=== PATIENT | female | born 1935 | race Caucasian/White ===

== ENCOUNTER → 2018-03-04 13:57 | Outpatient (BNVA) | payer MEDICARE, MEDICAID, SELFPAY | PROVIDERS: PCP Family Medicine; Visit Provider Orthopaedic Surgery | DX: M17.11 Unilateral primary osteoarthritis, right knee (principal) | CPT/HCPCS: 20610; 99213; J7325 ==

== ENCOUNTER → 2018-04-15 10:11 | Outpatient (BNVA) | payer MEDICARE, MEDICAID, SELFPAY | PROVIDERS: PCP Family Medicine; Referring Provider Family Medicine; Visit Provider Orthopaedic Surgery | DX: M17.11 Unilateral primary osteoarthritis, right knee (principal); M25.561 Pain in right knee; E11.9 Type 2 diabetes mellitus without complications; I10 Essential (primary) hypertension | CPT/HCPCS: 20610; 99211; 99213; J1040 ==

== ENCOUNTER 2018-05-10 12:15 | Outpatient (REF) | payer MEDICARE, MEDICAID, SELFPAY ==
[2018-05-10 22:17] LABS: ALT 21 U/L (12-78); AST 17 U/L (15-37); Albumin 3.9 g/dL (3.4-5.0); Alkaline Phosphatase 88 U/L (46-116); Anion Gap 9.9 mmol/L (3-11); BUN 15 mg/dL (7-18); Bilirubin, Total 0.5 mg/dL (0.2-1.0); CO2 29.1 mmol/L (21.0-32.0); CREATININE 1.05 mg/dL (0.55-1.02); Calcium 9.4 mg/dL (8.5-10.1); Chloride 103 mmol/L (98-107); Glucose 130 mg/dL (70-100); Potassium 3.9 mmol/L (3.5-5.1); Sodium 142 mmol/L (136-145); TSH (W/Ref FT4) 0.62 uIU/mL (0.358-3.74); Total Protein 7.1 g/dL (6.4-8.2)
[2018-05-10 22:54] LABS: Hemoglobin A1C 6.4 % (4.5-6.2)
== END 2018-05-10 12:35 ==
LOC: NCHCN 12:15
PROVIDERS: PCP Family Medicine; Visit Provider Family Medicine
DX: E11.9 Type 2 diabetes mellitus without complications (principal); I10 Essential (primary) hypertension; E03.9 Hypothyroidism, unspecified
CPT/HCPCS: 80053; 83036; 84443

== ENCOUNTER 2018-07-07 13:03 | Outpatient (REF) | payer MEDICARE, MEDICAID, SELFPAY ==
[2018-07-07 22:23] LABS: Bilirubin Negative (Negative); Blood Negative (Negative); Clarity Clear; Glucose Negative (Negative); Ketones Negative (Negative); Leukocyte Esterase Negative (Negative); Nitrite Negative (Negative); Urobilinogen 0.2 EU/dL (Up TO 0.2)
== END 2018-07-07 13:23 ==
LOC: NCHCN 13:03
PROVIDERS: PCP Family Medicine; Visit Provider Family Medicine
DX: N39.46 Mixed incontinence (principal)
CPT/HCPCS: 81003

== ENCOUNTER → 2018-08-12 13:54 | Outpatient (BNVA) | payer MEDICARE, MEDICAID, SELFPAY | PROVIDERS: PCP Family Medicine; Referring Provider Family Medicine; Visit Provider Orthopaedic Surgery | DX: M17.11 Unilateral primary osteoarthritis, right knee (principal); E11.40 Type 2 diabetes mellitus with diabetic neuropathy, unspecified; I10 Essential (primary) hypertension | CPT/HCPCS: 20610; 99211; 99213; J7325 ==

== ENCOUNTER 2019-02-15 15:46 | Outpatient (REF) | payer MEDICARE, MEDICAID, SELFPAY ==
[2019-02-15 17:00] LABS: Bilirubin Negative (Negative); Blood Negative (Negative); Clarity Cloudy (Clear); Glucose 100 mg/dL (Negative); Ketones Negative (Negative); Leukocyte Esterase Trace (Negative); Nitrite Negative (Negative); Specific Gravity 1.015 (1.005-1.025); Urobilinogen 0.2 EU/dL (Up TO 0.2); pH 8.5 (5-8)
[2019-02-15 17:19] LABS: Bacteria Packed HPF (Negative); Epithelial Cells Rare HPF (Negative)
[2019-02-15 17:20] LABS: C & S Indicated? Yes; Crystals Moderate Amorphous HPF (Negative)
== END 2019-02-15 16:06 ==
LOC: LBN 15:46
PROVIDERS: PCP Family Medicine; Visit Provider Family Medicine
DX: N39.0 Urinary tract infection, site not specified (principal)
CPT/HCPCS: 87077; 81003; 81015; 87086; 87186

== ENCOUNTER → 2019-02-17 12:57 | Outpatient (BNVA) | payer MEDICARE, MEDICAID, SELFPAY | PROVIDERS: PCP Family Medicine; Referring Provider Family Medicine; Visit Provider Orthopaedic Surgery | DX: M17.11 Unilateral primary osteoarthritis, right knee (principal); E11.9 Type 2 diabetes mellitus without complications; I10 Essential (primary) hypertension | CPT/HCPCS: 20610; 99211; 99213; J7318 ==

== ENCOUNTER 2019-05-26 15:20 | Outpatient (REF) | payer MEDICARE, MEDICAID, SELFPAY ==
[2019-05-26 19:23] LABS: Anion Gap 10.6 mmol/L (3-11); BUN 10 mg/dL (7-18); CO2 29.4 mmol/L (21.0-32.0); CREATININE 1.24 mg/dL (0.55-1.02); Chloride 103 mmol/L (98-107); Estimated GFR 41.41 (mL/min/1.73m2); Glucose 107 mg/dL (74-106); Potassium 4.5 mmol/L (3.5-5.1); Sodium 143 mmol/L (136-145); TSH (W/Ref FT4) 0.86 uIU/mL (0.36-3.74)
[2019-05-26 19:32] LABS: COMMENT (LAB VIEW ONLY) 35.41 mg/dL; Microalb ug/mg Crea 23.2 ug/mg Cr
== END 2019-05-26 15:40 ==
LOC: NCHCN 15:20
PROVIDERS: PCP Family Medicine; Visit Provider Nurse Practitioner Family
DX: E03.9 Hypothyroidism, unspecified (principal); I10 Essential (primary) hypertension; E11.9 Type 2 diabetes mellitus without complications
CPT/HCPCS: 80048; 82043; 82570; 84443

== ENCOUNTER 2019-07-25 18:46 | Outpatient (REF) | payer MEDICARE, SELFPAY ==
[2019-07-25 18:15] LABS: Abs Immature Grans 0.01 k/cumm (0.0-0.09); Absolute Basophil Count 0.02 k/cumm (0.0-0.2); Absolute Eosinophil Count 0.25 k/cumm (0.0-0.7); Absolute Lymphocyte Count 2.17 k/cumm (1.2-3.4); Absolute Monocyte Count 0.61 k/cumm (0.11-0.7); Absolute Neutrophil Count 3.23 k/cumm (1.2-6.7); Basophils % 0.3; HCT 38.3 % (36.0-46.0); HGB 12.3 g/dL (12.0-15.5); Immature Grans % 0.2 %; Lymphocytes % 34.5; Mean Corp. HGB Concentration 32.1 g/dL (32.0-36.0); Mean Corpuscular Hemoglobin 28.9 pg (27.0-33.0); Mean Corpuscular Volume 89.9 fL (80-95); Mean Platelet Volume 10.1 fL (8.0-11.0); Monocytes % 9.7; Neutrophils % 51.3; Platelet Count 326 x1000/uL (130-400); RBC 4.26 m/cumm (4.00-5.20); RBC Distribution Width 14.6 % (11.7-14.6); White Blood Cell Count 6.29 k/cumm (4.4-10.8)
[2019-07-25 18:33] LABS: ALT 17 U/L (14-59); AST 22 U/L (15-37); Albumin 3.7 g/dL (3.4-5.0); Alkaline Phosphatase 76 U/L (46-116); Bilirubin, Direct 0.09 mg/dL (0.00-0.20); Bilirubin, Total 0.3 mg/dL (0.2-1.0); Total Protein 6.7 g/dL (6.4-8.2)
[2019-07-25 19:32] LABS: Folate 8.9 ng/mL (8.6-20.0); Vitamin B12 286 pg/mL (193-986)
[2019-07-25 19:59] LABS: ESR 29 mm/hr (0-30)
== END 2019-07-25 19:06 ==
LOC: NCHCN 18:46
PROVIDERS: PCP Family Medicine; Visit Provider Nurse Practitioner Psychiatric/Mental Health
DX: F03.90 Unspecified dementia, unspecified severity, without behavioral disturbance, psychotic disturbance, mood disturbance, and anxiety (principal); F22 Delusional disorders; M85.88 Other specified disorders of bone density and structure, other site
CPT/HCPCS: 80076; 82306; 85652; 82607; 82746; 85025

== ENCOUNTER 2019-07-27 08:17 | Outpatient (REF) | payer MEDICARE, MEDICAID, SELFPAY | END 2019-07-27 08:37 | LOC: LBN 08:17 | PROVIDERS: PCP Family Medicine; Visit Provider Nurse Practitioner Psychiatric/Mental Health | DX: R41.0 Disorientation, unspecified (principal); F22 Delusional disorders | CPT/HCPCS: 87077; 87086; 87186 ==

== ENCOUNTER 2020-01-18 12:53 | Outpatient (REF) | payer MEDICARE, MEDICAID, SELFPAY | END 2020-01-18 13:13 | LOC: NCHCN 12:53 | PROVIDERS: PCP Family Medicine; Visit Provider Nurse Practitioner Psychiatric/Mental Health | DX: F22 Delusional disorders (principal) | CPT/HCPCS: 87086; 87186 ==

== ENCOUNTER 2020-01-19 11:22 | Outpatient (REF) | payer MEDICARE, MEDICAID, SELFPAY ==
[2020-01-19 12:17] LABS: Abs Immature Grans 0.01 10^3/uL (0.0-0.06); Absolute Basophil Count 0.03 10^3/uL (0.0-0.2); Absolute Eosinophil Count 0.13 10^3/uL (0.0-0.7); Absolute Lymphocyte Count 2.09 10^3/uL (1.2-3.4); Absolute Monocyte Count 0.59 10^3/uL (0.1-0.8); Absolute Neutrophil Count 3.24 10^3/uL (1.2-6.7); Basophils % 0.5; Eosinophils % 2.1; HCT 38.7 % (36.0-46.0); HGB 12.4 g/dL (11.2-15.7); Immature Grans % 0.2; Lymphocytes % 34.3; MCH 29.2 pg (27.0-33.0); MCV 91.3 fL (80-95); MPV 9.9 fL (8.0-11.0); Monocytes % 9.7; Neutrophils % 53.2; Platelet Count 317 10^3/uL (130-400); RBC 4.24 10^6/uL (3.93-5.22); RDW 12.9 % (11.7-14.6); RDW-SD 43.5 fL; WBC 6.09 10^3/uL (4.4-10.8)
[2020-01-19 12:38] LABS: ALT 19 U/L (14-59); AST 19 U/L (15-37); Albumin 3.8 g/dL (3.4-5.0); Alkaline Phosphatase 78 U/L (46-116); Anion Gap 10.1 mmol/L (3-11); BUN 14 mg/dL (7-18); Bilirubin, Direct 0.16 mg/dL (0.00-0.20); Bilirubin, Total 0.5 mg/dL (0.2-1.0); CO2 28.9 mmol/L (21.0-32.0); CREATININE 1.11 mg/dL (0.55-1.02); Calcium 9.2 mg/dL (8.5-10.1); Chloride 103 mmol/L (98-107); Estimated GFR 47.06 (mL/min/1.73m2); Glucose 119 mg/dL (74-106); Potassium 4.1 mmol/L (3.5-5.1); Sodium 142 mmol/L (136-145); TSH (W/Ref FT4) 0.67 uIU/mL (0.36-3.74); Total Protein 6.9 g/dL (6.4-8.2)
[2020-01-19 12:44] LABS: Hemoglobin A1C 6.4 % (3.8-5.6)
== END 2020-01-19 11:42 ==
LOC: NCHCN 11:22
PROVIDERS: PCP Family Medicine; Visit Provider Nurse Practitioner Psychiatric/Mental Health
DX: F03.90 Unspecified dementia, unspecified severity, without behavioral disturbance, psychotic disturbance, mood disturbance, and anxiety (principal); F22 Delusional disorders; E11.9 Type 2 diabetes mellitus without complications
CPT/HCPCS: 80048; 80076; 83036; 84443; 85025

== ENCOUNTER 2020-02-15 10:30 | Outpatient (REF) | payer MEDICARE, MEDICAID, SELFPAY ==
[2020-02-16 17:00] LABS: COVID-19 RT-PCR Result Not Detected ((See Note))
== END 2020-02-15 10:50 ==
LOC: NCHCN 10:30
PROVIDERS: PCP Family Medicine; Visit Provider Nurse Practitioner Family
DX: Z11.59 Encounter for screening for other viral diseases (principal)
CPT/HCPCS: U0003

== ENCOUNTER 2020-05-11 12:09 | Inpatient (IN) | payer MEDICARE, MEDICAID, SELFPAY ==
[2020-05-11] VITALS (7 sets, daily range): BP systolic 92–111; BP diastolic 47–91; PULSE 76–96; RESP 16–19; TEMP 35.7–37.7; O2SAT 95–99
--- NOTE | 2020-05-11 12:07 | W.ED.GENAD ---
Discharge Plan Disposition Patient Disposition: [facility] INPATIENT Condition: Stable Discharge Details Chief Complaint: Orthopedic Clinical Impression: Closed fracture of right hip, Acute UTI Primary Care Provider: Tino Gaines ED Provider: Phillip Casanova Home Meds and New Rx's Prescriptions: No Action loperamide [Imodium A-D] 2 MG tablet 4 mg PO PRN PRNRF: 0 citalopram 20 MG tablet 20 mg PO DAILY RF: 0 diltiazem HCl 120 MG tablet 120 mg PO BID RF: 0 levothyroxine 125 MCG tablet 75 mcg PO DAILY RF: 0 simvastatin 20 MG tablet 40 mg PO DAILY RF: 0 Pradaxa 150 MG capsule 150 mg PO BID RF: 0 cetirizine 10 MG tablet,chewable 10 mg PO DAILY RF: 0 metoprolol succinate 50 MG tablet extended release 24 hr 25 mg PO DAILY RF: 0 furosemide 20 MG tablet 20 mg PO BID RF: 0 ibuprofen 200 MG capsule 400 mg PO Q4H PRN PRNRF: 0 acetaminophen [Acetaminophen Extra Strength] 500 MG tablet 1,000 mg PO Q4H PRN PRNRF: 0 guaifenesin 100 MG/5 ML liquid 200 mg PO Q4H PRN PRNRF: 0 calcium carbonate 600 MG tablet 600 mg PO DAILY RF: 0 potassium chloride [Klor-Con M20] 20 MEQ tablet,ER particles/crystals 20 meq PO DAILY RF: 0 lorazepam 0.5 MG tablet 0.5 mg PO BID PRNRF: 0 pantoprazole 40 MG tablet,delayed release (DR/EC) 40 mg PO DAILY RF: 0 mirtazapine 15 MG tablet 15 mg PO HS RF: 0 cholecalciferol (vitamin D3) [Vitamin D3] 1,000 UNIT capsule 1,000 unit PO DAILY RF: 0 Myrbetriq 50 MG tablet extended release 24 hr 50 mg PO DAILY RF: 0 cholestyramine (bulk) 5 GM powder 4 gm PO BID PRN (Reason: if needed) RF: 0 calcium carbonate 500 MG tablet,chewable 500 mg PO TID RF: 0 donepezil 10 MG tablet,disintegrating 10 mg PO DAILY RF: 0 docusate sodium [Colace] 100 MG capsule 200 mg PO DAILY PRNRF: 0 glycerin (adult) [Fleet Glycerin (Adult)] 1 EACH suppository 1 ea RC DAILY PRN (Reason: Constipation) RF: 0 quetiapine 25 mg tablet 37.5 mg PO BID RF: 0 memantine 5 mg tablet 5 mg PO DAILY RF: 0 Medical Decision Making 85-year-old female with history of A. fib, anticoagulated, diabetes, hypertension, dementia, presents to the ER via EMS after having a mechanical slip and fall injuring her right hip. There is not appear to be any distracting injuries. Patient does have a history of dementia, per staff, she is at baseline mental status. Given her evaluation of a shortened externally rotated hip, will obtain IV access, give IV fluid, obtain laboratory values, urinalysis, x-ray of right hip, pelvis, femur, head CT. We will also obtain EKG, chest x-ray, Covid swab, MRSA swab as well. CT imaging of brain read by radiology as negative. X-ray of right hip and pelvis reveals an impacted right femoral neck fracture. Question of a nondisplaced fracture component into the greater trochanter. Right femur x-ray per radiology, please refer to the x-ray of the right hip for complete details. X-ray of the chest is negative. Repeat blood pressure is trending upward 108/91. I did reach out to her son, Anderson Pierce, at [phone]. He did not answer but I did leave a message for him to call our facility. Laboratory values do not reveal any obvious emergent process. She does have 20-50 white cells in her urine with leuk esterase and nitrate positive. I did discuss the case with our orthopedic surgical team, Dr. Blankenship. She reports that surgery will have to be at least 48 hours in the future given she is on Pradaxa. He recommends a medical admission. I was able to speak with our hospitalist team, Dr. Hoover. She would like to initiate IV Rocephin therapy for her UTI and she is happy to admit the patient. She will write orders. I will initiate Rocephin here in the ER. I received a call from Marielos, the patient's daughter who lives in [place]. I was able to answer her questions and get her up to speed. She then was forwarded to a portable phone so she could personally speak with her mother. Medical Records Medical records reviewed: Yes I reviewed the patient's medical records. Lab Data Lab results reviewed: Yes I reviewed the patient's lab results. Lab results narrative: 05/11/20 13:20 Urine - Reflex from Ua Urine Culture - Pending 05/11/20 13:12 Nose MRSA Screen - Pending Laboratory Tests Range/Units 05/11/20 05/11/20 05/11/20 13:10 13:10 13:10 WBC Cancelled RBC Cancelled Hgb Cancelled Hct Cancelled MCV Cancelled MCH Cancelled MCHC Cancelled RDW Cancelled Plt Count Cancelled MPV Cancelled Immature Gran % Cancelled Neutrophils % Cancelled Band Neutrophils % Cancelled Lymphocytes % Cancelled Atypical Lymphs % Cancelled Monocytes % Cancelled Eosinophils % Cancelled Basophils % Cancelled Metamyelocytes % Cancelled Myelocytes % Cancelled Promyelocytes % Cancelled Other Cells % Cancelled Nucleated RBC % Cancelled Absolute Neutrophils Cancelled Absolute Lymphocytes Cancelled Absolute Monocytes Cancelled Absolute Eosinophils Cancelled Absolute Basophils Cancelled RBC Morphology Cancelled Polychromasia Cancelled Hypochromasia Cancelled Poikilocytosis Cancelled Basophilic Stippling Cancelled Anisocytosis Cancelled Microcytosis Cancelled Macrocytosis Cancelled Spherocytes Cancelled Tear Drop Cells Cancelled Ovalocytes Cancelled Stomatocytes Cancelled [place] Bodies Cancelled Francesca Cells/Echinocytes Cancelled Acanthocytes (Spur) Cancelled Schistocytes Cancelled PT Cancelled INR Cancelled APTT Cancelled Sodium Cancelled Potassium Cancelled Chloride Cancelled Carbon Dioxide Cancelled Anion Gap Cancelled BUN Cancelled Creatinine Cancelled Estimated GFR/1.73 m2 Cancelled Glucose Cancelled Calcium Cancelled Total Bilirubin Cancelled AST Cancelled ALT Cancelled Alkaline Phosphatase Cancelled Total Protein Cancelled Albumin Cancelled TSH Cancelled Urine Color (Yellow) Urine Clarity (Clear) Urine pH (5-8) Ur Specific [place] (1.005-1.025) Urine Protein (Negative) mg/dL Urine Ketones (Negative) mg/dL Urine Blood (Negative) Urine Nitrite (Negative) Urine Bilirubin (Negative) Urine Urobilinogen (Up TO 0.2) EU/dL Ur Leukocyte Esterase (Negative) Urine RBC Urine WBC (0-5) HPF Ur Epithelial Cells Urine Crystals Urine Bacteria (Negative) HPF Urine Mucus Ur Culture Indicated? Urine Glucose (Negative) mg/dL Range/Units 05/11/20 05/11/20 05/11/20 13:20 13:45 13:45 WBC 9.34 RBC 4.68 Hgb 13.1 Hct 41.4 MCV 88.5 MCH 28.0 MCHC 31.6 L RDW 14.9 H Plt Count 303 MPV 9.9 Immature Gran % 0.4 Neutrophils % 78.9 Band Neutrophils % Lymphocytes % 13.8 Atypical Lymphs % Monocytes % 5.8 Eosinophils % 0.9 Basophils % 0.2 Metamyelocytes % Myelocytes % Promyelocytes % Other Cells % Nucleated RBC % 0 Absolute Neutrophils 7.37 H Absolute Lymphocytes 1.29 Absolute Monocytes 0.54 Absolute Eosinophils 0.08 Absolute Basophils 0.02 RBC Morphology Polychromasia Hypochromasia Poikilocytosis Basophilic Stippling Anisocytosis Microcytosis Macrocytosis Spherocytes Tear Drop Cells Ovalocytes Stomatocytes [place] Bodies [place] Cells/Echinocytes Acanthocytes (Spur) Schistocytes PT 14.2 H INR 1.4 H APTT 33.4 H Sodium Potassium Chloride Carbon Dioxide Anion Gap BUN Creatinine Estimated GFR/1.73 m2 Glucose Calcium Total Bilirubin AST ALT Alkaline Phosphatase Total Protein Albumin TSH Urine Color (Yellow) Yellow Urine Clarity (Clear) Sl cloudy Urine pH (5-8) 5.5 Ur Specific [place] (1.005-1.025) 1.020 Urine Protein (Negative) mg/dL Negative Urine Ketones (Negative) mg/dL Negative Urine Blood (Negative) Trace-lysed H Urine Nitrite (Negative) Positive H Urine Bilirubin (Negative) Negative Urine Urobilinogen (Up TO 0.2) EU/dL 0.2 Ur Leukocyte Esterase (Negative) Trace H Urine RBC Not Applicable Urine WBC (0-5) HPF 20-50 H Ur Epithelial Cells Not Applicable Urine Crystals Not Applicable Urine Bacteria (Negative) HPF Packed Urine Mucus Not Applicable Ur Culture Indicated? Yes Urine Glucose (Negative) mg/dL Negative Range/Units 05/11/20 13:45 WBC RBC Hgb Hct MCV MCH MCHC RDW Plt Count MPV Immature Gran % Neutrophils % Band Neutrophils % Lymphocytes % Atypical Lymphs % Monocytes % Eosinophils % Basophils % Metamyelocytes % Myelocytes % Promyelocytes % Other Cells % Nucleated RBC % Absolute Neutrophils Absolute Lymphocytes Absolute Monocytes Absolute Eosinophils Absolute Basophils RBC Morphology Polychromasia Hypochromasia Poikilocytosis Basophilic Stippling Anisocytosis Microcytosis Macrocytosis Spherocytes Tear Drop Cells Ovalocytes Stomatocytes [place] Bodies Francesca Cells/Echinocytes Acanthocytes (Spur) Schistocytes PT INR APTT Sodium 143 Potassium 4.2 Chloride 104 Carbon Dioxide 28.9 Anion Gap 10.1 BUN 17 Creatinine 0.94 Estimated GFR/1.73 m2 56.87 Glucose 176 H Calcium 9.1 Total Bilirubin 0.4 AST 20 ALT 13 L Alkaline Phosphatase 99 Total Protein 7.2 Albumin 3.6 TSH 1.59 Urine Color (Yellow) Urine Clarity (Clear) Urine pH (5-8) Ur Specific [place] (1.005-1.025) Urine Protein (Negative) mg/dL Urine Ketones (Negative) mg/dL Urine Blood (Negative) Urine Nitrite (Negative) Urine Bilirubin (Negative) Urine Urobilinogen (Up TO 0.2) EU/dL Ur Leukocyte Esterase (Negative) Urine RBC Urine WBC (0-5) HPF Ur Epithelial Cells Urine Crystals Urine Bacteria (Negative) HPF Urine Mucus Ur Culture Indicated? Urine Glucose (Negative) mg/dL ECG Data Attestation: I personally reviewed and interpreted this ECG (s) as follows: Interpretation: Please see official report by Dr. Monson. Atrial fibrillation, rate of 91. Nonspecific T wave abnormalities. HPI General Mode of arrival: EMS. Date/Time Provider Initiated Documentation: 05/11/20 12:20. Limitations to Documentation: altered mental status (at baseline per staff). Information obtained by: patient and EMS. HPI Narrative: This is a 85-year-old female presenting via EMS from the [facility]. She has a past medical history that includes dementia, at baseline mental status per staff, atrial fibrillation, on Pradaxa, diabetes, hypertension, GERD, presenting for evaluation of a mechanical fall. Apparently this was a witnessed fall, patient tripped, falling forward injuring her right hip. She was initially given 75 of fentanyl by EMS and additional 25 upon arrival here in the ER. Denies any other injury, striking her head, headache, neck pain, chest pain, shortness of breath no abdominal pain, nausea, vomiting, incontinence. Per report from the [facility], no other injury witnessed, only concern is that of right hip pain. Pain is severe, unable to bear weight Related Data Home Medications Medication Instructions Recorded Confirmed citalopram 20 mg PO DAILY tab-cap 11/02/12 05/11/20 diltiazem HCl 120 mg PO BID tab-cap 11/02/12 05/11/20 levothyroxine 75 mcg PO DAILY 11/02/12 05/11/20 loperamide [Imodium A-D] 4 mg PO PRN PRN 11/02/12 05/11/20 simvastatin 40 mg PO DAILY tab-cap 05/18/13 05/11/20 furosemide 20 mg PO BID 07/06/14 05/11/20 metoprolol succinate 25 mg PO DAILY 07/06/14 05/11/20 Pradaxa 150 mg PO BID tab-cap 03/13/15 05/11/20 cetirizine 10 mg PO DAILY tab-cap 03/20/15 05/11/20 acetaminophen [Acetaminophen Extra 1,000 mg PO Q4H PRN PRN 12/26/16 05/11/20 Strength] calcium carbonate 600 mg PO DAILY 12/26/16 02/17/19 cholecalciferol (vitamin D3) 1,000 unit PO DAILY 12/26/16 05/11/20 [Vitamin D3] guaifenesin 200 mg PO Q4H PRN PRN 12/26/16 05/11/20 ibuprofen 400 mg PO Q4H PRN PRN 12/26/16 05/11/20 lorazepam 0.5 mg PO BID PRN 12/26/16 05/11/20 mirtazapine 15 mg PO HS 12/26/16 05/11/20 pantoprazole 40 mg PO DAILY 12/26/16 02/17/19 potassium chloride [Klor-Con M20] 20 meq PO DAILY 12/26/16 05/11/20 Myrbetriq 50 mg PO DAILY 09/19/17 05/11/20 calcium carbonate 500 mg PO TID 09/19/17 02/17/19 cholestyramine (bulk) 4 gm PO BID PRN 09/19/17 02/17/19 docusate sodium [Colace] 200 mg PO DAILY PRN 09/19/17 05/11/20 donepezil 10 mg PO DAILY 09/19/17 02/17/19 glycerin (adult) [Fleet Glycerin 1 ea RC DAILY PRN 09/19/17 02/17/19 (Adult)] memantine 5 mg PO DAILY 05/11/20 05/11/20 quetiapine 37.5 mg PO BID 05/11/20 05/11/20 Allergies Allergy/AdvReac Type Severity Reaction Status Date / Time No Known Allergies Allergy Unverified 05/11/20 12:16 Review of Systems Constitutional Constitutional: Denies fatigue, Denies fever(s) and Denies headache(s) Eyes Eyes: Denies change in vision ENT Ears, Nose, Mouth, and Throat: Denies headache(s) and Denies neck pain Cardiovascular Cardiovascular: Denies chest pain and Denies dyspnea Respiratory Respiratory: Denies cough and Denies dyspnea Gastrointestinal Gastrointestinal: Denies abdominal pain, Denies nausea and Denies vomiting Genitourinary Genitourinary: Denies dysuria Musculoskeletal Musculoskeletal: Denies back pain, Denies neck pain, Denies numbness and Denies tingling Integumentary/Breasts Skin/Breast: Denies rash Neurologic Neurologic: Denies headache(s), Denies numbness and Denies tingling Endocrine Endocrine: Denies fatigue Hematologic/Lymphatic Hematologic/Lymphatic: Reports easy bleeding and Reports easy bruising [facility] Medical History papillara virus Atrial fibrillation Hayward's esophagus Carpal tunnel syndrome cervical cancer in situ 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 Father , Pulm. Emb. at age 51. Personal history of malignant neoplasm colon Sister , muscle degeneration No problems noted. Brother , pneumonia at age 57. Personal history of malignant neoplasm colon Social History Smoking/Tobacco Use Status: Former Tobacco Use Smoking risk assessment performed?: Yes Drug use: Never Do you feel safe in your relationship?: Yes Exam Const General: cooperative, healthy appearing, no acute distress and in distress Orientation: alert, awake, oriented to person, oriented to place and confused (The exact date) [facility] Head: normal to inspection, normocephalic and atraumatic General nose exam: external nose normal Face and sinus: normal facial exam Mouth: moist mucous membranes Throat: posterior oropharynx normal Eyes General: appearance normal, both eyes and all related structures Alignment and Position: alignment normal Periorbital: periorbital findings normal Eyelids: eyelids normal Conjunctivae: conjunctivae normal Sclera: sclerae normal Cornea: corneas normal Pupils: PERRL EOM: EOM intact bilaterally Direct ophthalmoscopy: normal light reflex Neck Neck: normal visual inspection, full ROM, no meningeal signs, trachea midline, supple and nontender Resp Effort & Inspection: normal respiratory effort and able to speak in complete sentences Auscultation: clear to auscultation bilaterally Cardio Rate: regular rate Rhythm: abnormal rhythm irregularly irregular GI Inspection: normal to inspection Palpation: soft and nontender Back/Spine/Pelvis Back: No back tenderness Skin General skin exam: no rashes or lesions noted Neuro General: patient alert, patient awake, moves all extremities and no focal motor deficits Cranial Nerves: CN's II-XI intact bilaterally Motor: muscle tone normal throughout Sensory Exam: no sensory deficits noted Extrem Right upper extremity: normal to inspection, full ROM and normal capillary refill Left upper extremity: normal to inspection, full ROM and normal capillary refill Right lower extremity: normal capillary refill, hip/thigh (Diffuse lateral hip discomfort. Shortened, externally rotated), knee (Unremarkable), lower leg (Unremarkable) and ankle (Unremarkable) Left lower extremity: normal to inspection, full ROM and normal capillary refill Psych Appearance: grossly normal Mental Status: mental status grossly normal
--- NOTE | 2020-05-11 12:15 | DI.CT_ITS ---
EXAM: CT HEAD WO CLINICAL HISTORY: fall, unknown injury, ams at baseline. TECHNIQUE: Imaging Protocol: Axial computed tomography images with coronal and sagittal reformatted images were created and reviewed COMPARISON: No exams were available for comparison FINDINGS: Ventricles and Extra axial spaces: Normal in size and morphology for the patient's age. Hemorrhage: None. Cerebral parenchyma: There are areas of decreased attenuation in the white matter consistent with sma ll vessel ischemic disease. No acute territorial infarct is seen. Midline shift: None. Brainstem/Cerebellum: Normal. Calvarium: Normal. Visualized Paranasal sinuses/Mastoids: Clear. Soft Tissues: Unremarkable. IMPRESSION: No acute intracranial process. Findings were discussed with the emergency department on the date of the examination. RADIATION DOSE DELIVERED: 704.72mGy.cm Total DLP DATA REPOSITORY: All CT scans at this facility are submitted to the National Radiology Data Registry (NRDR) Dose Index Registry (DIR) with the [employer] (A[employer]). RADIATION OPTIMIZATION: All CT scans at this facility use at least one of these dose optimization te chniques: automated exposure control; mA and/or kV adjustment per patient size (includes targeted exa ms where dose is matched to clinical indication); or iterative reconstruction.
--- NOTE | 2020-05-11 12:15 | DI.RAD_ITS ---
EXAM: XR HIP RT COMPLETE AP PELVIS CLINICAL HISTORY: fall/pain. TECHNIQUE: 2D digital imaging was performed. COMPARISON: No exams were available for comparison FINDINGS: BONES: There is an acute fracture through the base of the neck of the right femur. There is impactio n of the fracture noted. There does appear to be a cortical break in the lateral aspect of the great er trochanter suspicious for nondisplaced fracture. No bony destructive lesion is seen. JOINTS: No dislocation present. SOFT TISSUE: Atherosclerosis. IMPRESSION: Impacted right femoral neck fracture. Question of a nondisplaced fracture component into the greater trochanter. A CT scan may be considered for further evaluation. DATA REPOSITORY: RADIATION DOSE DELIVERED:
--- NOTE | 2020-05-11 12:30 | DI.RAD_ITS ---
EXAM: XR FEMUR RT CLINICAL HISTORY: hip fx. TECHNIQUE: 2D digital imaging was performed. COMPARISON: No exams were available for comparison FINDINGS: BONES: The proximal femoral fracture is incompletely imaged on this examination. Please refer to the x-ray of the right hip for complete details of the proximal femoral fracture. No fracture is seen i n the mid and distal right femur. No bony destructive lesion is seen. Moderately severe degenerative changes are seen in the right knee. SOFT TISSUE: Atherosclerosis. IMPRESSION: Proximal right femoral fracture incompletely imaged on this examination. Please refer to the x-ray o f the right hip for complete details. DATA REPOSITORY: RADIATION DOSE DELIVERED:
--- NOTE | 2020-05-11 12:44 | DI.RAD_ITS ---
EXAM: XR CHEST 1V IN DI DEPT CLINICAL HISTORY: pre op TECHNIQUE: 2D digital imaging was performed. COMPARISON: CR CHEST 2 VIEWS PA,LAT from 09/19/2017 FINDINGS: MEDIASTINUM: Normal. HEART: Normal. PULMONARY VASCULATURE: Normal. LUNGS: Clear. PLEURAL SPACE: No pleural effusion or pneumothorax. BONE:Within normal limits for the patient's age. OTHER FINDINGS:Normal. IMPRESSION: No acute pulmonary findings. DATA REPOSITORY: RADIATION DOSE DELIVERED:
--- NOTE | 2020-05-11 13:00 | RT.EKG_ITS ---
APPROVED REPORT Exam: Resting ECG Patient Location: E HR:91 bpm ECG Measurements Heart Rate 91 AXIS OK [id number] P [id number] QRSd 118 QRS -61 QT 397 T 87 QTc 489 Conclusion Atrial fibrillation. Left anterior fascicular block. Probable left ventricular hypertrophy. Nonspecific T abnormalities, lateral leads.
[2020-05-11 13:31] LABS: Bilirubin Negative (Negative); Blood Trace-lysed (Negative); Clarity Sl Cloudy (Clear); Glucose Negative (Negative); Ketones Negative (Negative); Leukocyte Esterase Trace (Negative); Nitrite Positive (Negative); Urobilinogen 0.2 EU/dL (Up TO 0.2); pH 5.5 (5-8)
[2020-05-11 13:47] LABS: Bacteria Packed HPF (Negative); C & S Indicated? Yes; WBC 20-50 HPF (0-5)
[2020-05-11 13:50] LABS: Abs Immature Grans 0.04 10^3/uL (0.0-0.06); Absolute Basophil Count 0.02 10^3/uL (0.0-0.2); Absolute Eosinophil Count 0.08 10^3/uL (0.0-0.7); Absolute Lymphocyte Count 1.29 10^3/uL (1.2-3.4); Absolute Monocyte Count 0.54 10^3/uL (0.1-0.8); Absolute Neutrophil Count 7.37 10^3/uL (1.2-6.7); Basophils % 0.2; Eosinophils % 0.9; HCT 41.4 % (36.0-46.0); HGB 13.1 g/dL (11.2-15.7); Immature Grans % 0.4; Lymphocytes % 13.8; MCHC 31.6 % (32.0-36.0); MCV 88.5 fL (80-95); MPV 9.9 fL (8.0-11.0); Monocytes % 5.8; Neutrophils % 78.9; Nucleated RBC 0 %; Platelet Count 303 10^3/uL (130-400); RBC 4.68 10^6/uL (3.93-5.22); RDW 14.9 % (11.7-14.6); RDW-SD 48.7 fL; WBC 9.34 10^3/uL (4.4-10.8)
[2020-05-11 14:12] LABS: ALT 13 U/L (14-59); AST 20 U/L (15-37); Albumin 3.6 g/dL (3.4-5.0); Alkaline Phosphatase 99 U/L (46-116); Anion Gap 10.1 mmol/L (3-11); BUN 17 mg/dL (7-18); Bilirubin, Total 0.4 mg/dL (0.2-1.0); CO2 28.9 mmol/L (21.0-32.0); CREATININE 0.94 mg/dL (0.55-1.02); Calcium 9.1 mg/dL (8.5-10.1); Chloride 104 mmol/L (98-107); Estimated GFR 56.87 (mL/min/1.73m2); Glucose 176 mg/dL (74-106); Potassium 4.2 mmol/L (3.5-5.1); Sodium 143 mmol/L (136-145); TSH (W/Ref FT4) 1.59 uIU/mL (0.36-3.74); Total Protein 7.2 g/dL (6.4-8.2)
[2020-05-11 14:17] LABS: INR 1.4 (0.9-1.1); PTT Activated 33.4 sec (21.0-27.5); Prothrombin Time 14.2 sec (9.3-11.0)
[2020-05-11] MEDS: Normal Saline 1,000 ML 150 ML IV (14:25)
--- NOTE | 2020-05-11 15:09 | HPE_ITS ---
Date of service: 05/11/20 Time of Service: 15:09 Assessment and Plan Assessment and plan (1) Closed fracture of right hip: Start date: 05/11/20 Start time: 15:59 Status: Acute Assessment and plan: From mechanical fall witnessed, tripped over her own feet. Found to have femoral fracture of right hip. Ortho consulted. Pradaxa must be held 48 hours prior to surgery. On hold now Pt is a moderate risk for surgery, however benefits outweigh risks. SCDs, Teds, IVF pain management, Bowel regimen PT/OT following surgery Ramirez insertion Qualifiers: Encounter type: initial encounter Qualified Code(s): S72.001A - Fracture of unspecified part of neck of right femur, initial encounter for close d fracture (2) Acute UTI: Start date: 05/11/20 Start time: 16:02 Status: Acute Assessment and plan: Found on admission with nitrates, WBC and leuk est. Started on ceftriaxone 1 gm daily while awaiting sensitivities. (3) Diabetes mellitus type 2: Start date: 05/11/20 Start time: 16:03 Status: Chronic Assessment and plan: Does not appear to be on any medication at this time for diabetes BID fingersticks with am bgl level and add as needed. (4) Benign hypertension: Start date: 05/11/20 Start time: 16:07 Status: Chronic Assessment and plan: Control with home medications soft at this time. Will monitor (5) Gastroesophageal reflux disease: Start date: 05/11/20 Start time: 16:08 Status: Chronic Assessment and plan: Continue protonix (6) Atrial fibrillation: Start date: 05/11/20 Start time: 16:08 Status: Chronic Assessment and plan: EKG in the ED with Afib rate controlled in the 90's. On pradaxa. Hold pradaxa until hip repair. (7) Hypothyroidism: Start date: 05/11/20 Start time: 16:10 Status: Chronic Assessment and plan: continue levothyroxine, TSH within range. continue current dosing Qualifiers: Hypothyroidism type: unspecified Qualified Code(s): E03.9 - Hypothyroidism, unspecified (8) DVT prophylaxis: Start date: 05/11/20 Start time: 16:10 Status: Acute Assessment and plan: Holding at this time due to surgery. Teds and scds ordered. above case discussed with Dr. Hoover who is in agreement. History of Present Illness History of Present Illness Chief Complaint: Femoral fracture Narrative: 85 yo. female resident from [facility] with PMH of dementia, HTN, Afib on pradaxa ( on hold x 48 hours for Surgery). Diabetes, presents to [facility] ED after sustaining a fall and injurying her right hip. Imaging in the ED revealing impacted right femoral fracture. Ortho was consulted by ED, however due to pr adaxa she is unable to go to OR at this time. She will need to be off pradaxa for 48 hours prior to surgery. It is on hold now. In the ED UA with nitrates, blood and trace leuk est. Found [employer], will treat with ceftriaxone IV while awaiting cultures. Labs unremarkable. Head CT normal. She is being admitted for further management. Will admit with IV hydration and ortho was consulted in the ED. Will consult palliative care for goals of care. 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 Diabetes mellitus Discharge planning issues DJD (degenerative joint disease) Essential hypertension Gastroesophageal reflux disease h/o cervical cancer in situ History of tobacco use HPV test positive Hypercholesterolemia Hyperlipidemia left ankle fracture Lesion of ulnar nerve NEUROPATHY Osteoarthritis of left knee (07/12/14) Primary osteoarthritis of right knee Right knee pain Sensorineural hearing loss, bilateral (10/31/14) Urge incontinence Urgency incontinence (04/06/15) Surgical History (Updated 05/11/20 @ 15:58 by Inés Montague NP) Appendectomy (~1951) Artificial knee joint present (07/12/14) Cholecystectomy (~2005) Colonoscopy - MAC (~2009) EGD - MAC (~2009) H/O surgical procedure a. several EGDs and colonoscopies with colon adenomas removed b. left femoral rodding for fx c. appendectomy d. cholecystectomy e. hysterectomy sparing her ovaries f. bilateral carpal tunnel release g. t & a h. 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 Father , Pulm. Emb. at age 51. Personal history of malignant neoplasm colon Sister , muscle degeneration No problems noted. Brother , pneumonia at age 57. Personal history of malignant neoplasm colon Social History Smoking/Tobacco Use Status: Former Tobacco Use Smoking risk assessment performed?: Yes Drug use: Never Do you feel safe in your relationship?: Yes Meds Home Medications and Allergies Home Medications Medication Instructions Recorded Confirmed Type citalopram 20 mg PO DAILY tab-cap 11/02/12 05/11/20 History diltiazem HCl 120 mg PO BID tab-cap 11/02/12 05/11/20 History levothyroxine 75 mcg PO DAILY 11/02/12 05/11/20 History loperamide [Imodium A-D] 4 mg PO PRN PRN 11/02/12 05/11/20 History simvastatin 40 mg PO DAILY tab-cap 05/18/13 05/11/20 History furosemide 20 mg PO BID 07/06/14 05/11/20 History metoprolol succinate 25 mg PO DAILY 07/06/14 05/11/20 History Pradaxa 150 mg PO BID tab-cap 03/13/15 05/11/20 History cetirizine 10 mg PO DAILY tab-cap 03/20/15 05/11/20 History acetaminophen [Acetaminophen Extra 1,000 mg PO Q4H PRN PRN 12/26/16 05/11/20 History Strength] calcium carbonate 600 mg PO DAILY 12/26/16 02/17/19 History cholecalciferol (vitamin D3) 1,000 unit PO DAILY 12/26/16 05/11/20 History [Vitamin D3] guaifenesin 200 mg PO Q4H PRN PRN 12/26/16 05/11/20 History ibuprofen 400 mg PO Q4H PRN PRN 12/26/16 05/11/20 History lorazepam 0.5 mg PO BID PRN 12/26/16 05/11/20 History mirtazapine 15 mg PO HS 12/26/16 05/11/20 History pantoprazole 40 mg PO DAILY 12/26/16 02/17/19 History potassium chloride [Klor-Con M20] 20 meq PO DAILY 12/26/16 05/11/20 History Myrbetriq 50 mg PO DAILY 09/19/17 05/11/20 History calcium carbonate 500 mg PO TID 09/19/17 02/17/19 History cholestyramine (bulk) 4 gm PO BID PRN 09/19/17 02/17/19 History docusate sodium [Colace] 200 mg PO DAILY PRN 09/19/17 05/11/20 History donepezil 10 mg PO DAILY 09/19/17 02/17/19 History glycerin (adult) [Fleet Glycerin 1 ea RC DAILY PRN 09/19/17 02/17/19 History (Adult)] memantine 5 mg PO DAILY 05/11/20 05/11/20 History quetiapine 37.5 mg PO BID 05/11/20 05/11/20 History Allergies Allergy/AdvReac Type Severity Reaction Status Date / Time No Known Allergies Allergy Unverified 05/11/20 12:16 Exam Narrative Exam Narrative: Const: Elderly obese female, cooperative, AAOx2 pleasant. HENMT: no lymphedema, atraumatic EYES: PERRLA, EOMI Chest: symmetrical, no scarring Resp: LSC in all jhaveri no wheezing, rhonchi or rale. Cardio: Irregularlly irregular, GI: Abd soft nontender, bs x4 Skin: intact, no rashes Extrem: RLE shortened and externally rotated. PPPx2, cmst Results Labs Result diagrams: 05/11/20 13:45 05/11/20 13:45 Labs: Laboratory Results - last 24 hr 05/11/20 05/11/20 05/11/20 13:10 13:10 13:10 WBC Cancelled RBC Cancelled Hgb Cancelled Hct Cancelled MCV Cancelled MCH Cancelled MCHC Cancelled RDW Cancelled Plt Count Cancelled MPV Cancelled Immature Gran % Cancelled Neutrophils % Cancelled Band Neutrophils % Cancelled Lymphocytes % Cancelled Atypical Lymphs % Cancelled Monocytes % Cancelled Eosinophils % Cancelled Basophils % Cancelled Metamyelocytes % Cancelled Myelocytes % Cancelled Promyelocytes % Cancelled Other Cells % Cancelled Nucleated RBC % Cancelled Absolute Neutrophils Cancelled Absolute Lymphocytes Cancelled Absolute Monocytes Cancelled Absolute Eosinophils Cancelled Absolute Basophils Cancelled RBC Morphology Cancelled Polychromasia Cancelled Hypochromasia Cancelled Poikilocytosis Cancelled Basophilic Stippling Cancelled Anisocytosis Cancelled Microcytosis Cancelled Macrocytosis Cancelled Spherocytes Cancelled Tear Drop Cells Cancelled Ovalocytes Cancelled Stomatocytes Cancelled [place] Bodies Cancelled [place] Cells/Echinocytes Cancelled Acanthocytes (Spur) Cancelled Schistocytes Cancelled PT Cancelled INR Cancelled APTT Cancelled Sodium Cancelled Potassium Cancelled Chloride Cancelled Carbon Dioxide Cancelled Anion Gap Cancelled BUN Cancelled Creatinine Cancelled Estimated GFR/1.73 m2 Cancelled Glucose Cancelled Calcium Cancelled Total Bilirubin Cancelled AST Cancelled ALT Cancelled Alkaline Phosphatase Cancelled Total Protein Cancelled Albumin Cancelled TSH Cancelled Urine Color Urine Clarity Urine pH Ur Specific [place] Urine Protein Urine Ketones Urine Blood Urine Nitrite Urine Bilirubin Urine Urobilinogen Ur Leukocyte Esterase Urine RBC Urine WBC Ur Epithelial Cells Urine Crystals Urine Bacteria Urine Mucus Ur Culture Indicated? Urine Glucose 05/11/20 05/11/20 05/11/20 13:20 13:45 13:45 WBC 9.34 RBC 4.68 Hgb 13.1 Hct 41.4 MCV 88.5 MCH 28.0 MCHC 31.6 L RDW 14.9 H Plt Count 303 MPV 9.9 Immature Gran % 0.4 Neutrophils % 78.9 Band Neutrophils % Lymphocytes % 13.8 Atypical Lymphs % Monocytes % 5.8 Eosinophils % 0.9 Basophils % 0.2 Metamyelocytes % Myelocytes % Promyelocytes % Other Cells % Nucleated RBC % 0 Absolute Neutrophils 7.37 H Absolute Lymphocytes 1.29 Absolute Monocytes 0.54 Absolute Eosinophils 0.08 Absolute Basophils 0.02 RBC Morphology Polychromasia Hypochromasia Poikilocytosis Basophilic Stippling Anisocytosis Microcytosis Macrocytosis Spherocytes Tear Drop Cells Ovalocytes Stomatocytes [place] Bodies [place] Cells/Echinocytes Acanthocytes (Spur) Schistocytes PT 14.2 H INR 1.4 H APTT 33.4 H Sodium Potassium Chloride Carbon Dioxide Anion Gap BUN Creatinine Estimated GFR/1.73 m2 Glucose Calcium Total Bilirubin AST ALT Alkaline Phosphatase Total Protein Albumin TSH Urine Color Yellow Urine Clarity Sl cloudy Urine pH 5.5 Ur Specific [place] 1.020 Urine Protein Negative Urine Ketones Negative Urine Blood Trace-lysed H Urine Nitrite Positive H Urine Bilirubin Negative Urine Urobilinogen 0.2 Ur Leukocyte Esterase Trace H Urine RBC Not Applicable Urine WBC 20-50 H Ur Epithelial Cells Not Applicable Urine Crystals Not Applicable Urine Bacteria Packed Urine Mucus Not Applicable Ur Culture Indicated? Yes Urine Glucose Negative 05/11/20 13:45 WBC RBC Hgb Hct MCV MCH MCHC RDW Plt Count MPV Immature Gran % Neutrophils % Band Neutrophils % Lymphocytes % Atypical Lymphs % Monocytes % Eosinophils % Basophils % Metamyelocytes % Myelocytes % Promyelocytes % Other Cells % Nucleated RBC % Absolute Neutrophils Absolute Lymphocytes Absolute Monocytes Absolute Eosinophils Absolute Basophils RBC Morphology Polychromasia Hypochromasia Poikilocytosis Basophilic Stippling Anisocytosis Microcytosis Macrocytosis Spherocytes Tear Drop Cells Ovalocytes Stomatocytes [place] Bodies [place] Cells/Echinocytes Acanthocytes (Spur) Schistocytes PT INR APTT Sodium 143 Potassium 4.2 Chloride 104 Carbon Dioxide 28.9 Anion Gap 10.1 BUN 17 Creatinine 0.94 Estimated GFR/1.73 m2 56.87 Glucose 176 H Calcium 9.1 Total Bilirubin 0.4 AST 20 ALT 13 L Alkaline Phosphatase 99 Total Protein 7.2 Albumin 3.6 TSH 1.59 Urine Color Urine Clarity Urine pH Ur Specific [place] Urine Protein Urine Ketones Urine Blood Urine Nitrite Urine Bilirubin Urine Urobilinogen Ur Leukocyte Esterase Urine RBC Urine WBC Ur Epithelial Cells Urine Crystals Urine Bacteria Urine Mucus Ur Culture Indicated? Urine Glucose Last Vital Signs Temp 36.6 C 05/11/20 12:12 Pulse 94 H 05/11/20 14:31 Resp 16 05/11/20 12:12 BP 108/91 H 05/11/20 14:31 Pulse Ox 99 05/11/20 14:31 COVID-19 Screening Have you, or household traveled for leisure in last 14 days?: No Had IN PERSON contact w/suspected or confirmed C-19 person: No
[2020-05-11] MEDS: cefTRIAXone 1 GM/50 ML BAG IVPB (15:18)
[2020-05-11] MEDS: Acetaminophen 325 MG TAB 650 MG PO (17:33)
[2020-05-11] MEDS: Normal Saline Flush 10 ML SYR IVP ×2 (19:34→21:48)
[2020-05-11] MEDS: QUEtiapine 25 MG TAB 37.5 MG PO (19:46)
[2020-05-11] MEDS: dilTIAZem 60 MG TAB 120 MG PO (19:46)
[2020-05-11] MEDS: Simvastatin 40 MG TAB PO (19:48)
[2020-05-11] MEDS: Mirtazapine 15 MG TAB PO (21:22)
[2020-05-11] MEDS: LORazepam 0.5 MG TAB PO (21:22)
[2020-05-12] MEDS: Normal Saline 1,000 ML 75 ML IV (00:59)
[2020-05-12] MEDS: Levothyroxine 75 MCG TAB PO (05:56)
[2020-05-12] MEDS: Acetaminophen 325 MG TAB 650 MG PO ×3 (05:58→21:32)
[2020-05-12 07:29] LABS: Abs Immature Grans 0.03 10^3/uL (0.0-0.06); Absolute Basophil Count 0.01 10^3/uL (0.0-0.2); Absolute Eosinophil Count 0.02 10^3/uL (0.0-0.7); Absolute Lymphocyte Count 2.44 10^3/uL (1.2-3.4); Absolute Monocyte Count 1.12 10^3/uL (0.1-0.8); Absolute Neutrophil Count 6.19 10^3/uL (1.2-6.7); Basophils % 0.1; Eosinophils % 0.2; HCT 30.1 % (36.0-46.0); HGB 9.5 g/dL (11.2-15.7); Immature Grans % 0.3; Lymphocytes % 24.9; MCH 27.8 pg (27.0-33.0); MCHC 31.6 % (32.0-36.0); MPV 10.3 fL (8.0-11.0); Monocytes % 11.4; Neutrophils % 63.1; Nucleated RBC 0 %; Platelet Count 281 10^3/uL (130-400); RBC 3.42 10^6/uL (3.93-5.22); RDW 15.5 % (11.7-14.6); RDW-SD 49.8 fL; WBC 9.81 10^3/uL (4.4-10.8)
--- NOTE | 2020-05-12 07:43 | W.ORTHOCONSU ---
Date of service: 05/12/20 Time of Service: 07:09 History of Present Illness History of Present Illness Chief Complaint: Right hip pain Narrative: Homa is an 85-year-old who suffered a mechanical fall. She tripped yesterday which was observed. She lay on her right side. She was unable to bear weight had notable deformity of the right leg. She was brought to the emergency department and diagnosed with a basicervical fracture of the right hip. She does have dementia which is at her baseline per aids which are present. She also has known atrial fibrillation for which she takes Pradaxa and other rate controlling agents. She denies any significant premorbid right hip pain. She did have a left hip fracture which she is unclear of the details. This seemed to happen between 2008 2012 based on the radiographic history. Nevertheless, she complains of no issues with the left side which was fixed with intramedullary fixation. She denies any lightheadedness or dizziness loss of consciousness with the fall or surrounding it. Consults Consult date: 05/11/20 Requesting physician: Phillip Casanova Consult Reason Right hip fracture Assessment and Plan Assessment and plan (1) Closed fracture of right hip: Status: Acute Assessment and plan: Homa is an 85-year-old who had a mechanical fall onto the right hip and suffered a basicervical type fracture of the right hip. This seems to have some intertrochanteric involvement and therefore should be treated mostly like an intertrochanteric fracture. There is a risk of avascular necrosis but I do believe that this is a correct treatment stabilization rather than a calcar replacing hemiarthroplasty or hip replacement. I discussed this briefly with Homa. She does have some dementia but seems to follow the discussion adequately. She expresses wanting this fixed so that she may walk again. I briefly reviewed the risk of the procedure to include bleeding, infection, pain, stiffness, damage to nerves and vessels, damage to muscles and tendons, blood clot, cardiopulmonary demise. I advised that it would be similar to what she had done on the left side. Given her pradaxa use, we will perform surgery tomorrow which should give 4 half-lifes off of the Pradaxa and reduce the bleeding risk. 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 Diabetes mellitus Discharge planning issues DJD (degenerative joint disease) Essential hypertension Gastroesophageal reflux disease h/o cervical cancer in situ History of tobacco use 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 several EGDs and colonoscopies with colon adenomas removed b. left femoral rodding for fx c. appendectomy d. cholecystectomy e. hysterectomy sparing her ovaries f. bilateral carpal tunnel release g. t & a h. 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 Father , Pulm. Emb. at age 51. Personal history of malignant neoplasm colon Sister , muscle degeneration No problems noted. Brother , pneumonia at age 57. Personal history of malignant neoplasm colon Social History Smoking/Tobacco Use Status: Former Tobacco Use Smoking risk assessment performed?: Yes Drug use: Never Do you feel safe in your relationship?: Yes Exam Narrative Exam Narrative: Sitting up in the hospital bed. Her right leg is notably shortened and externally rotated. There are no skin changes to the right hip itself. No signs of defect in the skin, infection, or ecchymosis. Thigh soft and compressible. She is able demonstrate active dorsiflexion, plantarflexion, EHL, and FHL function of the right foot. She endorses full sensation to the superficial and deep peroneal nerve and tibial nerve as well as the femoral nerve distribution. Palpable DP and PT pulse. No pain with palpation of the foot, leg, or knee. Results Last Vital Signs Temp 35.7 C L 05/11/20 23:38 Pulse 88 05/11/20 23:38 Resp 19 05/11/20 23:38 BP 98/65 L 05/11/20 23:38 Pulse Ox 95 05/11/20 23:38 Labs Result diagrams: 05/12/20 06:48 05/11/20 13:45 Labs: Laboratory Results - last 24 hr 05/11/20 05/11/20 05/11/20 13:10 13:10 13:10 WBC Cancelled RBC Cancelled Hgb Cancelled Hct Cancelled MCV Cancelled MCH Cancelled MCHC Cancelled RDW Cancelled Plt Count Cancelled MPV Cancelled Immature Gran % Cancelled Neutrophils % Cancelled Band Neutrophils % Cancelled Lymphocytes % Cancelled Atypical Lymphs % Cancelled Monocytes % Cancelled Eosinophils % Cancelled Basophils % Cancelled Metamyelocytes % Cancelled Myelocytes % Cancelled Promyelocytes % Cancelled Other Cells % Cancelled Nucleated RBC % Cancelled Absolute Neutrophils Cancelled Absolute Lymphocytes Cancelled Absolute Monocytes Cancelled Absolute Eosinophils Cancelled Absolute Basophils Cancelled RBC Morphology Cancelled Polychromasia Cancelled Hypochromasia Cancelled Poikilocytosis Cancelled Basophilic Stippling Cancelled Anisocytosis Cancelled Microcytosis Cancelled Macrocytosis Cancelled Spherocytes Cancelled Tear Drop Cells Cancelled Ovalocytes Cancelled Stomatocytes Cancelled [place] Bodies Cancelled [place] Cells/Echinocytes Cancelled Acanthocytes (Spur) Cancelled Schistocytes Cancelled PT Cancelled INR Cancelled APTT Cancelled Sodium Cancelled Potassium Cancelled Chloride Cancelled Carbon Dioxide Cancelled Anion Gap Cancelled BUN Cancelled Creatinine Cancelled Estimated GFR/1.73 m2 Cancelled Glucose Cancelled Calcium Cancelled Total Bilirubin Cancelled AST Cancelled ALT Cancelled Alkaline Phosphatase Cancelled Total Protein Cancelled Albumin Cancelled TSH Cancelled Urine Color Urine Clarity Urine pH Ur Specific [place] Urine Protein Urine Ketones Urine Blood Urine Nitrite Urine Bilirubin Urine Urobilinogen Ur Leukocyte Esterase Urine RBC Urine WBC Ur Epithelial Cells Urine Crystals Urine Bacteria Urine Mucus Ur Culture Indicated? Urine Glucose 05/11/20 05/11/20 05/11/20 13:20 13:45 13:45 WBC 9.34 RBC 4.68 Hgb 13.1 Hct 41.4 MCV 88.5 MCH 28.0 MCHC 31.6 L RDW 14.9 H Plt Count 303 MPV 9.9 Immature Gran % 0.4 Neutrophils % 78.9 Band Neutrophils % Lymphocytes % 13.8 Atypical Lymphs % Monocytes % 5.8 Eosinophils % 0.9 Basophils % 0.2 Metamyelocytes % Myelocytes % Promyelocytes % Other Cells % Nucleated RBC % 0 Absolute Neutrophils 7.37 H Absolute Lymphocytes 1.29 Absolute Monocytes 0.54 Absolute Eosinophils 0.08 Absolute Basophils 0.02 RBC Morphology Polychromasia Hypochromasia Poikilocytosis Basophilic Stippling Anisocytosis Microcytosis Macrocytosis Spherocytes Tear Drop Cells Ovalocytes Stomatocytes [place] Bodies [place] Cells/Echinocytes Acanthocytes (Spur) Schistocytes PT 14.2 H INR 1.4 H APTT 33.4 H Sodium Potassium Chloride Carbon Dioxide Anion Gap BUN Creatinine Estimated GFR/1.73 m2 Glucose Calcium Total Bilirubin AST ALT Alkaline Phosphatase Total Protein Albumin TSH Urine Color Yellow Urine Clarity Sl cloudy Urine pH 5.5 Ur Specific [place] 1.020 Urine Protein Negative Urine Ketones Negative Urine Blood Trace-lysed H Urine Nitrite Positive H Urine Bilirubin Negative Urine Urobilinogen 0.2 Ur Leukocyte Esterase Trace H Urine RBC Not Applicable Urine WBC 20-50 H Ur Epithelial Cells Not Applicable Urine Crystals Not Applicable Urine Bacteria Packed Urine Mucus Not Applicable Ur Culture Indicated? Yes Urine Glucose Negative 05/11/20 05/12/20 13:45 06:48 WBC 9.81 RBC 3.42 L Hgb 9.5 L D Hct 30.1 L D MCV 88.0 MCH 27.8 MCHC 31.6 L RDW 15.5 H Plt Count 281 MPV 10.3 Immature Gran % 0.3 Neutrophils % 63.1 Band Neutrophils % Lymphocytes % 24.9 Atypical Lymphs % Monocytes % 11.4 Eosinophils % 0.2 Basophils % 0.1 Metamyelocytes % Myelocytes % Promyelocytes % Other Cells % Nucleated RBC % 0 Absolute Neutrophils 6.19 Absolute Lymphocytes 2.44 Absolute Monocytes 1.12 H Absolute Eosinophils 0.02 Absolute Basophils 0.01 RBC Morphology Polychromasia Hypochromasia Poikilocytosis Basophilic Stippling Anisocytosis Microcytosis Macrocytosis Spherocytes Tear Drop Cells Ovalocytes Stomatocytes [place] Bodies [place] Cells/Echinocytes Acanthocytes (Spur) Schistocytes PT INR APTT Sodium 143 Potassium 4.2 Chloride 104 Carbon Dioxide 28.9 Anion Gap 10.1 BUN 17 Creatinine 0.94 Estimated GFR/1.73 m2 56.87 Glucose 176 H Calcium 9.1 Total Bilirubin 0.4 AST 20 ALT 13 L Alkaline Phosphatase 99 Total Protein 7.2 Albumin 3.6 TSH 1.59 Urine Color Urine Clarity Urine pH Ur Specific [place] Urine Protein Urine Ketones Urine Blood Urine Nitrite Urine Bilirubin Urine Urobilinogen Ur Leukocyte Esterase Urine RBC Urine WBC Ur Epithelial Cells Urine Crystals Urine Bacteria Urine Mucus Ur Culture Indicated? Urine Glucose Imaging Imaging Studies: X-ray of the right hip and femur was reviewed. This demonstrates a basicervical fracture of the right femoral neck. In close evaluation of the x-ray there does appear to be a fracture line propagating into the greater trochanter and into the lesser trochanter. This is also seen on the lateral view with a mostly transverse oriented fracture at the intertrochanteric ridge. Therefore, this is likely behaving mostly like an intratroches fracture rather than a true femoral neck fracture.
[2020-05-12 07:50] VITALS: BP 100/66; PULSE 88; RESP 20; TEMP 37.1; O2SAT 95
[2020-05-12] MEDS: Citalopram 20 MG TAB PO (07:50)
[2020-05-12] MEDS: Mirabegron 50 MG TABCR PO (07:50)
[2020-05-12 07:51] LABS: Anion Gap 4.4 mmol/L (3-11); BUN 20 mg/dL (7-18); CO2 28.6 mmol/L (21.0-32.0); CREATININE 1.02 mg/dL (0.55-1.02); Calcium 8.3 mg/dL (8.5-10.1); Chloride 107 mmol/L (98-107); Estimated GFR 51.75 (mL/min/1.73m2); Glucose 156 mg/dL (74-106); NT-proBNP 571 pg/mL (<300); Potassium 3.9 mmol/L (3.5-5.1); Sodium 140 mmol/L (136-145)
[2020-05-12] MEDS: dilTIAZem 60 MG TAB 120 MG PO ×2 (07:51→21:10)
[2020-05-12] MEDS: Pantoprazole 40 MG TABCR PO (07:51)
[2020-05-12] MEDS: QUEtiapine 25 MG TAB 37.5 MG PO ×2 (07:51→21:13)
[2020-05-12] MEDS: Metoprolol CR 25 MG TABCR PO (07:52)
[2020-05-12] MEDS: Memantine 5 MG TAB PO (07:52)
[2020-05-12] MEDS: Cholecalciferol (Vitamin D3) 1,000 UNIT TAB 1000 UNITS PO (07:52)
[2020-05-12 07:57] LABS: Hemoglobin A1C 6.4 % (<5.7)
--- NOTE | 2020-05-12 10:12 | PGE_ITS ---
Date of Service Date of service: 05/12/20 Time of Service: 10:14 Assessment and Plan Assessment and plan (1) Closed fracture of right hip: Start date: 05/12/20 Start time: 10: Status: Acute Assessment and plan: OR tomorrow NPO after MN Catheter in place. Pain management Bowel regimen Qualifiers: Encounter type: initial encounter Qualified Code(s): S72.001A - Fra cture of unspecified part of neck of right femur, initial encounter for closed fracture (2) Acute UTI: Start date: 05/12/20 Start time: 10: Status: Acute Assessment and plan: Found on admission with nitrates, WBC and leuk est. Started on ceftriaxone 1 gm daily while awaiting sensitivities. Urine cx with e.coli greater than 100,000 asymptomatic, awaiting sensitivities. (3) Diabetes mellitus type 2: Start date: 05/12/20 Start time: : Status: Chronic Assessment and plan: Does not appear to be on any medication at this time for diabetes BID fingersticks revealing elevated glucose in evening will add SSI sensitive A1c 6.4 (4) Benign hypertension: Start date: 05/12/20 Start time: 10:23 Status: Chronic Assessment and plan: Control with home medications soft at this time. Will monitor hold bp medication (5) Gastroesophageal reflux disease: Start date: 05/12/20 Start time: :23 Status: Chronic Assessment and plan: Continue protonix (6) Atrial fibrillation: Start date: 05/12/20 Start time: 10:24 Status: Chronic Assessment and plan: EKG in the ED with Afib rate controlled in the 90's. On pradaxa. Hold pradaxa until hip repair. Continue BB and CCB (7) Hypothyroidism: Start date: 05/12/20 Start time: 10:24 Status: Chronic Assessment and plan: continue levothyroxine, TSH within range. continue current dosing Qualifiers: Hypothyroidism type: unspecified Qualified Code(s): E03.9 - Hypothyroidism, unspecified (8) DVT prophylaxis: Start date: 05/12/20 Start time: 10:24 Status: Acute Assessment and plan: Holding at this time due to surgery. Teds and scds ordered. above case discussed with Dr. Abbee who is in agreement. Subjective Subjective Patient reports: no new complaints Interval history since last seen: Appears to be in good spirits. No pain. Catheter draining dark yellow urine. Tolerating liquids and food. Surgery for hip repair possibly tomorrow. NPO after MN Exam Narrative Exam Narrative: Const: Elderly obese female, cooperative, AAOx2 pleasant. HENMT: no lymphedema, atraumatic EYES: PERRLA, EOMI Chest: symmetrical, no scarring Resp: LSC in all jhaveri no wheezing, rhonchi or rale. Cardio: Irregularlly irregular, controlled rate GI: Abd soft nontender, bs x4 Skin: intact, no rashes Extrem: RLE shortened and externally rotated. PPPx2, cmst + Objective Last Vital Signs Temp 37.1 C 05/12/20 07:50 Pulse 88 05/12/20 07:50 Resp 20 05/12/20 07:50 BP 100/66 05/12/20 07:50 Pulse Ox 95 05/12/20 07:50 Laboratory Results - last 24 hr 05/11/20 05/11/20 05/11/20 13:10 13:10 13:10 WBC Cancelled RBC Cancelled Hgb Cancelled Hct Cancelled MCV Cancelled MCH Cancelled MCHC Cancelled RDW Cancelled Plt Count Cancelled MPV Cancelled Immature Gran % Cancelled Neutrophils % Cancelled Band Neutrophils % Cancelled Lymphocytes % Cancelled Atypical Lymphs % Cancelled Monocytes % Cancelled Eosinophils % Cancelled Basophils % Cancelled Metamyelocytes % Cancelled Myelocytes % Cancelled Promyelocytes % Cancelled Other Cells % Cancelled Nucleated RBC % Cancelled Absolute Neutrophils Cancelled Absolute Lymphocytes Cancelled Absolute Monocytes Cancelled Absolute Eosinophils Cancelled Absolute Basophils Cancelled RBC Morphology Cancelled Polychromasia Cancelled Hypochromasia Cancelled Poikilocytosis Cancelled Basophilic Stippling Cancelled Anisocytosis Cancelled Microcytosis Cancelled Macrocytosis Cancelled Spherocytes Cancelled Tear Drop Cells Cancelled Ovalocytes Cancelled Stomatocytes Cancelled Boles-[place] Bodies Cancelled Francesca Cells/Echinocytes Cancelled Acanthocytes (Spur) Cancelled Schistocytes Cancelled PT Cancelled INR Cancelled APTT Cancelled Sodium Cancelled Potassium Cancelled Chloride Cancelled Carbon Dioxide Cancelled Anion Gap Cancelled BUN Cancelled Creatinine Cancelled Estimated GFR/1.73 m2 Cancelled Glucose Cancelled Hemoglobin A1c Calcium Cancelled Total Bilirubin Cancelled AST Cancelled ALT Cancelled Alkaline Phosphatase Cancelled NT-Pro-B Natriuret Pep Total Protein Cancelled Albumin Cancelled TSH Cancelled Urine Color Urine Clarity Urine pH Ur Specific [place] Urine Protein Urine Ketones Urine Blood Urine Nitrite Urine Bilirubin Urine Urobilinogen Ur Leukocyte Esterase Urine RBC Urine WBC Ur Epithelial Cells Urine Crystals Urine Bacteria Urine Mucus Ur Culture Indicated? Urine Glucose 05/11/20 05/11/20 05/11/20 13:20 13:45 13:45 WBC 9.34 RBC 4.68 Hgb 13.1 Hct 41.4 MCV 88.5 MCH 28.0 MCHC 31.6 L RDW 14.9 H Plt Count 303 MPV 9.9 Immature Gran % 0.4 Neutrophils % 78.9 Band Neutrophils % Lymphocytes % 13.8 Atypical Lymphs % Monocytes % 5.8 Eosinophils % 0.9 Basophils % 0.2 Metamyelocytes % Myelocytes % Promyelocytes % Other Cells % Nucleated RBC % 0 Absolute Neutrophils 7.37 H Absolute Lymphocytes 1.29 Absolute Monocytes 0.54 Absolute Eosinophils 0.08 Absolute Basophils 0.02 RBC Morphology Polychromasia Hypochromasia Poikilocytosis Basophilic Stippling Anisocytosis Microcytosis Macrocytosis Spherocytes Tear Drop Cells Ovalocytes Stomatocytes [place] Bodies Francesca Cells/Echinocytes Acanthocytes (Spur) Schistocytes PT 14.2 H INR 1.4 H APTT 33.4 H Sodium Potassium Chloride Carbon Dioxide Anion Gap BUN Creatinine Estimated GFR/1.73 m2 Glucose Hemoglobin A1c Calcium Total Bilirubin AST ALT Alkaline Phosphatase NT-Pro-B Natriuret Pep Total Protein Albumin TSH Urine Color Yellow Urine Clarity Sl cloudy Urine pH 5.5 Ur Specific [place] 1.020 Urine Protein Negative Urine Ketones Negative Urine Blood Trace-lysed H Urine Nitrite Positive H Urine Bilirubin Negative Urine Urobilinogen 0.2 Ur Leukocyte Esterase Trace H Urine RBC Not Applicable Urine WBC 20-50 H Ur Epithelial Cells Not Applicable Urine Crystals Not Applicable Urine Bacteria Packed Urine Mucus Not Applicable Ur Culture Indicated? Yes Urine Glucose Negative 05/11/20 05/12/20 05/12/20 13:45 06:48 06:48 WBC RBC Hgb Hct MCV MCH MCHC RDW Plt Count MPV Immature Gran % Neutrophils % Band Neutrophils % Lymphocytes % Atypical Lymphs % Monocytes % Eosinophils % Basophils % Metamyelocytes % Myelocytes % Promyelocytes % Other Cells % Nucleated RBC % Absolute Neutrophils Absolute Lymphocytes Absolute Monocytes Absolute Eosinophils Absolute Basophils RBC Morphology Polychromasia Hypochromasia Poikilocytosis Basophilic Stippling Anisocytosis Microcytosis Macrocytosis Spherocytes Tear Drop Cells Ovalocytes Stomatocytes [place] Bodies Francesca Cells/Echinocytes Acanthocytes (Spur) Schistocytes PT INR APTT Sodium 143 140 Potassium 4.2 3.9 Chloride 104 107 Carbon Dioxide 28.9 28.6 Anion Gap 10.1 4.4 BUN 17 20 H Creatinine 0.94 1.02 Estimated GFR/1.73 m2 56.87 51.75 Glucose 176 H 156 H Hemoglobin A1c 6.4 H Calcium 9.1 8.3 L Total Bilirubin 0.4 AST 20 ALT 13 L Alkaline Phosphatase 99 NT-Pro-B Natriuret Pep 571 H Total Protein 7.2 Albumin 3.6 TSH 1.59 Urine Color Urine Clarity Urine pH Ur Specific [place] Urine Protein Urine Ketones Urine Blood Urine Nitrite Urine Bilirubin Urine Urobilinogen Ur Leukocyte Esterase Urine RBC Urine WBC Ur Epithelial Cells Urine Crystals Urine Bacteria Urine Mucus Ur Culture Indicated? Urine Glucose 05/12/20 06:48 WBC 9.81 RBC 3.42 L Hgb 9.5 L D Hct 30.1 L D MCV 88.0 MCH 27.8 MCHC 31.6 L RDW 15.5 H Plt Count 281 MPV 10.3 Immature Gran % 0.3 Neutrophils % 63.1 Band Neutrophils % Lymphocytes % 24.9 Atypical Lymphs % Monocytes % 11.4 Eosinophils % 0.2 Basophils % 0.1 Metamyelocytes % Myelocytes % Promyelocytes % Other Cells % Nucleated RBC % 0 Absolute Neutrophils 6.19 Absolute Lymphocytes 2.44 Absolute Monocytes 1.12 H Absolute Eosinophils 0.02 Absolute Basophils 0.01 RBC Morphology Polychromasia Hypochromasia Poikilocytosis Basophilic Stippling Anisocytosis Microcytosis Macrocytosis Spherocytes Tear Drop Cells Ovalocytes Stomatocytes [place] Bodies Francesca Cells/Echinocytes Acanthocytes (Spur) Schistocytes PT INR APTT Sodium Potassium Chloride Carbon Dioxide Anion Gap BUN Creatinine Estimated GFR/1.73 m2 Glucose Hemoglobin A1c Calcium Total Bilirubin AST ALT Alkaline Phosphatase NT-Pro-B Natriuret Pep Total Protein Albumin TSH Urine Color Urine Clarity Urine pH Ur Specific [place] Urine Protein Urine Ketones Urine Blood Urine Nitrite Urine Bilirubin Urine Urobilinogen Ur Leukocyte Esterase Urine RBC Urine WBC Ur Epithelial Cells Urine Crystals Urine Bacteria Urine Mucus Ur Culture Indicated? Urine Glucose
[2020-05-12 11:36] LABS: COVID-19 RT-PCR UVMMC Result Negative (Negative)
[2020-05-12] MEDS: Insulin Aspart 300 UNITS/3 ML PEN SC ×2 (12:25→16:55)
--- NOTE | 2020-05-12 12:34 | PDOC.CMIN ---
- If Service Date Differs Date of service: 05/12/20 Time of Service: 12:34 Care Management Initial Assess REASON FOR HOSPITALIZATION:: closed fracture right hip PAST MEDICAL HISTORY/PAST SURGICAL HISTORY:: Medical History (Updated 05/11/20 @ 16:10 by Inés Montague NP). papillara virus. Abnormal auditory perception. Alcoholism in remission. Atrial fibrillation. Hayward esophagus. Hayward's esophagus. Carpal tunnel syndrome. cervical cancer in situ. 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 Diabetes mellitus. Discharge planning issues. DJD (degenerative joint disease). Essential hypertension. Gastroesophageal reflux disease. h/o cervical cancer in situ. History of tobacco use. HPV test positive. Hypercholesterolemia. Hyperlipidemia. left ankle fracture. Lesion of ulnar nerve. NEUROPATHY. Osteoarthritis of left knee (07/12/14). Primary osteoarthritis of right knee. Right knee pain. Sensorineural hearing loss, bilateral (10/31/14). Urge incontinence. Urgency incontinence (04/06/15). Surgical History (Updated 05/11/20 @ 15:58 by Inés Montague NP). Appendectomy (~1951). Artificial knee joint present (07/12/14). Cholecystectomy (~2005). Colonoscopy - MAC (~2009). EGD - MAC (~2009). H/O surgical procedure. a. several EGDs and colonoscopies with colon adenomas removed. b. left femoral rodding for fx. c. appendectomy. d. cholecystectomy. e. hysterectomy sparing her ovaries. f. bilateral carpal tunnel release. g. t & a. h. excision of a benign thyroid tumor. HYSTERECTOMY (06/21/73). LEFT CARPAL TUNNEL (10/20/06). Replacement of total knee joint (07/12/14). LEFT TOTAL KNEE REPLACEMENT/DREISBACH. Thyroid. Tonsillectomy and adenoidectomy. Total replacement of hip (~2011). left PREVIOUS FUNCTIONAL STATUS/SOCIAL/FAMILY SUPPORTS:: Homa lives at the [facility]. She has at least 3 children - 2 sons and a daughter. Her son Aman is a physician but does not have close contact with Homa. Her son Francisco is the one who seems to be the most involved and there is a daughter in [place] named Myles. Neva and Aman are listed on temporary guardianship paperwork files at [facility]. CURRENT FUNCTIONAL STATUS:: Homa was sitting up in bed when CM met with her. She was smiling and engaged readily with CM. Coco is pleasantly confused. She thought she recognized CM and expressed appreciation for the visit stating I hope you come back tomorrow. It is likely that she will go to surgery to repair her fractured hip on Thursday. ADVANCE DIRECTIVES:: None on file but son and daughter have emergence guardianship. Homa is too confused to complete. Has patient been provided with info about the portal/API?: No Did the patient sign up for the portal?: No CODE STATUS:: Full Code INSURANCE COVERAGE / FINANCIAL ISSUES:: Medicare. Medicaid CURRENT HOME/COMMUNITY SERVICES/EQUIPMENT:: lives at the [facility] PRIMARY CARE PHYSICIAN:: Tino Gaines POTENTIAL DISCHARGE NEEDS:: Follow up with PCP and plan of care. will likely need rehab or PT at discharge PATIENT/FAMILY EDUCATION NEEDS:: Discharge and follow up plans, limitations, Ask Me Three TRANSPORTATION:: to be determined by final disposition PLAN:: Homa may require a short stay in a SNF for rehab prior to returning to the [facility]. She will follow theplan of care established at that facility. CM will continue to support patient, family and discharge plans.
[2020-05-12] MEDS: cefTRIAXone 1 GM/50 ML BAG IVPB (14:45)
[2020-05-12 15:05] VITALS: BP 96/57; PULSE 73; RESP 19; TEMP 37.9; O2SAT 98
[2020-05-12] MEDS: Mirtazapine 15 MG TAB PO (21:13)
[2020-05-12] MEDS: Simvastatin 40 MG TAB PO (21:13)
[2020-05-12 21:20] VITALS: BP 106/67; PULSE 88; RESP 18; TEMP 37.8; O2SAT 98
[2020-05-12 22:35] VITALS: TEMP 37.5
[2020-05-13] VITALS (18 sets, daily range): BP systolic 92–119; BP diastolic 55–66; PULSE 83–96; RESP 16–26; TEMP 36–37.3; O2SAT 95–969
[2020-05-13] MEDS: Lactated Ringers 1,000 ML 75 ML IV ×2 (01:10→14:20)
[2020-05-13] MEDS: Levothyroxine 75 MCG TAB PO (06:48)
--- NOTE | 2020-05-13 07:00 | DI.RAD_ITS ---
EXAM: XR HIP RT IN OR CLINICAL HISTORY: RIGHT HIP FRACTURE. TECHNIQUE: 2D and realtime digital imaging was performed. COMPARISON: CR XR FEMUR RT from 05/11/2020 FINDINGS: Fluoroscopy was provided in the OR for Dr. Blankenship. Hard copy images show placement of a gamma nail in the proximal right femur for fracture fixation. The alignment appears anatomic. Please see procedure note for details. FLUORO TIME: 113 seconds RADIATION DOSE DELIVERED:
--- NOTE | 2020-05-13 07:21 | W.PM.PROGNOT ---
Date of Service Date of service: 05/13/20 Time of Service: 06:45 Assessment and Plan Assessment and plan (1) Closed fracture of right hip: Status: Acute Assessment and plan: Homa is an 85-year-old who suffered a right basicervical fracture of the proximal femur. This also seems to have some extension into the lesser and greater trochanter making this behave much more like a intertrochanteric fracture rather than a femoral neck fracture. Given the displacement I would recommend fixation. She had a very similar fracture on the left side which was fixed with a similar technique of an intramedullary nail. I reviewed this technique with the patient and all 3 of her children. I also reviewed the risk of the procedure to include bleeding, infection, pain, stiffness, malunion, nonunion, hardware prominence, hardware failure, need for repeat procedures, blood clot. Despite these risk, all parties agreed to proceed. We will move forward with surgery this morning. Her COVID-19 test is negative however we will have to proceed with a general anesthesia given the risk for bleeding with neuraxial anesthesia. However, she has had 4 half-life's of removal of apixaban which will be sufficient for bleeding risk with the surgery. Continue with n.p.o. diet. Administer tranexamic acid in the OR. Qualifiers: Encounter type: initial encounter Qualified Code(s): S72.001A - Fracture of unspecified part of neck of right femur, initial encounter for closed fracture Subjective Subjective Interval history since last seen: Homa reports no new complaints today. She is relatively comfortable as long she is not moving or being moved. She has no issues with chest pain or shortness of breath. She denies fevers or chills. She denies numbness or tingling. I had a long discussion with her as well as both of her sons and her daughter. I reviewed the current fracture as well as the recommended treatment with all parties. There is some slight confusion on her guardianship but it sounds like her son Rudolph and daughter Neva are the 2 primary contacts who have been established temporary guardianship to be finalized in court tomorrow. Exam Narrative Exam Narrative: Resting in the bed. Alert and oriented to person and place. No acute distress. Right lower extremity is shortened and externally rotated. No changes to the skin. Thigh is compressible. Objective Last Vital Signs Temp 37.3 C 05/13/20 06:34 Pulse 90 05/13/20 06:34 Resp 16 05/13/20 06:34 BP 101/64 05/13/20 06:34 Pulse Ox 97 05/13/20 06:34 Laboratory Results - last 24 hr 05/11/20 05/12/20 05/12/20 13:12 06:48 06:48 WBC RBC Hgb Hct MCV MCH MCHC RDW Plt Count MPV Immature Gran % Neutrophils % Lymphocytes % Monocytes % Eosinophils % Basophils % Nucleated RBC % Absolute Neutrophils Absolute Lymphocytes Absolute Monocytes Absolute Eosinophils Absolute Basophils Sodium 140 Potassium 3.9 Chloride 107 Carbon Dioxide 28.6 Anion Gap 4.4 BUN 20 H Creatinine 1.02 Estimated GFR/1.73 m2 51.75 Glucose 156 H Hemoglobin A1c 6.4 H Calcium 8.3 L NT-Pro-B Natriuret Pep 571 H COVID-19 PCR Negative Nasopharyn COVID-19 PCR Not Applicable Ref Test Perform Site [facility] 05/12/20 06:48 WBC 9.81 RBC 3.42 L Hgb 9.5 L D Hct 30.1 L D MCV 88.0 MCH 27.8 MCHC 31.6 L RDW 15.5 H Plt Count 281 MPV 10.3 Immature Gran % 0.3 Neutrophils % 63.1 Lymphocytes % 24.9 Monocytes % 11.4 Eosinophils % 0.2 Basophils % 0.1 Nucleated RBC % 0 Absolute Neutrophils 6.19 Absolute Lymphocytes 2.44 Absolute Monocytes 1.12 H Absolute Eosinophils 0.02 Absolute Basophils 0.01 Sodium Potassium Chloride Carbon Dioxide Anion Gap BUN Creatinine Estimated GFR/1.73 m2 Glucose Hemoglobin A1c Calcium NT-Pro-B Natriuret Pep COVID-19 PCR Nasopharyn COVID-19 PCR Ref Test Perform Site
[2020-05-13 07:25] LABS: Abs Immature Grans 0.05 10^3/uL (0.0-0.06); Absolute Basophil Count 0.04 10^3/uL (0.0-0.2); Absolute Eosinophil Count 0.16 10^3/uL (0.0-0.7); Absolute Lymphocyte Count 1.69 10^3/uL (1.2-3.4); Absolute Monocyte Count 1.31 10^3/uL (0.1-0.8); Absolute Neutrophil Count 7.22 10^3/uL (1.2-6.7); Basophils % 0.4; Eosinophils % 1.5; HCT 26.8 % (36.0-46.0); HGB 8.7 g/dL (11.2-15.7); Immature Grans % 0.5; Lymphocytes % 16.1; MCH 28.1 pg (27.0-33.0); MCHC 32.5 % (32.0-36.0); MCV 86.5 fL (80-95); MPV 10.3 fL (8.0-11.0); Monocytes % 12.5; Nucleated RBC 0 %; Platelet Count 238 10^3/uL (130-400); RDW 15.6 % (11.7-14.6); RDW-SD 49.1 fL; WBC 10.47 10^3/uL (4.4-10.8)
[2020-05-13] MEDS: ceFAZolin 2 GM/50 ML BAG IVPB (07:25)
[2020-05-13 07:33] LABS: Anion Gap 8.2 mmol/L (3-11); BUN 13 mg/dL (7-18); CO2 25.8 mmol/L (21.0-32.0); CREATININE 0.87 mg/dL (0.55-1.02); Calcium 8.2 mg/dL (8.5-10.1); Chloride 104 mmol/L (98-107); Glucose 177 mg/dL (74-106); Sodium 138 mmol/L (136-145)
[2020-05-13] MEDS: Bupivacaine 0.25% Pres-Free 30 ML VIAL (08:22)
[2020-05-13] MEDS: Ketorolac 30 MG/ML VIAL (08:22)
--- NOTE | 2020-05-13 09:14 | ROE_ITS ---
Date of service: 05/13/20 Time of Service: 09:14 Operative Note Operative Note DATE OF PROCEDURE: 05/13/20 PRE-OP DIAGNOSIS: Right Basicervical/Intertrochanteric Femur Fracture POST-OP DIAGNOSIS: same PROCEDURE: Right Intramedullary Fixation of Proximal Femur Fracture SURGEON: Francisco Blankenship TRIM MACHINE ADJUSTER: Sahara Ogden ANESTHESIA: GETA ESTIMATED BLOOD LOSS: 200 PATHOLOGY: none sent COMPLICATIONS: None Patient was transported to: PACU Patient's condition: stable Implants: Depuy-Synthes TFNA 11mm x 170mm Indications: Homa is a 85yo female who presented to the Emergency Department after a fall. X-rays confirmed the diagnosis of a basicervical type fracture of the proximal femur with extension into the trochanters, therefore behaving ore like an intertrochanteric fracture. I reviewed the possible treatment options and given the fracture of the femur, I recommended operative fixation. I discussed the technical details of the surgery. I reviewed the risks such as bleeding, infection, pain, stiffness, malunion, nonunion, hardware prominence, hardware faiilure, malrotation, avascular necrosis, blood clot. Despite these risks, Homa agreed to proceed. Findings: There was a fracture of the proximal femur which was able to be redu alejandra with traction and internal rotation and external manipulation. There some mild residual hinging of the superior fracture which gapped the inferior aspect but I did not disimpact this for risk of blood supply of the femoral head. Procedure Description: Homa was greeted in the preoperative area. Consent was previously reviewed and signed. Once in the operating room, anesthesia was administered. [facility] in the supine position after placing her feet into well padded boots. She was positioned onto the perineal post. All bony prominences were well padded. The arms were secured on arm rests. The nonoperative limb was extended and adducted for access with fluoroscopy. A gentle reduction was then performed with traction and internal rotation and gentle external manipulation. A single dose of TXA, 1 gram, was then administered IV. Prophylactic antibiotics, Cefazolin 2 grams, was given for prophylactic antibiotics. A timeout was performed for safe surgery. The side leg was prepped with Chloraprep. A shower curtain drape was placed. Using fluoroscopy, the starting point was marked over the lateral hip, proximal to the tip of the greater trochanter. A 3cm incision was made through skin and the fascia of the gluteus musculature until the tip of the trochanter was palpable. The starting wire was placed onto the tip, just slightly on the media aspect, and centered in the AP plane. Using a keyur, the starting guide wire was buried into the bone. A lateral x-ray confirmed appropriate position and the guidewire was advanced to the level of the lesser trochanter. With a tissue protector, the proximal femur was opened with the opening reamer. The short TFNA was chosen for this case and a Synthes TFNA [id number] nail was selected and opened on the back table. The nail was assembled to the aiming arm on the back table and confirmed to be aligned with the triple sleeve for blade insertion. Using manual force the nail was advanced into the femur. A few light mallet blows advanced the nail to its appropriate position. The triple sleeve was inserted through the targeting arm and the skin, soft tissue, and IT band was then incised. Before inserting the triple sleeve, I inserted a Drummond elevator over the anterior femur, onto the base of the femoral neck. This fracture was minimal displaced by palpation with dilan Drummond but I was unable to reduce this portion of the fracture with the Drummond. I did not want to pry and disimpact the fracture to try to gain this perfect re duction for risk of the blood supply. Additionally, her adiposity made access very difficult. Therefore after gentle manipulation of the base of the neck with the Drummond elevator, the triple sleeve was advanced down to the lateral femur. A guidewire was advanced into the femoral head where it was noted to be centered. A lateral x-ray was used to confirm centered positioning on the lateral. Happy with the length of the guidewire, this was measured. A 100mm helical blade was opened. The lateral cortex was opened and the path of the blade was reamed with a tapered reamer to appropriate depth. The helical blade was malletted into position and confirmed to be appropriately located on fluoroscopy. The set screw was advanced to a half turn shy of fully tightened, allowing for the helical blade to slide. The fracture was compressed before removing the targeting device. The targeting device was removed. AP and lateral x-rays of the hip confirmed appropriate positioning within the femur and with good alignment of the fracture. Using the targeting arm, the skin was incised for placement of the distal locking screw. The trochar was inserted through the skin and IT band down onto the lateral cortex of the femur. The 4.2mm drill was advanced across the femur and through the nail. This was measured and an appropriately sized 5.0mm screw was placed. The targeting arm was removed. Final x-rays were obtained. The wounds were thoroughly irrigated. A cocktail consisting of 50cc of 0.5% bupivacaine, 30mg Ketorolac, and 10cc of Exparel was injected throughout the wounds both deep and superficially. The deep fascia of the proximal two wounds was reapproximated with a 0 Vicryl. The deep tisses were closed with a 2-0 Vicryl and the skin was closed with a running subcuticular Monocryl. The wounds were dressed with a Mepilex silver dressing. At the end of the case, all counts were correct. Homa tolerated the procedure well without known complication and was taken to the PACU for recovery. Physical therapy will start post-operatively, weigh-bearing as tolerated with assistive devices. Anticoagulation will start within 12-24 hours, Pradaxa 150mg BID. 24 hours of post-operative antibitiocis for prophylaxis will be administered.
[2020-05-13] MEDS: Metoprolol CR 25 MG TABCR PO (10:10)
[2020-05-13] MEDS: dilTIAZem 60 MG TAB 120 MG PO ×2 (10:14→21:12)
[2020-05-13] MEDS: Ketorolac 15 MG/ML VIAL IV ×2 (10:17→17:40)
--- NOTE | 2020-05-13 10:18 | CMPROGNOTE_ITS ---
- If Service Date Differs Date of service: 05/13/20 Time of Service: 10:18 Care Management Progress Note S/O:Homa went to the OR today to repair her fractured. She was awake when CM met with her post-op however she was still a bit sleepy. Homa stated that she felt better after surgery and was not having pain at that moment. CM broached the subject of rehab for a brief time following hospitalization, but Homa was not enthusiastic about that option. CM will contact family tomorrow to discuss. A: Homa is an 85 year old woman admitted on 05/11/20 with a fractured hip P:Homa may require a short stay in a SNF for rehab prior to returning to the [facility]. She will follow the plan of care established at that facility. CM will continue to support patient, family and discharge plans.
--- NOTE | 2020-05-13 10:27 | PT.INNT ---
Date of service: 05/13/20 Time of Service: 10:27 PT Notes Visit Reasons: FEMORAL FRACTURE, MECHANICAL FALL Patient attempted to be seen for IE s/p IMN right hip however nursing recommended to hold till AM tomorrow due to heavy sedation.
--- NOTE | 2020-05-13 12:03 | W.PM.PROGNOT ---
Date of Service Date of service: 05/13/20 Time of Service: 12:04 Assessment and Plan Assessment and plan (1) Closed fracture of right hip: Start date: 05/13/20 Start time: 12:06 Status: Acute Assessment and plan: Surgery day returned from OR sleepy but arousable. Denies Pain at this time start diet as tolerated Catheter in place. Pain management Bowel regimen Follow ortho recommendations Qualifiers: Encounter type: initial encounter Qualified Code(s): S72.001A - Fracture of unspecified part of neck of right femur, initial encounter for closed fracture (2) Acute UTI: Start date: 05/13/20 Start time: 12:08 Status: Acute Assessment and plan: Found on admission with nitrates, WBC and leuk est. Urine cx with e.coli greater than 100,000 asymptomatic, pansensitive Ceftriaxone day 3. (3) Diabetes mellitus type 2: Start date: 05/13/20 Start time: 12:09 Status: Chronic Assessment and plan: Glucose 222 at lunch BID fingersticks revealing elevated glucose in evening will add SSI sensitive A1c 6.4 (4) Benign hypertension: Start date: 05/13/20 Start time: 12:09 Status: Chronic Assessment and plan: Control with home medications continues to be soft Will monitor hold bp medication (5) Gastroesophageal reflux disease: Start date: 05/13/20 Start time: 12:11 Status: Chronic Assessment and plan: Continue protonix (6) Atrial fibrillation: Start date: 05/13/20 Start time: 12:11 Status: Chronic Assessment and plan: EKG in the ED with Afib rate controlled in the 90's. On pradaxa. Hold pradaxa until hip repair. Continue BB and CCB with parameters due to soft bp (7) Hypothyroidism: Start date: 05/13/20 Start time: 12:12 Status: Chronic Assessment and plan: continue levothyroxine, TSH within range. continue current dosing Qualifiers: Hypothyroidism type: unspecified Qualified Code(s): E03.9 - Hypothyroidism, unspecified (8) DVT prophylaxis: Start date: 05/13/20 Start time: 12:12 Status: Acute Assessment and plan: Holding at this time due to surgery. Teds and scds ordered. above case discussed with Dr. Abebe who is in agreement. (9) Discharge planning issues: Start date: 05/13/20 Start time: 12:12 Status: Acute Assessment and plan: Patient very clearly states she wants to go back to [facility] her home. At this time she is a full code. She does have dementia, emergency guardianship is taking place, will have palliative evaluate patient, patient does want to be DNR/DNI however family wants her to be a full code. Subjective Subjective Patient reports: other Interval history since last seen: Patient returned from surgery, sleepy but arousable. Incision c/d/i. Keishas CP, SOB, N/V/D Exam Narrative Exam Narrative: Const: Elderly obese female, groggy from surgery. Easily arouses HENMT: no lymphedema, atraumatic EYES: PERRLA, EOMI Chest: symmetrical, no scarring Resp: LSC in all jhaveri no wheezing, rhonchi or rale. Cardio: Irregularlly irregular, controlled rate GI: Abd soft nontender, bs x4 Skin: intact, no rashes Extrem: RLE with bandage, c/d/i. PPPx2, cmst + Objective Last Vital Signs Temp 36.6 C 05/13/20 11:20 Pulse 89 05/13/20 11:20 Resp 18 05/13/20 11:20 BP 102/63 05/13/20 11:20 Pulse Ox 97 05/13/20 11:20 Laboratory Results - last 24 hr 05/13/20 05/13/20 06:50 06:50 WBC 10.47 RBC 3.10 L Hgb 8.7 L Hct 26.8 L MCV 86.5 MCH 28.1 MCHC 32.5 RDW 15.6 H Plt Count 238 MPV 10.3 Immature Gran % 0.5 Neutrophils % 69.0 Lymphocytes % 16.1 Monocytes % 12.5 Eosinophils % 1.5 Basophils % 0.4 Nucleated RBC % 0 Absolute Neutrophils 7.22 H Absolute Lymphocytes 1.69 Absolute Monocytes 1.31 H Absolute Eosinophils 0.16 Absolute Basophils 0.04 Sodium 138 Potassium 4.0 Chloride 104 Carbon Dioxide 25.8 Anion Gap 8.2 BUN 13 D Creatinine 0.87 Estimated GFR/1.73 m2 >= 60.00 Glucose 177 H Calcium 8.2 L
[2020-05-13] MEDS: cefTRIAXone 1 GM/50 ML BAG IVPB (14:20)
[2020-05-13] MEDS: Insulin Aspart 300 UNITS/3 ML PEN SC (17:07)
[2020-05-13] MEDS: MORPHine 2 MG/ML SYR IVP (17:09)
[2020-05-13] MEDS: Acetaminophen 325 MG TAB 650 MG PO (17:39)
[2020-05-13] MEDS: Simvastatin 40 MG TAB PO (21:13)
[2020-05-13] MEDS: Mirtazapine 15 MG TAB PO (21:13)
[2020-05-13] MEDS: QUEtiapine 25 MG TAB 37.5 MG PO (21:13)
[2020-05-14] VITALS (13 sets, daily range): BP systolic 83–113; BP diastolic 55–72; PULSE 70–99; RESP 17–20; TEMP 36.2–39.3; O2SAT 92–95
[2020-05-14] MEDS: Ketorolac 15 MG/ML VIAL IV (02:06)
[2020-05-14] MEDS: Normal Saline Flush 10 ML SYR IVP ×2 (02:07→06:12)
[2020-05-14] MEDS: Lactated Ringers 1,000 ML 75 ML IV ×2 (02:08→18:56)
[2020-05-14] MEDS: Levothyroxine 75 MCG TAB PO (05:15)
[2020-05-14] MEDS: MORPHine 2 MG/ML SYR IVP ×2 (06:11→12:20)
[2020-05-14 07:11] LABS: Abs Immature Grans 0.05 10^3/uL (0.0-0.06); Absolute Basophil Count 0.04 10^3/uL (0.0-0.2); Absolute Eosinophil Count 0.14 10^3/uL (0.0-0.7); Absolute Lymphocyte Count 1.59 10^3/uL (1.2-3.4); Absolute Monocyte Count 1.13 10^3/uL (0.1-0.8); Absolute Neutrophil Count 7.58 10^3/uL (1.2-6.7); Basophils % 0.4; Eosinophils % 1.3; HCT 22.2 % (36.0-46.0); HGB 7.1 g/dL (11.2-15.7); Immature Grans % 0.5; Lymphocytes % 15.1; MCH 27.7 pg (27.0-33.0); MCV 86.7 fL (80-95); Monocytes % 10.7; Nucleated RBC 0 %; Platelet Count 214 10^3/uL (130-400); RBC 2.56 10^6/uL (3.93-5.22); RDW 15.8 % (11.7-14.6); RDW-SD 50.1 fL; WBC 10.53 10^3/uL (4.4-10.8)
[2020-05-14 07:21] LABS: Anion Gap 6.8 mmol/L (3-11); BUN 15 mg/dL (7-18); CO2 27.2 mmol/L (21.0-32.0); CREATININE 1.05 mg/dL (0.55-1.02); Chloride 101 mmol/L (98-107); Estimated GFR 50.05 (mL/min/1.73m2); Glucose 160 mg/dL (74-106); Potassium 4.5 mmol/L (3.5-5.1); Sodium 135 mmol/L (136-145)
[2020-05-14] MEDS: Acetaminophen 325 MG TAB 650 MG PO ×2 (07:34→20:36)
[2020-05-14] MEDS: Pantoprazole 40 MG TABCR PO (07:35)
[2020-05-14] MEDS: QUEtiapine 25 MG TAB 37.5 MG PO ×2 (08:12→20:35)
[2020-05-14] MEDS: Cholecalciferol (Vitamin D3) 1,000 UNIT TAB 1000 UNITS PO (08:12)
[2020-05-14] MEDS: Mirabegron 50 MG TABCR PO (08:12)
[2020-05-14] MEDS: dilTIAZem 60 MG TAB 120 MG PO ×2 (08:13→20:35)
[2020-05-14] MEDS: Memantine 5 MG TAB PO (08:13)
[2020-05-14] MEDS: Citalopram 20 MG TAB PO (08:13)
[2020-05-14] MEDS: Metoprolol CR 25 MG TABCR PO (08:13)
[2020-05-14] MEDS: Insulin Aspart 300 UNITS/3 ML PEN SC ×3 (08:21→17:19)
--- NOTE | 2020-05-14 09:54 | CMPROGNOTE_ITS ---
Care Management Progress Note S/O: Homa will be evaluated by PT today, Palliative consult ordered as well as Workflow Developer. CM spoke with son, Rudolph who reported he and his sister Neva, would like their mother to have SNF rehab post surgically. Anticipate Palliative Consult with Dr. Steward after 1700 this evening; CM notified Rudolph who provided phone contact numbers for himself: [phone] and his sister Neva: [phone]. CM provided information to Dr. Steward who will connect with Homa and her family after office hours this evening. CM continues to follow. A: Homa is an 85 year old woman admitted on 05/11/20 with a fractured hip P: Homa continues to work with PT and is being monitored closely post surgically. Anticipate she will require a short SNF stay prior to returning to the [facility], CM provided referral to [facility] for review. Palliative consult coordinated for this evening: Family and MD aware. CM will continue to support patient, family and discharge plans.
--- NOTE | 2020-05-14 10:14 | IN_ITS ---
Date of service: 05/14/20 Time of Service: 08:59 PT Notes Visit Reasons: FEMORAL FRACTURE, MECHANICAL FALL Physical Therapy Inpatient Initial Evaluation Date: 05/14/2020 Referring Doctor: Francisco Blankenship MD PT Orders: PT CONSULT: Status post Ortho surgery. Status post IM and fixation of right hip fracture Precautions: Fall. Standard. WBAT on right LE. Patient Profile/Admitting Diagnosis: Homa is an 85-year-old female with diabetes mellitus, dementia, GERD, hypertension, atrial fibrillation who presented to the ED on 05/11/2020 via EMS due to a mechanical slip and fall with a right hip injury at the [facility] where she resides. She is diagnosed with a right basicervical intertrochanteric femoral fracture and is status post ORIF using intramedullary nailing on postoperative day 1. 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 Diabetes mellitus Discharge planning issues DJD (degenerative joint disease) Essential hypertension Gastroesophageal reflux disease h/o cervical cancer in situ History of tobacco use HPV test positive Hypercholesterolemia Hyperlipidemia left ankle fracture Lesion of ulnar nerve NEUROPATHY Osteoarthritis of left knee (07/12/14) Primary osteoarthritis of right knee Right knee pain Sensorineural hearing loss, bilateral (10/31/14) Urge incontinence Urgency incontinence (04/06/15) Surgical History (Updated 05/11/20 @ 15:58 by Inés Montague NP) Appendectomy (~1951) Artificial knee joint present (07/12/14) Cholecystectomy (~2005) Colonoscopy - MAC (~2009) EGD - MAC (~2009) H/O surgical procedure a. several EGDs and colonoscopies with colon adenomas removed b. left femoral rodding for fx c. appendectomy d. cholecystectomy e. hysterectomy sparing her ovaries f. bilateral carpal tunnel release g. t & a h. excision of a benign thyroid tumor HYSTERECTOMY (06/21/73) LEFT CARPAL TUNNEL (10/20/06) Replacement of total knee joint (07/12/14) LEFT TOTAL KNEE REPLACEMENT/DREISBACH Thyroid Tonsillectomy and adenoidectomy Total replacement of hip (~2011) left Social History/Home Situation: Long-time resident of the [facility]. Unable to extract information from patient at tis time. Equipment Owned/DME: Unable to extract information from patient at this time Subjective: Homa is pleasantly confused when at rest but moans when her leg is moved. Did not look like she wanted to be assisted out of bed as she appeared to be in pain with any kind of movement Objective: General Observation: IV in R UE. Mepilex Ag over surgical incision. Mental Status: Alert but is disoriented as to person, place, and time. Simple commands need to be repeated. Significantly apprehensive when B legs are moved. Pain: Unquantified pain, moans in pain when either leg is moved ROM: Right Upper Extremity: Grossly WFL Left Upper Extremity: Grossly WFL Right Lower Extremity: NT formally. Moaned in pain with assistance for supine to sit. Left Lower Extremity: NT formally. Moaned in pain with assistance for supine to sit. Strength: Right Upper Extremity: Grossly 3+/5 Left Upper Extremity: Grossly 3+/5 Right Lower Extremity: NT formally. Grossly 3-/5 Grossly 3-/5 as patient was able to assume supine to sit with assistance from this PT. Left Lower Extremity: NT formally. Grossly 3-/5 as patient was able to assume supine to sit with assistance from this PT. Sensation: Intact as to pain on bilateral lower extremities. Bed Mobility/Transfers: Rolling moderate assist of 2 Supine to sit moderate assistance Sit to supine moderate assistance Sit to stand unable due to pain level and patient apprehension Stand to sit unable due to pain level and patient apprehension Bed to chair unable due to pain level and patient apprehension Chair to bed unable due to pain level and patient apprehension Gait: unable due to pain level and patient apprehension Balance: Static Sitting: Fair Dynamic Sitting: Poor Static Standing: Unable Dynamic Standing: Unable Special Tests: Mobility Limitations Standardized Measure [facility] AM-PAC 6 clicks Basic Mobility Inpatient Short Form: Raw Score: 8 CMS Score: 87% deficit Informed Consent/Education: Patient instructed in purpose of PT consult and plan of care. Assessment: Homa demonstrates significant functional mobility decline with extreme apprehension over moving B LE for bed mobility and transfer assessment, increased fall risk, impaired safety awareness, impaired strength, and inability to walk due to operative status. Will assess for mobility level in the next treatment session. Homa is an 85-year-old female with diabetes mellitus, dementia, GERD, hypertension, atrial fibrillation who presented to the ED on 05/11/2020 via EMS due to a mechanical slip and fall with a right hip injury at the [facility] where she resides. She is diagnosed with a right basicervical intertrochanteric femoral fracture and is status post ORIF using intramedullary nailing on postoperative day 1. Patient presents with clinical signs and symptoms consistent with current/admitting diagnoses that have resulted to mobility limitations, gait instability, generalized weakness, and impairment of motor control as demonstrated by the following impairment level findings: 1. Decreased strength to B LE major muscle groups 2. Impaired sitting/standing balance 3. Impaired activity tolerance 4. Limitation of joint range of motion in B LE Impairments are contributing to the following functional limitations: 1. Dependent bed mobility skills 2. Increased dependence with transfers 3. Inability to safely ambulate 4. Increase completion time for mobility ADL performance 5. Increased fall risk 6. Inability to negotiate steps alone safely Patient is assessed as a [id number] high complexity based on the following: History: 85 [id number] with impairment level findings, functional limitations, and past medical history as indicated above Examination: Demonstrable impairment in strength, balance, and mobility level with underlying impairments and functional limitations as documented above Presentation:Evolving Decision Makin high complexity Goals: Goals X1 week 1. Supine-Sit minimal assist 2. Sit-Supine minimal assist 3. Sit-Stand minimal assist 4. Stand-Sit minimal assist 5. Bed-Chair minimal assist 6. Chair-Bed minimal assist 7. Minimal assist gait on level surface with use of least restrictive device for at least 300 feet without report of pain nor dyspnea 8. Minimal assist stair negotiation while holding onto bilateral rails for at least 10 steps without report of pain nor dyspnea 9. Independent with home exercise program 10. Fair static and dynamic standing balance/tolerance Plan of Care/Treatment Plan: 1-2x/day, 7 days/week x 1 week. Plan of care has been reviewed with the DEGREASING WHEEL OPERATOR providing the service under Physical Therapy direction. Initiate Physical Therapy intervention for strengthening, bed mobility, transfers, gait, stairs, balance training, use of assistive device. DISCHARGE RECOMMENDATIONS: Return to [facility] whenever medically cleared and safe to do so. TREATMENT CODE/TIME: 33622 x 30 minutes, 96117 x 8 minutes beginning at 8:59 AM. Thank you for the opportunity to participate in the care of this patient. Karina Mcknight PT, DPT, CLT [facility] [place], [place]
--- NOTE | 2020-05-14 12:03 | W.PM.PROGNOT ---
Date of Service Date of service: 05/14/20 Time of Service: 11:00 Assessment and Plan Assessment and plan (1) Closed fracture of right hip: Start date: 05/14/20 Start time: 13:44 Status: Acute Assessment and plan: Post op day 1. Doing well, confused baseline She did have a Hemoglobin 7.1 with pradaxa on board will infuse 1 unit. PT/OT Continue pain management, oral Bowel regimen Qualifiers: Encounter type: initial encounter Qualified Code(s): S72.001A - Fracture of unspecified part of neck of right femur, initial encounter for closed fracture (2) Hypothyroidism: Start date: 05/14/20 Start time: 13:50 Status: Chronic Assessment and plan: continue levothyroxine, TSH within range. continue current dosing Qualifiers: Hypothyroidism type: unspecified Qualified Code(s): E03.9 - Hypothyroidism, unspecified (3) Gastroesophageal reflux disease: Start date: 05/14/20 Start time: 13:50 Status: Chronic Assessment and plan: Continue protonix (4) Atrial fibrillation: Start date: 05/14/20 Start time: 13:50 Status: Chronic Assessment and plan: EKG in the ED with Afib rate controlled in the 90's. On pradaxa. restarted last night Continue BB and CCB with parameters due to soft bp (5) Diabetes mellitus type 2: Start date: 05/14/20 Start time: 13:51 Status: Chronic Assessment and plan: Glucose 191 at lunch BID fingersticks revealing elevated glucose in evening will add SSI sensitive A1c 6.4 (6) Benign hypertension: Start date: 05/14/20 Start time: 13:51 Status: Chronic Assessment and plan: Control with home medications continues to be soft Will monitor hold bp medication (7) Acute UTI: Start date: 05/14/20 Start time: 13:51 Status: Resolved Assessment and plan: Treated with 3 days ceftriaxone, asymptomatic (8) Discharge planning issues: Start date: 05/14/20 Start time: 13:56 Status: Acute Assessment and plan: Patient very clearly states she wants to go back to [facility] her home. At this time she is a full code. She does have dementia, emergency guardianship is taking place, will have palliative evaluate patient, patient does want to be DNR/DNI however family wants her to be a full code. (9) DVT prophylaxis: Start date: 05/14/20 Start time: 13:56 Status: Acute Assessment and plan: Restarted on pradaxa above case discussed with Dr. Abebe who is in agreement. Subjective Subjective Interval history since last seen: Patient is day 1 post-op for a right hip fracture. She is friendly and cooperative, though some responses are inappropriate. She exhibits signs of Wernicke's Aphasia. Pain appears well-controlled. Exam Narrative Exam Narrative: Patient is alert and oriented. She is able to follow commands. She responded to questions with word salad occasionally, though at other times was able to respond appropriately. Surgical wound is not erythematous or edematous. HENMT Head: normal to inspection Eyes General: appearance normal, both eyes and all related structures Neck Neck: normal visual inspection Chest Chest: normal inspection of the chest Resp Effort & Inspection: normal respiratory effort Cardio Rate: regular rate Rhythm: regular rhythm Heart Sounds: S1 normal and S2 normal GI Inspection: normal to inspection Palpation: soft Skin General skin exam: no rashes or lesions noted Neuro Cognition: abnormal cognition Speech: expressive aphasia Objective Last Vital Signs Temp 36.6 C 05/14/20 11:15 Pulse 79 05/14/20 11:15 Resp 18 05/14/20 11:15 BP 113/65 05/14/20 11:15 Pulse Ox 94 05/14/20 11:15 Laboratory Results - last 24 hr 05/14/20 05/14/20 05/14/20 06:55 06:55 06:55 WBC 10.53 RBC 2.56 L Hgb 7.1 L Hct 22.2 L MCV 86.7 MCH 27.7 MCHC 32.0 RDW 15.8 H Plt Count 214 MPV 10.0 Immature Gran % 0.5 Neutrophils % 72.0 Lymphocytes % 15.1 Monocytes % 10.7 Eosinophils % 1.3 Basophils % 0.4 Nucleated RBC % 0 Absolute Neutrophils 7.58 H Absolute Lymphocytes 1.59 Absolute Monocytes 1.13 H Absolute Eosinophils 0.14 Absolute Basophils 0.04 Sodium 135 L Potassium 4.5 Chloride 101 Carbon Dioxide 27.2 Anion Gap 6.8 BUN 15 Creatinine 1.05 H Estimated GFR/1.73 m2 50.05 Glucose 160 H Calcium 8.0 L Patient ABO/Rh A Positive Antibody Screen Negative Crossmatch See Detail
--- NOTE | 2020-05-14 12:05 | PTTR_ITS ---
Date of service: 05/14/20 Time of Service: 12:05 PT Notes Visit Reasons: FEMORAL FRACTURE, MECHANICAL FALL Attempted a transfer and mobility assessment for this second morning visit with Nurse Mcfarland assisting. She required moderate assist of 2 to sit up from supine. Patient continued to be very apprehensive about putting weight on R LE and was groaning in pain when she was assisted to stand up. She complained of significant pain in the R thigh and demanded to lie back down in bed. Nurse Mcfarland will administer Morphine with a scheduled PT session between 1:15- 1:30 PM today with NADINE Shoemaker. TREATMENT CODE/TIME: 75231 x 10 minutes beginning at 12:05 PM.
[2020-05-14] MEDS: traMADol 50 MG TAB PO ×2 (12:19→18:56)
[2020-05-14] MEDS: cefTRIAXone 1 GM/50 ML BAG IVPB (13:47)
--- NOTE | 2020-05-14 15:34 | PT.INTREAT ---
Date of service: 05/14/20 Time of Service: 13:15 PT Notes Visit Reasons: FEMORAL FRACTURE, MECHANICAL FALL Inpatient Physical Therapy Treatment Note [facility] Date: 05/14/2020 PRECAUTIONS: Fall, WBAT R SUBJECTIVE: Homa is confused, but agreeable to participating in PT. During session she states I can't when referring to standing. OBJECTIVE: PAIN: Patient complained of significant R hip pain with bed mobility and attempts to stand BED MOBILITY/TRANSFERS Rolling L/R: Mod A x2 Supine-sit: Mod A x2 Sit-supine: Max A x2 Sit-stand: Unable Stand-sit: Unable GAIT: Unable THEREX: Patient was instructed in a lower extremity strengthening and stabilization program, although requires significant assist for exercise completion due to significant R hip pain as well as confusion. Please see flow sheet for exercise specifics. ASSESSMENT: Patient continues to be limited by R hip pain with bed mobility and transfers. She was unable to perform sit?to?stand transfer due to pain. She would benefit from continued bed mobility and transfer training as well as global strengthening for improved mobility. PLAN: Continue with global strengthening as well as bed mobility and transfer training for improved mobility TREATMENT CODE/TIME: 25 minutes; 32029, 25604
--- NOTE | 2020-05-14 18:18 | PCNE_ITS ---
Date of service: 05/14/20 Time of Service: 18:18 History of Present Illness Narrative: I was asked by Inés Moore NP to see Mrs. Bey. Mrs. Bey is an 85-year-old woman who was admitted due to fracture of the right hip. She also had a UTI, diabetes, atrial fibrillation, reflux, hypothyroidism, and advanced dementia. Homa's son Rudolph at [phone] and daughter Neva [phone] are her legal guardians. I visited with the patient for a few minutes before calling her children to be on speaker phone. During this time she spoke gibberish and did not have coherent statements. She was also delightful and that she was smiling laughing and holding my hand. I called her children. Rudolph unfortunately did not answer. Neva did and she was on speaker phone with us. Neva agrees that her mom was not making much sense. We talked with patient and daughter about next steps. Patient would like to return to [place] in but is unable to secondary to her recent hip fracture but even more importantly due to her advancing dementia. The plan is for her to go to a half-way and after rehab transition to long-term. We also addressed CODE STATUS. She was presently a full code. Staff had told me that she repeatedly said that she did not want to those things done to her. I addressed this with her daughter Neva and she agreed that her mom would not want CPR. She agreed that I could execute a COLST form and choose DNR/DNI. She said that was in keeping with her mother's wishes when she was more coherent. Consults Consult date: 05/14/20 Requesting physician: Inés Montague Assessment and Plan Assessment and plan (1) Diabetes mellitus type 2: Status: Chronic Assessment and plan: Her A1c this admission was 6.4. No change in her medications (2) Benign hypertension: Status: Chronic (3) Atrial fibrillation: Status: Chronic Assessment and plan: She is started back on Pradaxa for stroke prevention (4) Hypothyroidism: Status: Chronic Assessment and plan: Her TSH was in the normal range this admission. No change in her medication Qualifiers: Hypothyroidism type: unspecified Qualified Code(s): E03.9 - Hypothyroidism, unspecified (5) Dementia: Status: Chronic (6) Palliative care patient: Status: Acute Assessment and plan: 85-year-old woman with advanced dementia and guardians in place. The plan is for her to transition to rehab and then hopefully feel comfortable and stay there long-term. Her daughter Neva she is unable to return to [place] due to her dementia Regarding her CO LST form she is a DO NOT RESUSCITATE DO NOT INTUBATE. Her daughter still feels that she would want to be transferred to the hospital if she got sick, use antibiotics, and IV fluids. Her daughter did not feel that she would want a feeding tube. I did complete the COLST form and put on it that this was done by phone at 613 on 05/14/2020 Thank you very much for this consult. 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 Diabetes mellitus Discharge planning issues DJD (degenerative joint disease) Essential hypertension Gastroesophageal reflux disease h/o cervical cancer in situ History of tobacco use HPV test positive Hypercholesterolemia Hyperlipidemia left ankle fracture Lesion of ulnar nerve NEUROPATHY Osteoarthritis of left knee (07/12/14) Primary osteoarthritis of right knee Right knee pain Sensorineural hearing loss, bilateral (10/31/14) Urge incontinence Urgency incontinence (04/06/15) Surgical History Appendectomy (~195) Artificial knee joint present (07/12/14) Cholecystectomy (~2005) Colonoscopy - MAC (~2009) EGD - MAC (~2009) H/O surgical procedure a. several EGDs and colonoscopies with colon adenomas removed b. left femoral rodding for fx c. appendectomy d. cholecystectomy e. hysterectomy sparing her ovaries f. bilateral carpal tunnel release g. t & a h. 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 Father , Pulm. Emb. at age 51. Personal history of malignant neoplasm colon Sister , muscle degeneration No problems noted. Brother , pneumonia at age 57. Personal history of malignant neoplasm colon Social History Smoking/Tobacco Use Status: Former Tobacco Use Smoking risk assessment performed?: Yes Drug use: Never Do you feel safe in your relationship?: Yes Exam Narrative Exam Narrative: Patient is lying in bed. Her heart was tachycardic. There was a murmur. Her lungs decreased breath sounds. Her abdomen was nontender. Her hip had a bandage on it. She had 1+ edema but it was bilaterally equal. Mentally patient got agitated as we talked about some of these choices on the COLST form. She did not understand what we were doing and became more anxious. We then change the subject to a more benign conversation such as tell me about your 3 children. She was unable to answer these questions Laboratory Tests 05/11/20 05/12/20 05/14/20 13:45 06:48 06:55 Hct 22.2 L Hemoglobin A1c 6.4 H Calcium TSH 1.59 05/15/20 05/15/20 06:15 06:15 Hct 27.0 L D Hemoglobin A1c Calcium 7.9 L TSH Functional Assessment Scale (FAST) 1 No difficulty either subjectively or objectively 2 Complains of forgetting location of objects. Subjective work difficulties 3 Decreased job functioning evident to co-workers. Difficulty in traveling to new locations. Decreased organizational capacity* 4 Decreased ability to perform complex task, (e.g., planning dinner for guests, handling personal finances, such as forgetting to pay bills, etc) 5 Requires assistance in choosing proper clothing to wear for the day, season, or occasion, (e.g., pt may wear the same clothing repeatedly unless supervised*) 6 Occasionally or more frequently over the past weeks for the following*: A) Improperly putting on clothes without assistance or cueing B) Unable to bathe properly (not able to choose proper water temp) C) Inability to handle mechanics of toileting (e.g., forget to flush the toilet, does not wipe properly or properly dispose of toilet tissue) D) Urinary Incontinence E) Fecal Incontinence 7 A) Ability to speak limited to approximately < 6 intelligible different words in the course of an average day or in the course of an intensive interview. B) Speech ability is limited to the use of a single intelligible word in an average day or in the course of an intensive interview C) Ambulatory ability is lost (cannot walk without personal assistance) D) Cannot sit up without assistance (e.g., the individual will fall over if there are not lateral rests [arms] on the chair) E) Loss of ability to smile. F) Loss of ability to hold up head independently *Scored primarily on information obtained from a knowledgeable informant. Patient Score: 7A Palliative Performance Scale % Ambulation Activity and Evidence of Disease Self Care Intake Level of Consciousness 100 Full Normal activity, no evidence of disease Full Normal Full 90 Full Normal activity, some evidence of disease Full Normal Full 80 Full Normal activity with effort, some evidence of disease Full Normal or reduced Full 70 Reduced Unable to do normal work, some evidence of disease Full Normal or reduced Full 60 Reduced Unable to do hobby or some housework, significant disease Occasional assist necessary Normal or reduced Full or confusion 50 Mainly sit/lie Unable to do any work, extensive disease Considerable as sistance required Normal or reduced Full or confusion 40 Mainly in bed Unable to do any work, extensive disease Mainly assistance Normal or reduced Full, drowsy, or confusion 30 Totally bed bound Unable to do any work, extensive disease Total care Reduced Full, drowsy, or confusion 20 Totally bed bound Unable to do any work, extensive disease Total care Minimal sips Full, drowsy, or confusion 10 Totally bed bound Unable to do any work, extensive disease Total care Mouth care only Drowsy or coma 0 - - - - Patient Score: 50% Results Last Vital Signs Temp 98.8 F 05/14/20 16:00 Pulse 95 H 05/14/20 16:00 Resp 17 05/14/20 16:00 BP 90/56 L 05/14/20 16:00 Pulse Ox 93 05/14/20 16:00 Labs Result diagrams: 05/15/20 06:15 05/15/20 06:15 Labs: Laboratory Results - last 24 hr 05/14/20 05/14/20 05/14/20 06:55 06:55 06:55 WBC 10.53 RBC 2.56 L Hgb 7.1 L Hct 22.2 L MCV 86.7 MCH 27.7 MCHC 32.0 RDW 15.8 H Plt Count 214 MPV 10.0 Immature Gran % 0.5 Neutrophils % 72.0 Lymphocytes % 15.1 Monocytes % 10.7 Eosinophils % 1.3 Basophils % 0.4 Nucleated RBC % 0 Absolute Neutrophils 7.58 H Absolute Lymphocytes 1.59 Absolute Monocytes 1.13 H Absolute Eosinophils 0.14 Absolute Basophils 0.04 Sodium 135 L Potassium 4.5 Chloride 101 Carbon Dioxide 27.2 Anion Gap 6.8 BUN 15 Creatinine 1.05 H Estimated GFR/1.73 m2 50.05 Glucose 160 H Calcium 8.0 L SARS-CoV-2 Source SARS-CoV-2 (PCR) Patient ABO/Rh A Positive Antibody Screen Negative Crossmatch See Detail 05/14/20 17:25 WBC RBC Hgb Hct MCV MCH MCHC RDW Plt Count MPV Immature Gran % Neutrophils % Lymphocytes % Monocytes % Eosinophils % Basophils % Nucleated RBC % Absolute Neutrophils Absolute Lymphocytes Absolute Monocytes Absolute Eosinophils Absolute Basophils Sodium Potassium Chloride Carbon Dioxide Anion Gap BUN Creatinine Estimated GFR/1.73 m2 Glucose Calcium SARS-CoV-2 Source Cancelled SARS-CoV-2 (PCR) Cancelled Patient ABO/Rh Antibody Screen Crossmatch
--- NOTE | 2020-05-14 20:03 | W.PM.PROGNOT ---
Date of Service Date of service: 05/14/20 Time of Service: 12:21 Assessment and Plan Assessment and plan (1) Closed fracture of right hip: Status: Acute Assessment and plan: Solomon is an 85-year-old who is status post intramedullary nail fixation of a right basicervical intertrochanteric type hip fracture. Her first recovery day was limited by pain and postoperative blood loss anemia. The drop in hemoglobin is likely cumulative from the time of fracture through surgery with her blood thinner on board and the significant displacement of the fracture. I expect that it will recover without significant persistence. We will continue with physical therapy mobilization. She is weightbearing as tolerated although will take some time for her to start putting weight on it. Our goal will be to get her to a chair as a first step and then start taking a few steps away from that. She will need rehab placement for recovery. Resume anticoagulation from a surgical perspective. Qualifiers: Encounter type: initial encounter Qualified Code(s): S72.001A - Fracture of unspecified part of neck of right femur, initial encounter for closed fracture Subjective Subjective Interval history since last seen: Solomon has no acute complaints today. She does have her baseline dementia with some delusional undertones which per nursing is about baseline. She was not able to get up with physical therapy this morning. Her hemoglobin this morning was 7.2 and therefore she is receiving 1 unit of packed red blood cells. She denies any significant pain except when she tried to mobilize this morning. At rest she has none. No issues with the wounds. She denies any fevers or chills, chest pain or shortness of breath. Exam Narrative Exam Narrative: Laying in the bed. Right lower extremity now looks appropriate to the left side. No significant shortening or significant external rotation. The right thigh is swollen but no notable ecchymosis. Dressings are clean dry and intact. She tolerates some gentle internal and external rotation of the right leg. She has intact ankle dorsiflexion, plantarflexion, EHL, FHL. Objective Last Vital Signs Temp 37.7 C H 05/15/20 05:31 Pulse 82 05/15/20 05:31 Resp 18 05/15/20 05:31 BP 115/68 05/15/20 05:31 Pulse Ox 92 05/15/20 05:31 Laboratory Results - last 24 hr 05/14/20 05/14/2005/14/20 06:55 06:55 06:55 WBC 10.53 RBC 2.56 L Hgb 7.1 L Hct 22.2 L MCV 86.7 MCH 27.7 MCHC 32.0 RDW 15.8 H Plt Count 214 MPV 10.0 Immature Gran % 0.5 Neutrophils % 72.0 Lymphocytes % 15.1 Monocytes % 10.7 Eosinophils % 1.3 Basophils % 0.4 Nucleated RBC % 0 Absolute Neutrophils 7.58 H Absolute Lymphocytes 1.59 Absolute Monocytes 1.13 H Absolute Eosinophils 0.14 Absolute Basophils 0.04 Sodium 135 L Potassium 4.5 Chloride 101 Carbon Dioxide 27.2 Anion Gap 6.8 BUN 15 Creatinine 1.05 H Estimated GFR/1.73 m2 50.05 Glucose 160 H Calcium 8.0 L Urine Color Urine Clarity Urine pH Ur Specific [place] Urine Protein Urine Ketones Urine Blood Urine Nitrite Urine Bilirubin Urine Urobilinogen Ur Leukocyte Esterase Urine RBC Urine WBC Ur Epithelial Cells Urine Crystals Urine Bacteria Urine Casts Urine Mucus Ur Culture Indicated? Urine Glucose SARS-CoV-2 Source SARS-CoV-2 (PCR) Patient ABO/Rh A Positive Antibody Screen Negative Crossmatch See Detail 05/14/20 05/14/20 05/15/20 17:25 21:50 05:35 WBC RBC Hgb Hct MCV MCH MCHC RDW Plt Count MPV Immature Gran % Neutrophils % Lymphocytes % Monocytes % Eosinophils % Basophils % Nucleated RBC % Absolute Neutrophils Absolute Lymphocytes Absolute Monocytes Absolute Eosinophils Absolute Basophils Sodium Potassium Chloride Carbon Dioxide Anion Gap BUN Creatinine Cancelled Estimated GFR/1.73 m2 Cancelled Glucose Calcium Urine Color Yellow Urine Clarity Clear Urine pH 6.0 Ur Specific [place] 1.015 Urine Protein Negative Urine Ketones Negative Urine Blood Moderate H Urine Nitrite Negative Urine Bilirubin Negative Urine Urobilinogen 0.2 Ur Leukocyte Esterase Negative Urine RBC 5-10 H Urine WBC Negative Ur Epithelial Cells Rare Urine Crystals Negative Urine Bacteria Rare Urine Casts Negative Urine Mucus Negative Ur Culture Indicated? No Urine Glucose Negative SARS-CoV-2 Source Cancelled SARS-CoV-2 (PCR) Cancelled Patient ABO/Rh Antibody Screen Crossmatch
[2020-05-14] MEDS: Simvastatin 40 MG TAB PO (20:35)
--- NOTE | 2020-05-14 21:00 | DI.RAD_ITS ---
EXAM: XR PORTABLE CHEST AP CLINICAL HISTORY: temp of 39.3 TECHNIQUE: 2D digital imaging was performed. COMPARISON: CR XR CHEST 1V IN DI DEPT from 05/11/2020 FINDINGS: Exam is somewhat limited by patient positioning. LUNGS: Minimal blunting at the costophrenic angles left greater than right.. No infiltrate or pulmon rula edema. HEART: Normal. MEDIASTINUM: Normal. OTHER FINDINGS: Degenerative changes in the spine and shoulders. IMPRESSION: Tiny bilateral pleural effusions. DATA REPOSITORY: RADIATION DOSE DELIVERED:
[2020-05-14] MEDS: Mirtazapine 15 MG TAB PO (21:11)
--- NOTE | 2020-05-14 21:29 | DI.VRAD_ITS ---
PROCEDURE INFORMATION: Exam: XR Chest, 1 View Exam date and time: 05/14/2020 9:05 PM Age: 85 years old Clinical indication: Fever TECHNIQUE: Imaging protocol: XR of the chest Views: 1 view. COMPARISON: CR XR CHEST 1V IN DI DEPT 05/11/2020 12:56 PM FINDINGS: Lungs: No focal consolidation. Pleural space: Blunting in the left costophrenic angle may represent small left pleural effusion or pleural reaction. Heart/Mediastinum: Unremarkable. No cardiomegaly. Bones/joints: Degenerative changes in the glenohumeral joints IMPRESSION: 1. No focal consolidation. 2. Blunting in the left costophrenic angle may represent small left pleural effusion or pleural reaction. Dictated and Authenticated by: Stacie Teresa MD. Ordering:SILVA Mason MD
--- NOTE | 2020-05-14 21:35 | W.PM.PROGNOT ---
Date of Service Date of service: 05/14/20 Time of Service: 21:35 Subjective Subjective Interval history since last seen: Called fever to 39.3. POD-2 for hip repair, and on day 3 Rocephin for UTI, E coli victoria-sensitive. Patient w/ complaints. Staff noted sats to 88%, now 92% on 2L. Patient appears entirely comfortable. Lungs diminished, patient uncooperative with exam. Heart RRR. Abdomen soft and NT right hip wound C&D. No skin rashes noted. Repeat U/A pending but urine in bag clear; cxr shows possible infiltrate RML to my read. A/P: Breakthrough fever while on appropriate abx for UTI. Concern for pneumonia, but also need to cover for operative site. Doubt drug fever. Will add Vanco and change Rocephin over to Unasyn. Objective Last Vital Signs Temp 39.3 C H 05/14/20 20:36 Pulse 99 H 05/14/20 20:21 Resp 20 05/14/20 20:21 BP 104/66 05/14/20 20:21 Pulse Ox 92 05/14/20 20:21 Laboratory Results - last 24 hr 05/14/20 05/14/20 05/14/20 06:55 06:55 06:55 WBC 10.53 RBC 2.56 L Hgb 7.1 L Hct 22.2 L MCV 86.7 MCH 27.7 MCHC 32.0 RDW 15.8 H Plt Count 214 MPV 10.0 Immature Gran % 0.5 Neutrophils % 72.0 Lymphocytes % 15.1 Monocytes % 10.7 Eosinophils % 1.3 Basophils % 0.4 Nucleated RBC % 0 Absolute Neutrophils 7.58 H Absolute Lymphocytes 1.59 Absolute Monocytes 1.13 H Absolute Eosinophils 0.14 Absolute Basophils 0.04 Sodium 135 L Potassium 4.5 Chloride 101 Carbon Dioxide 27.2 Anion Gap 6.8 BUN 15 Creatinine 1.05 H Estimated GFR/1.73 m2 50.05 Glucose 160 H Calcium 8.0 L SARS-CoV-2 Source SARS-CoV-2 (PCR) Patient ABO/Rh A Positive Antibody Screen Negative Crossmatch See Detail 05/14/20 17:25 WBC RBC Hgb Hct MCV MCH MCHC RDW Plt Count MPV Immature Gran % Neutrophils % Lymphocytes % Monocytes % Eosinophils % Basophils % Nucleated RBC % Absolute Neutrophils Absolute Lymphocytes Absolute Monocytes Absolute Eosinophils Absolute Basophils Sodium Potassium Chloride Carbon Dioxide Anion Gap BUN Creatinine Estimated GFR/1.73 m2 Glucose Calcium SARS-CoV-2 Source Cancelled SARS-CoV-2 (PCR) Cancelled Patient ABO/Rh Antibody Screen Crossmatch
[2020-05-14 22:21] LABS: Bilirubin Negative (Negative); Blood Moderate (Negative); Clarity Clear (Clear); Glucose Negative (Negative); Ketones Negative (Negative); Leukocyte Esterase Negative (Negative); Nitrite Negative (Negative); Specific Gravity 1.015 (1.005-1.025); Urobilinogen 0.2 EU/dL (Up TO 0.2)
[2020-05-14 22:31] LABS: Bacteria Rare HPF (Negative); C & S Indicated? No; Casts Negative LPF (Negative); Crystals Negative HPF (Negative); Epithelial Cells Rare HPF (Negative); Mucus Negative (Negative); WBC Negative HPF (0-5)
[2020-05-14] MEDS: AMPICILLIN/SULBACTAM 3 GM in Normal Saline 100 ML IVPB (22:37)
[2020-05-14] MEDS: VANCOMYCIN 2,000 MG in Normal Saline 500 ML 250 MG IVPB (23:38)
[2020-05-15] MEDS: AMPICILLIN/SULBACTAM 3 GM in Normal Saline 100 ML IVPB ×4 (03:57→21:38)
[2020-05-15 04:02] VITALS: BP 98/63; PULSE 83; RESP 18; TEMP 37.7; O2SAT 91
[2020-05-15] MEDS: Levothyroxine 75 MCG TAB PO (05:29)
[2020-05-15 05:31] VITALS: BP 115/68; PULSE 82; RESP 18; TEMP 37.7; O2SAT 92
[2020-05-15 06:37] LABS: HGB 8.7 g/dL (11.2-15.7)
[2020-05-15 06:49] LABS: Anion Gap 6.1 mmol/L (3-11); BUN 13 mg/dL (7-18); CO2 29.9 mmol/L (21.0-32.0); CREATININE 1.01 mg/dL (0.55-1.02); Calcium 7.9 mg/dL (8.5-10.1); Chloride 105 mmol/L (98-107); Estimated GFR 52.35 (mL/min/1.73m2); Glucose 176 mg/dL (74-106); Potassium 4.1 mmol/L (3.5-5.1); Sodium 141 mmol/L (136-145)
[2020-05-15 07:13] VITALS: BP 101/68; PULSE 93; RESP 18; TEMP 36.8; O2SAT 95
[2020-05-15] MEDS: Acetaminophen 325 MG TAB 650 MG PO (07:27)
[2020-05-15] MEDS: Pantoprazole 40 MG TABCR PO (07:27)
[2020-05-15] MEDS: Insulin Aspart 300 UNITS/3 ML PEN SC ×3 (08:12→16:56)
[2020-05-15] MEDS: QUEtiapine 25 MG TAB 37.5 MG PO ×2 (08:12→19:50)
[2020-05-15] MEDS: Metoprolol CR 25 MG TABCR PO (08:13)
[2020-05-15] MEDS: Citalopram 20 MG TAB PO (08:13)
[2020-05-15] MEDS: Cholecalciferol (Vitamin D3) 1,000 UNIT TAB 1000 UNITS PO (08:13)
[2020-05-15] MEDS: Memantine 5 MG TAB PO ×2 (08:13→16:23)
[2020-05-15] MEDS: dilTIAZem 60 MG TAB 120 MG PO (08:13)
[2020-05-15] MEDS: Mirabegron 50 MG TABCR PO (08:13)
[2020-05-15] MEDS: Polyethylene Glycol 3350 17 GM PACKET PO (08:20)
[2020-05-15] MEDS: Docusate Sodium 100 MG CAP PO (08:20)
--- NOTE | 2020-05-15 08:55 | OTIE_ITS ---
Occupational Therapy Notes Inpatient Occupational Therapy Evaluation Date: 05/15/20 Referring Doctor: Inés Montague NP OT Orders: Non-Urgent Precautions: Fall, DNR/DNI PATIENT PROFILE/ADMITTING DIAGNOSIS: Pt is an 85 year old female who was admitted for s/p a (R) basicervical intertrochanteric femoral fracture and is status post ORIF using intramedullary nailing. Pt presented to the ED on 05/11 for Closed fracture of right hip, Acute UTI. 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 Diabetes mellitus Discharge planning issues DJD (degenerative joint disease) Essential hypertension Gastroesophageal reflux disease h/o cervical cancer in situ History of tobacco use HPV test positive Hypercholesterolemia Hyperlipidemia left ankle fracture Lesion of ulnar nerve NEUROPATHY Osteoarthritis of left knee (07/12/14) Primary osteoarthritis of right knee Right knee pain Sensorineural hearing loss, bilateral (10/31/14) Urge incontinence Urgency incontinence (04/06/15) Surgical History (Updated 05/11/20 @ 15:58 by Inés Montague NP) Appendectomy (~1951) Artificial knee joint present (07/12/14) Cholecystectomy (~2005) Colonoscopy - MAC (~2009) EGD - MAC (~2009) H/O surgical procedure a. several EGDs and colonoscopies with colon adenomas removed b. left femoral rodding for fx c. appendectomy d. cholecystectomy e. hysterectomy sparing her ovaries f. bilateral carpal tunnel release g. t & a h. 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 Equipment owned/DME: Lives at [facility] at baseline- DME needs met here SUBJECTIVE: Pt was sitting in bed when OT arrived, she was agreeable to OT session. OBJECTIVE: General Observation: IV (R) UE, pleasant but confused Mental Status: Alert to name Pain: c/o pain in (R) leg ROM: RUE Shoulder flexion is limited, AROM of wrist, elbow and digits WNL L UE AROM WNL STRENGTH: RUE 4-/5 throughout globally LUE 3+/5 throughout globally FUNCTIONAL MOBILITY/ADLS: BATHING sitting in bed with max (A) Set up/clean up Bathing UE Mod (A) with face, (B) UE and abdomen with mod vc throughout Bathing LE Min (A) (B) LE DRESSING sitting in bed Dressing UE Mod (A) don and doffing hospital gown Dressing LE Max (A) don and doffing (B) socks GROOMING Sitting in bed, mod (A) With washing hair, (I) with brushing hair TOILETING NT EATING Pt was finishing breakfast when OT arrived, she was (I) with hand to mouth BALANCE: Static sitting Good with leaning to (L) side without support Dynamic Sitting Good SPECIAL TESTS: Daily Activity Limitations Standardized Measure [facility] AM -PAC ?6 clicks? Daily Activity Inpatient Short Form: Raw score: 12 Standardized score: 30.60 CMS score: 66.57% INFORMED CONSENT/EDUCATION: Pt instructed in purpose of OT Consult and plan of care. ASSESSMENT: Patient is a 85-year-old female referred to occupational therapy services with diagnosis of s/p a (R) basicervical intertrochanteric femoral fracture and is status post ORIF using intramedullary nailing. Patient presents with clinical signs and symptoms consistent with dx, as demonstrated by the following impairment level findings/functional limitations: Impairments in ADL/IADL And leisure activities, decreased (B) UE strength, decreased functional mobility required for ADLs, pt is confused, inability to speak in full sentences with difficulty finding words, pain in (R) LE, decreased LE bathing at todays session per assessment, decreased functional activity tolerance. AMPAC score 12, CMS 66.57% Patient is assessed as a Moderate 73352 complexity based on the following: History: see above Examination: see functional limitations as noted above Presentation: evolving Decision Making: AMPAC score 12, CMS score 66.57% GOALS Goals x1 week 1. Grooming- sitting in chair with max (A) Set up/clean up pt will be (I) with hair and oral hygiene with min vc throughout 2. Dressing- sitting in chair pt will be able to (I) and doff UE 3. Bathing- sitting in chair with max (A) set up/clean up pt will be (I) UE and mod (A) LE 4. Toileting- on commode (I) 5. Eating- (I) PLAN OF CARE/TREATMENT PLAN: 1x/day, 5 days/ week x 1week Initiate Occupational Therapy Services for bathing, dressing, grooming, toileting, eating, transfer training. DISCHARGE RECOMMENDATIONS Based on pts current level of function, cognitive decline and inability to perform her ADL/IADLs without (A) at this time and decreased functional mobility, OT does feel that pt would benefit from SNF at this time. Based on her cognitive level, OT is unable to obtain a baseline level of function for pt per pt report and is unsure as to what she was able to perform (I) at the [facility] prior to admission. OT will discuss this with care management to get a better understanding of pts baseline level of function. TREATMENT TIME/MINUTES/CODES [id number], [id number], 30 minutes (08:25) [facility]
[2020-05-15 11:07] LABS: Procalcitonin 0.1 ng/mL
--- NOTE | 2020-05-15 12:13 | PGE_ITS ---
Date of Service Date of service: 05/15/20 Time of Service: 12:13 Assessment and Plan Assessment and plan (1) Fever: Status: Acute Assessment and plan: max temp overnight 39.3, afebrile now. antibiotics had been broadened to unasyn and vanco last night. she was on ceftriaxone for a pansensitive ecoli UTI CXR unremarkable repeat urine pending blood cultures pending. will stop vanco for now procalcitonin 0.1 (2) Acute UTI: Status: Resolved Assessment and plan: pansensitive ecoli, repeat culture pending. day 5 of abx. (3) Closed fracture of right hip: Status: Acute Assessment and plan: post op day continue routine post operative care received 1 unit of PRBC, pain managed bowel management pulmonary toilet encourage. Qualifiers: Encounter type: initial encounter Qualified Code(s): S72.001A - Fracture of unspecified part of neck of right femur, initial encounter for closed fracture (4) Diabetes mellitus type 2: Status: Chronic Assessment and plan: Her A1c this admission was 6.4. No change in her medications (5) Benign hypertension: Status: Chronic Assessment and plan: Control with home medications continues to be soft Will monitor hold bp medication (6) Atrial fibrillation: Status: Chronic Assessment and plan: She is started back on Pradaxa for stroke prevention (7) Hypothyroidism: Status: Chronic Assessment and plan: Her TSH was in the normal range this admission. No change in her medication Qualifiers: Hypothyroidism type: unspecified Qualified Code(s): E03.9 - Hypothyroidism, unspecified (8) Dementia: Status: Chronic Assessment and plan: stable, continue safety precautions (9) DVT prophylaxis: Status: Acute Assessment and plan: on pradaxa (10) Discharge planning issues: Status: Acute Assessment and plan: case management following for discharge planning discussed with Dr Abebe Subjective Subjective Interval history since last seen: max temp overnight 39.3, afebrile today. no c/o but unable to provide review of systems d/t dementia. she appears in no distress. respirations even and unlabored. sitting up in chair, interactive and animated. Exam HENMT Head: normal to inspection Eyes General: appearance normal, both eyes and all related structures Neck Neck: normal visual inspection Chest Chest: normal inspection of the chest Resp Effort & Inspection: normal respiratory effort Cardio Rate: regular rate Rhythm: regular rhythm Heart Sounds: S1 normal and S2 normal GI Inspection: normal to inspection Palpation: soft Skin General skin exam: no rashes or lesions noted Neuro Cognition: abnormal cognition Speech: expressive aphasia Objective Last Vital Signs Temp 36.8 C 05/15/20 07:13 Pulse 93 H 05/15/20 07:13 Resp 18 05/15/20 07:13 BP 101/68 05/15/20 07:13 Pulse Ox 95 05/15/20 07:13 Laboratory Results - last 24 hr 05/14/20 05/14/20 05/14/20 06:55 17:25 21:50 Hgb Hct Sodium Potassium Chloride Carbon Dioxide Anion Gap BUN Creatinine Estimated GFR/1.73 m2 Glucose Calcium Procalcitonin Urine Color Yellow Urine Clarity Clear Urine pH 6.0 Ur Specific [place] 1.015 Urine Protein Negative Urine Ketones Negative Urine Blood Moderate H Urine Nitrite Negative Urine Bilirubin Negative Urine Urobilinogen 0.2 Ur Leukocyte Esterase Negative Urine RBC 5-10 H Urine WBC Negative Ur Epithelial Cells Rare Urine Crystals Negative Urine Bacteria Rare Urine Casts Negative Urine Mucus Negative Ur Culture Indicated? No Urine Glucose Negative SARS-CoV-2 Source Cancelled SARS-CoV-2 (PCR) Cancelled Crossmatch See Detail 05/15/20 05/15/20 05/15/20 05:35 06:15 06:15 Hgb 8.7 L Hct 27.0 L D Sodium 141 Potassium 4.1 Chloride 105 Carbon Dioxide 29.9 Anion Gap 6.1 BUN 13 Creatinine Cancelled 1.01 Estimated GFR/1.73 m2 Cancelled 52.35 Glucose 176 H Calcium 7.9 L Procalcitonin Urine Color Urine Clarity Urine pH Ur Specific [place] Urine Protein Urine Ketones Urine Blood Urine Nitrite Urine Bilirubin Urine Urobilinogen Ur Leukocyte Esterase Urine RBC Urine WBC Ur Epithelial Cells Urine Crystals Urine Bacteria Urine Casts Urine Mucus Ur Culture Indicated? Urine Glucose SARS-CoV-2 Source SARS-CoV-2 (PCR) Crossmatch 05/15/20 06:15 Hgb Hct Sodium Potassium Chloride Carbon Dioxide Anion Gap BUN Creatinine Estimated GFR/1.73 m2 Glucose Calcium Procalcitonin 0.1 Urine Color Urine Clarity Urine pH Ur Specific [place] Urine Protein Urine Ketones Urine Blood Urine Nitrite Urine Bilirubin Urine Urobilinogen Ur Leukocyte Esterase Urine RBC Urine WBC Ur Epithelial Cells Urine Crystals Urine Bacteria Urine Casts Urine Mucus Ur Culture Indicated? Urine Glucose SARS-CoV-2 Source SARS-CoV-2 (PCR) Crossmatch
--- NOTE | 2020-05-15 14:29 | PHACLINREV_ITS ---
Pharmacy Admission Review - Admission Clinical Review (Last Updated 05/13/20 @ 12:12 by Inés Montague NP) Fever (Acute) Physician orders for life-sustaining treatment (POLST) form indicates patient wish for [id number] status (Acute) Palliative care patient (Acute) Discharge planning issues (Acute) DVT prophylaxis (Acute) Closed fracture of right hip (Acute) No Known Allergies Allergy (Unverified 05/11/20 12:16) Height 5 ft 4.96 in Weight 90.4 kg - Renal Dosing Renal Dosing: BUN 13 mg/dL (7-18) 05/15/20 06:15 Creatinine 1.01 mg/dL (0.55-1.02) 05/15/20 06:15 Medications needing adjustments: Reviewed (CRCL ~36ML/MIN MEDS OK) - Anticoagulation Anticoagulation: Hgb 8.7 g/dL (11.2-15.7) L 05/15/20 06:15 Hct 27.0 % (36.0-46.0) L D 05/15/20 06:15 Plt Count 214 10^3/uL (130-400) 05/14/20 06:55 INR 1.4 (0.9-1.1) H 05/11/20 13:45 Creatinine 1.01 mg/dL (0.55-1.02) 05/15/20 06:15 DVT Prohphylaxis: Reviewed Medications: Dabigatran Therapeutic Anticoagulation: Reviewed Medications: Dabigatran - Opiate Usage Scheduled Bowel Reg ordered if on Opiates?: No (PRN) - Relevant Labs Sodium 141 mmol/L (136-145) 05/15/20 06:15 Potassium 4.1 mmol/L (3.5-5.1) 05/15/20 06:15 Chloride 105 mmol/L (98-107) 05/15/20 06:15 Electrolytes, C-Reactive P, ESR: Reviewed - DM Control DM Control: Glucose 176 mg/dL (74-106) H 05/15/20 06:15 Hemoglobin A1c 6.4 % (<5.7) H 05/12/20 06:48 Finger Stick Blood Glucose 210 Finger Stick Blood Glucose 210 Finger Stick Blood Glucose 174 Finger Stick Blood Glucose 174 Insulin Dosing: Reviewed (INSULIN ASPART SS) - Heart Failure/ID Heart Failure/ID: NT-Pro-B Natriuret Pep 571 pg/mL (<300) H 05/12/20 06:48 - BP Control BP Control: Blood Pressure 101/68 Blood Pressure 115/68 Blood Pressure 98/63 - Qtc Review If Elevated: Intervened (489. MDA memantine, mirabegron, pantoprazole, quetiapine, citalopram (all home meds)) - Home Meds Home Med List reviewed: Intervened (reviewed list from [facility] serg Catherine . change diltiazem and memantine orders to match)
--- NOTE | 2020-05-15 14:47 | CMPROGNOTE_ITS ---
Care Management Progress Note S/O: Homa remains acute at this time, Covid was re-swabbed yesterday to provide to SNF for admission. [facility] continues to review, CM awaiting bed offer at this time. Guardians, Rudolph (son): [phone] and his sister Neva: [phone] Steward last evening and decided upon change in code status. CM continues to follow. A: Homa is an 85 year old woman admitted on 05/11/20 with a fractured hip P: Homa continues to be monitored closely post surgically. Anticipate she will transition for short SNF stay prior to returning to the [facility], CM provided referral to [facility] for review. CM will continue to support patient, family and discharge plans.
--- NOTE | 2020-05-15 14:47 | PDOC.CMPRO ---
Care Management Progress Note S/O: Homa remains acute at this time, Covid was re-swabbed yesterday to provide to SNF for admission. [facility] continues to review, CM awaiting bed offer at this time. Guardians, Rudolph (son): [phone] and his sister Neva: [phone] Steward last evening and decided upon change in code status. CM continues to follow. A: Homa is an 85 year old woman admitted on 05/11/20 with a fractured hip P: Homa continues to be monitored closely post surgically. Anticipate she will transition for short SNF stay prior to returning to the [facility], CM provided referral to [facility] for review. CM will continue to support patient, family and discharge plans.
[2020-05-15 15:23] VITALS: BP 105/65; PULSE 76; RESP 19; TEMP 36.7; O2SAT 95
[2020-05-15 17:43] LABS: COVID-19 RT-PCR UVMMC Result Negative (Negative)
--- NOTE | 2020-05-15 18:18 | PGE_ITS ---
Date of Service Date of service: 05/15/20 Time of Service: 09:18 Assessment and Plan Assessment and plan (1) Closed fracture of right hip: Status: Acute Assessment and plan: Homa is postop day #2 status post intramedullary nail fixation of a right proximal femur fracture. She is doing better today. She is pleasantly confused but was able to get up with nursing and PT to a chair. She does report pain when trying to mobilize but was able to do so today unlike yesterday. Her hemoglobin has been stable this morning. Her vitals are stable. She has had no further fevers. She denies chills. She has no cough. My suspicion is the fever is coming from some atelectasis. She has had her UTI treated which also would cover some respiratory microbes. Procalcitonin is ne gative therefore making an acute pneumonia very unlikely. It is also way too soon to establish any infection in the wound and there is no signs of concern about this. I would agree with following and trending temperatures and treating only persistent febrile trends. Continue to mobilize physical therapy, weightbearing as tolerated. Discharge planning for prison placement. Resume apixaban. Qualifiers: Encounter type: initial encounter Qualified Code(s): S72.001A - Fracture of unspecified part of neck of right femur, initial encounter for closed fracture Subjective Subjective Interval history since last seen: Homa reports to be doing well. She is up to the chair. She has no acute complaints. Nursing without issue. Febrile x 1 last night, CXR negative. Procalcitonin negative. No SOB, dyspnea, cough. Afebrile since. Exam Narrative Exam Narrative: Sitting up in the chair, smiling. Not oriented. Pleasant. Evaluation of the right thigh shows some mild swelling. No ecchymosis. Dressings are clean dry and intact. Leg is normally positioned. Gentle internal and external rotation causes only very mild discomfort about the thigh. She is able to actively dorsiflex and plantarflex the ankle as well as extend and flex the great toe. Objective Last Vital Signs Temp 36.7 C 05/15/20 15:23 Pulse 76 05/15/20 15:23 Resp 19 05/15/20 15:23 BP 105/65 05/15/20 15:23 Pulse Ox 95 05/15/20 15:23 Laboratory Results - last 24 hr 05/14/20 05/14/20 05/15/20 17:25 21:50 05:35 Hgb Hct Sodium Potassium Chloride Carbon Dioxide Anion Gap BUN Creatinine Cancelled Estimated GFR/1.73 m2 Cancelled Glucose Calcium Procalcitonin Urine Color Yellow Urine Clarity Clear Urine pH 6.0 Ur Specific [place] 1.015 Urine Protein Negative Urine Ketones Negative Urine Blood Moderate H Urine Nitrite Negative Urine Bilirubin Negative Urine Urobilinogen 0.2 Ur Leukocyte Esterase Negative Urine RBC 5-10 H Urine WBC Negative Ur Epithelial Cells Rare Urine Crystals Negative Urine Bacteria Rare Urine Casts Negative Urine Mucus Negative Ur Culture Indicated? No Urine Glucose Negative COVID-19 PCR Negative Nasopharyn COVID-19 PCR Not Applicable Ref Test Perform Site [facility] 05/15/20 05/15/20 05/15/20 06:15 06:15 06:15 Hgb 8.7 L Hct 27.0 L D Sodium 141 Potassium 4.1 Chloride 105 Carbon Dioxide 29.9 Anion Gap 6.1 BUN 13 Creatinine 1.01 Estimated GFR/1.73 m2 52.35 Glucose 176 H Calcium 7.9 L Procalcitonin 0.1 Urine Color Urine Clarity Urine pH Ur Specific [place] Urine Protein Urine Ketones Urine Blood Urine Nitrite Urine Bilirubin Urine Urobilinogen Ur Leukocyte Esterase Urine RBC Urine WBC Ur Epithelial Cells Urine Crystals Urine Bacteria Urine Casts Urine Mucus Ur Culture Indicated? Urine Glucose COVID-19 PCR Nasopharyn COVID-19 PCR Ref Test Perform Site
[2020-05-15 19:44] VITALS: BP 103/61; PULSE 89; RESP 18; TEMP 37.5; O2SAT 97
[2020-05-15] MEDS: Simvastatin 40 MG TAB PO (19:50)
[2020-05-15] MEDS: Mirtazapine 15 MG TAB PO (21:37)
[2020-05-15] MEDS: Normal Saline Flush 10 ML SYR IVP (21:40)
[2020-05-15] MEDS: LORazepam 0.5 MG TAB PO (22:18)
[2020-05-16 03:06] VITALS: BP 92/58; PULSE 99; RESP 17; TEMP 37.2; O2SAT 92
[2020-05-16] MEDS: AMPICILLIN/SULBACTAM 3 GM in Normal Saline 100 ML IVPB (03:44)
[2020-05-16] MEDS: Normal Saline Flush 10 ML SYR IVP ×4 (04:48→21:31)
[2020-05-16] MEDS: Levothyroxine 75 MCG TAB PO (05:57)
[2020-05-16 06:05] VITALS: BP 99/61; PULSE 93; RESP 18; TEMP 37.4; O2SAT 94
[2020-05-16 07:51] VITALS: BP 102/67; PULSE 100; RESP 19; TEMP 37.6; O2SAT 93
[2020-05-16] MEDS: Citalopram 20 MG TAB PO (08:03)
[2020-05-16] MEDS: Pantoprazole 40 MG TABCR PO (08:03)
[2020-05-16] MEDS: Memantine 5 MG TAB 10 MG PO (08:03)
[2020-05-16] MEDS: Cholecalciferol (Vitamin D3) 1,000 UNIT TAB 1000 UNITS PO (08:03)
[2020-05-16] MEDS: dilTIAZem 60 MG TAB 120 MG PO (08:03)
[2020-05-16] MEDS: Mirabegron 50 MG TABCR PO (08:03)
[2020-05-16] MEDS: Insulin Aspart 300 UNITS/3 ML PEN SC ×3 (08:04→16:54)
[2020-05-16] MEDS: QUEtiapine 25 MG TAB 37.5 MG PO ×2 (08:06→19:13)
--- NOTE | 2020-05-16 08:37 | OT.INTREAT ---
Date of service: 05/16/20 Time of Service: 08:20 Occupational Therapy Notes Occupational Therapy Inpatient Treatment Note Date: 05/16/20 PRECAUTIONS: Fall, Standard, DNR/DNI SUBJECTIVE: Pt was moving to the chair with [facility] (A) when OT arrived. She is agreeable to OT session and notes that she would like to perform her ADLs prior to eating her breakfast. OBJECTIVE: PAIN:c/o pain in (R) hip and LE FUNCTIONAL MOBILITY Sit-stand: Max (A) x2, Mod vc throughout Stand-sit: Max (A) x2 Bed-Chair: Eden lift BATHING: sitting in chair with max (A) Set up/clean up Upper Body: (I) face, (B) UE, abdomen and javon area Lower Body: Max (A) (B) LE DRESSING: sitting in chair Upper Extremity: Mod (A) don and doffing hospital gown Lower Extremity: Max (A) don and doffing (B) socks ASSESSMENT/PLAN: Pt was able to speak clearer today and noted that she slept well. She was an active participate in todays session. TREATMENT CODES/TIME: 90583, 20 minutes (08:20) Bria Zayas, OTR/L [facility]
--- NOTE | 2020-05-16 10:19 | W.PM.DS.N ---
Date of service: 05/16/20 Time of Service: 10:19 DS: Diagnosis Discharge Diagnosis (1) Fever: Status: Acute (2) Acute UTI: Status: Resolved (3) Closed fracture of right hip: Status: Acute (4) Diabetes mellitus type 2: Status: Chronic (5) Benign hypertension: Status: Chronic (6) Atrial fibrillation: Status: Chronic (7) Hypothyroidism: Status: Chronic (8) Dementia: Status: Chronic Discharge Plan Disposition Patient Disposition: SNF (LEVEL 1) [facility] Condition: Stable Discharge Details Reason For Visit: FEMORAL FRACTURE, MECHANICAL FALL Admit Date/Time: 05/11/20 14:58 Admit Provider: Kylee Hoover Attending Provider: Kylee Hoover Primary Care Provider: Tino Gaines [place] Meds and New Rx's Prescriptions: New docusate sodium [Colace] 100 mg Capsule 100 mg PO TID PRN PRNQty: 0 RF: 0 polyethylene glycol 3350 17 gram Powder In Packet 17 g PO DAILY PRN PRN (Reason: Constipation) Qty: 30 RF: 0 memantine [Namenda] 5 mg Tablet 5 mg PO DAILY@1500 Qty: 0 RF: 0 memantine [Namenda] 5 mg Tablet 10 mg PO DAILY Qty: 0 RF: 0 Continued citalopram 20 MG tablet 20 mg PO DAILY RF: 0 levothyroxine 125 MCG tablet 75 mcg PO DAILY RF: 0 simvastatin 20 MG tablet 40 mg PO DAILY RF: 0 Pradaxa 150 MG capsule 150 mg PO BID RF: 0 cetirizine 10 MG tablet,chewable 10 mg PO DAILY RF: 0 metoprolol succinate 50 MG tablet extended release 24 hr 25 mg PO DAILY RF: 0 furosemide 20 MG tablet 20 mg PO BID RF: 0 ibuprofen 200 MG capsule 400 mg PO Q4H PRN PRNRF: 0 acetaminophen [Acetaminophen Extra Strength] 500 MG tablet 1,000 mg PO Q4H PRN PRNRF: 0 guaifenesin 100 MG/5 ML liquid 200 mg PO Q4H PRN PRNRF: 0 calcium carbonate 600 MG tablet 600 mg PO DAILY RF: 0 potassium chloride [Klor-Con M20] 20 MEQ tablet,ER particles/crystals 20 meq PO DAILY RF: 0 lorazepam 0.5 MG tablet 0.5 mg PO BID PRNRF: 0 pantoprazole 40 MG tablet,delayed release (DR/EC) 40 mg PO DAILY RF: 0 mirtazapine 15 MG tablet 15 mg PO HS RF: 0 cholecalciferol (vitamin D3) [Vitamin D3] 1,000 UNIT capsule 1,000 unit PO DAILY RF: 0 Myrbetriq 50 MG tablet extended release 24 hr 50 mg PO DAILY RF: 0 cholestyramine (bulk) 5 GM powder 4 gm PO BID PRN (Reason: if needed) RF: 0 calcium carbonate 500 MG tablet,chewable 500 mg PO TID RF: 0 donepezil 10 MG tablet,disintegrating 10 mg PO DAILY RF: 0 docusate sodium [Colace] 100 MG capsule 200 mg PO DAILY PRNRF: 0 glycerin (adult) [Fleet Glycerin (Adult)] 1 EACH suppository 1 ea RC DAILY PRN (Reason: Constipation) RF: 0 quetiapine 25 mg tablet 37.5 mg PO BID RF: 0 Changed diltiazem HCl 120 MG tablet 120 mg PO DAILY Qty: 0 RF: 0 Discontinued loperamide [Imodium A-D] 2 MG tablet 4 mg PO PRN PRNRF: 0 memantine 5 mg tablet 5 mg PO DAILY RF: 0 Discharge Instructions Instructions: Hip Fracture (ED) DS: Data Vitals/I&O Vitals and I&O: Vital Signs Temperature 37.6 C H 05/16/20 07:51 Temperature Source Tympanic 05/16/20 07:51 Pulse 100 H 05/16/20 07:51 Pulse Rhythm Regular 05/16/20 08:00 Respiratory Rate 19 05/16/20 07:51 Respiratory Effort Non-Labored 05/16/20 08:00 Respiratory Depth Normal 05/16/20 08:00 Respiratory Pattern Normal 05/16/20 08:00 Blood Pressure 102/67 05/16/20 07:51 Blood Pressure Mean 55 05/11/20 15:01 Blood Pressure Position Supine 05/11/20 12:12 Pulse Oximetry 93 05/16/20 07:51 Respiratory End-tidal CO2 27 05/13/20 09:40 Oxygen Delivery Method Room Air 05/16/20 07:51 Oxygen Flow Rate 0 05/16/20 07:51 Pain Level 0 05/16/20 06:05 Comment 05/16/20 03:06 Intake & Output 05/15/20 05/15/20 05/16/20 11:59 23:59 11:59 Intake Total 1280 / 2900 1620 / 2900 110 / 110 Output Total 2400 / 2700 300 / 2700 2150 / 2150 Balance -1120 / 200 1320 / 200 -2040 / -2040 Intake: IV 600 / 1910 1310 / 1910 110 / 110 Oral 680 / 990 310 / 990 Output: Urine 2400 / 2700 300 / 2700 2150 / 2150 Other: Urine Color Yellow Yellow Yellow Urine Appearance Clear Clear Clear Data Completed and Pending Labs on day of discharge: Labs from last 24 hours 05/16/20 05/15/20 05/14/20 20:00 06:15 17:25 Procalcitonin 0.1 Vancomycin Trough Cancelled COVID-19 PCR Negative Nasopharyn COVID-19 PCR Not Applicable Ref Test Perform Site [facility] Preliminary micro results at discharge 05/14/20 21:35 Blood Culture - Preliminary Blood NO GROWTH 24 HOURS 05/14/20 21:20 Blood Culture - Preliminary Blood NO GROWTH 24 HOURS [facility] Medical History (Updated 05/15/20 @ 12:17 by Dorene Medina NP) papillara virus Abnormal auditory perception Alcoholism in remission Atrial fibrillation Hayward esophagus Hayward's esophagus Carpal tunnel syndrome cervical cancer in situ 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 Diabetes mellitus Discharge planning issues DJD (degenerative joint disease) Essential hypertension Gastroesophageal reflux disease h/o cervical cancer in situ History of tobacco use 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 several EGDs and colonoscopies with colon adenomas removed b. left femoral rodding for fx c. appendectomy d. cholecystectomy e. hysterectomy sparing her ovaries f. bilateral carpal tunnel release g. t & a h. 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 Father , Pulm. Emb. at age 51. Personal history of malignant neoplasm colon Sister , muscle degeneration No problems noted. Brother , pneumonia at age 57. Personal history of malignant neoplasm colon Social History Smoking/Tobacco Use Status: Former Tobacco Use Smoking risk assessment performed?: Yes Drug use: Never Do you feel safe in your relationship?: Yes
--- NOTE | 2020-05-16 13:26 | CHAPLAIN ---
I visited with Homa yesterday. She has been sleeping when I stopped in a couple of times today. Homa and I know each other from the community,but I don't believe that she recognized me. She was pleasantly confused. She began sentences and then seemed to get lost in what she was going to say, and started just taking words that didn't make sense. She did tell me that her daughter, Neva, is in [place], and her son in [place], and that is accurate. I mentioned Rev. Karina David' name, and Homa seemed to recognize the name and the reference to the [facility]. She gave me permission to let Karina know that Homa is here and what the plan of care is for her. Dr. Steward visited with Homa for a palliative care consult and during discussion with Homa and Neva, Homa's code status was changed. Neva and her brother have become Homa's guardians. I will continue to visit.
--- NOTE | 2020-05-16 14:01 | W.PM.PROGNOT ---
Date of Service Date of service: 05/16/20 Time of Service: 14:01 Assessment and Plan Assessment and plan (1) Fever: Status: Acute Assessment and plan: no further fevers, no new source identified, will stop antibiotics pansensitive ecoli UTI treated with repeat negative urine CXR unremarkable repeat urine pending blood cultures pending. procalcitonin 0.1 (2) Acute UTI: Status: Resolved Assessment and plan: pansensitive ecoli, repeat culture negative, completed day 5 of abx. (3) Closed fracture of right hip: Status: Acute Assessment and plan: post op day 3 continue routine post operative care received 1 unit of PRBC, H&H stable pain managed bowel management pulmonary toilet encourage. Qualifiers: Encounter type: initial encounter Qualified Code(s): S72.001A - Fracture of unspecified part of neck of right femur, initial encounter for closed fracture (4) Diabetes mellitus type 2: Status: Chronic Assessment and plan: Her A1c this admission was 6.4. No change in her medications (5) Benign hypertension: Status: Chronic Assessment and plan: Control with home medications continues to be soft Will monitor hold bp medication (6) Atrial fibrillation: Status: Chronic Assessment and plan: She is started back on Pradaxa for stroke prevention (7) Hypothyroidism: Status: Chronic Assessment and plan: Her TSH was in the normal range this admission. No change in her medication Qualifiers: Hypothyroidism type: unspecified Qualified Code(s): E03.9 - Hypothyroidism, unspecified (8) Dementia: Status: Chronic Assessment and plan: stable, continue safety precautions (9) Discharge planning issues: Status: Acute Assessment and plan: case management following declined by [facility] and rehab referral placed at the [place] discussed with Dr Abebe Subjective Subjective Patient reports: no new complaints, tolerating liquids well and tolerating a regular diet Interval history since last seen: will discontinue wan catheter pain well managed no behavioral issues Exam HENMT Head: normal to inspection Eyes General: appearance normal, both eyes and all related structures Neck Neck: normal visual inspection Chest Chest: normal inspection of the chest Resp Effort & Inspection: normal respiratory effort Cardio Rate: regular rate Rhythm: regular rhythm Heart Sounds: S1 normal and S2 normal GI Inspection: normal to inspection Palpation: soft Skin General skin exam: no rashes or lesions noted Lesions: other (surgical dressing intact, no drainage) Neuro Cognition: abnormal cognition Speech: expressive aphasia Objective Last Vital Signs Temp 37.6 C H 05/16/20 07:51 Pulse 100 H 05/16/20 07:51 Resp 19 05/16/20 07:51 BP 102/67 05/16/20 07:51 Pulse Ox 93 05/16/20 07:51 Laboratory Results - last 24 hr 05/14/20 05/16/20 17:25 20:00 Vancomycin Trough Cancelled COVID-19 PCR Negative Nasopharyn COVID-19 PCR Not Applicable Ref Test Perform Site [facility]
[2020-05-16 15:26] VITALS: BP 107/62; PULSE 95; RESP 24; TEMP 38.4; O2SAT 96
[2020-05-16] MEDS: Memantine 5 MG TAB PO (15:26)
[2020-05-16] MEDS: Acetaminophen 325 MG TAB 650 MG PO (16:04)
--- NOTE | 2020-05-16 16:22 | PT.INTREAT ---
Date of service: 05/16/20 Time of Service: 10:01 PT Notes Visit Reasons: FEMORAL FRACTURE, MECHANICAL FALL Inpatient Physical Therapy Treatment Note [facility] Date: 05/16/2020 PRECAUTIONS: Fall, WBAT R. Impaired safety awareness. SUBJECTIVE: Requested to transfer from chair back to bed. Agreeable to doing B LE exercises while waiting for her bed to get done. OBJECTIVE: PAIN: Continues to be very anxious about moving R LE. Highly anticipates pain. BED MOBILITY/TRANSFERS Rolling L/R: Mod A x2. Requires maximal cueing to minimize anxiety, for technique, and safety. Supine-sit: Mod A x 2. Requires maximal cueing to minimize anxiety, for technique, and safety. Sit-supine: Mod A x2. Requires maximal cueing to minimize anxiety, for technique, and safety. Sit-stand: Mod A of 2 using STEDY lift. Requires maximal cueing to minimize anxiety, for technique, and safety. Stand-sit: Mod A of 2 using STEDY lift. Requires maximal cueing to minimize anxiety, for technique, and safety. GAIT: Unable at this time due to severe anxiety over causing pain with movement. Anticipates has heightenede pain reaction. THEREX: Homa required maximal verbal cueing for execution of exercises written in flowsheet both in the morning and afternoon sessions. AAROM provided on the R side due to anxiety over initiating movement in R LE. ASSESSMENT: Patient's dementia has resulted to anticipation of pain, heightened reaction to pain, and anxiety over weight-bearing and movement which all limit prognosis for achieving goals at this time. Improvement may take time and patient will need SNF placement because of this. Will continue to skill as appropriate in order to develop consistent activity level that may help with developing a routine of improved mobility level. PLAN: Continue with global strengthening as well as bed mobility and transfer training for improved mobility TREATMENT CODE/TIME: Session 1??75995 x 30 minutes, 04642 x 10 minutes beginning at 10:01 AM. Session 2??72088 x 10 minutes beginning at 16:22 PM.
--- NOTE | 2020-05-16 17:02 | CMPROGNOTE_ITS ---
- If Service Date Differs Date of service: 05/16/20 Time of Service: 17:02 Care Management Progress Note S/O: Homa was sitting up in bed when CM met with her. She was smiling and cheerful and appeared pleased to see CM. Homa is pleasantly confused and unable to carry a thought through to completion of a sentence. A referral had been sent to [facility] but they informed CM they were unable to offer a bed. They stated that they felt that her medications , delusions and possible behaviors might be an issue. Since coming to [facility], Homa has been pleasant and cooperative but her ability to follow instructions is limited by her dementia. CM sent a referral to [facility] today and is awaiting a determination. CM contacted both of her guardians, Rudolph and Neva, 2 of her 3 children. They both supported pursuing admission to the [facility] and any additional facilities with bed availability. CM will communicate with Neva regarding progress with referrals. Guardians, Rudolph (son): [phone] and his sister Neva: [phone]. A: Homa is an 85 year old woman admitted on 05/11/20 with a fractured hip P: Homa will likely be transferred to a SNF for rehab and possibly longwall foreman care. She was declined at [facility] and a referral has been sent to the [facility]. ORAL spoke with both of her guardians who are aware that if she seeks assisted care, a assisted Medicaid application will need to be completed. They may receive assistance with this from the facility social professionals. Transportation will be d etermined by final disposition. CM will continue to support patient, family and discharge planning considerations.
[2020-05-16 17:30] VITALS: TEMP 37.6
[2020-05-16] MEDS: MORPHine 2 MG/ML SYR IVP (19:12)
[2020-05-16] MEDS: Simvastatin 40 MG TAB PO (19:13)
[2020-05-16 20:29] VITALS: BP 97/58; PULSE 93; RESP 17; TEMP 36.8; O2SAT 96
--- NOTE | 2020-05-16 21:01 | W.PM.PROGNOT ---
Date of Service Date of service: 05/16/20 Time of Service: 09:02 Assessment and Plan Assessment and plan (1) Closed fracture of right hip: Status: Acute Assessment and plan: Homa is an 85yo female s/p IMN fixation of the right hip fracture. She is doing well. She has made good progress. She will need senior living placement for rehabilitation especially given her dementia. She is WBAT with assistive devices. Continue Pradaxa. Keep Mepilex i place for 1 week then change for additinal 1 week. F/U in 4 weeks. Qualifiers: Encounter type: initial encounter Qualified Code(s): S72.001A - Fracture of unspecified part of neck of right femur, initial encounter for closed fracture Subjective Subjective Patient reports: no new complaints Interval history since last seen: VItals stable. Able to get up to a chair with some complaints of pain of the right hip. No fevers or chills. No SOB or chest pain. Exam Narrative Exam Narrative: Sitting up in the bed. NAD. Alert and awake, but not oriented to place or time. Evaluation of the right thigh shows some mild swelling. No ecchymosis. Dressings are clean dry and intact. Leg is normally positioned. Gentle internal and external rotation causes only very mild discomfort about the thigh. She is able to actively dorsiflex and plantarflex the ankle as well as extend and flex the great toe. Objective Last Vital Signs Temp 36.8 C 05/16/20 20:29 Pulse 93 H 05/16/20 20:29 Resp 17 05/16/20 20:29 BP 97/58 L 05/16/20 20:29 Pulse Ox 96 05/16/20 20:29 Laboratory Results - last 24 hr 05/16/20 20:00 Vancomycin Trough Cancelled
[2020-05-16] MEDS: Mirtazapine 15 MG TAB PO (21:31)
[2020-05-16] MEDS: LORazepam 0.5 MG TAB PO (23:35)
[2020-05-16] MEDS: Docusate Sodium 100 MG CAP PO (23:37)
[2020-05-17] MEDS: Levothyroxine 75 MCG TAB PO (05:51)
[2020-05-17 06:30] VITALS: BP 94/57; PULSE 104; RESP 18; TEMP 37.1; O2SAT 90
[2020-05-17 07:50] VITALS: BP 105/67; PULSE 108; RESP 21; TEMP 37.6; O2SAT 93
[2020-05-17] MEDS: Acetaminophen 325 MG TAB 650 MG PO ×3 (08:30→21:44)
[2020-05-17] MEDS: Polyethylene Glycol 3350 17 GM PACKET PO (08:30)
[2020-05-17] MEDS: Docusate Sodium 100 MG CAP PO ×3 (08:31→19:56)
[2020-05-17] MEDS: Cholecalciferol (Vitamin D3) 1,000 UNIT TAB 1000 UNITS PO (08:31)
[2020-05-17] MEDS: Memantine 5 MG TAB 10 MG PO (08:31)
[2020-05-17] MEDS: Mirabegron 50 MG TABCR PO (08:31)
[2020-05-17] MEDS: Citalopram 20 MG TAB PO (08:31)
[2020-05-17] MEDS: Pantoprazole 40 MG TABCR PO (08:31)
[2020-05-17] MEDS: QUEtiapine 25 MG TAB 37.5 MG PO ×2 (08:31→19:55)
[2020-05-17] MEDS: Insulin Aspart 300 UNITS/3 ML PEN SC ×3 (08:41→17:21)
[2020-05-17] MEDS: Milk of Magnesia 30 ML CUP PO (08:47)
[2020-05-17] MEDS: dilTIAZem 60 MG TAB 120 MG PO (10:26)
[2020-05-17] MEDS: Bisacodyl 10 MG SUPP PR (10:34)
--- NOTE | 2020-05-17 12:17 | W.PM.PROGNOT ---
Date of Service Date of service: 05/17/20 Time of Service: 12:18 Assessment and Plan Assessment and plan (1) Fever: Status: Resolved Assessment and plan: no further fevers, no new source identified, will stop antibiotics pansensitive ecoli UTI treated with repeat negative urine CXR unremarkable repeat urine pending blood cultures pending. procalcitonin 0.1 (2) Acute UTI: Status: Resolved Assessment and plan: pansensitive ecoli, repeat culture negative, completed day 5 of abx. (3) Closed fracture of right hip: Status: Acute Assessment and plan: post op day 4 continue routine post operative care received 1 unit of PRBC, H&H stable, will repeat her CBC in the morning pain managed bowel management pulmonary toilet encourage. Qualifiers: Encounter type: initial encounter Qualified Code(s): S72.001A - Fracture of unspecified part of neck of right femur, initial encounter for closed fracture (4) Diabetes mellitus type 2: Status: Chronic Assessment and plan: I have added low-dose Lantus 10 units nightly along with carbohydrate coverage and increase her insulin sensitive sliding scale to moderate scale due to persistent hyperglycemia postoperatively. (5) Benign hypertension: Status: Chronic Assessment and plan: Control with home medications continues to be soft Will monitor hold bp medication (6) Atrial fibrillation: Status: Chronic Assessment and plan: She is started back on Pradaxa for stroke prevention (7) Hypothyroidism: Status: Chronic Assessment and plan: Her TSH was in the normal range this admission. No change in her medication Qualifiers: Hypothyroidism type: unspecified Qualified Code(s): E03.9 - Hypothyroidism, unspecified (8) Dementia: Status: Chronic Assessment and plan: stable, continue safety precautions (9) Discharge planning issues: Status: Acute Assessment and plan: case management following declined by [facility] and rehab referral placed at the [place] discussed with Dr Abebe Subjective Subjective Interval history since last seen: Maida appears to be in no discomfort. She is pleasant although mildly confused. She is postop day #4 right IM fixation of a right basicervical/IT femur fracture. She has chronic atrial fibrillation controlled with diltiazem and Toprol and she is now back on her Pradaxa postoperatively. Patient's diabetes appears to be poorly controlled blood glucose readings are in the 180s to low 200s. She is currently on just on NovoLog insulin sensitive scale. I will put her on NovoLog for carbohydrate coverage at a 1 unit to 15 g ratio. I will also add 10 units of Lantus at night. biofuels production manager is working with her children who are her legal guardians regarding completion of long-term Medicaid application. biofuels production manager is also put out referrals to the [facility] for post hospital rehabilitation stay. Yesterday's physical therapy note indicated the patient had limited participation in physical therapy due to her dementia and increased anxiety over anticipated pain with movement. She required a steady left with maximal assistance of 2 to get her out of bed. She did not participate in gait exercises. Patient is Obviously going to need long-term SNF placement. Exam Narrative Exam Narrative: Pleasant elderly female who is cooperative but obviously demented unable to correctly state place time or circumstance as to why she is in the hospital. Lungs are clear to auscultation Heart is irregularly irregular Abdomen soft nontender nondistended Right hip has a dressing over the surgical wound. There are some mild induration around the area but no erythema or increased warmth and no abnormal ecchymosis lower extremities without cyanosis or edema. She has venous varicosities in her legs. Pedal pulses are present Objective Last Vital Signs Temp 37.6 C H 05/17/20 07:50 Pulse 108 H 05/17/20 07:50 Resp 21 05/17/20 07:50 BP 105/67 05/17/20 07:50 Pulse Ox 93 05/17/20 07:50
[2020-05-17 13:44] VITALS: O2SAT 88
--- NOTE | 2020-05-17 14:13 | CMPROGNOTE_ITS ---
Care Management Progress Note S/O: Additional referrals will be faxed when admission offices open tomorrow. LTM application will be emailed to Rudolph or Neva for completion as soon as possible. CM will communicate with Neva regarding progress with referrals. Guardians, Rudolph (son): [phone] and his sister Neva: [phone]. A: Homa is an 85 year old woman admitted on 05/11/20 with a fractured hip P: Homa will likely be transferred to a SNF for rehab and possibly fdc care. She was declined at [facility] and a referral has been sent to the [facility]. CM spoke with both of her guardians who are aware that if she seeks oil heaterman care, a fdc Medicaid application will need to be completed; CM to provide application tomorrow. Transportation will be determined by final disposition. CM will continue to support patient, family and discharge planning considerations.
--- NOTE | 2020-05-17 14:13 | PDOC.CMPRO ---
Care Management Progress Note S/O: Additional referrals will be faxed when admission offices open tomorrow. LTM application will be emailed to Rudolph or Neva for completion as soon as possible. CM will communicate with Neva regarding progress with referrals. Guardians, Rudolph (son): [phone] and his sister Neva: [phone]. A: Homa is an 85 year old woman admitted on 05/11/20 with a fractured hip P: Homa will likely be transferred to a SNF for rehab and possibly senior care care. She was declined at [facility] and a referral has been sent to the [facility]. CM spoke with both of her guardians who are aware that if she seeks director nurses' registry care, a senior care Medicaid application will need to be completed; CM to provide application tomorrow. Transportation will be determined by final disposition. CM will continue to support patient, family and discharge planning considerations.
[2020-05-17] MEDS: Memantine 5 MG TAB PO (14:50)
[2020-05-17 16:27] VITALS: BP 110/63; PULSE 85; RESP 18; TEMP 36.9; O2SAT 96
[2020-05-17] MEDS: Metoprolol CR 25 MG TABCR PO (19:57)
[2020-05-17] MEDS: Simvastatin 40 MG TAB PO (20:00)
[2020-05-17] MEDS: Mirtazapine 15 MG TAB PO (21:25)
[2020-05-17] MEDS: Senna TAB 1 TAB PO (21:25)
[2020-05-17] MEDS: Insulin Glargine 300 UNITS/3 ML PEN 10 UNITS SC (21:29)
[2020-05-17 23:10] VITALS: BP 123/72; PULSE 99; RESP 18; TEMP 37.3; O2SAT 95
[2020-05-18] MEDS: Levothyroxine 75 MCG TAB PO (05:10)
[2020-05-18 07:17] LABS: Abs Immature Grans 0.08 10^3/uL (0.0-0.06); Absolute Basophil Count 0.03 10^3/uL (0.0-0.2); Absolute Eosinophil Count 0.41 10^3/uL (0.0-0.7); Absolute Lymphocyte Count 1.27 10^3/uL (1.2-3.4); Absolute Monocyte Count 1.11 10^3/uL (0.1-0.8); Absolute Neutrophil Count 5.34 10^3/uL (1.2-6.7); Basophils % 0.4; HCT 27.3 % (36.0-46.0); HGB 8.6 g/dL (11.2-15.7); Lymphocytes % 15.4; MCHC 31.5 % (32.0-36.0); MCV 88.9 fL (80-95); MPV 9.7 fL (8.0-11.0); Monocytes % 13.5; Neutrophils % 64.7; Nucleated RBC 0 %; Platelet Count 343 10^3/uL (130-400); RBC 3.07 10^6/uL (3.93-5.22); RDW 15.4 % (11.7-14.6); WBC 8.24 10^3/uL (4.4-10.8)
[2020-05-18 07:30] VITALS: BP 123/67; PULSE 101; RESP 18; TEMP 37.2; O2SAT 94
[2020-05-18 07:31] LABS: BUN 12 mg/dL (7-18); CREATININE 0.84 mg/dL (0.55-1.02); Calcium 8.1 mg/dL (8.5-10.1); Chloride 108 mmol/L (98-107); Glucose 130 mg/dL (74-106); Potassium 3.9 mmol/L (3.5-5.1); Sodium 140 mmol/L (136-145)
[2020-05-18] MEDS: Polyethylene Glycol 3350 17 GM PACKET PO (08:00)
[2020-05-18] MEDS: Docusate Sodium 100 MG CAP PO ×3 (08:00→19:59)
[2020-05-18] MEDS: Cholecalciferol (Vitamin D3) 1,000 UNIT TAB 1000 UNITS PO (08:01)
[2020-05-18] MEDS: Mirabegron 50 MG TABCR PO (08:01)
[2020-05-18] MEDS: Citalopram 20 MG TAB PO (08:01)
[2020-05-18] MEDS: Memantine 5 MG TAB 10 MG PO (08:01)
[2020-05-18] MEDS: QUEtiapine 25 MG TAB 37.5 MG PO ×2 (08:01→20:00)
[2020-05-18] MEDS: dilTIAZem 60 MG TAB 120 MG PO (08:01)
[2020-05-18] MEDS: Insulin Aspart 300 UNITS/3 ML PEN SC ×6 (08:02→17:05)
[2020-05-18] MEDS: Ferrous Gluconate 324 MG TAB PO ×2 (08:02→20:02)
[2020-05-18] MEDS: Pantoprazole 40 MG TABCR PO (08:02)
--- NOTE | 2020-05-18 09:02 | PT.INTREAT ---
Date of service: 05/15/20 Time of Service: 08:00 PT Notes Visit Reasons: FEMORAL FRACTURE, MECHANICAL FALL Inpatient Physical Therapy Treatment Note [facility] Date: 05/15/2020 PRECAUTIONS: Fall SUBJECTIVE: Homa is pleasant and agreeable to participating in PT. She is pleasantly confused today. OBJECTIVE: PAIN: No c/o pain BED MOBILITY/TRANSFERS Supine-sit: Mod A x2 with HOB at 40 degrees Sit-supine: Max A x3 with HOB flat Sit-stand: Mod A x2 Stand-sit: Min A x2 Bed-chair: STEDY Chair-bed: STEDY GAIT: STEDY lift from bed<>chair THEREX: Patient was instructed in a LE strengthening and stabilization program, in a supine position, as per flow sheet. She requires significant assist with all exercises due to weakness and confusion. Patient was instructed in weight shifts and mini knee bends while standing in STEDY. ASSESSMENT: Patient tolerated session with minimal complaint of R hip pain with transfers, standing, and ther ex completion. She was able to tolerate standing in STEDY and bed<>chair transfers today. PLAN: Continue progressing weight bearing tolerance through sit<>stand transfers and use of STEDY, progressing toward use of FWW. TREATMENT CODE/TIME: Session 1: 30 minutes; [id number], [id number] Session 2: 20 minutes; [id number]
--- NOTE | 2020-05-18 09:25 | OT.INNT ---
Date of service: 05/18/20 Time of Service: 09:15 Occupational Therapy Notes 05/18/20 OT attempted to see pt who reports that she performed her ADLs with nursing staff including bathing and oral hygiene. Bria Zayas OTR/[facility]
--- NOTE | 2020-05-18 09:47 | PGE_ITS ---
Date of Service Date of service: 05/18/20 Time of Service: 09:47 Assessment and Plan Assessment and plan (1) Fever: Status: Resolved Assessment and plan: no further fevers, no new source identified, stable off antibiotics pansensitive ecoli UTI treated with repeat negative urine CXR unremarkable repeat urine pending blood cultures pending. procalcitonin 0.1 (2) Acute UTI: Status: Resolved Assessment and plan: pansensitive ecoli, repeat culture negative, completed day 5 of abx. (3) Closed fracture of right hip: Status: Acute Assessment and plan: post op day 5 continue routine post operative care received 1 unit of PRBC, H&H stable pain management bowel management pulmonary toilet encourage. Qualifiers: Encounter type: initial encounter Qualified Code(s): S72.001A - Fracture of unspecified part of neck of right femur, initial encounter for closed fracture (4) Diabetes mellitus type 2: Status: Chronic Assessment and plan: Her A1c this admission was 6.4. No change in her medications (5) Benign hypertension: Status: Chronic Assessment and plan: Control with home medications continues to be soft Will monitor hold bp medication (6) Atrial fibrillation: Status: Chronic Assessment and plan: She is started back on Pradaxa for stroke prevention (7) Hypothyroidism: Status: Chronic Assessment and plan: Her TSH was in the normal range this admission. No change in her medication Qualifiers: Hypothyroidism type: unspecified Qualified Code(s): E03.9 - Hypothyroidism, unspecified (8) Dementia: Status: Chronic Assessment and plan: stable, continue safety precautions (9) Discharge planning issues: Status: Acute Assessment and plan: case management following declined by [facility] and rehab referral placed at the [place] discussed with Dr Abebe Subjective Subjective Patient reports: no new complaints, tolerating liquids well, tolerating a regular diet and afebrile Interval history since last seen: remains pleasantly confused, no active medical issues Exam HENIA Head: normal to inspection Eyes General: appearance normal, both eyes and all related structures Neck Neck: normal visual inspection Chest Chest: normal inspection of the chest Resp Effort & Inspection: normal respiratory effort Cardio Rate: regular rate Rhythm: regular rhythm Heart Sounds: S1 normal and S2 normal GI Inspection: normal to inspection Palpation: soft Skin General skin exam: no rashes or lesions noted Lesions: other (surgical dressing intact, no drainage) Neuro Cognition: abnormal cognition Speech: expressive aphasia Objective Last Vital Signs Temp 37.2 C 05/18/20 07:30 Pulse 101 H 05/18/20 07:30 Resp 18 05/18/20 07:30 BP 123/67 05/18/20 07:30 Pulse Ox 94 05/18/20 07:30 Laboratory Results - last 24 hr 05/18/20 05/18/20 06:58 06:58 WBC 8.24 RBC 3.07 L Hgb 8.6 L Hct 27.3 L MCV 88.9 MCH 28.0 MCHC 31.5 L RDW 15.4 H Plt Count 343 D MPV 9.7 Immature Gran % 1.0 Neutrophils % 64.7 Lymphocytes % 15.4 Monocytes % 13.5 Eosinophils % 5.0 Basophils % 0.4 Nucleated RBC % 0 Absolute Neutrophils 5.34 Absolute Lymphocytes 1.27 Absolute Monocytes 1.11 H Absolute Eosinophils 0.41 Absolute Basophils 0.03 Sodium 140 Potassium 3.9 Chloride 108 H Carbon Dioxide 27.0 Anion Gap 5.0 BUN 12 Creatinine 0.84 Estimated GFR/1.73 m2 >= 60.00 Glucose 130 H Calcium 8.1 L
[2020-05-18 11:42] VITALS: TEMP 38.3
[2020-05-18] MEDS: Celecoxib 200 MG CAP PO (11:57)
--- NOTE | 2020-05-18 12:13 | NUR.NOTE ---
Patient was given pain medication and was told so that she would be able to get out of bed this afternoon. Answer that patient gave made no sense to the point of the conversation. I will attempt to get her oob later. Nursing Note:
--- NOTE | 2020-05-18 14:00 | PDOC.CMPRO ---
- If Service Date Differs Date of service: 05/18/20 Time of Service: 14:00 Care Management Progress Note S/O: Homa was sitting up in bed when CM met with her. She was pleasant as usual, but seemed distraught about something she seemed to think she lost in her bed. After a careful search, CM was only able to find her watch and an empty denture cup. One of the LNAs came to assist and found a few scraps of paper Homa had written on and that seemed to be what she was looking for. CM contacted the [facility] this morning but they were unable to review her packet yet and asserted they will do so first thing Thursday. Additional referrals will be sent. ORAL contacted Homa's daughter Neva by phone to obtain her email/fax information so she could be sent the list of SNFs in [place] as well as the LTM application forms. Neva did not answer but a message was left. Guardians, Rudolph (son): [phone] and his sister Neva: [phone]. A: Homa is an 85 year old woman admitted on 05/11/20 with a fractured hip P: Homa will likely be transferred to a SNF for rehab and possibly skilled nursing care. She was declined at [facility] and a referral has been sent to the [facility]. OARL spoke with both of her guardians who are aware that if she seeks skilled nursing care, a laminated plastics assembler and gluer Medicaid application will need to be completed; CM to provide application when email/fax information can be obtained. Transportation will be determined by final disposition. CM will continue to support patient, family and discharge planning considerations.
--- NOTE | 2020-05-18 14:42 | PT.INTREAT ---
Date of service: 05/18/20 Time of Service: 10:30 PT Notes Visit Reasons: FEMORAL FRACTURE, MECHANICAL FALL Inpatient Physical Therapy Treatment Note [facility] Date: 05/18/2020 PRECAUTIONS: Fall, WBAT R SUBJECTIVE: Homa is pleasantly confused today. She refuses getting out of bed this morning, although cannot reasonably indicate why. OBJECTIVE: PAIN: Minimal complaints of R hip pain with transfers and ther ex BED MOBILITY/TRANSFERS Supine-sit: Mod a x2 Sit-stand: Min a x2 with STEDY Stand-sit: CGA x2 with STEDY Bed-chair: SBA x2 with STEDY GAIT: Unable at this time. Utilize STEDY for bed?chair transfer. THEREX: Patient was instructed in lower extremity strengthening and stabilization program, in both long sitting and seated positions. She also performs weight shifting, mini knee bends, and functional sit to stand exercises while standing and STEDY. ASSESSMENT: Patient tolerated session with minimal complaints of increased R hip pain with transfers and ther ex. She demonstrates decreased need for assist with sit<>stand transfers. She would benefit from continued transfers and ther ex, as well as continued performance of weight bearing activities. PLAN: Continue with transfers and lower extremity strengthening for improved mobility TREATMENT CODE/TIME: Session 1: 15 minutes; [id number] Session 2: 20 minutes; [id number]
[2020-05-18] MEDS: Memantine 5 MG TAB PO (15:49)
[2020-05-18] MEDS: Simvastatin 40 MG TAB PO (20:01)
[2020-05-18] MEDS: Normal Saline Flush 10 ML SYR IVP (20:02)
[2020-05-18] MEDS: Metoprolol CR 25 MG TABCR PO (20:02)
[2020-05-18] MEDS: Insulin Glargine 300 UNITS/3 ML PEN 10 UNITS SC (21:30)
[2020-05-18] MEDS: Senna TAB 1 TAB PO (21:31)
[2020-05-18] MEDS: Mirtazapine 15 MG TAB PO (21:31)
[2020-05-18] MEDS: LORazepam 0.5 MG TAB PO (23:29)
[2020-05-19 00:13] VITALS: BP 120/86; PULSE 96; RESP 18; TEMP 36.9; O2SAT 96
[2020-05-19] MEDS: Insulin Aspart 300 UNITS/3 ML PEN SC ×5 (06:36→16:59)
[2020-05-19] MEDS: Levothyroxine 75 MCG TAB PO (06:38)
[2020-05-19] MEDS: Pantoprazole 40 MG TABCR PO (06:38)
[2020-05-19 07:58] VITALS: BP 143/84; PULSE 120; RESP 18; TEMP 37; O2SAT 97
[2020-05-19] MEDS: Polyethylene Glycol 3350 17 GM PACKET PO (08:37)
[2020-05-19] MEDS: Acetaminophen 325 MG TAB 650 MG PO ×2 (08:37→15:21)
[2020-05-19] MEDS: Mirabegron 50 MG TABCR PO (08:39)
[2020-05-19] MEDS: Celecoxib 200 MG CAP PO (08:39)
[2020-05-19] MEDS: Docusate Sodium 100 MG CAP PO ×2 (08:39→19:45)
[2020-05-19] MEDS: Memantine 5 MG TAB 10 MG PO (08:39)
[2020-05-19] MEDS: Citalopram 20 MG TAB PO (08:39)
[2020-05-19] MEDS: Ferrous Gluconate 324 MG TAB PO ×2 (08:39→19:45)
[2020-05-19] MEDS: QUEtiapine 25 MG TAB 37.5 MG PO ×2 (08:39→19:46)
[2020-05-19] MEDS: Cholecalciferol (Vitamin D3) 1,000 UNIT TAB 1000 UNITS PO (08:39)
[2020-05-19] MEDS: dilTIAZem CD 120 MG CAPCR PO (08:39)
--- NOTE | 2020-05-19 11:36 | PT.INTREAT ---
PT Notes Visit Reasons: FEMORAL FRACTURE, MECHANICAL FALL Inpatient Physical Therapy Treatment Note [facility] Date: 05/19/20 PRECAUTIONS:Standard OBJECTIVE: Sit-stand: CGA Stand-sit: CGA GAIT Assistive Device: Steady Weight bearing: WBAT Assist: CGAx2 Distance: Attempted st shifts. Pt completed sit to stands x3 with standing as long as she could tolerate. THEREX: Pt completed UE and LE strengthening ther ex as per flow sheet. ASSESSMENT: Pt was very confused during her session and required mod vc's and repeating of commands. PLAN: Cont as per PT POC. TREATMENT CODE/TIME: 9:30-9:55 (25) BEATA TP
--- NOTE | 2020-05-19 13:25 | PGE_ITS ---
Date of Service Date of service: 05/19/20 Time of Service: 13:25 Assessment and Plan Assessment and plan (1) Closed fracture of right hip: Start date: 05/19/20 Start time: 13:28 Status: Acute Assessment and plan: post op day 6 continue routine post operative care received 1 unit of PRBC, H&H stable pain management bowel management pulmonary toilet encourage. Qualifiers: Encounter type: initial encounter Qualified Code(s): S72.001A - Fracture of unspecified part of neck of right femur, initial encounter for closed fracture (2) Fever: Start date: 05/19/20 Start time: 13:31 Status: Resolved Assessment and plan: no further fevers, no new source identified, stable off antibiotics pansensitive ecoli UTI treated with repeat negative urine CXR unremarkable repeat urine pending blood cultures pending. procalcitonin 0.1 Qualifiers: Fever type: unspecified Qualified Code(s): R50.9 - Fever, unspecified (3) Dementia: Start date: 05/19/20 Start time: 13:31 Status: Chronic Assessment and plan: stable, continue safety precautions Qualifiers: Dementia type: unspecified type Dementia behavioral disturbance: with behavioral disturbance Qualified Code(s): F03.91 - Unspecified dementia with behavioral disturbance (4) Hypothyroidism: Start date: 05/19/20 Start time: 13:30 Status: Chronic Assessment and plan: Her TSH was in the normal range this admission. No change in her medication Qualifiers: Hypothyroidism type: unspecified Qualified Code(s): E03.9 - Hypothyroidism, unspecified (5) Gastroesophageal reflux disease: Start date: 05/19/20 Start time: 13:31 Status: Chronic Assessment and plan: Continue protonix (6) Atrial fibrillation: Start date: 05/19/20 Start time: 13:31 Status: Chronic Assessment and plan: She is started back on Pradaxa for stroke prevention (7) Diabetes mellitus type 2: Start date: 05/19/20 Start time: 13:31 Status: Chronic Assessment and plan: Her A1c this admission was 6.4. No change in her medications (8) Benign hypertension: Start date: 05/19/20 Start time: 13:31 Status: Chronic Assessment and plan: Control with home medications continues to be soft Will monitor hold bp medication (9) Acute UTI: Start date: 05/19/20 Start time: 13:31 Status: Resolved Assessment and plan: pansensitive ecoli, repeat culture negative, completed day 5 of abx. (10) DVT prophylaxis: Start date: 05/19/20 Start time: 13:32 Status: Acute Assessment and plan: Restarted on pradaxa (11) Discharge planning issues: Start date: 05/19/20 Start time: 13:31 Status: Acute Assessment and plan: case management following declined by [facility] and rehab referral placed at the [place] discussed with Dr Ordonez Subjective Subjective Patient reports: no new complaints Interval history since last seen: Waiting placement, no medical needs at this time. Pleasantly confused. Exam Narrative Exam Narrative: Pleasant elderly female who is cooperative but obviously demented unable to correctly state place time or circumstance as to why she is in the hospital. Lungs are clear to auscultation Heart is irregularly irregular Abdomen soft nontender nondistended Right hip has a dressing over the surgical wound. There are some mild induration around the area but no erythema or increased warmth and no abnormal ecchymosis lower extremities without cyanosis or edema. She has venous varicosities in her legs. Pedal pulses are present Objective Last Vital Signs Temp 37.0 C 05/19/20 07:58 Pulse 120 H 05/19/20 07:58 Resp 18 05/19/20 07:58 BP 143/84 H 05/19/20 07:58 Pulse Ox 97 05/19/20 07:58
[2020-05-19] MEDS: Memantine 5 MG TAB PO (15:21)
[2020-05-19 15:33] VITALS: BP 99/63; PULSE 101; RESP 19; TEMP 36.8; O2SAT 98
[2020-05-19] MEDS: Metoprolol CR 25 MG TABCR PO (19:46)
[2020-05-19] MEDS: Simvastatin 40 MG TAB PO (19:46)
--- NOTE | 2020-05-19 19:55 | CMPROGNOTE_ITS ---
- If Service Date Differs Date of service: 05/19/20 Time of Service: 19:55 Care Management Progress Note S/O: Per report, Homa continues to be monitored while awaiting SNF placement. Her referral will be reviewed by the [facility] on Thursday. Additional referrals may be sent, but as there is no longer a medical need for Homa to remain at [facility], her family will need to make a decision in order to avoid out of pocket expenses related to her care. CM will continue to follow and support discharge planning considerations. Guardians, Rudolph (son): [phone] and his sister Neva: [phone]. A: Homa is an 85 year old woman admitted on 05/11/20 with a fractured hip P: Homa will likely be transferred to a SNF for rehab and possibly local intermodal truck driver care. She was declined at [facility] and a referral has been sent to the [facility]. CM spoke with both of her guardians who are aware that if she seeks custodial care, a local intermodal truck driver Medicaid application will need to be completed; CM to provide application when email/fax information can be obtained. Transportation will be determined by final disposition. CM will continue to support patient, family and discharge planning considerations.
[2020-05-19] MEDS: Mirtazapine 15 MG TAB PO (22:02)
[2020-05-19] MEDS: Senna TAB 1 TAB PO (22:02)
[2020-05-19] MEDS: Insulin Glargine 300 UNITS/3 ML PEN 10 UNITS SC (22:02)
[2020-05-20 00:14] VITALS: BP 109/60; PULSE 84; RESP 19; TEMP 36.5; O2SAT 92
[2020-05-20] MEDS: Levothyroxine 75 MCG TAB PO (06:36)
[2020-05-20] MEDS: Pantoprazole 40 MG TABCR PO (06:36)
[2020-05-20 07:36] VITALS: BP 122/74; PULSE 88; RESP 18; TEMP 36.9; O2SAT 96
[2020-05-20] MEDS: Ferrous Gluconate 324 MG TAB PO ×2 (07:56→19:31)
[2020-05-20] MEDS: Polyethylene Glycol 3350 17 GM PACKET PO (07:56)
[2020-05-20] MEDS: Docusate Sodium 100 MG CAP PO ×3 (07:56→19:31)
[2020-05-20] MEDS: Memantine 5 MG TAB 10 MG PO (07:56)
[2020-05-20] MEDS: Acetaminophen 325 MG TAB 650 MG PO ×2 (07:56→14:11)
[2020-05-20] MEDS: Cholecalciferol (Vitamin D3) 1,000 UNIT TAB 1000 UNITS PO (07:57)
[2020-05-20] MEDS: Mirabegron 50 MG TABCR PO (07:57)
[2020-05-20] MEDS: Citalopram 20 MG TAB PO (07:57)
[2020-05-20] MEDS: dilTIAZem CD 120 MG CAPCR PO (07:57)
[2020-05-20] MEDS: Celecoxib 200 MG CAP PO (07:57)
[2020-05-20] MEDS: QUEtiapine 25 MG TAB 37.5 MG PO ×2 (07:57→19:31)
[2020-05-20] MEDS: Insulin Aspart 300 UNITS/3 ML PEN SC ×4 (08:01→16:57)
--- NOTE | 2020-05-20 10:28 | PT.INTREAT ---
PT Notes Visit Reasons: FEMORAL FRACTURE, MECHANICAL FALL Inpatient Physical Therapy Treatment Note [facility] Date: 05/20/20 PRECAUTIONS:Standard/Fall Objective: Supine-sit: Mod Assist x2 Sit-supine: Sit-stand:Min Assist x2 Stand-sit: Min assist/CGAx2 GAIT Assistive Device: Steady Weight bearing: WBAT R LE Assist: CGA with steady x 2 Distance: Sit to stands x2 with standing endurance to F. Attempted wt shifting but it was difficult for pt to comprehend due to her confusion. THEREX: Pt completed UE and LE strengthening ther ex as per flow sheet. ASSESSMENT: Pt tolerated today's session fairly well pt cont to be confused throughout her session. PLAN: Cont as per PT POC as per teresa. TREATMENT CODE/TIME: 9:15-9:43 (23) BEATA ROY
--- NOTE | 2020-05-20 12:26 | W.PM.PROGNOT ---
Date of Service Date of service: 05/20/20 Time of Service: 12:26 Assessment and Plan Assessment and plan (1) Closed fracture of right hip: Start date: 05/20/20 Start time: 12:45 Status: Acute Assessment and plan: post op day 7 continue routine post operative care H&H stable pain management bowel management pulmonary toilet encourage. Qualifiers: Encounter type: initial encounter Qualified Code(s): S72.001A - Fracture of unspecified part of neck of right femur, initial encounter for closed fracture (2) Fever: Status: Resolved Assessment and plan: no further fevers, no new source identified, stable off antibiotics pansensitive ecoli UTI treated with repeat negative urine CXR unremarkable repeat urine pending blood cultures pending. procalcitonin 0.1 Qualifiers: Fever type: unspecified Qualified Code(s): R50.9 - Fever, unspecified (3) Dementia: Start date: 05/20/20 Start time: 12:57 Status: Chronic Assessment and plan: stable, continue safety precautions Qualifiers: Dementia type: unspecified type Dementia behavioral disturbance: with behavioral disturbance Qualified Code(s): F03.91 - Unspecified dementia with behavioral disturbance (4) Hypothyroidism: Start date: 05/20/20 Start time: 12:57 Status: Chronic Assessment and plan: Her TSH was in the normal range this admission. No change in her medication Qualifiers: Hypothyroidism type: unspecified Qualified Code(s): E03.9 - Hypothyroidism, unspecified (5) Gastroesophageal reflux disease: Start date: 05/20/20 Start time: 12:57 Status: Chronic Assessment and plan: Continue protonix (6) Atrial fibrillation: Start date: 05/20/20 Start time: 12:57 Status: Chronic Assessment and plan: She is started back on Pradaxa for stroke prevention (7) Diabetes mellitus type 2: Start date: 05/20/20 Start time: 12:57 Status: Chronic Assessment and plan: Her A1c this admission was 6.4. No change in her medications (8) Benign hypertension: Start date: 05/20/20 Start time: 12:57 Status: Chronic Assessment and plan: Control with home medications continues to be soft Will monitor hold bp medication (9) DVT prophylaxis: Start date: 05/20/20 Start time: 12:57 Status: Acute Assessment and plan: Restarted on pradaxa (10) Discharge planning issues: Start date: 05/20/20 Start time: 12:57 Status: Acute Assessment and plan: case management following declined by [facility] and rehab referral placed at the [place] discussed with Dr Ordonez Subjective Subjective Patient reports: no new complaints Interval history since last seen: Sitting up in chair with legs elevated. Pleasantly confused. No c/o pain. Referral to [facility], possible discharge in am. Exam Narrative Exam Narrative: Pleasant elderly female who is cooperative but obviously demented unable to correctly state place time or circumstance as to why she is in the hospital. Lungs are clear to auscultation Heart is irregularly irregular Abdomen soft nontender nondistended Right hip has a dressing over the surgical wound. There are some mild induration around the area but no erythema or increased warmth and no abnormal ecchymosis lower extremities without cyanosis or edema. She has venous varicosities in her legs. Pedal pulses are present Objective Last Vital Signs Temp 36.9 C 05/20/20 07:36 Pulse 88 05/20/20 07:36 Resp 18 05/20/20 07:36 BP 122/74 05/20/20 07:36 Pulse Ox 96 05/20/20 07:36
[2020-05-20] MEDS: Memantine 5 MG TAB PO (14:11)
[2020-05-20 15:30] VITALS: BP 96/61; PULSE 86; RESP 20; TEMP 36.2; O2SAT 98
[2020-05-20] MEDS: Metoprolol CR 25 MG TABCR PO (19:31)
[2020-05-20] MEDS: Simvastatin 40 MG TAB PO (19:31)
[2020-05-20] MEDS: Insulin Glargine 300 UNITS/3 ML PEN 10 UNITS SC (21:07)
[2020-05-20] MEDS: Mirtazapine 15 MG TAB PO (21:07)
[2020-05-20] MEDS: Senna TAB 1 TAB PO (21:07)
[2020-05-21] MEDS: Pantoprazole 40 MG TABCR PO (06:34)
[2020-05-21] MEDS: Levothyroxine 75 MCG TAB PO (06:35)
[2020-05-21] MEDS: Cholecalciferol (Vitamin D3) 1,000 UNIT TAB 1000 UNITS PO (07:27)
[2020-05-21] MEDS: Polyethylene Glycol 3350 17 GM PACKET PO (07:27)
[2020-05-21] MEDS: QUEtiapine 25 MG TAB 37.5 MG PO (07:28)
[2020-05-21] MEDS: Mirabegron 50 MG TABCR PO (07:28)
[2020-05-21] MEDS: Celecoxib 200 MG CAP PO (07:28)
[2020-05-21] MEDS: Acetaminophen 325 MG TAB 650 MG PO (07:28)
[2020-05-21] MEDS: Memantine 5 MG TAB 10 MG PO (07:28)
[2020-05-21] MEDS: Docusate Sodium 100 MG CAP PO (07:28)
[2020-05-21] MEDS: Ferrous Gluconate 324 MG TAB PO (07:28)
[2020-05-21] MEDS: Citalopram 20 MG TAB PO (07:29)
[2020-05-21] MEDS: dilTIAZem CD 120 MG CAPCR PO (07:29)
--- NOTE | 2020-05-21 07:49 | OTTR_ITS ---
Date of service: 05/21/20 Time of Service: 07:25 Occupational Therapy Notes Occupational Therapy Inpatient Treatment Note Date: 05/21/20 PRECAUTIONS: Fall, Standard, DNR/DNI SUBJECTIVE: Pt was lying in bed when OT arrived. Her bed was soiled with urine and she states that she would like to get washed up. OBJECTIVE: PAIN:c/o pain in (R) hip and LE ADL/IADLs- BATHING: sitting in bed with max (A) Set up/clean up Upper Body: (I) face, (B) UE, abdomen Lower Body: Max (A) (B) LE, and javon area DRESSING: sitting in bed Upper Extremity: Min (A) [facility] Lower Extremity: Max (A) don and doffing (B) socks ASSESSMENT/PLAN: Pt was able to speak clearer today and noted that she slept well. She was an active participate in todays session and was receptive to performance of her ADLs. TREATMENT CODES/TIME: [id number], 25 minutes (07:25) Bria Zayas OTR/[facility]
[2020-05-21 08:14] VITALS: BP 99/64; PULSE 79; RESP 18; TEMP 37.1; O2SAT 96
[2020-05-21] MEDS: Insulin Aspart 300 UNITS/3 ML PEN SC ×3 (08:16→11:33)
--- NOTE | 2020-05-21 10:02 | W.PM.DS.N ---
Date of service: 05/21/20 Time of Service: 10:03 DS: Diagnosis Discharge Diagnosis (1) Closed fracture of right hip: Start date: 05/21/20 Start time: 10:03 Status: Acute Asessment and Plan: Post op day 8. She did receive one unit blood post operative. Since h/h stable, She is pleasantly confused, denies pain. Dressing c/d/i, routine post operative care. Continue pain management bowel management Pulmonary toilet she is being discharged to [facility] (2) Fever: Start date: 05/21/20 Start time: 10:28 Status: Resolved Asessment and Plan: From UTI, treated with antibiotics. (3) Dementia: Start date: 05/21/20 Start time: 10:28 Status: Chronic Asessment and Plan: Severe, she is pleasantly confused, continue saftey measures (4) Hypothyroidism: Start date: 05/21/20 Start time: 10:30 Status: Chronic Asessment and Plan: continue levothyroxine (5) Gastroesophageal reflux disease: Start date: 05/21/20 Start time: 10:31 Status: Chronic Asessment and Plan: continue protonix (6) Atrial fibrillation: Start date: 05/21/20 Start time: 10:31 Status: Chronic Asessment and Plan: Controlled, continue medication (7) Diabetes mellitus type 2: Start date: 05/21/20 Start time: 10:32 Status: Chronic Asessment and Plan: Aic 6.4 blood sugars controlled with SSI will discharge on metformin and defer to PCP for further management. (8) Benign hypertension: Start date: 05/21/20 Start time: 10:34 Status: Chronic Asessment and Plan: Soft on admission, will continue BP with parameters. Discharge Plan Disposition Patient Disposition: SNF (LEVEL 1) [facility] Condition: Stable Discharge Details Reason For Visit: FEMORAL FRACTURE, MECHANICAL FALL Admit Date/Time: 05/11/20 14:58 Admit Provider: Kylee Hoover Attending Provider: Kylee Hoover Primary Care Provider: Tino Gaines [facility] Hospital Course Hospital Course: This is an 85 y.o female with dementia, afib on pradaxa, GERD, HTN, DM2, Hypothyroidism that was admitted to [facility] m/s after presenting to the ED after sustaining a fall and injury to right hip. In the ED imaging revealed impacted right femoral fracture. Pradaxa was held 48 hours prior to surgery. She is on post op day 8. She did receive 1 unit of PRBC post surgery since she has had a stable H/H. She was also found to be febrile and ua revealed UTI found prior to admission. She was treated with ceftriaxone and UTI cleared. She has been afebrile. Her A1c was 6.4 she did require a couple doses insulin while inpatient therefore she will be sent home on metformin, defer to PCP for further management. She resides at [facility], however she is being discharged to the [facility] for further PT/OT. She denies Pain, SOb, N/V/D. Home Meds and New Rx's Prescriptions: New docusate sodium [Colace] 100 mg Capsule 100 mg PO TID PRN PRNQty: 0 RF: 0 polyethylene glycol 3350 17 gram Powder In Packet 17 g PO DAILY PRN PRN (Reason: Constipation) Qty: 30 RF: 0 memantine [Namenda] 5 mg Tablet 5 mg PO DAILY@1500 Qty: 0 RF: 0 memantine [Namenda] 5 mg Tablet 10 mg PO DAILY Qty: 0 RF: 0 Continued citalopram 20 MG tablet 20 mg PO DAILY RF: 0 levothyroxine 125 MCG tablet 75 mcg PO DAILY RF: 0 simvastatin 20 MG tablet 40 mg PO DAILY RF: 0 Pradaxa 150 MG capsule 150 mg PO BID RF: 0 cetirizine 10 MG tablet,chewable 10 mg PO DAILY RF: 0 metoprolol succinate 50 MG tablet extended release 24 hr 25 mg PO DAILY RF: 0 furosemide 20 MG tablet 20 mg PO BID RF: 0 ibuprofen 200 MG capsule 400 mg PO Q4H PRN PRNRF: 0 acetaminophen [Acetaminophen Extra Strength] 500 MG tablet 1,000 mg PO Q4H PRN PRNRF: 0 guaifenesin 100 MG/5 ML liquid 200 mg PO Q4H PRN PRNRF: 0 calcium carbonate 600 MG tablet 600 mg PO DAILY RF: 0 potassium chloride [Klor-Con M20] 20 MEQ tablet,ER particles/crystals 20 meq PO DAILY RF: 0 lorazepam 0.5 MG tablet 0.5 mg PO BID PRNRF: 0 pantoprazole 40 MG tablet,delayed release (DR/EC) 40 mg PO DAILY RF: 0 mirtazapine 15 MG tablet 15 mg PO HS RF: 0 cholecalciferol (vitamin D3) [Vitamin D3] 1,000 UNIT capsule 1,000 unit PO DAILY RF: 0 Myrbetriq 50 MG tablet extended release 24 hr 50 mg PO DAILY RF: 0 cholestyramine (bulk) 5 GM powder 4 gm PO BID PRN (Reason: if needed) RF: 0 calcium carbonate 500 MG tablet,chewable 500 mg PO TID RF: 0 donepezil 10 MG tablet,disintegrating 10 mg PO DAILY RF: 0 docusate sodium [Colace] 100 MG capsule 200 mg PO DAILY PRNRF: 0 glycerin (adult) [Fleet Glycerin (Adult)] 1 EACH suppository 1 ea RC DAILY PRN (Reason: Constipation) RF: 0 quetiapine 25 mg tablet 37.5 mg PO BID RF: 0 Discontinued loperamide [Imodium A-D] 2 MG tablet 4 mg PO PRN PRNRF: 0 diltiazem HCl 120 MG tablet 120 mg PO BID RF: 0 memantine 5 mg tablet 5 mg PO DAILY RF: 0 No Action diltiazem HCl 120 mg capsule,extended release 24 hr 120 mg PO DAILY RF: 0 Discharge Instructions Instructions: Hip Fracture (ED), Urinary Tract Infection in Older Adults (DC) Additional Instructions: Hip Fracture Discharge Instructions Activity: You may weight bear as tolerated with assistance. You have no restrictions with movement. You should try to mobilize a few times during the day. While in the bed or chair you may work on hip range of motion as well as knee extension and flexion. You should perform ankle pumps as much as possible. Dressing: Keep the surgical dressing in place for at least one week. After the first week it may be removed and replace with light gauze and tape or nothing. It may get wet after 3 days but avoid soaking the dressing. If it gets wet, just lightly pat dry. Boody to be removed in 2 weeks (~ 05/28/20) Follow-up: [address] Blankenship's office with x-rays. If you have any acute concerns or questions, please do not hesitate to contact the office at [phone]. Stand Alone Forms: Nursing Discharge Form Activity:: Activity as Tolerated Equipment/Supplies:: No Equipment Needed Diet:: Carb Counting Discharge Orders Discharge Orders: Discharge Order (Routine); Ordered 05/21/20 Ordered By: Inés Montague DS: Summary Status at Discharge Functional status at discharge: uses cane/walker Overall status at discharge: patient is not back to baseline Mental Status: other Speech and Movement: speech and movement normal Mood: other Affect: normal affect Exam Narrative Exam Narrative: Pleasant elderly female who is cooperative but obviously demented unable to correctly state place time or circumstance as to why she is in the hospital. Lungs are clear to auscultation Heart is irregularly irregular Abdomen soft nontender nondistended Right hip has a dressing over the surgical wound. There are some mild induration around the area but no erythema or increased warmth and no abnormal ecchymosis lower extremities without cyanosis or edema. She has venous varicosities in her legs. Pedal pulses are present Psych Mental Status: other Speech and Movement: speech and movement normal Mood: other Affect: normal affect DS: Data Vitals/I&O Vitals and I&O: Vital Signs Temperature 37.1 C 05/21/20 08:14 Temperature Source Tympanic 05/21/20 08:14 Pulse 79 05/21/20 08:14 Pulse Rhythm Irregular 05/21/20 08:28 Respiratory Rate 18 05/21/20 08:14 Respiratory Effort Non-Labored 05/21/20 08:28 Respiratory Depth Normal 05/21/20 08:28 Respiratory Pattern Normal 05/21/20 08:28 Blood Pressure 99/64 L 05/21/20 08:14 Blood Pressure Mean 55 05/11/20 15:01 Blood Pressure Position Supine 05/11/20 12:12 Pulse Oximetry 96 05/21/20 08:14 Respiratory End-tidal CO2 27 05/13/20 09:40 Oxygen Delivery Method Room Air 05/21/20 08:14 Oxygen Flow Rate 0 05/21/20 08:14 Pain Level 1 05/21/20 08:14 Comment 05/19/20 15:33 Intake & Output 05/20/20 05/20/20 05/21/20 11:59 23:59 11:59 Intake Total 930 / 930 250 / 250 Balance 930 / 930 250 / 250 Intake: Oral 930 / 930 250 / 250 Other: Urine Color Yellow Yellow Yellow Urine Appearance Clear Clear Clear Urine Odor Normal Normal Comment Large volume voided, brief and bed changed. Stool Size Moderate Stool Characteristics Formed Brown Voiding Methods Diaper Diaper Diaper Incontinent Incontinent Incontinent Data Completed and Pending Completed studies during hospitalization [Text1]: Exam(s) a RAD:XR portable chest AP EXAM: XR PORTABLE CHEST AP CLINICAL HISTORY: temp of 39.3 TECHNIQUE: 2D digital imaging was performed. COMPARISON: CR XR CHEST 1V IN DI DEPT from 05/11/2020 FINDINGS: Exam is somewhat limited by patient positioning. LUNGS: Minimal blunting at the costophrenic angles left greater than right.. No infiltrate or pulmonary edema. HEART: Normal. MEDIASTINUM: Normal. OTHER FINDINGS: Degenerative changes in the spine and shoulders. IMPRESSION: Tiny bilateral pleural effusions. PROCEDURE INFORMATION: Exam: XR Chest, 1 View Exam date and time: 05/14/2020 9:05 PM Age: 85 years old Clinical indication: Fever TECHNIQUE: Imaging protocol: XR of the chest Views: 1 view. COMPARISON: CR XR CHEST 1V IN DI DEPT 05/11/2020 12:56 PM FINDINGS: Lungs: No focal consolidation. Pleural space: Blunting in the left costophrenic angle may represent small left pleural effusion or pleural reaction. Heart/Mediastinum: Unremarkable. No cardiomegaly. Bones/joints: Degenerative changes in the glenohumeral joints IMPRESSION: 1. No focal consolidation. 2. Blunting in the left costophrenic angle may represent small left pleural effusion or pleural reaction. 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 Diabetes mellitus Discharge planning issues DJD (degenerative joint disease) Essential hypertension Gastroesophageal reflux disease h/o cervical cancer in situ History of tobacco use 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 several EGDs and colonoscopies with colon adenomas removed b. left femoral rodding for fx c. appendectomy d. cholecystectomy e. hysterectomy sparing her ovaries f. bilateral carpal tunnel release g. t & a h. 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 Father , Pulm. Emb. at age 51. Personal history of malignant neoplasm colon Sister , muscle degeneration No problems noted. Brother , pneumonia at age 57. Personal history of malignant neoplasm colon Social History Smoking/Tobacco Use Status: Former Tobacco Use Smoking risk assessment performed?: Yes Drug use: Never Do you feel safe in your relationship?: Yes
--- NOTE | 2020-05-21 10:29 | CMDISCH_ITS ---
- If Service Date Differs Date of service: 05/21/20 Time of Service: 10:29 LACE Index Scoring Tool - Questions: Length of Stay (in days): 7 - 13 Acuity (Admit via E.D.?): Yes Comorbidities: Diabetes w/o Complication, Dementia E.D. Visits: 1 - Answers: Total Score: 14 Risk of Readmission: High Risk Care Management Discharge Reason for Hospitalization: closed fracture right hip Discharge Plan: Homa is being discharged to the [facility] today, CM did contact her daughter with details of discharge. Homa will be transported via [facility] ambulance, CM completed detention forms and provided to care team. CM coordianted admission to [facility] and spoke with Karina, RN and Brittanie in admissions. Patient/Family Education Needs: Discharge education and follow up plan. Services Needed at Discharge: [facility], Transportation
[2020-05-21 10:50] LABS: Source Nasopharynx
--- NOTE | 2020-05-21 11:36 | PT.INTREAT ---
Date of service: 05/21/20 Time of Service: 07:50 PT Notes Visit Reasons: FEMORAL FRACTURE, MECHANICAL FALL Inpatient Physical Therapy Treatment Note [facility] Date: 05/21/2020 PRECAUTIONS: Fall, WBAT R SUBJECTIVE: Homa is pleasant and agreeable to participating in PT. OBJECTIVE: PAIN: Patient c/o R hip pain with standing and gait training with FWW BED MOBILITY/TRANSFERS Supine-sit: Min A requiring max verbal and tactile cues Sit-stand: CGA Stand-sit: Max A x2 Bed-Chair: Min A x2 - Max A x2 GAIT Assistive Device: FWW Weight bearing: WBAT on R Assist: Min A x2 - Max A x2 Distance: 5 steps Deviation: Max cues for sequence, c/o increased right hip pain, max cues for posture, assist with FWW mechanics THEREX: Patient was instructed in several LE strengthening and stabilization exercises, in a long-sitting position, as per flow sheet. She requires assist for all exercises performed due to confusion and weakness. ASSESSMENT: Patient demonstrates a progression in functional mobility today, as she was able to progress from standing/transferring with STEDY, previsouly, to utilizing FWW today. Patient also demonstrates a progression in ability to perform bed mobility, requiring Min A and tactile and verbal cueing. PLAN: Continue with global strengthening as well as bed mobility and transfer training at SNF-level rehab facility. TREATMENT CODE/TIME: 20 minutes; [id number]
[2020-05-21 11:46] LABS: Influenza A PCR Negative (Negative); Influenza B PCR Negative (Negative); RSV PCR Negative (Negative)
[2020-05-21 11:47] LABS: COVID-19 PCR Negative (Negative)
--- NOTE | 2020-05-22 08:46 | OTDS_ITS ---
Date of service: 05/22/20 Time of Service: 08:46 Occupational Therapy Notes Occupational Therapy Inpatient Discharge Summary Date: 05/22/20 Dates of Service: 05/15/20-05/21/20 Referring Doctor: Inés Montague NP OT Orders: Non-Urgent Precautions: Fall, DNR/DNI *This document is a summary of care, no skilled OT services were provided for this documentation* PATIENT PROFILE/ADMITTING DIAGNOSIS: Pt is an 85 year old female who was admitted for s/p a (R) basicervical intertrochanteric femoral fracture and is status post ORIF using intramedullary nailing. Pt presented to the ED on 05/11 for Closed fracture of right hip, Acute UTI. 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 Diabetes mellitus Discharge planning issues DJD (degenerative joint disease) Essential hypertension Gastroesophageal reflux disease h/o cervical cancer in situ History of tobacco use HPV test positive Hypercholesterolemia Hyperlipidemia left ankle fracture Lesion of ulnar nerve NEUROPATHY Osteoarthritis of left knee (07/12/14) Primary osteoarthritis of right knee Right knee pain Sensorineural hearing loss, bilateral (10/31/14) Urge incontinence Urgency incontinence (04/06/15) Surgical History (Updated 05/11/20 @ 15:58 by Inés Montague NP) Appendectomy (~195) Artificial knee joint present (07/12/14) Cholecystectomy (~2005) Colonoscopy - MAC (~2009) EGD - MAC (~2009) H/O surgical procedure a. several EGDs and colonoscopies with colon adenomas removed b. left femoral rodding for fx c. appendectomy d. cholecystectomy e. hysterectomy sparing her ovaries f. bilateral carpal tunnel release g. t & a h. 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 Equipment owned/DME: Lives at [facility] at baseline- DME needs met here SUBJECTIVE: NT OBJECTIVE: ROM: RUE Shoulder flexion is limited, AROM of wrist, elbow and digits WNL L UE AROM WNL STRENGTH: RUE 4-/5 throughout globally LUE 3+/5 throughout globally FUNCTIONAL MOBILITY/ADLS: BATHING sitting in bed with max (A) Set up/clean up Bathing UE (I) with face, (B) UE and abdomen with mod vc throughout Bathing LE Min (A) (B) LE DRESSING sitting in bed Dressing UE (I) don and doffing [facility] gown Dressing LE Max (A) don and doffing (B) socks GROOMING Sitting in bed, min (A) With washing hair, (I) with brushing teeth TOILETING Ramirez in place EATING Sitting in bed (I) with eating, (I) hand to mouth translation and chewing/swallowing BALANCE: Static sitting Good with leaning to (L) side without support Dynamic Sitting Good ASSESSMENT: Patient is a 85-year-old female referred to occupational therapy services with diagnosis of s/p a (R) basicervical intertrochanteric femoral fracture and is status post ORIF using intramedullary nailing. Pt was discharged on 05/21/20 to SNF and will require (A) with ADLs/IADLs. GOALS 1. Grooming- sitting in chair with max (A) Set up/clean up pt will be (I) with hair and oral hygiene with min vc throughout 2. Dressing- sitting in chair pt will be able to (I) and doff UE- not met 3. Bathing- sitting in chair with max (A) set up/clean up pt will be (I) UE and mod (A) LE- met UE/not met LE 4. Toileting- on commode (I)- not met 5. Eating- (I)- met PLAN OF CARE/TREATMENT PLAN: Discharge from skilled OT services. DISCHARGE RECOMMENDATIONS Based on pts current level of function, cognitive decline and inability to perform her ADL/IADLs without (A) at this time and decreased functional mobility, OT does feel that pt would benefit from SNF at this time. Based on her cognitive level, OT is unable to obtain a baseline level of function for pt per pt report and is unsure as to what she was able to perform (I) at the [facility] prior to admission. OT will discuss this with care management to get a better understanding of pts baseline level of function. TREATMENT TIME/MINUTES/CODES N/A Bria Zayas,OTR/L [facility]
--- NOTE | 2020-05-25 14:28 | PT.INIE ---
Date of service: 05/25/20 Time of Service: 14:28 PT Notes Visit Reasons: FEMORAL FRACTURE, MECHANICAL FALL Physical Therapy Inpatient Discharge Summary Date: 05/25/2020 Date of service: 05/14/2020 through 05/21/2020 This is a clinical summary of care provided on the duration of dates listed above. No charge was made in the completion of this documentation. Referring Doctor: Francisco Blankenship MD PT Orders: PT CONSULT: Status post Ortho surgery. Status post IM and fixation of right hip fracture Precautions: Fall. Standard. WBAT on right LE. Patient Profile/Admitting Diagnosis: Homa is an 85-year-old female with diabetes mellitus, dementia, GERD, hypertension, atrial fibrillation who presented to the ED on 05/11/2020 via EMS due to a mechanical slip and fall with a right hip injury at the [facility] where she resides. She is diagnosed with a right basicervical intertrochanteric femoral fracture and is status post ORIF using intramedullary nailing on postoperative day 7. 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 Diabetes mellitus Discharge planning issues DJD (degenerative joint disease) Essential hypertension Gastroesophageal reflux disease h/o cervical cancer in situ History of tobacco use HPV test positive Hypercholesterolemia Hyperlipidemia left ankle fracture Lesion of ulnar nerve NEUROPATHY Osteoarthritis of left knee (07/12/14) Primary osteoarthritis of right knee Right knee pain Sensorineural hearing loss, bilateral (10/31/14) Urge incontinence Urgency incontinence (04/06/15) Surgical History (Updated 05/11/20 @ 15:58 by Inés Montague NP) Appendectomy (~195) Artificial knee joint present (07/12/14) Cholecystectomy (~2005) Colonoscopy - MAC (~2009) EGD - MAC (~2009) H/O surgical procedure a. several EGDs and colonoscopies with colon adenomas removed b. left femoral rodding for fx c. appendectomy d. cholecystectomy e. hysterectomy sparing her ovaries f. bilateral carpal tunnel release g. t & a h. 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 Unable to extract information from patient at tis time. Equipment Owned/DME: Unable to extract information from patient at this time Subjective: NT. See most recent CHIEF BUSINESS DEVELOPMENT OFFICER notes. Objective: General Observation: NT. See most recent CHIEF BUSINESS DEVELOPMENT OFFICER notes. Mental Status: NT. See most recent CHIEF BUSINESS DEVELOPMENT OFFICER notes. Pain: NT. See most recent CHIEF BUSINESS DEVELOPMENT OFFICER notes. ROM: Right Upper Extremity: Grossly WFL Left Upper Extremity: Grossly WFL Right Lower Extremity: NT formally. Moaned in pain with assistance for supine to sit. Left Lower Extremity: NT formally. Moaned in pain with assistance for supine to sit. Strength: Right Upper Extremity: Grossly 3+/5 Left Upper Extremity: Grossly 3+/5 Right Lower Extremity: NT formally. Grossly 3-/5 Grossly 3-/5 as patient was able to assume supine to sit with assistance from this PT. Left Lower Extremity: NT formally. Grossly 3-/5 as patient was able to assume supine to sit with assistance from this PT. Sensation: Intact as to pain on bilateral lower extremities. Bed Mobility/Transfers: Supine to sit minimal assistance with maximal verbal cueing Sit to stand maximum assist of 2 with maximal verbal cueing Stand to sit maximum assist of 2 with maximal verbal cueing Bed to chair maximum assist of 2 with maximal verbal cueing Chair to bed maximum assist of 2 with maximal verbal cueing Gait: 5 steps with maximal assist of 2 using front wheeled walker with WBAT on the right LE maximal verbal cueing given for overall safety and walker mechanics. Balance: Static Sitting: Fair Dynamic Sitting: Fair Static Standing: Poor Dynamic Standing: Poor Assessment: Patient's dementia has resulted to anticipation of pain, heightened reaction to pain, and anxiety over weight-bearing and movement which all limit prognosis for achieving goals at this time. Improvement may take time and patient will need SNF placement because of this. Will continue to skill as appropriate in order to develop consistent activity level that may help with developing a routine of improved mobility level. Homa continues to demonstrate significant functional mobility decline with extreme apprehension over moving B LE for bed mobility and transfer assessment, increased fall risk, impaired safety awareness, impaired strength, and inability to walk due to operative status. Homa is an 85-year-old female with diabetes mellitus, dementia, GERD, hypertension, atrial fibrillation who presented to the ED on 05/11/2020 via EMS due to a mechanical slip and fall with a right hip injury at the [facility] where she resides. She is diagnosed with a right basicervical intertrochanteric femoral fracture and is status post ORIF using intramedullary nailing on postoperative day 7. Patient continues to present with clinical signs and symptoms consistent with current/admitting diagnoses that have resulted to mobility limitations, gait instability, generalized weakness, and impairment of motor control as demonstrated by the following impairment level findings: 1. Decreased strength to B LE major muscle groups 2. Impaired sitting/standing balance 3. Impaired activity tolerance 4. Limitation of joint range of motion in B LE Impairments are continuing to contribute to the following functional limitations: 1. Dependent bed mobility skills 2. Increased dependence with transfers 3. Inability to safely ambulate 4. Increase completion time for mobility ADL performance 5. Increased fall risk 6. Inability to negotiate steps alone safely Patient is assessed as a [id number] high complexity based on the following: History: 85 [id number] with impairment level findings, functional limitations, and past medical history as indicated above Examination: Demonstrable impairment in strength, balance, and mobility level with underlying impairments and functional limitations as documented above Presentation:Evolving Decision Makin high complexity Goals: Goals X1 week 1. Supine-Sit minimal assist MET 2. Sit-Supine minimal assist NOT MET 3. Sit-Stand minimal assist NOT MET 4. Stand-Sit minimal assist NOT MET 5. Bed-Chair minimal assist NOT MET 6. Chair-Bed minimal assist NOT MET 7. Minimal assist gait on level surface with use of least restrictive device for at least 300 feet without report of pain nor dyspnea NOT MET 8. Minimal assist stair negotiation while holding onto bilateral rails for at least 10 steps without report of pain nor dyspnea NOT MET 9. Independent with home exercise program NOT MET 10. Fair static and dynamic standing balance/tolerance NOT MET DISCHARGE RECOMMENDATIONS: Patient will benefit from fpc facility placement for continued skilled physical therapy services in order to progress mobility level, strength, and balance in preparation for a safe discharge to home. TREATMENT CODE/TIME: CA Thank you for the opportunity to participate in the care of this patient. Karina Mcknight PT, DPT, CLT [facility] [place], [place]
== END 2020-05-21 13:47 | disposition skilled nursing facility (03) | DRG 481 ==
LOC: ER 15:05 → MS 16:26
PROVIDERS: General Practice; Internal Medicine; Nurse Practitioner Family; Student in an Organized Health Care Education/Training Program; Admitting Provider Internal Medicine; Emergency Provider Physician Assistant; PCP Family Medicine; Visit Provider Internal Medicine
PROC: 0QS606Z Reposition Right Upper Femur with Intramedullary Internal Fixation Device, Open Approach (ICD-10-PCS; CPT 27245; principal; 2020-05-13 07:05)
DX: S72.001A Fracture of unspecified part of neck of right femur, initial encounter for closed fracture (principal); N39.0 Urinary tract infection, site not specified; I48.20 Chronic atrial fibrillation, unspecified; D62 Acute posthemorrhagic anemia; W01.0XXA Fall on same level from slipping, tripping and stumbling without subsequent striking against object, initial encounter; I10 Essential (primary) hypertension; K21.9 Gastro-esophageal reflux disease without esophagitis; E03.9 Hypothyroidism, unspecified; Z79.02 Long term (current) use of antithrombotics/antiplatelets; F03.90 Unspecified dementia, unspecified severity, without behavioral disturbance, psychotic disturbance, mood disturbance, and anxiety; F10.21 Alcohol dependence, in remission; E78.00 Pure hypercholesterolemia, unspecified; E78.5 Hyperlipidemia, unspecified; E11.40 Type 2 diabetes mellitus with diabetic neuropathy, unspecified; N39.41 Urge incontinence; Z96.652 Presence of left artificial knee joint; Z87.891 Personal history of nicotine dependence; Z66 Do not resuscitate; B96.20 Unspecified Escherichia coli [E. coli] as the cause of diseases classified elsewhere; E11.65 Type 2 diabetes mellitus with hyperglycemia
CPT/HCPCS: 27245; 36415; 51702; 73552; 80048; 80053; 84145; 86850; 86900; 86901; 86920; 87040; 87077; 87081; 93005; 96361; 96365; 97110; 97163; 97166; 97530; 97535; 99222; 99223; 99231; 99232; 99233; 99239; 99253; 99255; 99285; NC; U0003; 70450; 71045; 73501; 73502; 80202; 81003; 81015; 82565; 83036; 83880; 84443; 85014; 85018; 85025; 85610; 85730; 87086; 87186; 93010; 99238; J0295; J0690; J0696; J1885; J2001; J2270; J2405; J2704; J3490; P9016

== ENCOUNTER 2020-05-28 11:47 | Outpatient (REF) | payer MEDICARE, MEDICAID, SELFPAY ==
[2020-05-28 12:25] LABS: Abs Immature Grans 0.03 10^3/uL (0.0-0.06); Absolute Basophil Count 0.03 10^3/uL (0.0-0.2); Absolute Eosinophil Count 0.09 10^3/uL (0.0-0.7); Absolute Lymphocyte Count 1.78 10^3/uL (1.2-3.4); Absolute Neutrophil Count 4.11 10^3/uL (1.2-6.7); Basophils % 0.5; Eosinophils % 1.4; HCT 39.8 % (36.0-46.0); HGB 11.8 g/dL (11.2-15.7); Immature Grans % 0.5; Lymphocytes % 27.2; MCHC 29.6 % (32.0-36.0); MCV 94.3 fL (80-95); MPV 9.2 fL (8.0-11.0); Monocytes % 7.6; Neutrophils % 62.8; Nucleated RBC 0 %; RBC 4.22 10^6/uL (3.93-5.22); RDW 17.6 % (11.7-14.6); RDW-SD 60.7 fL; WBC 6.54 10^3/uL (4.4-10.8)
[2020-05-28 13:09] LABS: Diff Comment PLT Morph Reviewed; Hemoglobin A1C 5.6 % (<5.7); Hypochromasia 1+; Platelet Count 742 10^3/uL (130-400)
[2020-05-28 13:10] LABS: Polychromasia Present
[2020-05-28 15:38] LABS: ALT 26 U/L (14-59); AST 26 U/L (15-37); Albumin 3.3 g/dL (3.4-5.0); Alkaline Phosphatase 148 U/L (46-116); Anion Gap 6.8 mmol/L (3-11); BUN 18 mg/dL (7-18); Bilirubin, Total 0.7 mg/dL (0.2-1.0); CO2 28.2 mmol/L (21.0-32.0); CREATININE 1.07 mg/dL (0.55-1.02); Calcium 9.3 mg/dL (8.5-10.1); Chloride 104 mmol/L (98-107); Estimated GFR 48.97 (mL/min/1.73m2); Folate 13.3 ng/mL (8.6-20.0); Glucose 195 mg/dL (74-106); Potassium 4.9 mmol/L (3.5-5.1); Sodium 139 mmol/L (136-145); Total Protein 6.8 g/dL (6.4-8.2); Vitamin B12 306 pg/mL (193-986)
== END 2020-05-28 12:07 ==
LOC: NCHCN 11:47
PROVIDERS: PCP Family Medicine; Visit Provider Family Medicine
DX: E11.65 Type 2 diabetes mellitus with hyperglycemia (principal); E78.5 Hyperlipidemia, unspecified; F03.91 Unspecified dementia, unspecified severity, with behavioral disturbance; R53.1 Weakness; B96.20 Unspecified Escherichia coli [E. coli] as the cause of diseases classified elsewhere
CPT/HCPCS: 80053; 82607; 82746; 83036; 85025

== ENCOUNTER 2020-06-04 19:14 | Outpatient (REF) | payer MEDICARE, MEDICAID, SELFPAY ==
[2020-06-04 15:41] LABS: HCT 38.8 % (36.0-46.0); HGB 11.8 g/dL (11.2-15.7); MCHC 30.4 % (32.0-36.0); MCV 95.3 fL (80-95); MPV 9.9 fL (8.0-11.0); Platelet Count 521 10^3/uL (130-400); RBC 4.07 10^6/uL (3.93-5.22); RDW-SD 59.3 fL; WBC 6.26 10^3/uL (4.4-10.8)
[2020-06-04 16:22] LABS: Vitamin D 25 Total 39.3 ng/ml (30-100)
== END 2020-06-04 19:34 ==
LOC: NCHCN 19:14
PROVIDERS: PCP Family Medicine; Visit Provider Family Medicine
DX: E55.9 Vitamin D deficiency, unspecified (principal); S72.141D Displaced intertrochanteric fracture of right femur, subsequent encounter for closed fracture with routine healing
CPT/HCPCS: 82306; 85027

== ENCOUNTER 2020-06-05 09:59 | Emergency (ER) | payer MEDICARE, MEDICAID, SELFPAY ==
[2020-06-05 10:00] VITALS: BP 125/77; PULSE 81; RESP 16; TEMP 36.4; O2SAT 98
--- NOTE | 2020-06-05 10:06 | W.ED.GENAD ---
Discharge Plan Disposition Patient Disposition: HOME Condition: Stable Discharge Details Clinical Impression: Swelling of lower extremity, Knee pain Primary Care Provider: Tino Gaines ED Provider: Lolly Amaya Home Meds and New Rx's Prescriptions: Continued citalopram 20 MG tablet 20 mg PO DAILY RF: 0 levothyroxine 125 MCG tablet 75 mcg PO DAILY RF: 0 simvastatin 20 MG tablet 40 mg PO DAILY RF: 0 Pradaxa 150 MG capsule 150 mg PO BID RF: 0 cetirizine 10 MG tablet,chewable 10 mg PO DAILY RF: 0 metoprolol succinate 50 MG tablet extended release 24 hr 25 mg PO DAILY RF: 0 furosemide 20 MG tablet 40 mg PO DAILY RF: 0 acetaminophen [Acetaminophen Extra Strength] 500 MG tablet 500 mg PO TID RF: 0 calcium carbonate 600 MG tablet 600 mg PO DAILY RF: 0 potassium chloride [Klor-Con M20] 20 MEQ tablet,ER particles/crystals 20 meq PO DAILY RF: 0 lorazepam 0.5 MG tablet 0.5 mg PO BID PRNRF: 0 pantoprazole 40 MG tablet,delayed release (DR/EC) 40 mg PO DAILY RF: 0 mirtazapine 15 MG tablet 15 mg PO HS RF: 0 Myrbetriq 50 MG tablet extended release 24 hr 50 mg PO DAILY RF: 0 donepezil 10 MG tablet,disintegrating 10 mg PO DAILY RF: 0 quetiapine 25 mg tablet 37.5 mg PO BID RF: 0 memantine [Namenda] 5 mg Tablet 10 mg PO DAILY Qty: 0 RF: 0 diltiazem HCl 120 mg capsule,extended release 24 hr 120 mg PO DAILY RF: 0 memantine 10 mg tablet 5 mg PO DAILY RF: 0 memantine 10 mg tablet 10 mg PO QAM RF: 0 cholecalciferol (vitamin D3) [Vitamin D3] 25 mcg (1,000 unit) capsule 2,000 unit PO DAILY RF: 0 Discharge Instructions Instructions: Leg Edema (ED), Knee Pain (ED) Additional Instructions: Please return immediately to the emergency department if you develop any new or worsening symptoms, if your condition does not improve as expected, or if you become otherwise concerned. It is extremely important that you call soon as possible to make an appointment to be seen in follow-up for this visit by your primary care doctor. It is also extremely important that you attend your scheduled appointment with orthopedic surgery next week. Referrals: Francisco Blankenship MD [ [facility] STAFF PHYSICIAN] - Tino Gaines [Primary Care Provider] - Discharge Data Discharge Date/Time-TO BE ENTERED AT DEPARTURE: 06/05/20 15:15 Medical Decision Making Homa Bey is an 85-year-old woman with a history of dementia, yzt-yzimsoc-rldyquipv diabetes, atrial fibrillation on Pradaxa, hypertension who presented to the emergency department with right lower extremity swelling after having right hip replacement 05/13. On exam patient is oriented to place but not time or situation, she is pleasantly confused with mostly nonsensical conversation. Per record review this is her baseline. There is right lower extremity edema. DP pulses are intact and symmetric, sensation and motor of the toes/ankle is intact and symmetric. Patient with pain with attempt to passively flex right hip and knee, does not actively flex right hip/knee. Normal examination of the left lower extremity. Patient's underlying dementia complicates exam, unclear if joint flexion pain represents postoperative pain, arthritis, versus postoperative infection. Exam is not consistent with septic arthritis at this time. Concern for possible DVT. I discussed patient presentation with Dr. Blankenship orthopedic surgery. Plan for ultrasound, x-ray right hip, right knee, screening labs. Exam/history at this time is not sent with sepsis, left lower extremity pathology, acute vascular compromise to the right lower extremity. X-rays okay. Ultrasound negative for DVT. Patient examined by Dr. Blankenship at bedside, Dr. Blankenship reports to me that patient seems to be ranging hip without issue, pain seems to be more related to the knee in which she has known osteoarthritis. Per Dr. Blankenship, no acute intervention in the knee/hip pain indicated at this time, patient has scheduled appointment with him as an outpatient in 1 week. Suspect edema secondary to postoperative state. Labs reviewed, nondiagnostic. Patient eating lunch without issue. I discussed patient presentation and evaluation with her daughter over the phone, including plan for return to rehab with outpatient follow-up. Patient's daughter is amenable to the plan. All questions were answered. Medical Records Medical records reviewed: Yes I reviewed the patient's medical records. Imaging Data Radiologic Study: Attestation: I personally reviewed and interpreted this imaging study as follows: Radiologist's impression: EXAM: XR HIP RT COMPLETE AP PELVIS CLINICAL HISTORY: not post reduction, pain. TECHNIQUE: 2D digital imaging was performed. COMPARISON: CR XR HIP RT COMPLETE AP PELVIS from 05/11/2020 CR XR HIP RT COMPLETE AP PELVIS from 05/11/2020 XR HIP RT IN OR from 05/13/2020 FINDINGS: BONES: There are stable post operative changes present. No new fracture or dislocation. JOINTS: The joint spaces are well maintained. No joint effusion is present. SOFT TISSUE: Normal. IMPRESSION: Stable postoperative changes. EXAM: XR KNEE RT 3V AP,LAT,RAUL CLINICAL HISTORY: pain with flexion. TECHNIQUE: 2D digital imaging was performed. COMPARISON: CR CHEST 2 VIEWS PA,LAT from 09/19/2017 FINDINGS: BONES: No acute fracture is present. No bony destructive lesion is seen. JOINTS: The knee is normally aligned. There is a small joint effusion. Moderately severe degenerative changes are seen involving all 3 joint compartments characterized by joint space narrowing and periarticular spurring. The findings are most marked in the patellofemoral joint. Chondrocalcinosis is present. SOFT TISSUE: Atherosclerosis. IMPRESSION: 1. No acute fracture or dislocation. 2. Moderately severe degenerative changes in the knee. EXAM: US LOWER EXTREMITY VENOUS RT CLINICAL HISTORY: swelling TECHNIQUE: Right lower extremity venous ultrasound performed using grayscale, color-flow, and spectral Doppler analysis. COMPARISON: No exams were available for comparison FINDINGS: The right common femoral, femoral and popliteal veins demonstrate normal compressibility, augmentation, and color Doppler. The posterior tibial veins are patent. The saphenofemoral junction is unremarkable. There is no evidence of a Sullivan cyst. The soft tissues are unremarkable. IMPRESSION: No DVT. Lab Data Lab results reviewed: Yes I reviewed the patient's lab results. Labs: Laboratory Tests Range/Units 06/05/20 06/05/20 12:40 12:40 WBC (4.4-10.8) 10^3/uL 5.75 RBC (3.93-5.22) 10^6/uL 4.41 Hgb (11.2-15.7) g/dL 12.6 Hct (36.0-46.0) % 41.3 MCV (80-95) fL 93.7 MCH (27.0-33.0) pg 28.6 MCHC (32.0-36.0) % 30.5 L RDW (11.7-14.6) % 16.4 H Plt Count (130-400) 10^3/uL 473 H MPV (8.0-11.0) fL 9.2 Immature Gran % 0.2 Neutrophils % 55.6 Lymphocytes % 32.7 Monocytes % 8.9 Eosinophils % 1.9 Basophils % 0.7 Nucleated RBC % % 0 Absolute Neutrophils (1.2-6.7) 10^3/uL 3.20 Absolute Lymphocytes (1.2-3.4) 10^3/uL 1.88 Absolute Monocytes (0.1-0.8) 10^3/uL 0.51 Absolute Eosinophils (0.0-0.7) 10^3/uL 0.11 Absolute Basophils (0.0-0.2) 10^3/uL 0.04 ESR (0-30) mm/hr 36 H Sodium (136-145) mmol/L 143 Potassium (3.5-5.1) mmol/L 4.2 Chloride (98-107) mmol/L 105 Carbon Dioxide (21.0-32.0) mmol/L 33.8 H Anion Gap (3-11) mmol/L 4.2 BUN (7-18) mg/dL 15 Creatinine (0.55-1.02) mg/dL 0.97 Estimated GFR/1.73 m2 (mL/min/1.73m2) 54.84 Glucose (74-106) mg/dL 118 H Calcium (8.5-10.1) mg/dL 9.3 Total Bilirubin (0.2-1.0) mg/dL 0.6 AST (15-37) U/L 21 ALT (14-59) U/L 18 Alkaline Phosphatase (46-116) U/L 145 H C-Reactive Protein (0.0-0.3) mg/dL 0.75 H Total Protein (6.4-8.2) g/dL 6.9 Albumin (3.4-5.0) g/dL 3.1 L HPI General Mode of arrival: EMS. Date/Time Provider Initiated Documentation: 06/05/20 10:06. Limitations to Documentation: no limitations. Information obtained by: patient, RN/MD (nurse at rehab), RN notes reviewed and old records reviewed. HPI Narrative: Homa Bey is an 85-year-old woman with a history of dementia, hypertension, hjv-hgvqzow-rvahvmlsd diabetes, A. fib on Pradaxa presenting to the emergency department with right lower extremity swelling. Patient underwent right hip replacement 05/13 after fall. Patient was discharged to rehab at the [facility] 05/21. Patient was noted to have right lower extremity swelling by her physical therapist and was sent to the emergency department for evaluation. Patient has dementia, unable to obtain significant history from her. When asked if she has pain, patient states no I'm just happy. Per rehab, patient has been taking all of her medication as prescribed. No significant issues since surgery. Patient has been eating and drinking as usual. It is not clear whether patient has been ambulatory since surgery. Related Data Home Medications Medication Instructions Recorded Confirmed citalopram 20 mg PO DAILY tab-cap 11/02/12 06/05/20 levothyroxine 75 mcg PO DAILY 11/02/12 06/05/20 simvastatin 40 mg PO DAILY tab-cap 05/18/13 06/05/20 furosemide 40 mg PO DAILY 07/06/14 06/05/20 metoprolol succinate 25 mg PO DAILY 07/06/14 06/05/20 Pradaxa 150 mg PO BID tab-cap 03/13/15 06/05/20 cetirizine 10 mg PO DAILY tab-cap 03/20/15 06/05/20 acetaminophen [Acetaminophen Extra 500 mg PO TID 12/26/16 06/05/20 Strength] calcium carbonate 600 mg PO DAILY 12/26/16 06/05/20 lorazepam 0.5 mg PO BID PRN 12/26/16 06/05/20 mirtazapine 15 mg PO HS 12/26/16 06/05/20 pantoprazole 40 mg PO DAILY 12/26/16 06/05/20 potassium chloride [Klor-Con M20] 20 meq PO DAILY 12/26/16 06/05/20 Myrbetriq 50 mg PO DAILY 09/19/17 06/05/20 donepezil 10 mg PO DAILY 09/19/17 06/05/20 quetiapine 37.5 mg PO BID 05/11/20 06/05/20 memantine [Namenda] 10 mg PO DAILY #0 tab 05/16/20 06/05/20 diltiazem HCl 120 mg PO DAILY 05/18/20 06/05/20 cholecalciferol (vitamin D3) 2,000 unit PO DAILY 06/05/20 06/05/20 [Vitamin D3] memantine 5 mg PO DAILY 06/05/20 06/05/20 memantine 10 mg PO QAM 06/05/20 06/05/20 Previous Rx's Medication Instructions Recorded memantine [Namenda] 10 mg PO DAILY #0 tab 05/16/20 Allergies Allergy/AdvReac Type Severity Reaction Status Date / Time No Known Allergies Allergy Unverified 05/11/20 12:16 General Stated Complaint: Vascular RODERICK: 3 Review of Systems Narrative: Unable to obtain review of systems secondary to baseline dementia [facility] Medical History papillara virus Abnormal auditory perception Alcoholism in remission Atrial fibrillation Hayward esophagus Hayward's esophagus Carpal tunnel syndrome cervical cancer in situ 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 Diabetes mellitus Discharge planning issues DJD (degenerative joint disease) Essential hypertension Gastroesophageal reflux disease h/o cervical cancer in situ History of tobacco use 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 several EGDs and colonoscopies with colon adenomas removed b. left femoral rodding for fx c. appendectomy d. cholecystectomy e. hysterectomy sparing her ovaries f. bilateral carpal tunnel release g. t & a h. 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 Father , Pulm. Emb. at age 51. Personal history of malignant neoplasm colon Sister , muscle degeneration No problems noted. Brother , pneumonia at age 57. Personal history of malignant neoplasm colon Social History Smoking/Tobacco Use Status: Former Tobacco Use Smoking risk assessment performed?: Yes Alcohol Intake: never Drug use: Never Substance use type: does not use Do you feel safe at home: Yes Do you feel safe in your relationship?: Yes Exam Narrative Exam Narrative: Constitutional: well and rpi-mxmjg-lumwmnmpi, pleasantly confused, nonsensical conversation HENT: head atraumatic/normocephalic/normal inspection, mucous membranes moist Eyes: conjunctiva normal, sclera normal, pupils 3mm b/l Neck: no stridor, normal ROM, trachea midline Chest: normal inspection Resp: normal work of breathing, speaking in full sentences Cardio: normal rate, normal rhythm Skin: warm, dry, normal color, no rash Neuro: alert, oriented to place, not oriented to time or situation, grossly non-focal, normal tone Ext: Right lower extremity with 2+ nonpitting edema, pain with flexion of right hip and right knee, no tenderness to palpation of the right knee or right hip, right hip incision healing well without erythema/edema/discharge, no overlying skin changes of the knee or hip. DP pulses intact and symmetric. Ranging right ankle and toes without issue. Course Vital Signs Vital signs: Vital Signs Temperature 36.4 C L 06/05/20 10:00 Pulse 81 06/05/20 10:00 Respiratory Rate 16 06/05/20 10:00 Blood Pressure 125/77 06/05/20 10:00 Pulse Oximetry 98 06/05/20 10:00 Temperature 36.4 C L 06/05/20 10:00 Temperature Source Temporal Artery Scan 06/05/20 10:00 Pulse 81 06/05/20 10:00 Respiratory Rate 16 06/05/20 10:00 Blood Pressure 125/77 06/05/20 10:00 Blood Pressure Position Supine 06/05/20 10:00 Pulse Oximetry 98 06/05/20 10:00 Oxygen Delivery Method Room Air 06/05/20 10:00 Oxygen Flow Rate 0 06/05/20 10:00 Pain Level 0 06/05/20 10:00
--- NOTE | 2020-06-05 10:15 | DI.US_ITS ---
EXAM: US LOWER EXTREMITY VENOUS RT CLINICAL HISTORY: swelling TECHNIQUE: Right lower extremity venous ultrasound performed using grayscale, color-flow, and spectr al Doppler analysis. COMPARISON: No exams were available for comparison FINDINGS: The right common femoral, femoral and popliteal veins demonstrate normal compressibility, augmentatio n, and color Doppler. The posterior tibial veins are patent. The saphenofemoral junction is unremark able. There is no evidence of a Sullivan cyst. The soft tissues are unremarkable. IMPRESSION: No DVT. DATA REPOSITORY:
--- NOTE | 2020-06-05 12:00 | DI.RAD_ITS ---
EXAM: XR KNEE RT 3V AP,LAT,RAUL CLINICAL HISTORY: pain with flexion. TECHNIQUE: 2D digital imaging was performed. COMPARISON: CR CHEST 2 VIEWS PA,LAT from 09/19/2017 FINDINGS: BONES: No acute fracture is present. No bony destructive lesion is seen. JOINTS: The knee is normally aligned. There is a small joint effusion. Moderately severe degenerativ e changes are seen involving all 3 joint compartments characterized by joint space narrowing and javon articular spurring. The findings are most marked in the patellofemoral joint. Chondrocalcinosis is present. SOFT TISSUE: Atherosclerosis. IMPRESSION: 1. No acute fracture or dislocation. 2. Moderately severe degenerative changes in the knee. DATA REPOSITORY: RADIATION DOSE DELIVERED:
--- NOTE | 2020-06-05 12:15 | DI.RAD_ITS ---
EXAM: XR HIP RT COMPLETE AP PELVIS CLINICAL HISTORY: not post reduction, pain. TECHNIQUE: 2D digital imaging was performed. COMPARISON: CR XR HIP RT COMPLETE AP PELVIS from 05/11/2020 CR XR HIP RT COMPLETE AP PELVIS from 05/11/2020 XR HIP RT IN OR from 05/13/2020 FINDINGS: BONES: There are stable post operative changes present. No new fracture or dislocation. JOINTS: The joint spaces are well maintained. No joint effusion is present. SOFT TISSUE: Normal. IMPRESSION: Stable postoperative changes. DATA REPOSITORY: RADIATION DOSE DELIVERED:
[2020-06-05 12:56] LABS: Abs Immature Grans 0.01 10^3/uL (0.0-0.06); Absolute Basophil Count 0.04 10^3/uL (0.0-0.2); Absolute Eosinophil Count 0.11 10^3/uL (0.0-0.7); Absolute Lymphocyte Count 1.88 10^3/uL (1.2-3.4); Absolute Monocyte Count 0.51 10^3/uL (0.1-0.8); Basophils % 0.7; Eosinophils % 1.9; HCT 41.3 % (36.0-46.0); HGB 12.6 g/dL (11.2-15.7); Immature Grans % 0.2; Lymphocytes % 32.7; MCH 28.6 pg (27.0-33.0); MCHC 30.5 % (32.0-36.0); MCV 93.7 fL (80-95); MPV 9.2 fL (8.0-11.0); Monocytes % 8.9; Neutrophils % 55.6; Nucleated RBC 0 %; Platelet Count 473 10^3/uL (130-400); RBC 4.41 10^6/uL (3.93-5.22); RDW 16.4 % (11.7-14.6); WBC 5.75 10^3/uL (4.4-10.8)
[2020-06-05 13:10] LABS: ALT 18 U/L (14-59); AST 21 U/L (15-37); Albumin 3.1 g/dL (3.4-5.0); Alkaline Phosphatase 145 U/L (46-116); Anion Gap 4.2 mmol/L (3-11); BUN 15 mg/dL (7-18); Bilirubin, Total 0.6 mg/dL (0.2-1.0); C-Reactive Protein 0.75 mg/dL (0.0-0.3); CO2 33.8 mmol/L (21.0-32.0); CREATININE 0.97 mg/dL (0.55-1.02); Calcium 9.3 mg/dL (8.5-10.1); Chloride 105 mmol/L (98-107); Estimated GFR 54.84 (mL/min/1.73m2); Glucose 118 mg/dL (74-106); Potassium 4.2 mmol/L (3.5-5.1); Sodium 143 mmol/L (136-145); Total Protein 6.9 g/dL (6.4-8.2)
[2020-06-05 13:54] VITALS: BP 102/88; PULSE 87; TEMP 37.1; O2SAT 97
[2020-06-05 14:23] LABS: ESR 36 mm/hr (0-30)
--- NOTE | 2020-06-06 16:12 | OCONE_ITS ---
Date of service: 06/05/20 Time of Service: 12:12 History of Present Illness History of Present Illness Chief Complaint: Right leg pain Narrative: Homa is an 85-year-old who suffered a comminuted intertrochanteric hip fracture on the right side. This occurred from a fall. I saw her in consultation in the hospital and performed intramedullary nail fixation of the intertrochanteric hip fracture on May 13. She was discharged to longterm facility. It is very difficult to know how she was doing while she was there. Homa continues to be quite confused and is a an unreliable historian. She reports pain in her leg. When I am able to get her to focus she seems to isolate this to the level of the knee and moving distal. She was sent to the emergency department due to concern about ipsilateral, unilateral swelling. She denies fevers or chills. She denies chest pain or shortness of breath. She is unclear if she has been walking but states that is why I am here, doc. Consults Consult date: 06/05/20 Requesting physician: Lolly Amaya Consult Reason Right leg pain Assessment and Plan Assessment and plan (1) Swelling of lower extremity: Status: Acute Assessment and plan: I think the swelling does not appear to be pathologic . It is quite normal to have swelling at this point. Ultrasound of the lower extremities negative and therefore I have very little concern about it. (2) Closed fracture of right hip: Status: Acute Assessment and plan: X-rays are reassuring 3-week status post intertrochanteric fracture fixation. It is not uncommon to take some time to start making improvements. There has been some settling of the fracture but no significant failure. She actually tolerates motion of the hip quite well and I think the majority of her pain is coming from her lower extremity from the knee down. Qualifiers: Encounter type: initial encounter Qualified Code(s): S72.001A - Fract ure of unspecified part of neck of right femur, initial encounter for closed fracture (3) Localized osteoarthritis of right knee: Status: Acute Assessment and plan: The right knee I think is the culprit of her primary pain complaints. She does have swelling about the right leg which is somewhat coincidental to her pain. Is possible that the knee arthritis was exacerbated by the fall and the fixation of the right hip. She does have severe arthritis and an injection could be considered. However, I would first start with typical conservative options including anti-inflammatories either by mouth or the topical form of diclofenac gel. I would try this at first and if the knee seems to continue to be painful then we could consider injection at the next office visit. 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 Diabetes mellitus Discharge planning issues DJD (degenerative joint disease) Essential hypertension Gastroesophageal reflux disease h/o cervical cancer in situ History of tobacco use 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 several EGDs and colonoscopies with colon adenomas removed b. left femoral rodding for fx c. appendectomy d. cholecystectomy e. hysterectomy sparing her ovaries f. bilateral carpal tunnel release g. t & a h. 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 Father , Pulm. Emb. at age 51. Personal history of malignant neoplasm colon Sister , muscle degeneration No problems noted. Brother , pneumonia at age 57. Personal history of malignant neoplasm colon Social History Smoking/Tobacco Use Status: Former Tobacco Use Smoking risk assessment performed?: Yes Alcohol Intake: never Drug use: Never Substance use type: does not use Do you feel safe at home: Yes Do you feel safe in your relationship?: Yes Exam Narrative Exam Narrative: Laying in the hospital bed. She is in no acute distress. She is alert. Evaluation of the right leg shows grossly normal positioning. No significant malrotation or shortening. The wounds of the right hip appear healed. There is some swelling throughout the right leg but the thigh and calf and foot are compressible. There is some mild tenderness to compression of the right calf. There is no significant pain to palpation of the proximal thigh. When she is distracted I am able to internally and externally rotate the right leg without any significant signs of discomfort. I am also able to demonstrate hip flexion of at least 70 degrees without any notable discomfort. However, if I move her knee she does have increasing pain. She has pain to palpation along both medial and lateral joint lines. She has pain with any attempted flexion of the knee. There is no notable effusion of the knee. Gentle range of motion of the right ankle passively does not seem to increase pain. She is able to demonstrate active ankle dorsiflexion, plantarflexion, great toe extension, great toe flexion. Palpable PT and DP pulse. Results Last Vital Signs Temp 37.1 C 06/05/20 13:54 Pulse 87 06/05/20 13:54 Resp 16 06/05/20 10:00 BP 102/88 06/05/20 13:54 Pulse Ox 97 06/05/20 13:54 Labs Result diagrams: 06/05/20 12:40 06/05/20 12:40 Imaging Imaging Studies: X-ray of the right hip demonstrates an intramedullary nail f ixated intertrochanteric hip fracture. When compared to the previous images there seems to be some collapse of the fracture and varus. However, I do not see any signs of fracture propagation or significant change to suggest that this is a failed construct. X-ray of the knee shows severe arthritis throughout all 3 compartments of the knee.
== END 2020-06-05 15:15 | disposition home or self-care (01) ==
PROVIDERS: Emergency Provider Student in an Organized Health Care Education/Training Program; PCP Family Medicine
DX: R60.0 Localized edema (principal); M25.561 Pain in right knee; Y83.1 Surgical operation with implant of artificial internal device as the cause of abnormal reaction of the patient, or of later complication, without mention of misadventure at the time of the procedure; Z96.641 Presence of right artificial hip joint; E11.9 Type 2 diabetes mellitus without complications; I10 Essential (primary) hypertension; M79.89 Other specified soft tissue disorders; S72.001A Fracture of unspecified part of neck of right femur, initial encounter for closed fracture; M17.11 Unilateral primary osteoarthritis, right knee
CPT/HCPCS: 36415; 73562; 80053; 85652; 99253; 99283; 99284; 73502; 85025; 86140; 93971

== ENCOUNTER 2020-06-28 10:23 | Outpatient (CLI) | payer MEDICARE, MEDICAID, SELFPAY ==
--- NOTE | 2020-06-28 09:45 | DI.RAD_ITS ---
EXAM: XR HIP RT AP LAT ONLY CLINICAL HISTORY: f/u R hip IMN frx. TECHNIQUE: 2D digital imaging was performed. COMPARISON: Prior x-rays 06/05/2020 FINDINGS: Again noted is a lag screw across the intertrochanteric-low femoral neck fracture site. No further d isplacement. Appearance is relatively similar to prior study listed above. No radiographic evidence osteomyelitis. No hardware migration. IMPRESSION: DATA REPOSITORY: RADIATION DOSE DELIVERED:
== END 2020-06-28 10:43 ==
PROVIDERS: PCP Family Medicine; Referring Provider Family Medicine; Visit Provider Student in an Organized Health Care Education/Training Program
DX: S72.141A Displaced intertrochanteric fracture of right femur, initial encounter for closed fracture (principal); X58.XXXA Exposure to other specified factors, initial encounter; M17.11 Unilateral primary osteoarthritis, right knee
CPT/HCPCS: 20610; 73502; J1040

== ENCOUNTER 2020-07-30 20:49 | Outpatient (REF) | payer MEDICARE, MEDICAID, SELFPAY | END 2020-07-30 20:50 | disposition home or self-care (01) | LOC: LBN 20:49 | PROVIDERS: PCP Family Medicine; Visit Provider Family Medicine | DX: E55.0 Rickets, active (principal) | CPT/HCPCS: 82306 ==

== ENCOUNTER 2020-08-13 10:34 | Outpatient (CLI) | payer MEDICARE, MEDICAID, SELFPAY ==
--- NOTE | 2020-08-13 09:30 | DI.RAD_ITS ---
EXAM: XR HIP RT AP LAT ONLY CLINICAL HISTORY: f/u fracture. TECHNIQUE: 2D digital imaging was performed. COMPARISON: CR XR HIP RT AP LAT ONLY from 06/28/2020 FINDINGS: Again noted is the hardware across in low femoral neck-intertrochanteric fracture of the right hip. Appearance is unchanged from 06/28/2020. No further displacement evident. No radiographic evidence of osteomyelitis. Lesser trochanter is again noted to be avulsed. IMPRESSION: DATA REPOSITORY: RADIATION DOSE DELIVERED:
== END 2020-08-13 10:35 | disposition home or self-care (01) ==
LOC: DIORS 10:34
PROVIDERS: PCP Family Medicine; Referring Provider Family Medicine; Visit Provider Student in an Organized Health Care Education/Training Program
DX: S72.141D Displaced intertrochanteric fracture of right femur, subsequent encounter for closed fracture with routine healing (principal); S72.001D Fracture of unspecified part of neck of right femur, subsequent encounter for closed fracture with routine healing; X58.XXXD Exposure to other specified factors, subsequent encounter; Z98.890 Other specified postprocedural states
CPT/HCPCS: 99213; 73502

== ENCOUNTER 2020-11-20 14:15 | Outpatient (REF) | payer MEDICARE, MEDICAID, SELFPAY ==
[2020-11-20 14:54] LABS: Anion Gap 9.4 mmol/L (3-11); BUN 23 mg/dL (7-18); CO2 30.6 mmol/L (21.0-32.0); CREATININE 1.1 mg/dL (0.55-1.02); Calculated LDL 75 mg/dL (<100); Chloride 106 mmol/L (98-107); Cholesterol 161 mg/dL (<200); Estimated GFR 47.43 (mL/min/1.73m2); Glucose 109 mg/dL (74-106); HDL Cholesterol 63 mg/dL (40-60); Potassium 4.5 mmol/L (3.5-5.1); Sodium 146 mmol/L (136-145); TSH (W/Ref FT4) 0.62 uIU/mL (0.36-3.74); Triglyceride 118 mg/dL (<150)
== END 2020-11-20 14:16 | disposition home or self-care (01) ==
LOC: LBN 14:15
PROVIDERS: PCP Family Medicine; Visit Provider Family Medicine
DX: E03.9 Hypothyroidism, unspecified (principal); E78.5 Hyperlipidemia, unspecified; I10 Essential (primary) hypertension; F33.40 Major depressive disorder, recurrent, in remission, unspecified; F03.91 Unspecified dementia, unspecified severity, with behavioral disturbance; M62.81 Muscle weakness (generalized)
CPT/HCPCS: 80048; 80061; 84443

== ENCOUNTER 2020-12-12 15:21 | Outpatient (REF) | payer MEDICARE, MEDICAID, SELFPAY ==
[2020-12-12 15:17] LABS: Hemoglobin A1C 6.3 % (<5.7)
== END 2020-12-12 15:22 | disposition home or self-care (01) ==
LOC: LBN 15:21
PROVIDERS: PCP Family Medicine; Visit Provider Family Medicine
DX: E11.65 Type 2 diabetes mellitus with hyperglycemia (principal)
CPT/HCPCS: 83036

== ENCOUNTER 2021-01-01 17:24 | Outpatient (REF) | payer MEDICARE, MEDICAID, SELFPAY ==
[2021-01-01 18:01] LABS: Abs Immature Grans 0.02 10^3/uL (0.0-0.06); Absolute Basophil Count 0.04 10^3/uL (0.0-0.2); Absolute Eosinophil Count 0.12 10^3/uL (0.0-0.7); Absolute Lymphocyte Count 2.04 10^3/uL (1.2-3.4); Absolute Monocyte Count 0.64 10^3/uL (0.1-0.8); Absolute Neutrophil Count 4.17 10^3/uL (1.2-6.7); Basophils % 0.6; Eosinophils % 1.7; HCT 41.5 % (36.0-46.0); HGB 13.2 g/dL (11.2-15.7); Immature Grans % 0.3; MCHC 31.8 % (32.0-36.0); MCV 94.3 fL (80-95); MPV 10.3 fL (8.0-11.0); Monocytes % 9.1; Neutrophils % 59.3; Nucleated RBC 0 %; Platelet Count 327 10^3/uL (130-400); RDW 13.3 % (11.7-14.6); RDW-SD 46.6 fL; WBC 7.03 10^3/uL (4.4-10.8)
[2021-01-01 18:08] LABS: Anion Gap 9.1 mmol/L (3-11); BUN 15 mg/dL (7-18); CO2 28.9 mmol/L (21.0-32.0); CREATININE 1.1 mg/dL (0.55-1.02); Calcium 9.1 mg/dL (8.5-10.1); Chloride 106 mmol/L (98-107); Estimated GFR 47.43 (mL/min/1.73m2); Glucose 100 mg/dL (74-106); Potassium 4.5 mmol/L (3.5-5.1); Sodium 144 mmol/L (136-145)
== END 2021-01-01 17:25 | disposition home or self-care (01) ==
LOC: LBN 17:24
PROVIDERS: PCP Family Medicine; Visit Provider Internal Medicine
DX: I10 Essential (primary) hypertension (principal); E03.9 Hypothyroidism, unspecified; E78.5 Hyperlipidemia, unspecified; E11.9 Type 2 diabetes mellitus without complications; F03.91 Unspecified dementia, unspecified severity, with behavioral disturbance
CPT/HCPCS: 80048; 85025

== ENCOUNTER 2021-04-30 16:23 | Outpatient (REF) | payer MEDICARE, MEDICAID, SELFPAY ==
[2021-04-30 23:20] LABS: Glucose 190 mg/dL (74-106); Vitamin B12 843 pg/mL (193-986)
[2021-05-02 04:09] LABS: Vitamin D 25 Total 48.9 ng/mL (30-100)
== END 2021-04-30 16:24 | disposition home or self-care (01) ==
LOC: LBN 16:23
PROVIDERS: PCP Family Medicine; Visit Provider Internal Medicine
DX: E11.65 Type 2 diabetes mellitus with hyperglycemia (principal); M62.81 Muscle weakness (generalized)
CPT/HCPCS: 82306; 82947; 82607

== ENCOUNTER 2021-05-01 15:25 | Outpatient (REF) | payer MEDICARE, MEDICAID, SELFPAY ==
[2021-05-01 19:14] LABS: Vitamin B12 963 pg/mL (193-986)
[2021-05-01 19:19] LABS: Hemoglobin A1C 6.6 % (<5.7)
== END 2021-05-01 15:26 | disposition home or self-care (01) ==
LOC: LBN 15:25
PROVIDERS: PCP Family Medicine; Visit Provider Internal Medicine
DX: E11.65 Type 2 diabetes mellitus with hyperglycemia (principal); F33.40 Major depressive disorder, recurrent, in remission, unspecified
CPT/HCPCS: 82306; 82607; 83036

== ENCOUNTER 2021-06-24 15:09 | Outpatient (REF) | payer MEDICARE, MEDICAID, SELFPAY ==
[2021-06-24 16:01] LABS: Hemoglobin A1C 6.4 % (<5.7)
== END 2021-06-24 15:10 | disposition home or self-care (01) ==
LOC: LBN 15:09
PROVIDERS: PCP Family Medicine; Visit Provider Nurse Practitioner Gerontology
DX: E11.65 Type 2 diabetes mellitus with hyperglycemia (principal); E03.9 Hypothyroidism, unspecified; E78.5 Hyperlipidemia, unspecified; F03.91 Unspecified dementia, unspecified severity, with behavioral disturbance
CPT/HCPCS: 83036

== ENCOUNTER 2021-07-15 16:42 | Outpatient (REF) | payer MEDICARE, MEDICAID, SELFPAY ==
[2021-07-15 19:56] LABS: Abs Immature Grans 0.06 10^3/uL (0.0-0.06); Absolute Basophil Count 0.02 10^3/uL (0.0-0.2); Absolute Eosinophil Count 0.01 10^3/uL (0.0-0.7); Absolute Lymphocyte Count 1.41 10^3/uL (1.2-3.4); Absolute Monocyte Count 0.33 10^3/uL (0.1-0.8); Absolute Neutrophil Count 6.93 10^3/uL (1.2-6.7); Basophils % 0.2; Eosinophils % 0.1; HCT 41.6 % (36.0-46.0); HGB 12.8 g/dL (11.2-15.7); Immature Grans % 0.7; Lymphocytes % 16.1; MCH 28.5 pg (27.0-33.0); MCHC 30.8 % (32.0-36.0); MCV 92.7 fL (80-95); MPV 10.2 fL (8.0-11.0); Monocytes % 3.8; Neutrophils % 79.1; Nucleated RBC 0 %; Platelet Count 342 10^3/uL (130-400); RBC 4.49 10^6/uL (3.93-5.22); RDW 13.7 % (11.7-14.6); RDW-SD 46.8 fL; WBC 8.76 10^3/uL (4.4-10.8)
[2021-07-15 20:13] LABS: ALT 28 U/L (14-59); AST 18 U/L (15-37); Albumin 3.4 g/dL (3.4-5.0); Alkaline Phosphatase 68 U/L (46-116); Anion Gap 11.8 mmol/L (3-11); BUN 21 mg/dL (7-18); Bilirubin, Total 0.4 mg/dL (0.2-1.0); CO2 26.2 mmol/L (21.0-32.0); CREATININE 1.3 mg/dL (0.55-1.02); Calcium 8.6 mg/dL (8.5-10.1); Chloride 103 mmol/L (98-107); Estimated GFR 39.02 (mL/min/1.73m2); Glucose 284 mg/dL (74-106); Potassium 4.7 mmol/L (3.5-5.1); Sodium 141 mmol/L (136-145); TSH (W/Ref FT4) 0.34 uIU/mL (0.36-3.74); Total Protein 6.6 g/dL (6.4-8.2)
[2021-07-15 20:32] LABS: FREE T4 1.42 ng/dL (0.76-1.46)
== END 2021-07-15 16:43 | disposition home or self-care (01) ==
LOC: LBN 16:42
PROVIDERS: PCP Family Medicine; Visit Provider Nurse Practitioner Gerontology
DX: E78.5 Hyperlipidemia, unspecified (principal); I10 Essential (primary) hypertension; E11.65 Type 2 diabetes mellitus with hyperglycemia; E03.9 Hypothyroidism, unspecified; R41.841 Cognitive communication deficit
CPT/HCPCS: 80053; 84439; 84443; 85025

== ENCOUNTER 2021-08-06 13:41 | Outpatient (REF) | payer MEDICARE, MEDICAID, SELFPAY ==
[2021-08-06 10:32] LABS: Abs Immature Grans 0.03 10^3/uL (0.0-0.06); Absolute Basophil Count 0.02 10^3/uL (0.0-0.2); Absolute Eosinophil Count 0.13 10^3/uL (0.0-0.7); Absolute Monocyte Count 0.79 10^3/uL (0.1-0.8); Absolute Neutrophil Count 6.75 10^3/uL (1.2-6.7); Basophils % 0.2; Eosinophils % 1.5; HCT 40.8 % (36.0-46.0); HGB 12.7 g/dL (11.2-15.7); Immature Grans % 0.3; Lymphocytes % 12.5; MCH 29.1 pg (27.0-33.0); MCHC 31.1 % (32.0-36.0); MCV 93.6 fL (80-95); MPV 10.3 fL (8.0-11.0); Neutrophils % 76.5; Nucleated RBC 0 %; Platelet Count 276 10^3/uL (130-400); RBC 4.36 10^6/uL (3.93-5.22); RDW 14.3 % (11.7-14.6); RDW-SD 49.4 fL; WBC 8.82 10^3/uL (4.4-10.8)
[2021-08-06 10:51] LABS: BUN 12 mg/dL (7-18); CREATININE 1.1 mg/dL (0.55-1.02); Chloride 103 mmol/L (98-107); Estimated GFR 47.32 (mL/min/1.73m2); Glucose 211 mg/dL (74-106); Potassium 3.4 mmol/L (3.5-5.1); Sodium 141 mmol/L (136-145); Troponin I < 50 ng/L (<or=60)
== END 2021-08-06 13:42 | disposition home or self-care (01) ==
LOC: LBN 13:41
PROVIDERS: PCP Family Medicine; Visit Provider Nurse Practitioner Gerontology
DX: I48.91 Unspecified atrial fibrillation (principal); E78.5 Hyperlipidemia, unspecified; R11.2 Nausea with vomiting, unspecified
CPT/HCPCS: 80048; 84484; 85025

== ENCOUNTER 2021-08-07 18:24 | Outpatient (REF) | payer MEDICARE, MEDICAID, SELFPAY ==
[2021-08-07 11:26] LABS: Abs Immature Grans 0.02 10^3/uL (0.0-0.06); Absolute Basophil Count 0.03 10^3/uL (0.0-0.2); Absolute Eosinophil Count 0.02 10^3/uL (0.0-0.7); Absolute Lymphocyte Count 1.65 10^3/uL (1.2-3.4); Absolute Neutrophil Count 5.43 10^3/uL (1.2-6.7); Basophils % 0.4; Eosinophils % 0.2; HCT 39.7 % (36.0-46.0); HGB 12.2 g/dL (11.2-15.7); Immature Grans % 0.2; MCHC 30.7 % (32.0-36.0); MCV 94.5 fL (80-95); MPV 10.3 fL (8.0-11.0); Monocytes % 13.3; Neutrophils % 65.9; Nucleated RBC 0 %; Platelet Count 303 10^3/uL (130-400); RDW 14.5 % (11.7-14.6); RDW-SD 50.4 fL; WBC 8.25 10^3/uL (4.4-10.8)
[2021-08-07 11:53] LABS: ALT 12 U/L (14-59); AST 16 U/L (15-37); Albumin 3.2 g/dL (3.4-5.0); Alkaline Phosphatase 73 U/L (46-116); Anion Gap 8.9 mmol/L (3-11); BUN 11 mg/dL (7-18); Bilirubin, Total 0.6 mg/dL (0.2-1.0); CO2 29.1 mmol/L (21.0-32.0); CREATININE 1.2 mg/dL (0.55-1.02); Calcium 8.7 mg/dL (8.5-10.1); Chloride 101 mmol/L (98-107); Glucose 185 mg/dL (74-106); Potassium 4.1 mmol/L (3.5-5.1); Sodium 139 mmol/L (136-145); Total Protein 6.9 g/dL (6.4-8.2)
--- OUTSIDE RECORDS SUMMARY | 2021-08-07 18:25 | XMS_ITS ---
:1935 Author Organization [facility] Address [address] [facility] [place] [address] Care Team Providers Name Role Phone Sergio Davey Unavailable Unavailable PROBLEMS Type Condition ICD9-CM Code [id number] Code Onset Condition SNO MED Code Dates Status Problem Overactive N32.81 Active [id number] bladder ALLERGIES No Known Allergies ENCOUNTERS Encounter Location Date Diagnosis [facility] [address] [facility] Jun, [place] [address] [facility] [address] [facility] Jun, [place] [address] SURGERY [address] [facility] Jun, [place] [address] SURGERY [address] [facility] Jun, [place] [address] ORTHOPEDIC OFFICE [address] [facility] Jun, [place] [address] [facility] [address] [facility] Apr, Overactive bladder N32.81 [place] [address] [facility] [address] [facility] Dec, [place] [address] N39.41 [facility] Nov, [place] [address] SURGERY [address] [facility] Nov, [place] [address] SURGERY [address] [facility] Nov, [place] [address] [place] [facility] October, [place] [address] [facility] October, [place] [address] N39.41 ORTHOPEDIC OFFICE [facility] October, [place] [address] ORTHOPEDIC OFFICE [address] [facility] October, [place] [address] IMMUNIZATIONS No Known Immunizations SOCIAL HISTORY Qualifiers Date Former Smoker REASON FOR REFERRAL FUNCTIONAL STATUS PLAN OF CARE VITAL SIGNS Height 64.5 in 2018-05-21 Height 64.5 in 2018-01-01 Height 64.5 in 2017-11-13 Weight 208.0 lbs 2018-05-21 Weight 211.0 lbs 2018-01-01 Weight 210.0 lbs 2017-11-13 BMI 35.15 kg/m2 2018-05-21 BMI 35.65 kg/m2 2018-01-01 BMI 35.49 kg/m2 2017-11-13 Temperature 99.0 degrees Fahrenheit 2018-05-21 Temperature 97.3 degrees Fahrenheit 2018-01-01 Temperature 97.4 degrees Fahrenheit 2017-11-13 Heart Rate 89 /min 2018-05-21 Heart Rate 88 /min 2018-01-01 Heart Rate 87 /min 2017-11-13 Respiratory Rate 18 /min 2018-05-21 Respiratory Rate 18 /min 2018-01-01 Respiratory Rate 18 /min 2017-11-13 Oximetry 98 % 2018-05-21 Oximetry 96 % 2018-01-01 Oximetry 96 % 2017-11-13 Blood pressure systolic 121 mm Hg 2018-05-21 Blood pressure diastolic 80 mm Hg 2018-05-21 MEDICATIONS Medication Instructions Dosage Frequency Start End Duration Statu s Date Date Mirtazapine 15 mg orally once a 1 tab(s) Active day (at bedtime) Metoprolol orally once a 1 tab(s) 24h Active Succinate ER 25 day mg Pradaxa 150 mg orally 2 times a 1 cap(s) 12h Active day Cipro 500 mg orally every 12 1 tab 12h Act araceli hours Levaquin 500 mg orally every 24 1 tab(s) Jun, days Active hours 2018 Citalopram orally once a 1 tab(s) 24h Active Hydrobromide 20 day mg FLUTICASONE 50 inhaled 2 times 1 puff(s) 12h Active mcg a day DILTIAZEM 120 orally once a 1 cap(s) 24h Act araceli mg/12 hours day PANTOPRAZOLE 40 orally once a 1 tab(s) 24h A ctive mg day Donepezil HCl 10 orally once a 1 tab(s) Active mg day (at bedtime) Cetirizine HCl 10 orally once a 1 tab(s) 24h Active mg day Potassium orally 2 times a 1 ea 12h Activ e Chloride 20 mEq day Furosemide 20 mg orally once a 1 tab(s) 24h Active day Myrbetriq 50 mg orally once a 1 tab(s) 24h A ctive day -OTC, HERBALS Active Varies Simvastatin 20 mg orally once a 1 tab(s) Active day (at bedtime) Levothyroxine orally once a 1 tab(s) Act araceli Sodium 75 mcg day on an empty (0.075 mg) stomach in morning OYSTER SHELL orally 2 times a 1 tab(s) 12h A ctive CALCIUM WITH day VITAMIN D 500 mg-200 intl units PROCEDURES No Known procedures RESULTS Name Result Date Reference Range UA-COLONY COUNT ONLY 2017-09-01 COLONY COUNT ANTIBIOTIC: Day1 Day 2 Isolate1 SOURCE: REASON FOR VISIT PVR question, Blank TE , cysto w/ botox, cysto w/ botox, Hold Pradaxa 4 days, would like to next injection, 2 week f/u, cystoscopy with botox, cystoscopy with botox, medical information, discuss interstim referral done, update patient chart, discuss interstim, pt called to [facility], will call back to r/s, Pt wants to see Tamica on another day Insurance Providers [facility] Patient Patient Patient Patient Patient Subscriber Subscriber Subscriber Group Insurance Plan Plan Plan Plan ID Relationship Address Phone Name Date of ID Name Date of No Type Insurance Insurance Insurance Coverage to Subscriber Address Phone Name Dates SELF PAY [address] SELF PAY self [place] [id number] [place] [address] INSURANCE MEDICARE [address] MEDICARE self [place] [id number] [facility] [id number] S-MEDICAID EDS [id number] S-[place]ICAID self [place] [id number] [place] [facility] [id number] MEDICAID EDS MEDICAID self [place] [id number] [facility] [place] [facility] [id number]
== END 2021-08-07 18:25 | disposition home or self-care (01) ==
LOC: LBN 18:24
PROVIDERS: PCP Family Medicine; Visit Provider Nurse Practitioner Gerontology
DX: R11.2 Nausea with vomiting, unspecified (principal); R05.8 Other specified cough; J18.9 Pneumonia, unspecified organism
CPT/HCPCS: 80053; 85025

== ENCOUNTER 2021-08-08 10:11 | Emergency (ER) | payer MEDICARE, MEDICAID, SELFPAY ==
[2021-08-08 10:10] VITALS: BP 122/43; PULSE 92; RESP 18; TEMP 36.6; O2SAT 96
--- NOTE | 2021-08-08 10:15 | DI.RAD_ITS ---
Exam(s) XR SHOULDER RT COMPLETE 2+V EXAM: XR SHOULDER RT COMPLETE 2+V CLINICAL HISTORY: Fall, Right shoulder pain. TECHNIQUE: 2D digital imaging was performed of the right shoulder. Four images were obtained. AP, Grashey and Y views were obtained. COMPARISON: No exams were available for comparison FINDINGS: BONES: No acute fracture is present. No bony destructive lesion is seen. Bones are osteopenic. JOINTS: No dislocation present. Degenerative changes are seen in the glenohumeral and acromioclavicul ar joints. SOFT TISSUE: Soft tissue calcifications adjacent to the humeral head likely reflect calcific tendinit is. IMPRESSION: No acute fracture or dislocation. DATA REPOSITORY: RADIATION DOSE DELIVERED:
--- NOTE | 2021-08-08 10:22 | W.ED.GENAD ---
Discharge Plan Disposition Patient Disposition: SNF (LEVEL 1) [facility] Condition: Stable Discharge Details Clinical Impression: Arthritis of shoulder region, right, degenerative Primary Care Provider: Tejal Lane ED Provider: Whit Turcios [place] Meds and New Rx's Prescriptions: New lidocaine 5 % adhesive patch,medicated 1 patch topical DAILY PRN (Reason: pain (scale score 4-6)) Qty: 15 0RF Rx Instructions: leave on most painful area for up to 12 hrs Continued citalopram 20 MG tablet 20 mg PO DAILY 0RF levothyroxine 125 MCG tablet 50 mcg PO HS 0RF simvastatin 20 MG tablet 40 mg PO HS 0RF Pradaxa 150 MG capsule 150 mg PO BID 0RF cetirizine 10 MG tablet,chewable 10 mg PO DAILY 0RF metoprolol succinate 50 MG tablet extended release 24 hr 25 mg PO DAILY 0RF furosemide 20 MG tablet 40 mg PO DAILY 0RF Label Comments: Weigh patient daily if greater than 206. give. acetaminophen [Acetaminophen Extra Strength] 500 MG tablet 500 mg PO TID 0RF calcium carbonate 600 MG tablet 600 mg PO DAILY 0RF potassium chloride [Klor-Con M20] 20 MEQ tablet,ER particles/crystals 20 meq PO DAILY 0RF lorazepam 0.5 MG tablet 0.5 mg PO BID PRN0RF pantoprazole 40 MG tablet,delayed release (DR/EC) 40 mg PO DAILY 0RF mirtazapine 15 MG tablet 15 mg PO HS 0RF polyethylene glycol 3350 [Miralax] 17 gram/dose Powder 17 g PO DAILY 0RF cyanocobalamin (vitamin B-12) [Vitamin B-12] 1,000 mcg tablet 1,000 mcg PO DAILY 0RF Myrbetriq 50 MG tablet extended release 24 hr 50 mg PO DAILY 0RF donepezil 10 MG tablet,disintegrating 10 mg PO DAILY 0RF quetiapine 25 mg tablet 37.5 mg PO BID 0RF diltiazem HCl 120 mg capsule,extended release 24 hr 120 mg PO DAILY 0RF memantine 10 mg tablet 10 mg PO QAM 0RF Label Comments: TAKE ONE TABLET BY MOUTH EVERY MORNING cholecalciferol (vitamin D3) [Vitamin D3] 25 mcg (1,000 unit) capsule 2,000 unit PO DAILY 0RF Label Comments: TAKE ONE CAPSULE BY MOUTH EVERY MORNING Discharge Instructions Instructions: Osteoarthritis (ED), Shoulder Pain (ED) Additional Instructions: The x-rays show no acute fracture to the shoulder at this time. There is some degenerative changes noted. Follow up with primary care provider in 3-5 days. Return to ED sooner if any worsening or concerns. Increase oral fluids. Apply ice, you may try lidocaine patches. Referrals: Tejal Lane [Primary Care Provider] - 3 days Discharge Data Discharge Date/Time-TO BE ENTERED AT DEPARTURE: 08/08/21 11:59 Medical Decision Making 86-year-old female presents via EMS from the [facility] with chief complaint of right shoulder pain. Patient reports increased right shoulder pain on Thursday however she did fall landing on her buttock during physical therapy yesterday which exacerbated her right shoulder pain. XR SHOULDER RT COMPLETE 2+V EXAM:? XR SHOULDER RT COMPLETE 2+V CLINICAL HISTORY: ? Fall, Right shoulder pain.? TECHNIQUE:? 2D digital imaging was performed of the right shoulder.? Four images were obtained.? AP, Grashey and Y views were obtained. COMPARISON:? No exams were available for comparison FINDINGS: BONES: No acute fracture is present. No bony destructive lesion is seen. Bones are osteopenic. JOINTS: No dislocation present. Degenerative changes are seen in the glenohumeral and acromioclavicular joints. SOFT TISSUE: Soft tissue calcifications adjacent to the humeral head likely reflect calcific tendinitis.? IMPRESSION: No acute fracture or dislocation.? Patient given a lidocaine patch while here in the department. Discussed x-ray results. Patient sent back to the [facility] rehab the EMS with instructions to follow-up with PCP. HPI General Mode of arrival: EMS. Date/Time Provider Initiated Documentation: 08/08/21 10:21. Limitations to Documentation: language barrier and physical limitation. Information obtained by: RN/ ([place] HEMATOLOGY TECHNICIAN), EMS, RN notes reviewed and old records reviewed. HPI Narrative: 86-year-old female presents via EMS from the [facility] with chief complaint of right shoulder pain. Patient reports increased right shoulder pain on Thursday however she did fall landing on her buttock during physical therapy yesterday which exacerbated her right shoulder pain. Per EMS no significant obvious deformity. On initial exam patient is awake, pleasant and at baseline. She does have some aphasia which is her baseline. She does have a caregiver here with her from the time who is able to provide additional history. Patient denies any neck back pain no wrist or elbow pain does have full range of motion to the wrist and elbow. Denies any head injury or headache. She had a negative Covid flu 24 hours ago. 1she does have a past medical history of atrial fibrillation, hypertension, GERD, Hayward's esophagus, dementia she does have expressive and receptive language aphasia due to the progressive dementia. Related Data Home Medications Medication Instructions Recorded Confirmed citalopram 20 mg tablet 20 mg PO DAILY tab-cap 11/02/12 08/08/21 levothyroxine 125 mcg tablet 50 mcg PO HS 11/02/12 08/08/21 simvastatin 20 mg tablet 40 mg PO HS tab-cap 05/18/13 08/08/21 furosemide 20 mg tablet 40 mg PO DAILY 07/06/14 08/08/21 metoprolol succinate 50 mg 25 mg PO DAILY 07/06/14 08/08/21 tablet,extended release 24 hr dabigatran etexilate 150 mg 150 mg PO BID tab-cap 03/13/15 08/08/21 capsule (Pradaxa) cetirizine 10 mg chewable tablet 10 mg PO DAILY tab-cap 03/20/15 06/28/20 acetaminophen 500 mg tablet 500 mg PO TID 12/26/16 08/08/21 (Acetaminophen Extra Strength) calcium carbonate 600 mg calcium 600 mg PO DAILY 12/26/16 08/08/21 (1,500 mg) tablet lorazepam 0.5 mg tablet 0.5 mg PO BID PRN 12/26/16 06/28/20 mirtazapine 15 mg tablet 15 mg PO HS 12/26/16 08/08/21 pantoprazole 40 mg tablet,delayed 40 mg PO DAILY 12/26/16 08/08/21 release potassium chloride 20 mEq 20 meq PO DAILY 12/26/16 08/08/21 tablet,extended release(part/cryst) (Klor-Con M) donepezil 10 mg disintegrating 10 mg PO DAILY 09/19/17 06/28/20 tablet mirabegron 50 mg tablet,extended 50 mg PO DAILY 09/19/17 08/08/21 release 24 hr (Myrbetriq) quetiapine 25 mg tablet 37.5 mg PO BID 05/11/20 06/28/20 diltiazem HCl 120 mg capsule,24 120 mg PO DAILY 05/18/20 06/28/20 hr,extended release cholecalciferol (vitamin D3) 25 2,000 unit PO DAILY 06/05/20 08/08/21 mcg (1,000 unit) capsule (Vitamin D3) memantine 10 mg tablet 10 mg PO QAM 06/05/20 08/08/21 cyanocobalamin (vitamin B-12) 1,000 mcg PO DAILY 08/08/21 08/08/21 1,000 mcg tablet (Vitamin B-12) lidocaine 5 % topical patch 1 patch TOPICAL DAILY PRN #15 ea 08/08/21 polyethylene glycol 3350 17 17 g PO DAILY 08/08/21 08/08/21 gram/dose oral powder (Miralax) Previous Rx's Medication Instructions Recorded lidocaine 5 % topical patch 1 patch TOPICAL DAILY PRN #15 ea 08/08/21 Allergies Allergy/AdvReac Type Severity Reaction Status Date / Time No Known Allergies Allergy Unverified 08/08/21 10:24 General Stated Complaint: Orthopedic RODERICK: 3 Review of Systems All systems reviewed & are unremarkable except as noted in HPI and below Musculoskeletal Musculoskeletal: Reports arthralgias (Right shoulder) PFSH All Active Problems (Updated 08/08/21 @ 11:37 by Whit Turcios) Arthritis of shoulder region, right, degenerative (Acute) Closed fracture of right hip (Acute) S/P ORIF with trochanteric nailin05/13/2020 Localized osteoarthritis of right knee (Acute) Physician orders for life-sustaining treatment (POLST) form indicates patient wish for ae-laf-jmapofklijn status (Acute) Palliative care patient (Acute) Dobbertin Dementia (Chronic) Discharge planning issues (Acute) DVT prophylaxis (Acute) Benign hypertension (Chronic) Diabetes mellitus type 2 (Chronic) Now well controlled with hemoglobin A1c less than 6 Atrial fibrillation (Chronic) On Pradaxa Gastroesophageal reflux disease (Chronic) Hypothyroidism (Chronic) Medical History papillara virus Abnormal auditory perception Alcoholism in remission Atrial fibrillation Hayward esophagus Hayward's esophagus Carpal tunnel syndrome cervical cancer in situ 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 Diabetes mellitus DJD (degenerative joint disease) Essential hypertension Gastroesophageal reflux disease h/o cervical cancer in situ History of tobacco use 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 several EGDs and colonoscopies with colon adenomas removed b. left femoral rodding for fx c. appendectomy d. cholecystectomy e. hysterectomy sparing her ovaries f. bilateral carpal tunnel release g. t & a h. 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 Father , Pulm. Emb. at age 51. Personal history of malignant neoplasm colon Sister , muscle degeneration No problems noted. Brother , pneumonia at age 57. Personal history of malignant neoplasm colon Social History Smoking/Tobacco Use Status: Former Tobacco Use Smoking risk assessment performed?: Yes Alcohol Intake: never Drug use: Never Substance use type: does not use Do you feel safe at home: Yes Do you feel safe in your relationship?: Yes Exam Narrative Exam Narrative: General: Well Developed, Awake and Alert, conversant. Skin: Warm and Dry HEENT: Head: No palpable deformities, Normocephalic Eyes: Pupils PERRLA, EOM's intact. No periorbital eccymosis or step off Ears: Canal patent. Tympanic membranes are clear . No henry's sign, no hemptympanum. Nose/Face: Atraumatic. Facial bones nontender to palpation and stable with manipulation. Mouth/Throat: No intraoral trauma. Teeth and mandible are intact. Neck: No midline tenderness, no step off, no deformity to palpation of C-spine. Trachea midline. Chest: No surface trauma. Nontender without crepitus or deformity. Lungs clear to ausculatation bilaterally. Heart: RRR, no rubs, murmurs or gallop. Abdomen: No abrasions, ecchymosis, or surface trauma. Nondistended. Nontender to palpation no guarding, rebound, or rigidity. Pelvis: Nontender to palpation and stable to compression. Femoral pulses strong and equal Extremities: no surface trauma. Sensation intact. Peripheral pulses intact and equal. Tenderness with palpation to the posterior and anterior proximal humerus Neuro: ANO x4, GCS 15, cranial nerves II through XII intact. Motor and sensory exam nonfocal. Reflexes are symmetric. Course Vital Signs Vital signs: Vital Signs Temperature 36.6 C 08/08/21 10:10 Pulse 92 H 08/08/21 10:10 Respiratory Rate 18 08/08/21 10:10 Blood Pressure 122/43 L 08/08/21 10:10 Pulse Oximetry 96 08/08/21 10:10 Temperature 36.6 C 08/08/21 10:10 Temperature Source Skin 08/08/21 10:10 Pulse 92 H 08/08/21 10:10 Respiratory Rate 18 08/08/21 10:10 Blood Pressure 122/43 L 08/08/21 10:10 Pulse Oximetry 96 08/08/21 10:10 Oxygen Delivery Method Room Air 08/08/21 10:10 Oxygen Flow Rate 0 08/08/21 10:10 Comment 08/08/21 10:10
[2021-08-08] MEDS: Lidocaine 5% Patch 1 PATCH TP (11:41)
[2021-08-08 11:43] VITALS: BP 135/52; PULSE 93; RESP 16; TEMP 36.7; O2SAT 95
== END 2021-08-08 11:59 | disposition skilled nursing facility (03) ==
PROVIDERS: Emergency Provider Registered Nurse Emergency; PCP Family Medicine
DX: M13.811 Other specified arthritis, right shoulder (principal)
CPT/HCPCS: 99283; 73030

== ENCOUNTER 2021-08-19 15:32 | Inpatient (IN) | payer MEDICARE, MEDICAID, SELFPAY ==
[2021-08-19] VITALS (23 sets, daily range): BP systolic 96–129; BP diastolic 38–95; PULSE 87–117; RESP 13–26; TEMP 36.1–38; O2SAT 92–95
--- NOTE | 2021-08-19 16:00 | RT.EKG_ITS ---
APPROVED REPORT Exam: Resting ECG Reason for Exam: confused Patient Location: E HR:109 bpm ECG Measurements Heart Rate 109 AXIS W[place] [id number] P [id number] QRSd 111 QRS -63 QT 350 T 71 QTc 472 Conclusion Atrial fibrillation...V-rate 94-134, irreg A-activity Left anterior fascicular block...axis(240,-40), init forces inf LVH with secondary repolarization abnormality...multi-LVH criteria, abnrm ST-T Physician: no stemi
--- NOTE | 2021-08-19 16:02 | ED.GENADUL_ITS ---
Discharge Plan Disposition Patient Disposition: [facility] INPATIENT Discharge Details Chief Complaint: GenMedical Clinical Impression: COVID-19, Arthritis of shoulder region, right, degenerative, Palliative care patient, Dementia Admit Date/Time: 08/19/21 21:38 Admit Provider: Tino Rodney Attending Provider: Tino Rodney Primary Care Provider: Tejal Lane ED Provider: Cheyanne Brandt Discharge Data Discharge Date/Time-TO BE ENTERED AT DEPARTURE: 08/19/21 22:28 Medical Decision Making Patient is a pleasant 86-year-old female presenting today with chief complaint of altered mental status. Patient coming in from the [facility]. They have noted increased confusion and word salad. As report the patient has been having right arm pain. They report that she has been yelling out more but that she does this to some extent at baseline. No known trauma to the RUE. She did undergo XR a few weeks ago to evaluate the right shoulder. No reports of fevers, cough, SOB, CP, MARSHALL. Paitent denies any pain but appears uncomfortable with movement of the RUE. No reported change in appetite. No recent change in medications or missed doses that were reported. Past medical history is pertinent for arthritis of the right shoulder, dementia, UTI, hypertension, type 2 diabetes, atrial fibrillation, GERD, hypothyroidism. On exam, patient is pleasantly confused. She is smiling and nodding appropriately is not able to give me any type of answers. She is no evidence of head trauma. She is following short instructions well. Facility Rehab Director strength is equal in bilateral upper extremities. Cranial nerves grossly intact. No limitations in lower extremities. She has no pain with palpation of her chest or abdomen. No rashes are appreciated. 2+ distal pulses in all extremities. She is tender with any type of movement of the right arm, particularly with supination at the elbow as well any type of movement of the right shoulder. She does have a patch over this presumably for pain medication. No appreciable swelling or discolora tion is noted. Patient is febrile with a temp of 38, pulse 104. Lungs are clear. In chart review, patient is anticoagulated on Pradaxa. Her physical exam is not consistent with a DVT of the right upper extremity. More concerned potential fracture or dislocation. Will obtain x-ray. Patient denies any discoloration, swelling, palpable cord. Patient is anticoagulated had acute on chronic change of her mentation, also will obtain CT evaluate for potential intracranial hemorrhage. However, I do find this less likely as she is not following instructions and does not have any lateralizing findings. Also states the patient family. Spoke with patient's son, Rudolph, . He reports that lila parra had dementia for years. He states that she often does not know who he is. He is concerned with her overall happiness and comfort. He confirms that patient is DNR/DNI with goals for her to be comfortable. He advises his sister, Neva Pierce, is more in charge of his mother's care. She can be reached at [phone], she resides in [place], Rudolph is in [place]. Called into the room after patient fell out of bed. Unclear exactly how this occurred. Rail was up when I was initially evaluating the patient the patient clearly fell out of bed apparently rolling into a prone position on the floor. Appears to have had epistaxis from the right nares. No head pain, c-spine pain. No abrasions on the face noted. Bleeding is controlled, no posterior bleeding in the posterior oropharynx, appears to have had some bleeding in the nares which is since resolved. She also suffered a small abrasion on the superior aspect of her knee, no pain with range of motion or appreciable effusion. After clearing C-spine, patient was lifted with Eden by nursing staff and myself. Cleansed and we will be obtaining the imaging as previously ordered. We will also obtain x-ray of the left knee as she did suffer a small abrasion and is confused and having difficulty expressing her discomfort at this time. Sitter with patient for safety, rales on the bed are i upright position. Labs signficant for leukocytosis, WBC of 17. Imaging reviewed by radiologist: FINDINGS: Brain: No acute large territorial infarction or intracranial hemorrhage. Mild parenchymal volume loss and nonspecific white matter hypodensity, likely chronic microangiopathy. No mass effect or midline shift. Incidental basal ganglia calcifications. Chronic lacunar infarct in the left basal ganglia. Cerebral ventricles: No hydrocephalus. Paranasal sinuses: Visualized sinuses are unremarkable. No fluid levels. Mastoid air cells: Visualized mastoid air cells are well aerated. Vasculature: Intracranial atherosclerosis. Bones/joints: No calvarial fracture.? Soft tissues: Unremarkable. IMPRESSION: No acute intracranial abnormality. FINDINGS: Lungs: Interstitial markings are mildly prominent. Pulmonary vessels are mildly congested. No specific consolidation or collapse. Pleural spaces: Unremarkable. No pleural effusion. No pneumothorax. Heart/Mediastinum: Mild cardiomegaly Bones/joints: Arthropathy noted in both shoulders, right greater than left. IMPRESSION: Congestive heart failure or fluid overload suspected. Inflammatory/infectious infiltrates not excluded. FINDINGS: Bones/joints: No evidence of fracture. Negative for dislocation. Negative for bony erosion or destructive change. Marked narrowing noted at the acromial humeral space. Osteophytes noted at the acromioclavicular joint. Soft tissues: Negative for soft tissue air. No foreign bodies observed. IMPRESSION: No acute osseous abnormality. Chronic rotator cuff pathology noted. If symptoms persist, follow-up imaging is advised. FINDINGS: Bones/joints: No evidence of fracture. No significant joint effusion. Negative for dislocation. Total knee arthroplasty is in place. Intramedullary hattie also noted in the femur. Bone mineralization appears low. Patella tracks normally. Soft tissues: Unremarkable. IMPRESSION: No acute osseous abnormality. If symptoms persist, follow-up imaging is advised. FINDINGS: Bones/joints: No evidence of fracture. Negative for dislocation. Negative for bony erosion or destructive change. Elbow and wrist are appropriately located. Severe narrowing with sclerosis and osteophytes noted at the 1st carpometacarpal joint. Soft tissues: Negative for soft tissue air. No foreign bodies observed. Soft tissue swelling noted in the proximal forearm. IMPRESSION: No acute osseous abnormality. If symptoms persist, follow-up imaging is advised. Called Neva to discuss her mothers care. As the patient has had fever and question of infiltrate on XR, plan to treat for pneumonia. Manny discuessed plan. Plan to admit the patient for increased AMS and pneumonia. Started on Ceftriaxone and Doxycycline. She reenforces patient's wish to be DNR/DNI with goals being comfort. Consulted with Dr. Rodney who agrees to admission. Prior to going upstairs, patient was found to be COVID +. She was not reported to have had any symptoms, has been vaccinated. HPI General Date/Time Provider Initiated Documentation: 08/19/21 16:02 . Limitations to Documentation: altered mental status . Information obtained by: patient and RN notes reviewed . HPI Narrative: Patient is a pleasantly confused 86 year old female, brought in via EMS from the [facility], with c/c of AMS. Patient has hx of dementia but it sounds like this has increased recently. She has been endorsing right arm pain with movement. No known trauma. Underwent XR of the right shoulder a few weeks ago but no further imaging completed. Patient is not able to give much historry aside from yes/no answers. Related Data Home Medications Medication Instructions Recorded Confirmed citalopram 20 mg tablet 20 mg PO DAILY tab-cap 11/02/12 08/19/21 levothyroxine 125 mcg tablet 50 mcg PO HS 11/02/12 08/19/21 simvastatin 20 mg tablet 40 mg PO HS tab-cap 05/18/13 08/19/21 furosemide 20 mg tablet 40 mg PO DAILY 07/06/14 08/19/21 metoprolol succinate 50 mg 25 mg PO DAILY 07/06/14 08/19/21 tablet,extended release 24 hr dabigatran etexilate 150 mg 150 mg PO BID tab-cap 03/13/15 08/19/21 capsule (Pradaxa) cetirizine 10 mg chewable tablet 10 mg PO DAILY tab-cap 03/20/15 08/19/21 acetaminophen 500 mg tablet 500 mg PO TID 12/26/16 08/19/21 (Acetaminophen Extra Strength) calcium carbonate 600 mg calcium 600 mg PO DAILY 12/26/16 08/19/21 (1,500 mg) tablet lorazepam 0.5 mg tablet 0.5 mg PO BID PRN 12/26/16 08/19/21 mirtazapine 15 mg tablet 15 mg PO HS 12/26/16 08/19/21 pantoprazole 40 mg tablet,delayed 40 mg PO DAILY 12/26/16 08/19/21 release potassium chloride 20 mEq 20 meq PO DAILY 12/26/16 08/19/21 tablet,extended release(part/cryst) (Klor-Con M) donepezil 10 mg disintegrating 10 mg PO DAILY 09/19/17 08/19/21 tablet mirabegron 50 mg tablet,extended 50 mg PO DAILY 09/19/17 08/19/21 release 24 hr (Myrbetriq) quetiapine 25 mg tablet 37.5 mg PO BID 05/11/20 08/19/21 diltiazem HCl 120 mg capsule,24 120 mg PO DAILY 05/18/20 08/19/21 hr,extended release cholecalciferol (vitamin D3) 25 2,000 unit PO DAILY 06/05/20 08/19/21 mcg (1,000 unit) capsule (Vitamin D3) memantine 10 mg tablet 10 mg PO QAM 06/05/20 08/19/21 cyanocobalamin (vitamin B-12) 1,000 mcg PO DAILY 08/08/21 08/19/21 1,000 mcg tablet (Vitamin B-12) lidocaine 5 % topical patch 1 patch TOPICAL DAILY PRN #15 ea 08/08/21 08/19/21 polyethylene glycol 3350 17 17 g PO DAILY 08/08/21 08/19/21 gram/dose oral powder (Miralax) Previous Rx's Medication Instructions Recorded lidocaine 5 % topical patch 1 patch TOPICAL DAILY PRN #15 ea 08/08/21 Allergies Allergy/AdvReac Type Severity Reaction Status Date / Time No Known Allergies Allergy Unverified 08/08/21 10:24 General Stated Complaint: GenMedical RODERICK: 3 Review of Systems Unobtainable due to mental condition (baseline dementia, question of acute on chronic confusion today) PFSH All Active Problems (Updated 08/20/21 @ 11:09 by DANETTE Coronel) COVID-19 (Acute) Arthritis of shoulder region, right, degenerative (Acute) Closed fracture of right hip (Acute) S/P ORIF with trochanteric nailin05/13/2020 Localized osteoarthritis of right knee (Acute) Physician orders for life-sustaining treatment (POLST) form indicates patient wish for yx-gks-bbjrjgvwjps status (Acute) Palliative care patient (Acute) Dobbertin Dementia (Chronic) Discharge planning issues (Acute) DVT prophylaxis (Acute) Benign hypertension (Chronic) Diabetes mellitus type 2 (Chronic) Now well controlled with hemoglobin A1c less than 6 Atrial fibrillation (Chronic) On Pradaxa Gastroesophageal reflux disease (Chronic) Hypothyroidism (Chronic) Medical History papillara virus Abnormal auditory perception Alcoholism in remission Atrial fibrillation Hayward esophagus Hayward's esophagus Carpal tunnel syndrome cervical cancer in situ 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 Diabetes mellitus DJD (degenerative joint disease) Essential hypertension Gastroesophageal reflux disease h/o cervical cancer in situ History of tobacco use HPV test positive Hypercholesterolemia Hyperlipidemia left ankle fracture Lesion of ulnar nerve NEUROPATHY Osteoarthritis of left knee (07/12/14) Primary osteoarthritis of right knee Right knee pain Sensorineural hearing loss, bilateral (10/31/14) Urge incontinence Urgency incontinence (04/06/15) Surgical History Appendectomy (~195) Artificial knee joint present (07/12/14) Cholecystectomy (~2005) Colonoscopy - MAC (~2009) EGD - MAC (~2009) H/O surgical procedure a. several EGDs and colonoscopies with colon adenomas removed b. left femoral rodding for fx c. appendectomy d. cholecystectomy e. hysterectomy sparing her ovaries f. bilateral carpal tunnel release g. t & a h. 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 Father , Pulm. Emb. at age 51. Personal history of malignant neoplasm colon Sister , muscle degeneration No problems noted. Brother , pneumonia at age 57. Personal history of malignant neoplasm colon Social History Smoking/Tobacco Use Status: Former Tobacco Use Smoking risk assessment performed?: Yes Alcohol Intake: never Drug use: Never Substance use type: does not use Do you feel safe at home: Yes Do you feel safe in your relationship?: Yes Exam Const General: cooperative, healthy appearing, comfortable, no acute distress, well developed and well groomed Nutritional Appearance: well nourished and overweight Orientation: alert, awake, oriented to person, not oriented to place, not oriented to time and confused Limitations: altered mental status [facility] Head: normal to inspection, normocephalic and atraumatic Ears: hearing grossly normal bilaterally, external ears normal and TM's normal bilaterally General nose exam: external nose normal and nares normal Face and sinus: normal facial exam, sinuses nontender and face symmetric Mouth: oral mucosae normal, lip normal, tongue normal, oropharynx normal and mucous membranes dry (appears dry) Teeth and gingiva: other (missing front lower tooth) Throat: posterior oropharynx normal, tonsils normal and uvula midline Eyes General: appearance normal, both eyes and all related structures Neck Neck: normal visual inspection, full ROM, no lymphadenopathy and no meningeal signs Resp Effort & Inspection: normal respiratory effort, able to speak in complete sentences and no respiratory distress Auscultation: clear to auscultation bilaterally, no rales, no rhonchi and no wheezes Cardio Rate: regular rate Rhythm: regular rhythm Heart Sounds: S1 normal and S2 normal GI Inspection: normal to inspection Palpation: soft, no guarding and nontender Percussion: normal to percussion Auscultation: normal bowel sounds Back/Spine/Pelvis Back: no CVA tenderness and other (small area of ecchymosis right side of back, non-tender to palpation) Skin General skin exam: ecchymosis (quarter sized ecchymotic area right side of back) and other (no change in color of the RUE noted) Neuro General: patient alert and patient awake Cognition: normal cognition Speech: speech normal (speaking clear words but veery confused) Extrem General: capillary refill normal, no joint enlargement, no pedal edema, no calf tenderness and other (normal ROM BLE and LUE. Surgical scar consistent with TKA LLE) Right upper extremity: normal to inspection, normal capillary refill, no joint enlargement, shoulder/upper arm Details: normal to inspection and tenderness (maimal along the humereus, patch in place over the shoulder); Negative for no swelling, elbow/forearm Details: normal to inspection, normal ROM and distal pulses intact; Negative for no tenderness (no pain with palpation, tender with supination), no swelling and no deformity, wrist Details: normal to inspection, normal ROM and normal vascular exam; Negative for no tenderness and no swelling and hand Details: normal to inspection, normal capillary refill and neuromotor exam normal (5/5 strength compared to the contralateral side); No ROM limited (limited ROM of shoulder and supination of forearm secondary to pain) and no edema Psych Appearance: grossly normal and well kempt Mental Status: mental status grossly normal Speech and Movement: speech and movement normal Course Vital Signs Vital signs: Vital Signs Temperature 38 C H 08/19/21 15:36 Pulse 104 H 08/19/21 15:36 Respiratory Rate 18 02/28/22 15:36 Blood Pressure 125/94 H 08/19/21 15:36 Pulse Oximetry 94 08/19/21 15:36 Temperature 38 C H 08/19/21 15:36 Temperature Source Tympanic 08/19/21 15:36 Pulse 104 H 08/19/21 15:36 Respiratory Rate 18 08/19/21 15:36 Respiratory Effort 08/19/21 15:45 Respiratory Depth Normal 08/19/21 15:45 Respiratory Pattern Normal 08/19/21 15:45 Blood Pressure 125/94 H 08/19/21 15:36 Blood Pressure Position Supine 08/19/21 15:36 Pulse Oximetry 94 08/19/21 15:36 Oxygen Delivery Method Room Air 08/19/21 15:36 Oxygen Flow Rate 0 08/19/21 15:36 Pain Level 0 08/19/21 15:36
--- NOTE | 2021-08-19 16:15 | DI.RAD_ITS ---
Exam(s) XR CHEST 2V PA LATERAL EXAM: XR CHEST 2V PA LATERAL CLINICAL HISTORY: right arm pain TECHNIQUE: 2D digital imaging was performed of the chest. Two images were obtained. PA and lateral views were obtained. COMPARISON: CR,XR XR PORTABLE CHEST AP from 05/14/2020 FINDINGS: MEDIASTINUM: Normal. HEART: Mild cardiomegaly. PULMONARY VASCULATURE: There may be mild pulmonary venous congestion. LUNGS: No focal consolidating infiltrates are seen. PLEURAL SPACE: No pleural effusion or pneumothorax. BONE:Within normal limits for the patient's age. OTHER FINDINGS:Normal. IMPRESSION: Mild cardiomegaly and mild pulmonary venous congestion. This may represent mild CHF/fluid overload. Please correlate clinically. DATA REPOSITORY: RADIATION DOSE DELIVERED:
--- NOTE | 2021-08-19 16:15 | DI.RAD_ITS ---
Exam(s) XR HUMERUS RT EXAM: XR HUMERUS RT CLINICAL HISTORY: pain with ROM, confused. TECHNIQUE: 2D digital imaging was performed of the right humerus. Two images were obtained. AP and lateral views were obtained. COMPARISON: No exams were available for comparison FINDINGS: BONES: No acute fracture is present. No bony destructive lesion is seen. There are degenerative tamez es seen at the acromioclavicular joint. The distal humerus is not completely imaged. SOFT TISSUE: Normal. IMPRESSION: No acute abnormality. DATA REPOSITORY: RADIATION DOSE DELIVERED:
--- NOTE | 2021-08-19 16:30 | DI.CT_ITS ---
Exam(s) CT HEAD WO EXAM: CT HEAD WO CLINICAL HISTORY: confusion, anticoagulated. TECHNIQUE: Imaging Protocol: Axial computed tomography images with coronal and sagittal reformatted images were created and reviewed COMPARISON: CT CT HEAD WO from 05/11/2020 FINDINGS: Ventricles and Extra axial spaces: Normal in size and morphology for the patient's age. Hemorrhage: None. Cerebral parenchyma: No acute territorial infarct. There are areas of decreased attenuation in the w jamie matter most consistent with small vessel ischemic disease. Midline shift: None. Brainstem/Cerebellum: Normal. Calvarium: There is a depression deformity of the nasal bone. This is not present on the prior exami nation from 05/11/2020. This is of indeterminate age. No other calvarial fracture is identified. Visualized Paranasal sinuses/Mastoids: There is a mucous retention cyst or polyp in a right ethmoid a ir cell. The remaining visualized paranasal sinuses and mastoid air cells are clear. Soft Tissues: Unremarkable. IMPRESSION: No definite acute intracranial process. RADIATION DOSE DELIVERED: 731.54mGy.cm Total DLP DATA REPOSITORY: All CT scans at this facility are submitted to the National Radiology Data Registry (NRDR) Dose Index Registry (DIR) with the [employer] ([employer]). RADIATION OPTIMIZATION: All CT scans at this facility use at least one of these dose optimization te chniques: automated exposure control; mA and/or kV adjustment per patient size (includes targeted exa ms where dose is matched to clinical indication); or iterative reconstruction.
[2021-08-19 16:34] LABS: HCT 41.7 % (36.0-46.0); HGB 13.1 g/dL (11.2-15.7); MCH 28.8 pg (27.0-33.0); MCHC 31.4 % (32.0-36.0); MCV 91.6 fL (80-95); MPV 9.6 fL (8.0-11.0); Nucleated RBC 0 %; Platelet Count 379 10^3/uL (130-400); RBC 4.55 10^6/uL (3.93-5.22); RDW 14.3 % (11.7-14.6); RDW-SD 48.7 fL; WBC 17.89 10^3/uL (4.4-10.8)
[2021-08-19 16:42] LABS: Absolute Lymphocyte Count 2.15 10^3/uL (1.2-3.4); Absolute Monocyte Count 1.25 10^3/uL (0.1-0.8); Absolute Neutrophil Count 14.49 10^3/uL (1.2-6.7); Diff Comment Manual Differential; RBC Morphology Normal
[2021-08-19 16:53] LABS: ALT 16 U/L (14-59); AST 22 U/L (15-37); Albumin 2.9 g/dL (3.4-5.0); Alkaline Phosphatase 75 U/L (46-116); Anion Gap 9.1 mmol/L (3-11); BUN 16 mg/dL (7-18); Bilirubin, Total 0.4 mg/dL (0.2-1.0); CO2 27.9 mmol/L (21.0-32.0); CREATININE 1.2 mg/dL (0.55-1.02); Calcium 9.1 mg/dL (8.5-10.1); Chloride 100 mmol/L (98-107); Glucose 240 mg/dL (74-106); Magnesium 2.1 mg/dL (1.8-2.4); Potassium 4.3 mmol/L (3.5-5.1); Sodium 137 mmol/L (136-145); Troponin I < 50 ng/L (<or=60)
--- NOTE | 2021-08-19 17:15 | DI.RAD_ITS ---
Exam(s) XR FOREARM RT EXAM: XR FOREARM RT CLINICAL HISTORY: pain with palpation distally. TECHNIQUE: 2D digital imaging was performed of the left forearm. Three views were obtained. AP and lateral views were obtained. COMPARISON: No exams were available for comparison FINDINGS: BONES: No acute fracture is present. No bony destructive lesion is seen. There are degenerative tamez es in the wrist particularly at the 1st CMC joint. The distal humerus and elbow are grossly unremark able. SOFT TISSUE: Normal. IMPRESSION: No acute abnormality. DATA REPOSITORY: RADIATION DOSE DELIVERED:
--- NOTE | 2021-08-19 17:15 | DI.RAD_ITS ---
Exam(s) XR KNEE LT 4V AP,LAT,RAUL,PAT EXAM: XR KNEE LT 4V AP,LAT,RAUL,PAT CLINICAL HISTORY: fall, abrasion. TECHNIQUE: 2D digital imaging was performed of the left knee. Four images were obtained. AP, later al, Merchant and PA tunnel views were obtained. COMPARISON: CR LEFT KNEE LIMITED 1 OR 2 VIEWS from 07/12/2014 FINDINGS: BONES: No acute fracture is present. No bony destructive lesion is seen. JOINTS: The knee is normally aligned. No joint effusion is seen. Stable postsurgical changes of a lef t total knee replacement are seen. The distal aspect of an intramedullary hattie in the femur is again noted and is unchanged. SOFT TISSUE: Normal. IMPRESSION: No acute fracture or dislocation. DATA REPOSITORY: RADIATION DOSE DELIVERED:
--- OUTSIDE RECORDS SUMMARY | 2021-08-19 17:36 | XMS_ITS ---
:1935 Author Organization [facility] Address [address] [facility] [place] [address] Care Team Providers Name Role Phone Sergio Davey Unavailable Unavailable PROBLEMS Type Condition ICD9-CM Code IPP33-XN Code Onset Condition SNO MED Code Dates Status Problem Overactive N32.81 Active [id number] bladder ALLERGIES No Known Allergies ENCOUNTERS Encounter Location Date Diagnosis [facility] [address] [facility] Jun, [place] [address] [facility] [address] [facility] Jun, [place] [address] SURGERY [address] [facility] Jun, [place] [address] SUR[facility]ERY [address] [facility] Jun, [place] [address] ORTHOPEDIC OFFICE [address] [facility] Jun, [place] [address] [facility] [address] [facility] Apr, Overactive bladder N32.81 [place] [address] [facility] [address] [facility] Dec, [place] [address] N39.41 [facility] [address] [facility] Nov, [place] [address] [address]GERY [address] [facility] Nov, [place] [address] [address]GERY [address] [facility] Nov, [place] [address] [place] [facility] [address] [facility] October, [place] [address] [facility] [address] [facility] October, [place] [address] N39.41 ORTHOPEDIC OFFICE [address] [facility] October, [place] [address] ORTHOPEDIC OFFICE [address] [facility] October, [place] [address] IMMUNIZATIONS No Known Immunizations SOCIAL HISTORY Qualifiers [...] chart, discuss interstim, pt called to [facility], will call back to r/s, Pt wants to see Tamica on another day Insurance Providers [facility] Patient Patient Patient Patient Patient Subscriber Subscriber Subscriber Group Insurance Plan Plan Plan Plan ID Relationship Address Phone Name Date of ID Name Date of No Type Insurance Insurance Insurance Coverage to Subscriber Address Phone Name Dates MEDICAID E[place] self [place] [id number] [facility] [employer] [facility] [id number] SELF PAY [address] SELF PAY self [place] [id number] [place] [address] INSURANCE MEDICARE 3000 [place]FF[place] MEDICARE self [place] [id number] [facility] [id number] S-MEDICAID EDS [id number] [place] self [place] [id number] [place] [employer] [facility] [id number]
--- NOTE | 2021-08-19 18:10 | DI.VRAD_ITS ---
PROCEDURE INFORMATION: Exam: CT Head Without Contrast Exam date and time: 08/19/2021 4:37 PM Age: 86 years old Clinical indication: Other: Confusion, anticoagulated TECHNIQUE: Imaging protocol: Computed tomography of the head without contrast. COMPARISON: CT HEAD WO 05/11/2020 12:36 PM FINDINGS: Brain: No acute large territorial infarction or intracranial hemorrhage. Mild parenchymal volume loss and nonspecific white matter hypodensity, likely chronic microangiopathy. No mass effect or midline shift. Incidental basal ganglia calcifications. Chronic lacunar infarct in the left basal ganglia. Cerebral ventricles: No hydrocephalus. Paranasal sinuses: Visualized sinuses are unremarkable. No fluid levels. Mastoid air cells: Visualized mastoid air cells are well aerated. Vasculature: Intracranial atherosclerosis. Bones/joints: No calvarial fracture. Soft tissues: Unremarkable. IMPRESSION: No acute intracranial abnormality. Dictated and Authenticated by: Carrie Astorga MD. Ordering:COMFORT Edward MD
--- NOTE | 2021-08-19 19:03 | DI.VRAD_ITS ---
PROCEDURE INFORMATION: Exam: XR Chest Exam date and time: 08/19/2021 4:23 PM Age: 86 years old Clinical indication: Injury or trauma; Fall; Blunt trauma (contusions or hematomas); Injury date: 08/19/2021 TECHNIQUE: Imaging protocol: XR of the chest. Views: 2 views. COMPARISON: XR PORTABLE CHEST AP 05/14/2020 9:05 PM FINDINGS: Lungs: Interstitial markings are mildly prominent. Pulmonary vessels are mildly congested. No specific consolidation or collapse. Pleural spaces: Unremarkable. No pleural effusion. No pneumothorax. Heart/Mediastinum: Mild cardiomegaly Bones/joints: Arthropathy noted in both shoulders, right greater than left. IMPRESSION: Congestive heart failure or fluid overload suspected. Inflammatory/infectious infiltrates not excluded. Dictated and Authenticated by: Nitish Goldberg MD. Ordering:COMFORT Edward MD
[2021-08-19 19:04] LABS: Bilirubin Negative (Negative); Blood Small (Negative); Clarity Clear (Clear); Glucose Negative (Negative); Ketones Negative (Negative); Leukocyte Esterase Negative (Negative); Nitrite Negative (Negative); Specific Gravity 1.015 (1.005-1.025); Urobilinogen 0.2 EU/dL (Up TO 0.2)
--- NOTE | 2021-08-19 19:04 | DI.VRAD_ITS ---
PROCEDURE INFORMATION: Exam: XR Right Humerus Exam date and time: 08/19/2021 4:23 PM Age: 86 years old Clinical indication: Injury or trauma; Fall; Blunt trauma (contusions or hematomas); Shoulder; Right TECHNIQUE: Imaging protocol: XR Right humerus. Views: 2 or more views. COMPARISON: CR XR SHOULDER RT COMPLETE 2+V 08/08/2021 10:56 AM FINDINGS: Bones/joints: No evidence of fracture. Negative for dislocation. Negative for bony erosion or destructive change. Marked narrowing noted at the acromial humeral space. Osteophytes noted at the acromioclavicular joint. Soft tissues: Negative for soft tissue air. No foreign bodies observed. IMPRESSION: No acute osseous abnormality. Chronic rotator cuff pathology noted. If symptoms persist, follow-up imaging is advised. Dictated and Authenticated by: Nitish Goldberg MD. Ordering:COMFORT Edward MD
--- NOTE | 2021-08-19 19:05 | DI.VRAD_ITS ---
PROCEDURE INFORMATION: Exam: XR Left Knee Exam date and time: 08/19/2021 5:22 PM Age: 86 years old Clinical indication: Other: Left knee pain after fall TECHNIQUE: Imaging protocol: XR Left knee. Views: 4 or more views. COMPARISON: No relevant prior studies available. FINDINGS: Bones/joints: No evidence of fracture. No significant joint effusion. Negative for dislocation. Total knee arthroplasty is in place. Intramedullary hattie also noted in the femur. Bone mineralization appears low. Patella tracks normally. Soft tissues: Unremarkable. IMPRESSION: No acute osseous abnormality. If symptoms persist, follow-up imaging is advised. Dictated and Authenticated by: Nitish Goldberg MD. Ordering:COMFORT Edward MD
--- NOTE | 2021-08-19 19:07 | DI.VRAD_ITS ---
PROCEDURE INFORMATION: Exam: XR Right Forearm Exam date and time: 08/19/2021 5:22 PM Age: 86 years old Clinical indication: Other: RT forearm pain after fall TECHNIQUE: Imaging protocol: XR Right forearm. Views: 2 views. COMPARISON: No relevant prior studies available. FINDINGS: Bones/joints: No evidence of fracture. Negative for dislocation. Negative for bony erosion or destructive change. Elbow and wrist are appropriately located. Severe narrowing with sclerosis and osteophytes noted at the 1st carpometacarpal joint. Soft tissues: Negative for soft tissue air. No foreign bodies observed. Soft tissue swelling noted in the proximal forearm. IMPRESSION: No acute osseous abnormality. If symptoms persist, follow-up imaging is advised. Dictated and Authenticated by: Nitish Goldberg MD. Ordering:COMFORT Edward MD
[2021-08-19 19:13] LABS: Bacteria Negative HPF (Negative); C & S Indicated? No; Casts Negative LPF (Negative); Crystals Negative HPF (Negative); Epithelial Cells Negative HPF (Negative); Mucus Negative (Negative); Other Cells Negative (Negative); WBC 0-2 HPF (0-5)
[2021-08-19 20:17] LABS: Troponin I < 50 ng/L (<or=60)
[2021-08-19] MEDS: ACETAMINOPHEN 1,000 MG/100 ML BTL 400 MG IVPB (20:19)
[2021-08-19] MEDS: cefTRIAXone 1 GM/50 ML BAG IVPB (20:19)
[2021-08-19] MEDS: DOXYCYCLINE 100 MG in Normal Saline 100 ML IVPB (20:19)
[2021-08-19] MEDS: Normal Saline 500 ML IV (20:19)
[2021-08-19 20:56] LABS: Influenza A PCR Negative (Negative); Influenza B PCR Negative (Negative); RSV PCR Negative (Negative)
[2021-08-19 21:24] LABS: COVID-19 PCR Positive (Negative)
--- NOTE | 2021-08-19 22:03 | W.PM.HP.N ---
Assessment and Plan Assessment and plan (1) Fever: Status: Resolved Assessment and plan: It appears that her fever is probably due to her Covid infection. I do think there is some right-sided pulmonary infiltrate. I do not see any left-sided infiltrate. Blood cultures have been done and procalcitonin will be done tomorrow. She has received a dose of ceftriaxone and doxycycline. Qualifiers: Fever type: unspecified Qualified Code(s): R50.9 - Fever, unspecified (2) COVID-19: Status: Acute Assessment and plan: She has been immunized for Covid although not sure if she has had a booster. She is not hypoxic. I will go ahead and give her first dose of dexamethasone and remdesivir and see how she does tonight. She does not appear to be very ill at this point. History of Present Illness History of Present Illness Chief Complaint: arm pain,fever Narrative: This 86-year-old female presented here to the emergency department with change in mental status and fever to 38 degrees. She also does complain of some right arm pain. She lives at the [facility] which is a longterm facility near the hospital here. She came to the emergency department was evaluated. She was found to have an elevated white blood cell count and a possible pneumonia on x-ray. Her Covid test turned out positive. She has been immunized. She has a history of dementia for many years but her mental status did not change today according to the staff at the [facility]. Prior to Covid testing results she was started on ceftriaxone and doxycycline for a community-acquired pneumonia. Her family was contacted about her situation and they recommend she be treated for her pneumonia but there is no need to be aggressive with her care. Her son lives in [facility] and her daughter lives in [place]. Her respiratory status has been stable here in the emergency department. She has not been having oxygen desaturation or cough. She is conversant but clearly has dementia. I do not know if she has been around others that have been ill but as noted above she does live in a nursing facility. After presenting here she did fall but did not injure herself. Her other x-rays have been negative. Review of systems is not obtainable from her. [facility] All Active Problems (Updated 08/19/21 @ 22:15 by Tino Rodney MD) COVID-19 (Acute) Arthritis of shoulder region, right, degenerative (Acute) Closed fracture of right hip (Acute) S/P ORIF with trochanteric nailin05/13/2020 Localized osteoarthritis of right knee (Acute) Physician orders for life-sustaining treatment (POLST) form indicates patient wish for hv-[id number]-[id number] status (Acute) Palliative care patient (Acute) Dobbertin Dementia (Chronic) Discharge planning issues (Acute) DVT prophylaxis (Acute) Benign hypertension (Chronic) Diabetes mellitus type 2 (Chronic) Now well controlled with hemoglobin A1c less than 6 Atrial fibrillation (Chronic) On Pradaxa Gastroesophageal reflux disease (Chronic) Hypothyroidism (Chronic) Medical History papillara virus Abnormal auditory perception Alcoholism in remission Atrial fibrillation Hayward esophagus Hayward's esophagus Carpal tunnel syndrome cervical cancer in situ 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 Diabetes mellitus DJD (degenerative joint disease) Essential hypertension Gastroesophageal reflux disease h/o cervical cancer in situ History of tobacco use 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 several EGDs and colonoscopies with colon adenomas removed b. left femoral rodding for fx c. appendectomy d. cholecystectomy e. hysterectomy sparing her ovaries f. bilateral carpal tunnel release g. t & a h. 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 Father , Pulm. Emb. at age 51. Personal history of malignant neoplasm colon Sister , muscle degeneration No problems noted. Brother , pneumonia at age 57. Personal history of malignant neoplasm colon Social History Smoking/Tobacco Use Status: Former Tobacco Use Smoking risk assessment performed?: Yes Alcohol Intake: never Drug use: Never Substance use type: does not use Do you feel safe at home: Yes Do you feel safe in your relationship?: Yes Meds Allergies and Home Medications Allergies Allergy/AdvReac Type Severity Reaction Status Date / Time No Known Allergies Allergy Unverified 08/08/21 10:24 Home Medications Medication Instructions Recorded Confirmed Type citalopram 20 mg tablet 20 mg PO DAILY tab-cap 11/02/12 08/19/21 History levothyroxine 125 mcg tablet 50 mcg PO HS 11/02/12 08/19/21 History simvastatin 20 mg tablet 40 mg PO HS tab-cap 05/18/13 08/19/21 History furosemide 20 mg tablet 40 mg PO DAILY 07/06/14 08/19/21 History metoprolol succinate 50 mg 25 mg PO DAILY 07/06/14 08/19/21 History tablet,extended release 24 hr dabigatran etexilate 150 mg 150 mg PO BID tab-cap 03/13/15 08/19/21 History capsule (Pradaxa) cetirizine 10 mg chewable tablet 10 mg PO DAILY tab-cap 03/20/15 08/19/21 History acetaminophen 500 mg tablet 500 mg PO TID 12/26/16 08/19/21 History (Acetaminophen Extra Strength) calcium carbonate 600 mg calcium 600 mg PO DAILY 12/26/16 08/19/21 History (1,500 mg) tablet lorazepam 0.5 mg tablet 0.5 mg PO BID PRN 12/26/16 08/19/21 History mirtazapine 15 mg tablet 15 mg PO HS 12/26/16 08/19/21 History pantoprazole 40 mg tablet,delayed 40 mg PO DAILY 12/26/16 08/19/21 History release potassium chloride 20 mEq 20 meq PO DAILY 12/26/16 08/19/21 History tablet,extended release(part/cryst) (Klor-Con M) donepezil 10 mg disintegrating 10 mg PO DAILY 09/19/17 08/19/21 History tablet mirabegron 50 mg tablet,extended 50 mg PO DAILY 09/19/17 08/19/21 History release 24 hr (Myrbetriq) quetiapine 25 mg tablet 37.5 mg PO BID 05/11/20 08/19/21 History diltiazem HCl 120 mg capsule,24 120 mg PO DAILY 05/18/20 08/19/21 History hr,extended release cholecalciferol (vitamin D3) 25 2,000 unit PO DAILY 06/05/20 08/19/21 History mcg (1,000 unit) capsule (Vitamin D3) memantine 10 mg tablet 10 mg PO QAM 06/05/20 08/19/21 History cyanocobalamin (vitamin B-12) 1,000 mcg PO DAILY 08/08/21 08/19/21 History 1,000 mcg tablet (Vitamin B-12) lidocaine 5 % topical patch 1 patch TOPICAL DAILY PRN #15 ea 08/08/21 08/19/21 Rx polyethylene glycol 3350 17 17 g PO DAILY 08/08/21 08/19/21 History gram/dose oral powder (Miralax) Exam Const General: cooperative, no acute distress and not ill appearing Nutritional Appearance: overweight Orientation: confused [facility] Head: normal to inspection, normocephalic and atraumatic Mouth: oral mucosae normal Eyes General: appearance normal, both eyes and all related structures Neck Neck: normal visual inspection, no lymphadenopathy and no JVD Thyroid: thyroid normal Resp Auscultation: clear to auscultation bilaterally, no rales and no wheezes Cardio Rate: regular rate Rhythm: abnormal rhythm Heart Sounds: S1 normal, S2 normal, no gallops and no murmurs GI Palpation: soft, no hepatosplenomegaly, no masses and nontender Skin General skin exam: no rashes or lesions noted Neuro Cranial Nerves: CN's II-XI intact bilaterally and tongue midline Extrem General: normal to inspection, no cyanosis and no edema Results Labs Result diagrams: 08/19/21 16:30 08/19/21 16:30 Labs: Laboratory Results - last 24 hr 08/19/21 08/19/21 08/19/21 16:30 16:30 18:55 WBC 17.89 H RBC 4.55 Hgb 13.1 Hct 41.7 MCV 91.6 MCH 28.8 MCHC 31.4 L RDW 14.3 Plt Count 379 MPV 9.6 Immature Gran % 0.0 Neutrophils % 81.0 Lymphocytes % 12.0 Monocytes % 7.0 Eosinophils % 0.0 Basophils % 0.0 Nucleated RBC % 0 Absolute Neutrophils 14.49 H Absolute Lymphocytes 2.15 Absolute Monocytes 1.25 H Absolute Eosinophils 0.00 Absolute Basophils 0.00 RBC Morphology Normal Sodium 137 Potassium 4.3 Chloride 100 Carbon Dioxide 27.9 Anion Gap 9.1 BUN 16 Creatinine 1.2 H Estimated GFR/1.73 m2 42.80 Glucose 240 H Calcium 9.1 Magnesium 2.1 Total Bilirubin 0.4 AST 22 ALT 16 Alkaline Phosphatase 75 Troponin I < 50 Total Protein 8.0 Albumin 2.9 L Urine Color Yellow Urine Clarity Clear Urine pH 6.0 Ur Specific [place] 1.015 Urine Protein Negative Urine Ketones Negative Urine Blood Small H Urine Nitrite Negative Urine Bilirubin Negative Urine Urobilinogen 0.2 Ur Leukocyte Esterase Negative Urine RBC 3-5 H Urine WBC 0-2 Ur Epithelial Cells Negative Urine Crystals Negative Urine Bacteria Negative Urine Casts Negative Urine Mucus Negative Urine Other Negative Ur Culture Indicated? No Urine Glucose Negative COVID-19 Source SARS-CoV-2 (PCR) Influenza Type A (PCR) Influenza Type B (PCR) RSV (PCR) 08/19/21 08/19/21 19:46 19:51 WBC RBC Hgb Hct MCV MCH MCHC RDW Plt Count MPV Immature Gran % Neutrophils % Lymphocytes % Monocytes % Eosinophils % Basophils % Nucleated RBC % Absolute Neutrophils Absolute Lymphocytes Absolute Monocytes Absolute Eosinophils Absolute Basophils RBC Morphology Sodium Potassium Chloride Carbon Dioxide Anion Gap BUN Creatinine Estimated GFR/1.73 m2 Glucose Calcium Magnesium Total Bilirubin AST ALT Alkaline Phosphatase Troponin I < 50 Total Protein Albumin Urine Color Urine Clarity Urine pH Ur Specific [place] Urine Protein Urine Ketones Urine Blood Urine Nitrite Urine Bilirubin Urine Urobilinogen Ur Leukocyte Esterase Urine RBC Urine WBC Ur Epithelial Cells Urine Crystals Urine Bacteria Urine Casts Urine Mucus Urine Other Ur Culture Indicated? Urine Glucose COVID-19 Source Not Applicable SARS-CoV-2 (PCR) Positive A Influenza Type A (PCR) Negative Influenza Type B (PCR) Negative RSV (PCR) Negative Last Vital Signs Temp 38 C H 08/19/21 15:36 Pulse 94 H 08/19/21 19:31 Resp 15 08/19/21 17:00 BP 96/38 L 08/19/21 19:31 Pulse Ox 94 08/19/21 20:20
--- OUTSIDE RECORDS SUMMARY | 2021-08-19 22:34 | XMS_ITS ---
:1935 Author Organization [facility] Address [address] [facility] [place] [address] Care Team Providers Name Role Phone Sergio Davey Unavailable Unavailable PROBLEMS Type Condition ICD9-CM Code NSC20-VT Code Onset Condition SNO MED Code Dates Status Problem Overactive N32.81 Active [id number] bladder ALLERGIES No Known Allergies ENCOUNTERS Encounter Location Date Diagnosis [facility] [address] [facility] Jun, [place] [address] [facility] Jun, [place] [address] SURGERY [address] [facility] Jun, [place] [address] SURGERY [address] [facility] Jun, [place] [address] ORTHOPEDIC OFFICE [address] [facility] Jun, [place] [address] [facility] [address] [facility] Apr, Overactive bladder N32.81 [place] [address] [facility] [address] [facility] Dec, [place] [address] N39.41 [facility] [address] [facility] Nov, [place] [address] SURGERY [address] [facility] Nov, [place] [address] SUR[facility]ERY [address] [facility] Nov, [place] [address] [place] [facility] [address] [facility] October, [place] [address] [facility] [address] [facility] October, [place] [address] N39.41 ORTHOPEDIC OFFICE [address] [facility] October, [place] [address] ORTHOPEDIC OFFICE [address] [facility] October, [place] [address] IMMUNIZATIONS No Known Immunizations SOCIAL HISTORY Qualifiers [...] patient chart, discuss interstim, pt called to [facility], will call back to r/s, Pt wants to see Tamica on another day Insurance Providers [facility] Member Patient Patient Patient Patient Patient Subscriber Subscriber Subscriber Group Insurance Plan Plan Plan Plan ID Relationship Address Phone Name Date of ID Name Date of No Type Insurance Insurance Insurance Coverage to Subscriber Address Phone Name Dates SELF PAY [address] STRE[address] SELF PAY self [place] [id number] [place] [id number] INSURANCE [place] [id number] [place] [facility] [id number] MEDICARE 3000 GOFFS MEDICARE self ROB [id number] [facility] [id number] S-MEDICAID EDS [id number] [place]ICAID self [place] [id number] [place] [facility] [id number]
[2021-08-20] VITALS (38 sets, daily range): BP systolic 91–131; BP diastolic 50–87; PULSE 86–93; RESP 16–18; TEMP 35.8–37.3; O2SAT 82–96
--- NOTE | 2021-08-20 | DI.US_ITS ---
Exam(s) US UPPER EXTREMITY VENOUS RT EXAM: US UPPER EXTREMITY VENOUS RT CLINICAL HISTORY: evaluation for possible DVT. Pain. REcent COVID. TECHNIQUE: Ultrasound examination of the right upper extremity venous system(s) is performed using g rayscale, color-flow, and spectral Doppler analysis. COMPARISON: No exams were available for comparison FINDINGS: The right internal jugular, axillary, subclavian, cephalic, basilic, median cubital and brachial vein s are patent without evidence of thrombosis. IMPRESSION: No DVT. DATA REPOSITORY:
[2021-08-20] MEDS: REMDESIVIR 200 MG in Normal Saline 250 ML 250 MG IVPB (00:57)
[2021-08-20] MEDS: Acetaminophen 500 MG TAB PO ×4 (00:57→20:55)
[2021-08-20] MEDS: Mirtazapine 15 MG TAB PO ×2 (00:57→20:58)
[2021-08-20] MEDS: Levothyroxine 50 MCG TAB PO (06:45)
[2021-08-20 07:00] LABS: Abs Immature Grans 0.05 10^3/uL (0.0-0.06); Absolute Eosinophil Count 0.01 10^3/uL (0.0-0.7); Absolute Lymphocyte Count 2.31 10^3/uL (1.2-3.4); Absolute Monocyte Count 1.17 10^3/uL (0.1-0.8); Absolute Neutrophil Count 7.92 10^3/uL (1.2-6.7); Basophils % 0.3; Eosinophils % 0.1; HCT 35.6 % (36.0-46.0); HGB 11.1 g/dL (11.2-15.7); Immature Grans % 0.4; Lymphocytes % 20.1; MCH 28.3 pg (27.0-33.0); MCHC 31.2 % (32.0-36.0); MCV 90.8 fL (80-95); MPV 9.9 fL (8.0-11.0); Monocytes % 10.2; Neutrophils % 68.9; Nucleated RBC 0 %; Platelet Count 329 10^3/uL (130-400); RBC 3.92 10^6/uL (3.93-5.22); RDW 14.2 % (11.7-14.6); RDW-SD 47.7 fL
[2021-08-20 07:12] LABS: Absolute Basophil Count 0.03 10^3/uL (0.0-0.2)
[2021-08-20 07:20] LABS: ALT 10 U/L (14-59); AST 16 U/L (15-37); Albumin 2.3 g/dL (3.4-5.0); Alkaline Phosphatase 65 U/L (46-116); BUN 13 mg/dL (7-18); Bilirubin, Total 0.3 mg/dL (0.2-1.0); CREATININE 0.9 mg/dL (0.55-1.02); Calcium 8.8 mg/dL (8.5-10.1); Chloride 105 mmol/L (98-107); Estimated GFR 59.65 (mL/min/1.73m2); Glucose 137 mg/dL (74-106); Potassium 3.2 mmol/L (3.5-5.1); Sodium 142 mmol/L (136-145); Total Protein 6.7 g/dL (6.4-8.2)
[2021-08-20 07:38] LABS: D-Dimer 1531 ng/mlFEU (<500)
[2021-08-20 07:39] LABS: C-Reactive Protein > 25.00 mg/dL (0.0-0.3)
[2021-08-20 07:44] LABS: Procalcitonin 0.4 ng/mL
[2021-08-20] MEDS: Dexamethasone 4 MG TAB 6 MG PO (08:57)
[2021-08-20] MEDS: Metoprolol CR 50 MG TABCR 25 MG PO (08:58)
[2021-08-20] MEDS: Memantine 5 MG TAB 10 MG PO (08:59)
[2021-08-20] MEDS: Mirabegron 50 MG TABCR PO (08:59)
[2021-08-20] MEDS: QUEtiapine 25 MG TAB 37.5 MG PO ×2 (09:00→20:55)
[2021-08-20] MEDS: Donepezil 5 MG TAB 10 MG PO (09:00)
[2021-08-20] MEDS: Citalopram 20 MG TAB PO (09:05)
[2021-08-20] MEDS: dilTIAZem CD 120 MG CAPCR PO (09:06)
[2021-08-20] MEDS: Potassium Chloride 20 MEQ TABCR PO (09:07)
[2021-08-20] MEDS: Pantoprazole 40 MG TABCR PO (09:09)
[2021-08-20] MEDS: cefTRIAXone 1 GM/50 ML BAG IVPB (09:13)
[2021-08-20] MEDS: Furosemide 20 MG/2 ML VIAL 40 MG IVP (09:13)
[2021-08-20] MEDS: Polyethylene Glycol 3350 17 GM PACKET PO (09:32)
[2021-08-20 09:36] LABS: Lab Add On Test DONE
[2021-08-20 10:01] LABS: NT-proBNP 1377 pg/mL (<300)
[2021-08-20] MEDS: Insulin Aspart 300 UNITS/3 ML PEN SC ×3 (10:08→17:02)
--- NOTE | 2021-08-20 10:27 | NUR.NOTE ---
CREATIVE DIRECTOR went to get the patient at 1000 per CC order. ICU Nurse Crissy will call Med-Surg when she is ready for the transfer of the patient. Nursing Note:
[2021-08-20] MEDS: Ketorolac 15 MG/ML VIAL IVP (12:10)
--- NOTE | 2021-08-20 15:24 | W.PM.PROGNOT ---
Date of Service Date of service: 08/20/21 Time of Service: 15:25 Assessment and Plan Assessment and plan (1) Fever: Status: Resolved Assessment and plan: Now afebrile. Qualifiers: Fever type: unspecified Qualified Code(s): R50.9 - Fever, unspecified (2) COVID-19: Status: Acute Assessment and plan: Covid in June; not hospitalized. She has been immunized for Covid although not sure if she has had a booster. She is not hypoxic. D/C precautions. (3) Dementia: Status: Chronic Assessment and plan: Now appears back to baseline. Pleasantly confused but not somnolent. Cont memantine and quetiapine. Qualifiers: Dementia type: unspecified type Dementia behavioral disturbance: with behavioral disturbance Qualified Code(s): F03.91 - Unspecified dementia with behavioral disturbance (4) Diabetes mellitus type 2: Status: Chronic Assessment and plan: Not on diabetic meds as outpt. Currently on SS correction dosing insulin. Diabetic diet. (5) Atrial fibrillation: Status: Chronic Assessment and plan: Cont Pradaxa and metoprolol. (6) Pulmonary edema: Status: Acute Assessment and plan: Noted on CXR. On lasix 40mg po daily. Give 40mg IV today and return to 40mg daily tomorrow. Not hypoxic. No cough. (7) Leukocytosis: Status: Acute Assessment and plan: Presented with elevated WBC count and started on Rocephin and doxycycline. Procalcitonin of 0.4. WBC count now down to 11.5. Will likely d/c tomorrow on a course of antibiotics. (8) Arthritis of shoulder region, right, degenerative: Status: Acute Assessment and plan: No fx or dislocation on xrays. No DVT seen on US. Given a single dose of toradol and feels better. Subjective Subjective Patient reports: tolerating a regular diet and afebrile; denies nausea or vomiting Interval history since last seen: Confused but very animated and conversant. Exam Const General: cooperative, no acute distress and not ill appearing Nutritional Appearance: overweight Orientation: confused [facility] Head: normal to inspection, normocephalic and atraumatic Mouth: oral mucosae normal Eyes General: appearance normal, both eyes and all related structures Sclera: sclerae normal Neck Neck: normal visual inspection, no lymphadenopathy and no JVD Thyroid: thyroid normal Resp Auscultation: clear to auscultation bilaterally, no rales and no wheezes Cardio Rate: regular rate Rhythm: abnormal rhythm Heart Sounds: S1 normal, S2 normal, no gallops and no murmurs GI Palpation: soft, no hepatosplenomegaly, no masses and nontender Skin General skin exam: no rashes or lesions noted Neuro General: moves all extremities Cranial Nerves: facial strength normal Speech: speech normal (articulates but much of her verbage is nonsensical. ) Extrem General: normal to inspection, no cyanosis and no edema Objective Last Vital Signs Temp 35.8 C L 08/20/21 14:58 Pulse 86 08/20/21 14:58 Resp 16 08/20/21 14:58 BP 110/63 08/20/21 14:58 Pulse Ox 93 08/20/21 14:58 Laboratory Results - last 24 hr 08/19/21 08/19/21 08/19/21 16:30 16:30 18:55 WBC 17.89 H RBC 4.55 Hgb 13.1 Hct 41.7 MCV 91.6 MCH 28.8 MCHC 31.4 L RDW 14.3 Plt Count 379 MPV 9.6 Immature Gran % 0.0 Neutrophils % 81.0 Lymphocytes % 12.0 Monocytes % 7.0 Eosinophils % 0.0 Basophils % 0.0 Nucleated RBC % 0 Absolute Neutrophils 14.49 H Absolute Lymphocytes 2.15 Absolute Monocytes 1.25 H Absolute Eosinophils 0.00 Absolute Basophils 0.00 RBC Morphology Normal D-Dimer Sodium 137 Potassium 4.3 Chloride 100 Carbon Dioxide 27.9 Anion Gap 9.1 BUN 16 Creatinine 1.2 H Estimated GFR/1.73 m2 42.80 Glucose 240 H Calcium 9.1 Magnesium 2.1 Total Bilirubin 0.4 AST 22 ALT 16 Alkaline Phosphatase 75 Troponin I < 50 C-Reactive Protein NT-Pro-B Natriuret Pep Total Protein 8.0 Albumin 2.9 L Procalcitonin Urine Color Yellow Urine Clarity Clear Urine pH 6.0 Ur Specific [place] 1.015 Urine Protein Negative Urine Ketones Negative Urine Blood Small H Urine Nitrite Negative Urine Bilirubin Negative Urine Urobilinogen 0.2 Ur Leukocyte Esterase Negative Urine RBC 3-5 H Urine WBC 0-2 Ur Epithelial Cells Negative Urine Crystals Negative Urine Bacteria Negative Urine Casts Negative Urine Mucus Negative Urine Other Negative Ur Culture Indicated? No Urine Glucose Negative COVID-19 Source SARS-CoV-2 (PCR) Influenza Type A (PCR) Influenza Type B (PCR) RSV (PCR) Add-On Test Request 08/19/21 08/19/21 08/20/21 19:46 19:51 06:10 WBC RBC Hgb Hct MCV MCH MCHC RDW Plt Count MPV Immature Gran % Neutrophils % Lymphocytes % Monocytes % Eosinophils % Basophils % Nucleated RBC % Absolute Neutrophils Absolute Lymphocytes Absolute Monocytes Absolute Eosinophils Absolute Basophils RBC Morphology D-Dimer Sodium 142 Potassium 3.2 L D Chloride 105 Carbon Dioxide 28.0 Anion Gap 9.0 BUN 13 Creatinine 0.9 Estimated GFR/1.73 m2 59.65 Glucose 137 H D Calcium 8.8 Magnesium Total Bilirubin 0.3 AST 16 ALT 10 L Alkaline Phosphatase 65 Troponin I < 50 C-Reactive Protein > 25.00 H NT-Pro-B Natriuret Pep Total Protein 6.7 Albumin 2.3 L Procalcitonin Urine Color Urine Clarity Urine pH Ur Specific [place] Urine Protein Urine Ketones Urine Blood Urine Nitrite Urine Bilirubin Urine Urobilinogen Ur Leukocyte Esterase Urine RBC Urine WBC Ur Epithelial Cells Urine Crystals Urine Bacteria Urine Casts Urine Mucus Urine Other Ur Culture Indicated? Urine Glucose COVID-19 Source Not Applicable SARS-CoV-2 (PCR) Positive A Influenza Type A (PCR) Negative Influenza Type B (PCR) Negative RSV (PCR) Negative Add-On Test Request 08/20/21 08/20/21 08/20/21 06:10 06:10 06:10 WBC 11.50 H D RBC 3.92 L Hgb 11.1 L Hct 35.6 L MCV 90.8 MCH 28.3 MCHC 31.2 L RDW 14.2 Plt Count 329 MPV 9.9 Immature Gran % 0.4 Neutrophils % 68.9 Lymphocytes % 20.1 Monocytes % 10.2 Eosinophils % 0.1 Basophils % 0.3 Nucleated RBC % 0 Absolute Neutrophils 7.92 H Absolute Lymphocytes 2.31 Absolute Monocytes 1.17 H Absolute Eosinophils 0.01 Absolute Basophils 0.03 RBC Morphology D-Dimer 1531 H Sodium Potassium Chloride Carbon Dioxide Anion Gap BUN Creatinine Estimated GFR/1.73 m2 Glucose Calcium Magnesium Total Bilirubin AST ALT Alkaline Phosphatase Troponin I C-Reactive Protein NT-Pro-B Natriuret Pep Total Protein Albumin Procalcitonin 0.4 Urine Color Urine Clarity Urine pH Ur Specific [place] Urine Protein Urine Ketones Urine Blood Urine Nitrite Urine Bilirubin Urine Urobilinogen Ur Leukocyte Esterase Urine RBC Urine WBC Ur Epithelial Cells Urine Crystals Urine Bacteria Urine Casts Urine Mucus Urine Other Ur Culture Indicated? Urine Glucose COVID-19 Source SARS-CoV-2 (PCR) Influenza Type A (PCR) Influenza Type B (PCR) RSV (PCR) Add-On Test Request 08/20/21 08/20/21 06:10 06:10 WBC RBC Hgb Hct MCV MCH MCHC RDW Plt Count MPV Immature Gran % Neutrophils % Lymphocytes % Monocytes % Eosinophils % Basophils % Nucleated RBC % Absolute Neutrophils Absolute Lymphocytes Absolute Monocytes Absolute Eosinophils Absolute Basophils RBC Morphology D-Dimer Sodium Potassium Chloride Carbon Dioxide Anion Gap BUN Creatinine Estimated GFR/1.73 m2 Glucose Calcium Magnesium Total Bilirubin AST ALT Alkaline Phosphatase Troponin I C-Reactive Protein NT-Pro-B Natriuret Pep 1377 H Total Protein Albumin Procalcitonin Urine Color Urine Clarity Urine pH Ur Specific [place] Urine Protein Urine Ketones Urine Blood Urine Nitrite Urine Bilirubin Urine Urobilinogen Ur Leukocyte Esterase Urine RBC Urine WBC Ur Epithelial Cells Urine Crystals Urine Bacteria Urine Casts Urine Mucus Urine Other Ur Culture Indicated? Urine Glucose COVID-19 Source SARS-CoV-2 (PCR) Influenza Type A (PCR) Influenza Type B (PCR) RSV (PCR) Add-On Test Request DONE
--- NOTE | 2021-08-20 15:54 | INITIAL_ITS ---
- If Service Date Differs Date of service: 08/20/21 Time of Service: 15:55 Care Management Initial Assess REASON FOR HOSPITALIZATION:: Covid pnemonia PAST MEDICAL HISTORY/PAST SURGICAL HISTORY:: Medical History . papillara virus. Abnormal auditory perception. Alcoholism in remission. Atrial fibrillation. Hayward esophagus. Hayward's esophagus. Carpal tunnel syndrome. cervical cancer in situ. 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 Diabetes mellitus. DJD (degenerative joint disease). Essential hypertension. Gastroesophageal reflux disease. h/o cervical cancer in situ. History of tobacco use. HPV test positive. Hypercholesterolemia. Hyperlipidemia. left ankle fracture. Lesion of ulnar nerve. NEUROPATHY. Osteoarthritis of left knee (07/12/14). Primary osteoarthritis of right knee. Right knee pain. Sensorineural hearing loss, bilateral (10/31/14). Urge incontinence. Urgency incontinence (04/06/15). Surgical History . Appendectomy (~1951). Artificial knee joint present (07/12/14). Cholecystectomy (~2005). Colonoscopy - MAC (~2009). EGD - MAC (~2009). H/O surgical procedure. a. several EGDs and colonoscopies with colon adenomas removed. b. left femoral rodding for fx. c. appendectomy. d. cholecystectomy. e. hysterectomy sparing her ovaries. f. bilateral carpal tunnel release. g. t & a. h. 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 Her daughter resides in [place] and her sons in [place], [place]. Homa has baseline dementia and requires supports. CURRENT FUNCTIONAL STATUS:: Homa is not oriented at this time, she is awake but confused. She is cooperative but rambles and is uncomprehensible. ADVANCE DIRECTIVES:: Children: Neva and Francisco as guardians; information on file. Has patient been provided with info about the portal/API?: No Did the patient sign up for the portal?: No CODE STATUS:: DNR/DNI INSURANCE COVERAGE / FINANCIAL ISSUES:: Medicaid. Medicare CURRENT HOME/COMMUNITY SERVICES/EQUIPMENT:: [facility] PRIMARY CARE PHYSICIAN:: Tejal Lane POTENTIAL DISCHARGE NEEDS:: Coordinated return to the [facility]. PATIENT/FAMILY EDUCATION NEEDS:: Review discharge instrutions with [facility]. ANTICIPATED BARRIERS TO DISCHARGE:: None identified. TRANSPORTATION:: EMS due to confusion and 2 assist. PLAN:: Homa will [facility] when ready per MD. She will transport via [facility], coordinated by [facility].
[2021-08-20] MEDS: Normal Saline Flush 10 ML SYR IVP (20:58)
[2021-08-21] MEDS: Levothyroxine 50 MCG TAB PO (06:19)
[2021-08-21 06:23] VITALS: BP 133/84; PULSE 88; RESP 19; TEMP 35.3; O2SAT 94
[2021-08-21] MEDS: Patch Removal 1 EACH TP (06:39)
[2021-08-21] MEDS: Pantoprazole 40 MG TABCR PO (07:37)
[2021-08-21 07:46] VITALS: BP 118/77; PULSE 90; RESP 18; TEMP 35.7; O2SAT 96
[2021-08-21] MEDS: Polyethylene Glycol 3350 17 GM PACKET PO (08:45)
[2021-08-21] MEDS: cefTRIAXone 1 GM/50 ML BAG IVPB (08:46)
[2021-08-21] MEDS: Normal Saline Flush 10 ML SYR IVP (08:47)
[2021-08-21] MEDS: Citalopram 20 MG TAB PO (08:49)
[2021-08-21] MEDS: Memantine 5 MG TAB 10 MG PO (08:49)
[2021-08-21] MEDS: Potassium Chloride 20 MEQ TABCR PO (08:49)
[2021-08-21] MEDS: Donepezil 5 MG TAB 10 MG PO (08:50)
[2021-08-21] MEDS: Acetaminophen 500 MG TAB PO (08:50)
[2021-08-21] MEDS: dilTIAZem CD 120 MG CAPCR PO (08:53)
[2021-08-21] MEDS: Mirabegron 50 MG TABCR PO (08:53)
[2021-08-21] MEDS: QUEtiapine 25 MG TAB 37.5 MG PO (08:54)
[2021-08-21] MEDS: Metoprolol CR 50 MG TABCR 25 MG PO (08:54)
[2021-08-21] MEDS: Dexamethasone 4 MG TAB 6 MG PO (08:55)
[2021-08-21] MEDS: Insulin Aspart 300 UNITS/3 ML PEN SC ×2 (08:56→11:42)
--- NOTE | 2021-08-21 11:31 | CMDISCH_ITS ---
- If Service Date Differs Date of service: 08/21/21 Time of Service: 11:31 LACE Index Scoring Tool - Questions: Length of Stay (in days): 2 Acuity (Admit via E.D.?): Yes Comorbidities: Diabetes w/o Complication, Dementia E.D. Visits: 2 - Answers: Total Score: 12 Risk of Readmission: High Risk Care Management Discharge Reason for Hospitalization: Covid pnemonia Discharge Plan: Homa returned to the [facility] today where she resides. She will transport via [employer] [facility] [employer], coordinated by CM. She will follow up with facility providers and her discharge plan of care. Patient/Family Education Needs: Review discharge instructions and limitations, discussion of self care needs including ask me three and goals of care. Services Needed at Discharge: Chcf Facility (The [facility]), Transportation ([employer] [facility] [employer])
--- NOTE | 2021-08-21 11:45 | DSE_ITS ---
Date of service: 08/21/21 Time of Service: 11:46 DS: Diagnosis Discharge Diagnosis (1) Fever: Status: Resolved (2) COVID-19: Status: Acute (3) Dementia: Status: Chronic (4) Diabetes mellitus type 2: Status: Chronic (5) Atrial fibrillation: Status: Chronic (6) Pulmonary edema: Status: Acute (7) Leukocytosis: Status: Acute (8) Arthritis of shoulder region, right, degenerative: Status: Acute Discharge Plan Disposition Patient Disposition: [facility] Condition: Good Discharge Details Reason For Visit: Pneumonia Admit Date/Time: 08/19/21 21:38 Admit Provider: Tino Rodney Attending Provider: Tino Rodney Primary Care Provider: Tejal Lane Hospital Course Hospital Course: This 86-year-old female presented to the emergency department with a fever to 38 degrees.? She also does complain of some right arm pain which has been fairly long standing. No known injury/trauma.? She lives at the [facility] which is a alf facility.? She was found to have an elevated white blood cell count and a possible pneumonia on x-ray (vs pulmonary edema.? Her Covid test turned out positive by PCR testing but known to have Covid earlier in June of this year. She has been immunized.? She has a history of dementia for many years but her mental status did not change today according to the staff at the [facility].?She was started on ceftriaxone and doxycycline for a community-acquired pneumonia.? Her family was contacted about her situation and they recommend she be treated for her pneumonia but there is no need to be aggressive with her care.? Her son lives in [facility] and her daughter lives in [place].? Her respiratory status was stable, on room air. She has not been having oxygen desaturation or cough.? She was conversant but clearly had dementia.?An US of her right arm was negative for a DVT. Xrays were negative for fracture/dislocation. She was given a dose of Toradol then scheduled acetaminophen with good pain control. Her WBC count decreased from 17 to 11. She had no temperature elevations. Her appetite was good with normal intake. She will return to the [facility] and finish a course of antibiotics. Home Meds and New Rx's Prescriptions: New cefpodoxime 200 mg tablet 200 mg PO BID Qty: 6 0RF Rx Instructions: must administer with a meal/food Continued citalopram 20 MG tablet 20 mg PO DAILY 0RF levothyroxine 125 MCG tablet 50 mcg PO HS 0RF simvastatin 20 MG tablet 40 mg PO HS 0RF Pradaxa 150 MG capsule 150 mg PO BID 0RF cetirizine 10 MG tablet,chewable 10 mg PO DAILY 0RF metoprolol succinate 50 MG tablet extended release 24 hr 25 mg PO DAILY 0RF furosemide 20 MG tablet 40 mg PO DAILY 0RF Label Comments: Weigh patient daily if greater than 206. give. acetaminophen [Acetaminophen Extra Strength] 500 MG tablet 500 mg PO TID 0RF calcium carbonate 600 MG tablet 600 mg PO DAILY 0RF potassium chloride [Klor-Con M20] 20 MEQ tablet,ER particles/crystals 20 meq PO DAILY 0RF lorazepam 0.5 MG tablet 0.5 mg PO BID PRN0RF pantoprazole 40 MG tablet,delayed release (DR/EC) 40 mg PO DAILY 0RF mirtazapine 15 MG tablet 15 mg PO HS 0RF polyethylene glycol 3350 [Miralax] 17 gram/dose Powder 17 g PO DAILY 0RF cyanocobalamin (vitamin B-12) [Vitamin B-12] 1,000 mcg tablet 1,000 mcg PO DAILY 0RF lidocaine 5 % adhesive patch,medicated 1 patch topical DAILY PRN (Reason: pain (scale score 4-6)) Qty: 15 0RF Rx Instructions: leave on most painful area for up to 12 hrs Myrbetriq 50 MG tablet extended release 24 hr 50 mg PO DAILY 0RF donepezil 10 MG tablet,disintegrating 10 mg PO DAILY 0RF quetiapine 25 mg tablet 37.5 mg PO BID 0RF diltiazem HCl 120 mg capsule,extended release 24 hr 120 mg PO DAILY 0RF memantine 10 mg tablet 10 mg PO QAM 0RF Label Comments: TAKE ONE TABLET BY MOUTH EVERY MORNING cholecalciferol (vitamin D3) [Vitamin D3] 25 mcg (1,000 unit) capsule 2,000 unit PO DAILY 0RF Label Comments: TAKE ONE CAPSULE BY MOUTH EVERY MORNING Discharge Instructions Stand Alone Forms: Nursing Discharge Form Referrals: Tejal Lane [Primary Care Provider] - (Please Follow up with the [facility] Doctor as needed ) Activity:: Activity as Tolerated Equipment/Supplies:: No Equipment Needed Diet:: Resume usual diet Discharge Orders Discharge Orders: Discharge Order (Routine); Ordered 08/21/21 Ordered By: Rahul Ordonez DS: Summary Time Spent with Patient providing and/or coordinating discharge services: Greater than 30 minutes Status at Discharge Functional status at discharge: independent ambulation Overall status at discharge: patient is back to baseline Mental Status: other (Dementia. Pleasant and cooperative. ) Speech and Movement: speech clear Mood: expansive and other (Dementia. Pleasant and cooperative. ) Affect: normal affect Exam Const General: cooperative, no acute distress and not ill appearing Nutritional Appearance: overweight Orientation: confused [facility] Head: normal to inspection, normocephalic and atraumatic Mouth: oral mucosae normal Eyes General: appearance normal, both eyes and all related structures Sclera: sclerae normal Neck Neck: normal visual inspection, no lymphadenopathy and no JVD Thyroid: thyroid normal Resp Auscultation: clear to auscultation bilaterally, no rales and no wheezes Cardio Rate: regular rate Rhythm: abnormal rhythm Heart Sounds: S1 normal, S2 normal, no gallops and no murmurs GI Palpation: soft, no hepatosplenomegaly, no masses and nontender Skin General skin exam: no rashes or lesions noted Neuro General: moves all extremities Cranial Nerves: facial strength normal Speech: speech normal (articulates but much of her verbage is nonsensical. ) Extrem General: normal to inspection, no cyanosis and no edema Psych Mental Status: other (Dementia. Pleasant and cooperative. ) Speech and Movement: speech clear Mood: expansive and other (Dementia. Pleasant and cooperative. ) Affect: normal affect DS: Data Vitals/I&O Vitals and I&O: Vital Signs Temperature 35.7 C L 08/21/21 07:46 Temperature Source Tympanic 08/21/21 07:46 Pulse 90 08/21/21 07:46 Pulse Rhythm Regular 08/21/21 04:52 Pulse 104 H 08/19/21 17:00 Respiratory Rate 18 08/21/21 07:46 Respiratory Effort Non-Labored 08/21/21 04:52 Respiratory Depth Normal 08/21/21 04:52 Respiratory Pattern Normal 08/21/21 04:52 Blood Pressure 118/77 08/21/21 07:46 Blood Pressure Mean 58 08/20/21 04:00 Blood Pressure Position Supine 08/19/21 22:58 Pulse Oximetry 96 08/21/21 07:46 Oxygen Delivery Method Room Air 08/21/21 07:46 Oxygen Flow Rate 0 08/21/21 07:46 Pain Level 0 08/21/21 07:46 Intake & Output 08/20/21 08/20/21 08/21/21 11:59 23:59 11:59 Intake Total 420 / 780 360 / 780 260 / 260 Balance 420 / 780 360 / 780 260 / 260 Weight 90.4 kg Intake: IV 300 / 320 20 / 320 20 / 20 Oral 120 / 460 340 / 460 240 / 240 Other: Urine Color Straw Yellow Light Carine Urine Appearance Clear Clear Urine Odor Normal Comment pt incontinent Voiding Methods Diaper Incontinent Diaper Incontinent Data Completed and Pending Labs on day of discharge: Preliminary micro results at discharge 08/19/21 20:13 Blood Culture - Preliminary Blood NO GROWTH 24 HOURS 08/19/21 19:50 Blood Culture - Preliminary Blood NO GROWTH 24 HOURS PFSH All Active Problems Leukocytosis (Acute) Pulmonary edema (Acute) COVID-19 (Acute) Arthritis of shoulder region, right, degenerative (Acute) Closed fracture of right hip (Acute) S/P ORIF with trochanteric nailin05/13/2020 Localized osteoarthritis of right knee (Acute) Physician orders for life-sustaining treatment (POLST) form indicates patient wish for [id number] status (Acute) Palliative care patient (Acute) Dobbertin Dementia (Chronic) Discharge planning issues (Acute) DVT prophylaxis (Acute) Benign hypertension (Chronic) Diabetes mellitus type 2 (Chronic) Now well controlled with hemoglobin A1c less than 6 Atrial fibrillation (Chronic) On Pradaxa Gastroesophageal reflux disease (Chronic) Hypothyroidism (Chronic) Medical History papillara virus Abnormal auditory perception Alcoholism in remission Atrial fibrillation Hayward esophagus Hayward's esophagus Carpal tunnel syndrome cervical cancer in situ 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 Diabetes mellitus DJD (degenerative joint disease) Essential hypertension Gastroesophageal reflux disease h/o cervical cancer in situ History of tobacco use 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 several EGDs and colonoscopies with colon adenomas removed b. left femoral rodding for fx c. appendectomy d. cholecystectomy e. hysterectomy sparing her ovaries f. bilateral carpal tunnel release g. t & a h. 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 Father , Pulm. Emb. at age 51. Personal history of malignant neoplasm colon Sister , muscle degeneration No problems noted. Brother , pneumonia at age 57. Personal history of malignant neoplasm colon Social History Smoking/Tobacco Use Status: Former Tobacco Use Smoking risk assessment performed?: Yes Alcohol Intake: never Drug use: Never Substance use type: does not use Do you feel safe at home: Yes Do you feel safe in your relationship?: Yes
== END 2021-08-21 12:37 | disposition designated cancer center or children's hospital (05) | DRG 193 ==
LOC: ER 17:35 → ICU 22:32 → MS 08-20 11:09
PROVIDERS: Family Medicine; Admitting Provider Family Medicine; Emergency Provider Physician Assistant; PCP Family Medicine; Visit Provider Family Medicine
DX: J18.9 Pneumonia, unspecified organism (principal); J81.0 Acute pulmonary edema; U07.1 COVID-19; F03.91 Unspecified dementia, unspecified severity, with behavioral disturbance; M19.011 Primary osteoarthritis, right shoulder; I10 Essential (primary) hypertension; I48.91 Unspecified atrial fibrillation; E03.9 Hypothyroidism, unspecified; K21.9 Gastro-esophageal reflux disease without esophagitis; Z79.01 Long term (current) use of anticoagulants; Z66 Do not resuscitate; W06.XXXA Fall from bed, initial encounter; Y92.238 Other place in hospital as the place of occurrence of the external cause; S80.212A Abrasion, left knee, initial encounter; F10.21 Alcohol dependence, in remission; Z87.891 Personal history of nicotine dependence; E78.00 Pure hypercholesterolemia, unspecified; E78.5 Hyperlipidemia, unspecified; E11.40 Type 2 diabetes mellitus with diabetic neuropathy, unspecified; H90.3 Sensorineural hearing loss, bilateral; N39.41 Urge incontinence; D72.829 Elevated white blood cell count, unspecified
CPT/HCPCS: 36415; 51701; 80053; 84145; 87040; 87081; 87637; 93005; 96361; 96365; 96366; 96368; 99285; U0003; 70450; 71046; 73060; 73090; 73564; 81003; 81015; 83735; 83880; 84484; 85025; 85379; 86140; 93010; 93971; 99222; 99232; 99239; J0131; J0248; J0696; J1885; J1941; J3490; J8540

== ENCOUNTER 2021-08-27 12:57 | Outpatient (REF) | payer MEDICARE, MEDICAID, SELFPAY ==
[2021-08-27 14:13] LABS: Abs Immature Grans 0.05 10^3/uL (0.0-0.06); Absolute Basophil Count 0.04 10^3/uL (0.0-0.2); Absolute Eosinophil Count 0.39 10^3/uL (0.0-0.7); Absolute Lymphocyte Count 2.16 10^3/uL (1.2-3.4); Absolute Monocyte Count 0.79 10^3/uL (0.1-0.8); Absolute Neutrophil Count 6.43 10^3/uL (1.2-6.7); Basophils % 0.4; HCT 43.1 % (36.0-46.0); HGB 13.4 g/dL (11.2-15.7); Immature Grans % 0.5; Lymphocytes % 21.9; MCH 28.2 pg (27.0-33.0); MCHC 31.1 % (32.0-36.0); MCV 90.7 fL (80-95); Neutrophils % 65.2; Nucleated RBC 0 %; RBC 4.75 10^6/uL (3.93-5.22); RDW 14.3 % (11.7-14.6); WBC 9.86 10^3/uL (4.4-10.8)
== END 2021-08-27 12:58 | disposition home or self-care (01) ==
LOC: LBN 12:57
PROVIDERS: PCP Family Medicine; Visit Provider Nurse Practitioner Gerontology
DX: J81.1 Chronic pulmonary edema (principal); I10 Essential (primary) hypertension; U07.1 COVID-19; E11.65 Type 2 diabetes mellitus with hyperglycemia; F01.50 Vascular dementia, unspecified severity, without behavioral disturbance, psychotic disturbance, mood disturbance, and anxiety
CPT/HCPCS: 85025

== ENCOUNTER 2021-09-10 16:50 | Outpatient (REF) | payer MEDICARE, MEDICAID, SELFPAY ==
[2021-09-10 17:52] LABS: Hemoglobin A1C 7.4 % (<5.7)
[2021-09-10 18:01] LABS: TSH (W/Ref FT4) 0.81 uIU/mL (0.36-3.74)
== END 2021-09-10 16:51 | disposition home or self-care (01) ==
LOC: LBN 16:50
PROVIDERS: PCP Family Medicine; Visit Provider Nurse Practitioner Gerontology
DX: E11.65 Type 2 diabetes mellitus with hyperglycemia (principal); E03.9 Hypothyroidism, unspecified; F33.40 Major depressive disorder, recurrent, in remission, unspecified
CPT/HCPCS: 83036; 84443

== ENCOUNTER 2021-09-17 15:48 | Outpatient (REF) | payer MEDICARE, MEDICAID, SELFPAY ==
[2021-09-17 19:24] LABS: Anion Gap 10.6 mmol/L (3-11); BUN 11 mg/dL (7-18); CO2 25.4 mmol/L (21.0-32.0); CREATININE 0.9 mg/dL (0.55-1.02); Chloride 105 mmol/L (98-107); Estimated GFR 59.65 (mL/min/1.73m2); Glucose 199 mg/dL (74-106); Potassium 4.4 mmol/L (3.5-5.1); Sodium 141 mmol/L (136-145)
[2021-09-17 19:26] LABS: Abs Immature Grans 0.03 10^3/uL (0.0-0.06); Absolute Basophil Count 0.04 10^3/uL (0.0-0.2); Absolute Eosinophil Count 0.22 10^3/uL (0.0-0.7); Absolute Lymphocyte Count 1.53 10^3/uL (1.2-3.4); Absolute Monocyte Count 0.67 10^3/uL (0.1-0.8); Absolute Neutrophil Count 3.88 10^3/uL (1.2-6.7); Basophils % 0.6; Eosinophils % 3.5; HCT 40.6 % (36.0-46.0); HGB 12.2 g/dL (11.2-15.7); Immature Grans % 0.5; MCH 27.8 pg (27.0-33.0); MCV 92.5 fL (80-95); MPV 10.6 fL (8.0-11.0); Monocytes % 10.5; Neutrophils % 60.9; Nucleated RBC 0 %; Platelet Count 406 10^3/uL (130-400); RBC 4.39 10^6/uL (3.93-5.22); RDW 14.9 % (11.7-14.6); RDW-SD 51.8 fL; WBC 6.37 10^3/uL (4.4-10.8)
[2021-09-17 19:39] LABS: Bilirubin Negative (Negative); Blood Negative (Negative); Clarity Clear (Clear); Glucose Negative (Negative); Ketones Negative (Negative); Leukocyte Esterase Negative (Negative); Nitrite Negative (Negative); Urobilinogen 0.2 EU/dL (Up TO 0.2); pH 6.5 (5-8)
== END 2021-09-17 15:49 | disposition home or self-care (01) ==
LOC: LBN 15:48
PROVIDERS: PCP Family Medicine; Visit Provider Nurse Practitioner Gerontology
DX: E11.65 Type 2 diabetes mellitus with hyperglycemia (principal); I48.91 Unspecified atrial fibrillation; R53.1 Weakness; F33.40 Major depressive disorder, recurrent, in remission, unspecified
CPT/HCPCS: 80048; 81003; 85025; 87086

== ENCOUNTER → 2021-10-15 09:29 | Outpatient (BNVA) | payer MEDICARE, MEDICAID, SELFPAY | PROVIDERS: PCP Family Medicine; Referring Provider Family Medicine; Visit Provider Student in an Organized Health Care Education/Training Program | DX: M12.811 Other specific arthropathies, not elsewhere classified, right shoulder | CPT/HCPCS: 99203; 99213 ==

== ENCOUNTER 2021-12-17 16:12 | Outpatient (REF) | payer MEDICARE, MEDICAID, SELFPAY ==
--- OUTSIDE RECORDS SUMMARY | 2021-12-17 16:15 | XMS_ITS ---
:1935 Author Organization [facility] Address [address] [place] [address] Care Team Providers Name Role Phone Sergio Davey Unavailable Unavailable PROBLEMS Type Condition ICD9-CM Code [id number] Code Onset Condition SNO MED Code Dates Status Problem Overactive N32.81 Active [id number] bladder ALLERGIES No Known Allergies ENCOUNTERS Encounter Location Date Diagnosis [facility] [address] [facility] Jun, [place] [address] [facility] [address] [facility] Jun, [place] [address] SURGERY [address] [facility] Jun, [place] [address] [address] [address] [facility] Jun, [place] [address] ORTHOPEDIC OFFICE [address] [facility] Jun, [place] [address] [facility] [address] [facility] Apr, Overactive bladder N32.81 [place] [address] [facility] [address] [facility] Dec, [place] [address] N39.41 [facility] [address] [facility] Nov, [place] [address] [address] [address] [facility] Nov, [place] [address] [address] [facility] Nov, [place] [address] [place] [facility] [address] [facility] October, [place] [address] [facility] [address] [facility] October, [place] [address] N39.41 ORTHOPEDIC OFFICE [address] [facility] October, [place] [address] ORTHOPEDIC OFFICE [address] [facility] October, [place] [address] IMMUNIZATIONS No Known Immunizations SOCIAL HISTORY Qualifiers [...] patient chart, discuss interstim, pt called to [facility], will call back to r/s, Pt wants to see Tamica on another day Insurance Providers [facility]ly [facility] Health Member Patient Patient Patient Patient Patient Subscriber Subscriber Subscriber Group Insurance Plan Plan Plan Plan ID Relationship Address Phone Name Date of ID Name Date of No Type Insurance Insurance Insurance Coverage to Subscriber Address Phone Name Dates SELF PAY [address] ST[address] SELF PAY self [place] [id number] [place] [id number] INSURANCE S-MEDICAID EDS [id number] S-MEDICAID self ROB [id number] 20 [id number] [place] [address] [place] [employer] [facility] [id number] MEDICAID EDS MEDICAID self [place] [id number] [place] [facility] [id number] MEDICARE 3000 [address] MEDICARE self P[place] [id number] [facility] [id number]
[2021-12-17 17:27] LABS: Abs Immature Grans 0.06 10^3/uL (0.0-0.06); Absolute Eosinophil Count 0.18 10^3/uL (0.0-0.7); Absolute Lymphocyte Count 1.58 10^3/uL (1.2-3.4); Basophils % 0.4; Eosinophils % 1.6; HCT 40.2 % (36.0-46.0); HGB 12.5 g/dL (11.2-15.7); Immature Grans % 0.5; MCH 28.1 pg (27.0-33.0); MCHC 31.1 % (32.0-36.0); MCV 90 fL (80-95); MPV 11.1 fL (8.0-11.0); Monocytes % 10.6; Neutrophils % 72.9; Platelet Count 296 10^3/uL (130-400); RBC 4.45 10^6/uL (3.93-5.22); RDW 14.8 % (11.7-14.6); RDW-SD 49.1 fL; WBC 11.31 10^3/uL (4.4-10.8)
[2021-12-17 17:36] LABS: Absolute Basophil Count 0.05 10^3/uL (0.0-0.2); Absolute Neutrophil Count 8.24 10^3/uL (1.2-6.7)
[2021-12-17 17:47] LABS: Iron 13 ug/dL (50-170); Total Iron Binding Capacity 330 ug/dL (250-450); Transferrin Sat 4 % (15-50)
[2021-12-17 17:54] LABS: Bilirubin Negative (Negative); Blood Negative (Negative); Clarity Clear (Clear); Glucose Negative (Negative); Ketones Negative (Negative); Leukocyte Esterase Negative (Negative); Nitrite Negative (Negative); Urobilinogen 0.2 EU/dL (Up TO 0.2)
[2021-12-17 18:00] LABS: ALT 16 U/L (14-59); AST 17 U/L (15-37); Albumin 3.6 g/dL (3.4-5.0); Alkaline Phosphatase 85 U/L (46-116); Anion Gap 8.8 mmol/L (3-11); BUN 15 mg/dL (7-18); Bilirubin, Total 0.9 mg/dL (0.2-1.0); CO2 29.2 mmol/L (21.0-32.0); CREATININE 1.1 mg/dL (0.55-1.02); Calcium 8.8 mg/dL (8.5-10.1); Chloride 101 mmol/L (98-107); Estimated GFR 47.32 (mL/min/1.73m2); Ferritin 153 ng/mL (8-252); Glucose 187 mg/dL (74-106); Potassium 3.7 mmol/L (3.5-5.1); Sodium 139 mmol/L (136-145); Total Protein 7.4 g/dL (6.4-8.2)
[2021-12-18 14:39] LABS: NT-proBNP 4110 pg/mL (<300)
== END 2021-12-17 16:13 | disposition home or self-care (01) ==
LOC: LBN 16:12
PROVIDERS: PCP Family Medicine; Visit Provider Nurse Practitioner Gerontology
DX: R29.6 Repeated falls; R53.1 Weakness; F01.50 Vascular dementia, unspecified severity, without behavioral disturbance, psychotic disturbance, mood disturbance, and anxiety; I10 Essential (primary) hypertension; I48.91 Unspecified atrial fibrillation; E11.65 Type 2 diabetes mellitus with hyperglycemia; R41.841 Cognitive communication deficit; R68.89 Other general symptoms and signs; R82.998 Other abnormal findings in urine; I50.9 Heart failure, unspecified
CPT/HCPCS: 80053; 87077; 81003; 82728; 83540; 83550; 83880; 85025; 87086; 87186

== ENCOUNTER 2021-12-24 16:29 | Outpatient (REF) | payer MEDICARE, MEDICAID, SELFPAY ==
[2021-12-24 17:57] LABS: Abs Immature Grans 0.04 10^3/uL (0.0-0.06); Absolute Basophil Count 0.05 10^3/uL (0.0-0.2); Absolute Eosinophil Count 0.14 10^3/uL (0.0-0.7); Absolute Lymphocyte Count 2.22 10^3/uL (1.2-3.4); Absolute Monocyte Count 0.87 10^3/uL (0.1-0.8); Absolute Neutrophil Count 6.83 10^3/uL (1.2-6.7); Basophils % 0.5; Eosinophils % 1.4; HCT 41.5 % (36.0-46.0); HGB 13.1 g/dL (11.2-15.7); Immature Grans % 0.4; Lymphocytes % 21.9; MCH 28.1 pg (27.0-33.0); MCHC 31.6 % (32.0-36.0); MCV 89 fL (80-95); MPV 10.4 fL (8.0-11.0); Monocytes % 8.6; Neutrophils % 67.2; Platelet Count 474 10^3/uL (130-400); RBC 4.66 10^6/uL (3.93-5.22); RDW 14.6 % (11.7-14.6); RDW-SD 47.6 fL; WBC 10.15 10^3/uL (4.4-10.8)
[2021-12-24 18:18] LABS: ALT 20 U/L (14-59); AST 19 U/L (15-37); Albumin 3.5 g/dL (3.4-5.0); Alkaline Phosphatase 100 U/L (46-116); Anion Gap 11.3 mmol/L (3-11); BUN 18 mg/dL (7-18); Bilirubin, Total 0.3 mg/dL (0.2-1.0); CO2 28.7 mmol/L (21.0-32.0); CREATININE 1.1 mg/dL (0.55-1.02); Calcium 9.3 mg/dL (8.5-10.1); Chloride 99 mmol/L (98-107); Estimated GFR 47.32 (mL/min/1.73m2); Glucose 146 mg/dL (74-106); NT-proBNP 1052 pg/mL (<300); Sodium 139 mmol/L (136-145); Total Protein 7.5 g/dL (6.4-8.2)
== END 2021-12-24 16:30 | disposition home or self-care (01) ==
LOC: LBN 16:29
PROVIDERS: PCP Family Medicine; Visit Provider Nurse Practitioner Gerontology
DX: I50.9 Heart failure, unspecified (principal); I10 Essential (primary) hypertension; I48.91 Unspecified atrial fibrillation; R53.1 Weakness
CPT/HCPCS: 80053; 83880; 85025

== ENCOUNTER → 2021-12-25 01:29 | Outpatient (CLI) | payer MEDICARE, MEDICAID, SELFPAY ==
--- NOTE | 2021-12-25 10:21 | DI.CT_ITS ---
Exam(s) CT HEAD WO EXAM: CT HEAD WO CLINICAL HISTORY: CHANGE IN MENTAL STATUS, ? TIA. TECHNIQUE: Imaging Protocol: Axial computed tomography images with coronal and sagittal reformatted images were created and reviewed COMPARISON: CT CT HEAD WO from 08/19/2021 FINDINGS: Ventricles and Extra axial spaces: Normal in size and morphology for the patient's age. Hemorrhage: None. Cerebral parenchyma: Atrophy. White matter changes consistent with small vessel disease. Midline shift: None. Brainstem/Cerebellum: Normal. Calvarium: Normal. Visualized Paranasal sinuses/Mastoids: Clear. IMPRESSION: No acute abnormality. RADIATION DOSE DELIVERED: 1,383.2mGy.cm Total DLP 1,383.2mGy.cm Total DLP DATA REPOSITORY: All CT scans at this facility are submitted to the National Radiology Data Registry (NRDR) Dose Index Registry (DIR) with the [employer] (ACR). RADIATION OPTIMIZATION: All CT scans at this facility use at least one of these dose optimization te chniques: automated exposure control; mA and/or kV adjustment per patient size (includes targeted exa ms where dose is matched to clinical indication); or iterative reconstruction.
== END ==
PROVIDERS: PCP Family Medicine; Visit Provider Nurse Practitioner Gerontology
DX: R41.82 Altered mental status, unspecified (principal)
CPT/HCPCS: 70450

== ENCOUNTER 2021-12-30 15:54 | Outpatient (REF) | payer MEDICARE, MEDICAID, SELFPAY ==
[2021-12-30 17:46] LABS: Abs Immature Grans 0.08 10^3/uL (0.0-0.06); Absolute Basophil Count 0.03 10^3/uL (0.0-0.2); Basophils % 0.2; HCT 36.3 % (36.0-46.0); HGB 11.5 g/dL (11.2-15.7); Immature Grans % 0.5; Lymphocytes % 8.2; MCH 27.9 pg (27.0-33.0); MCHC 31.7 % (32.0-36.0); MCV 88 fL (80-95); MPV 10.5 fL (8.0-11.0); Monocytes % 10.8; Neutrophils % 80.3; Platelet Count 340 10^3/uL (130-400); RBC 4.12 10^6/uL (3.93-5.22); RDW 14.6 % (11.7-14.6); RDW-SD 47.5 fL; WBC 15.43 10^3/uL (4.4-10.8)
[2021-12-30 17:52] LABS: Absolute Lymphocyte Count 1.27 10^3/uL (1.2-3.4); Absolute Monocyte Count 1.67 10^3/uL (0.1-0.8); Absolute Neutrophil Count 12.39 10^3/uL (1.2-6.7)
[2021-12-30 18:17] LABS: Diff Comment Diff Reviewed; RBC Morphology Normal
[2021-12-30 19:29] LABS: Anion Gap 10.6 mmol/L (3-11); BUN 22 mg/dL (7-18); CO2 27.4 mmol/L (21.0-32.0); CREATININE 1.6 mg/dL (0.55-1.02); Calcium 8.4 mg/dL (8.5-10.1); Chloride 101 mmol/L (98-107); Estimated GFR 30.71 (mL/min/1.73m2); Glucose 199 mg/dL (74-106); NT-proBNP 2991 pg/mL (<300); Potassium 3.9 mmol/L (3.5-5.1); Sodium 139 mmol/L (136-145)
[2021-12-30 19:52] LABS: C-Reactive Protein > 25.00 mg/dL (0.0-0.3)
== END 2021-12-30 15:55 | disposition home or self-care (01) ==
LOC: LBN 15:54
PROVIDERS: PCP Family Medicine; Visit Provider Nurse Practitioner Gerontology
DX: M19.011 Primary osteoarthritis, right shoulder (principal); M17.11 Unilateral primary osteoarthritis, right knee; J81.1 Chronic pulmonary edema; R29.6 Repeated falls; F01.51 Vascular dementia, unspecified severity, with behavioral disturbance; M62.81 Muscle weakness (generalized); I10 Essential (primary) hypertension; E11.65 Type 2 diabetes mellitus with hyperglycemia; I48.91 Unspecified atrial fibrillation
CPT/HCPCS: 80048; 83880; 85025; 86140

== ENCOUNTER → 2022-01-03 01:00 | Outpatient (CLI) | payer MEDICARE, MEDICAID, SELFPAY ==
--- NOTE | 2022-01-03 | DI.RAD_ITS ---
Exam(s) XR CHEST 2V PA LATERAL EXAM: XR CHEST 2V PA LATERAL CLINICAL HISTORY: (VO) COUGH, FEVER, ELEVATED WBC TECHNIQUE: 2D digital imaging was performed of the chest. Two images were obtained. PA and lateral views were obtained. COMPARISON: CR,XR XR CHEST 2V PA LATERAL from 08/19/2021 FINDINGS: MEDIASTINUM: Normal. HEART: Mild cardiomegaly. PULMONARY VASCULATURE: Normal. LUNGS: Clear. PLEURAL SPACE: No pleural effusion or pneumothorax. BONE:Within normal limits for the patient's age. OTHER FINDINGS:Normal. IMPRESSION: No acute pulmonary findings. DATA REPOSITORY: RADIATION DOSE DELIVERED:
--- OUTSIDE RECORDS SUMMARY | 2022-01-03 01:01 | XMS_ITS ---
:1935 Author Organization [facility] Address [address] [place] [address] Care Team Providers Name Role Phone Sergio Davey Unavailable Unavailable PROBLEMS Type Condition ICD9-CM Code XFH05-XV Code Onset Condition SNO MED Code Dates Status Problem Overactive N32.81 Active [id number] bladder ALLERGIES No Known Allergies ENCOUNTERS Encounter Location Date Diagnosis [facility] [address] [facility] Jun, [place] [address] [facility] [address] [facility] Jun, [place] [address] SURGERY [address] [facility] Jun, [place] [address] SURGERY [address] [facility] Jun, [place] [address] ORTHOPEDIC OFFICE [address] [facility] Jun, [place] [address] [facility] [address] [facility] Apr, Overactive bladder N32.81 [place] [address] [facility] [address] [facility] Dec, [place] [address] N39.41 [facility] [address] [facility] Nov, [place] [address] SURGERY [address] [facility] Nov, [place] [address] SUR[facility]ERY [address] [facility] Nov, [place] [address] [place] [facility] [address] [facility] October, [place] [address] [facility] [address] [facility] October, [place] [address] N39.41 ORTHOPEDIC OFFICE [address] [facility] October, [place] [address] ORTHOPEDIC OFFICE [address] [facility] October, [place] [address] IMMUNIZATIONS No Known Immunizations SOCIAL HISTORY Qualifiers [...] patient chart, discuss interstim, pt called to [facility], will call back to r/s, Pt wants to see Tamica on another day Insurance Providers [facility] Health Member Patient Patient Patient Patient Patient Subscriber Subscriber Subscriber Group Insurance Plan Plan Plan Plan ID Relationship Address Phone Name Date of ID Name Date of No Type Insurance Insurance Insurance Coverage to Subscriber Address Phone Name Dates MEDICARE 3000 [place]FF[place] MEDICARE self [place] [id number] [facility] [id number] MEDICAID [place] self [place] [id number] [place] [employer] [facility] [id number] S-MEDICAID EDS [id number] [place] [id number] [place] [employer] [facility] [id number] SELF PAY [address] SELF PAY self [place] [id number] [place] [id number] INSURANCE
== END ==
PROVIDERS: PCP Family Medicine; Visit Provider Nurse Practitioner Gerontology
DX: R05.9 Cough, unspecified (principal); R50.9 Fever, unspecified; D72.829 Elevated white blood cell count, unspecified
CPT/HCPCS: 71046

== ENCOUNTER 2022-01-03 17:18 | Outpatient (REF) | payer MEDICARE, MEDICAID, SELFPAY ==
[2022-01-03 17:57] LABS: Abs Immature Grans 0.08 10^3/uL (0.0-0.06); Absolute Basophil Count 0.05 10^3/uL (0.0-0.2); Absolute Eosinophil Count 0.02 10^3/uL (0.0-0.7); Absolute Lymphocyte Count 2.25 10^3/uL (1.2-3.4); Absolute Monocyte Count 1.16 10^3/uL (0.1-0.8); Absolute Neutrophil Count 5.39 10^3/uL (1.2-6.7); Basophils % 0.6; Eosinophils % 0.2; HCT 38.9 % (36.0-46.0); HGB 12.5 g/dL (11.2-15.7); Immature Grans % 0.9; Lymphocytes % 25.1; MCH 27.4 pg (27.0-33.0); MCHC 32.1 % (32.0-36.0); MCV 85 fL (80-95); MPV 10.7 fL (8.0-11.0); Neutrophils % 60.2; Platelet Count 485 10^3/uL (130-400); RBC 4.56 10^6/uL (3.93-5.22); RDW 14.7 % (11.7-14.6); RDW-SD 45.8 fL; WBC 8.95 10^3/uL (4.4-10.8)
[2022-01-03 18:22] LABS: Anion Gap 11.9 mmol/L (3-11); BUN 35 mg/dL (7-18); CO2 29.1 mmol/L (21.0-32.0); CREATININE 1.6 mg/dL (0.55-1.02); Calcium 9.3 mg/dL (8.5-10.1); Chloride 98 mmol/L (98-107); Estimated GFR 30.71 (mL/min/1.73m2); Glucose 147 mg/dL (74-106); NT-proBNP 1281 pg/mL (<300); Potassium 3.6 mmol/L (3.5-5.1); Sodium 139 mmol/L (136-145)
== END 2022-01-03 17:19 | disposition home or self-care (01) ==
LOC: LBN 17:18
PROVIDERS: PCP Family Medicine; Visit Provider Nurse Practitioner Gerontology
DX: R53.83 Other fatigue (principal); R68.89 Other general symptoms and signs; I50.9 Heart failure, unspecified; I10 Essential (primary) hypertension
CPT/HCPCS: 80048; 83880; 85025

== ENCOUNTER 2022-01-06 13:46 | Outpatient (REF) | payer MEDICARE, MEDICAID, SELFPAY ==
[2022-01-06 18:13] LABS: Abs Immature Grans 0.14 10^3/uL (0.0-0.06); Absolute Basophil Count 0.03 10^3/uL (0.0-0.2); Absolute Eosinophil Count 0.01 10^3/uL (0.0-0.7); Absolute Lymphocyte Count 1.39 10^3/uL (1.2-3.4); Absolute Monocyte Count 1.19 10^3/uL (0.1-0.8); Absolute Neutrophil Count 6.97 10^3/uL (1.2-6.7); Basophils % 0.3; Eosinophils % 0.1; HCT 38.2 % (36.0-46.0); Immature Grans % 1.4; Lymphocytes % 14.3; MCH 27.2 pg (27.0-33.0); MCHC 31.4 % (32.0-36.0); MCV 87 fL (80-95); Monocytes % 12.2; Neutrophils % 71.7; Platelet Count 446 10^3/uL (130-400); RBC 4.41 10^6/uL (3.93-5.22); RDW 15.1 % (11.7-14.6); RDW-SD 47.6 fL; WBC 9.73 10^3/uL (4.4-10.8)
[2022-01-06 18:27] LABS: Anion Gap 8.6 mmol/L (3-11); BUN 22 mg/dL (7-18); CO2 30.4 mmol/L (21.0-32.0); CREATININE 1.5 mg/dL (0.55-1.02); Calcium 8.9 mg/dL (8.5-10.1); Chloride 100 mmol/L (98-107); Estimated GFR 33.08 (mL/min/1.73m2); Glucose 177 mg/dL (74-106); NT-proBNP 1431 pg/mL (<300); Potassium 3.4 mmol/L (3.5-5.1); Sodium 139 mmol/L (136-145)
== END 2022-01-06 13:47 | disposition home or self-care (01) ==
LOC: LBN 13:46
PROVIDERS: PCP Family Medicine; Visit Provider Nurse Practitioner Gerontology
DX: I50.9 Heart failure, unspecified (principal); R53.83 Other fatigue; I10 Essential (primary) hypertension; R68.89 Other general symptoms and signs
CPT/HCPCS: 80048; 83880; 85025

== ENCOUNTER 2022-01-10 13:29 | Observation (INO) | payer MEDICARE, MEDICAID, SELFPAY ==
[2022-01-10] VITALS (9 sets, daily range): BP systolic 68–100; BP diastolic 41–65; PULSE 84–90; RESP 11–16; TEMP 36.7; O2SAT 98–99
--- NOTE | 2022-01-10 13:15 | RT.EKG_ITS ---
APPROVED REPORT Exam: Resting ECG Reason for Exam: SYNCOPE Patient Location: E HR:89 bpm ECG Measurements Heart Rate 89 [place] CO [id number] P [id number] QRSd 123 QRS -69 QT 394 T [id number] QTc 481 Conclusion Atrial fibrillation...V-rate 76-120, irreg A-activity Left ventricular hypertrophy...multiple LVH criteria Nonspecific T abnormalities, inferior leads...T <-0.10mV, II III aVF No Stemi
--- NOTE | 2022-01-10 13:59 | DI.CT_ITS ---
Exam(s) CT HEAD WO EXAM: CT HEAD WO CLINICAL HISTORY: Syncope. TECHNIQUE: Imaging Protocol: Axial computed tomography images with coronal and sagittal reformatted images were created and reviewed COMPARISON: CT CT HEAD WO from 12/25/2021 FINDINGS: Ventricles and Extra axial spaces: Normal in size and morphology for the patient's age. Hemorrhage: None. Cerebral parenchyma: Severe atrophy. Severe white matter changes consistent with small vessel dise ase. No acute infarct visible. Midline shift: None. Brainstem/Cerebellum: Normal. Calvarium: Normal. Visualized Paranasal sinuses/Mastoids: Clear. IMPRESSION: Atrophy and severe white matter changes of small vessel disease. No acute abnormality. RADIATION DOSE DELIVERED: 775.57mGy.cm Total DLP 775.57mGy.cm Total DLP DATA REPOSITORY: All CT scans at this facility are submitted to the National Radiology Data Registry (NRDR) Dose Index Registry (DIR) with the [employer] (ACR). RADIATION OPTIMIZATION: All CT scans at this facility use at least one of these dose optimization te chniques: automated exposure control; mA and/or kV adjustment per patient size (includes targeted exa ms where dose is matched to clinical indication); or iterative reconstruction.
--- NOTE | 2022-01-10 14:03 | ED.GENADUL_ITS ---
Discharge Plan Disposition Patient Disposition: [facility] INPATIENT Condition: Stable Discharge Details Clinical Impression: Acute UTI, Orthostatic hypotension Admit Date/Time: 01/10/22 17:14 Admit Provider: Phillip Abebe Attending Provider: Phillip Abebe Primary Care Provider: Tejal Lane ED Provider: Phillip Casanova Discharge Data Discharge Date/Time-TO BE ENTERED AT DEPARTURE: 01/10/22 18:27 Medical Decision Making <Whit Turcios NP - Last Filed: 01/13/22 20:16> 86-year-old jenn female presents to the ER via EMS with a chief complaint of dizziness orthostatic hypotension and syncopal episode upon standing. Patient is a DNR she comes from the [facility]. Work-up ordered including EKG, cardiac troponins, urine, In-N-Out catheter, CT head chest abdomen to rule out acute CVA and/or dissection. For syncopal episode. Patient does have a expressive aphasia which is in her per history unknown if this is her baseline or if this is new altered mental status. CBC shows mild leukocytosis white blood cell count 11.63, neutrophils 9.0, creatinine urinalysis is positive for nitrites, trace blood large leukocytes greater than 50 WBCs culture is pending at this time. 1 g Roceph[address] IV ordered. CT head shows no acute infarct, does show some severe white matter changes small vessel disease, no acute abnormality in chest abdomen or pelvis. Care is to be handed off to oncoming provider Phillip Casanova pending CMP and troponin, result. Troponin within normal limits, shows sodium 136 potassium 3.3 BUN 21 creatinine 1.5, glucose 264 magnesium 1.6, alk phos is 122. staff mine warfare officer attempted to get patient up patient was orthostatic and blood pressure dropped to 68/41 max assist patient remained conscious however wanted to lay right back down, heart rate went up to 90. Additional normal saline 500 cc bolus ordered. 1622: Spoke with Neva who is her POA. Shared decision making will recommend admission for orthostatic hypotension and urinary tract infection. 1626: Hospitalist paged. Medical Records Medical records reviewed: Yes I reviewed the patient's medical records. <DANETTE Kelley - Last Filed: 01/10/22 17:19> 86-year-old jenn female presents to the ER via EMS with a chief complaint of dizziness orthostatic hypotension and syncopal episode upon standing. Patient is a DNR she comes from the [facility]. Work-up ordered including EKG, cardiac troponins, urine, In-N-Out catheter, CT head chest abdomen to rule out acute CVA and/or dissection. For syncopal episode. Patient does have a expressive aphasia which is in her per history unknown if this is her baseline or if this is new altered mental status. CBC shows mild leukocytosis white blood cell count 11.63, neutrophils 9.0, creatinine urinalysis is positive for nitrites, trace blood large leukocytes greater than 50 WBCs culture is pending at this time. 1 g Rocephin IV ordered. CT head shows no acute infarct, does show some severe white matter changes small vessel disease, no acute abnormality in chest abdomen or pelvis. Care is to be handed off to oncoming provider Phillip Casanova pending CMP and troponin, result. Troponin within normal limits, shows sodium 136 potassium 3.3 BUN 21 creatinine 1.5, glucose 264 magnesium 1.6, alk phos is 122. staff mine warfare officer attempted to get patient up patient was orthostatic and blood pressure dropped to 68/41 max assist patient remained conscious however wanted to lay right back down, heart rate went up to 90. Additional normal saline 500 cc bolus ordered. 1622: Spoke with Neva who is her POA. Shared decision making will recommend admission for orthostatic hypotension and urinary tract infection. 1626: Hospitalist paged. 3251: Phillip Casanova PA-C. I assumed care of this 86-year-old female from my colleague ELLI Turcios pending admission. I was able to speak with the hospitalist, Dr. Abebe, at approximately 1700 who is agreeable to admission and will write admission orders. This documentation was generated using Pinpointeation system, please disregard any oddities of phrase or misspellings. HPI <Whit Turcios NP - Last Filed: 01/13/22 20:16> General Mode of arrival: EMS . Date/Time Provider Initiated Documentation: 01/10/22 13:31 . Limitations to Documentation: language barrier and altered mental status . Information obtained by: patient, RN/MD ([facility] Staff), RN notes reviewed and old records reviewed . HPI Narrative: 86-year-old pleasant female presents to the ER via EMS with a chief complaint of dizziness orthostatic hypotension and syncopal episode upon standing. Patient is a DNR she comes from the [facility]. She does have a past medical history of displaced intertrochanteric fracture right femur, expressive language disorder, dementia A. fib, type 2 diabetes, hypothyroidism. Per prior report they are unable to obtain a standing blood pressure due to syncopal episode. She has normally needed to wear her left and 1-2 assist with care for ADLs. She recently had her Lasix changed on 21 December to 60 mg a day. Related Data Home Medications Medication Instructions Recorded Confirmed citalopram 20 mg tablet 20 mg PO DAILY 11/02/12 01/10/22 levothyroxine 125 mcg tablet 50 mcg PO HS 11/02/12 01/10/22 furosemide 20 mg tablet 40 mg PO DAILY 07/06/14 01/10/22 metoprolol succinate 50 mg 25 mg PO DAILY 07/06/14 01/10/22 tablet,extended release 24 hr dabigatran etexilate 150 mg 150 mg PO BID 03/13/15 01/10/22 capsule (Pradaxa) acetaminophen 500 mg tablet 500 mg PO TID 12/26/16 01/10/22 (Acetaminophen Extra Strength) calcium carbonate 600 mg calcium 600 mg PO DAILY 12/26/16 01/10/22 (1,500 mg) tablet pantoprazole 40 mg tablet,delayed 40 mg PO DAILY 12/26/16 01/10/22 release potassium chloride 20 mEq 20 meq PO DAILY 12/26/16 01/10/22 tablet,extended release(part/cryst) (Klor-Con M) mirabegron 50 mg tablet,extended 50 mg PO DAILY 09/19/17 01/10/22 release 24 hr (Myrbetriq) cholecalciferol (vitamin D3) 25 2,000 unit PO DAILY 06/05/20 01/10/22 mcg (1,000 unit) capsule (Vitamin D3) memantine 10 mg tablet 10 mg PO QAM 06/05/20 01/10/22 cyanocobalamin (vitamin B-12) 1,000 mcg PO DAILY 08/08/21 01/10/22 1,000 mcg tablet (Vitamin B-12) polyethylene glycol 3350 17 17 g PO DAILY 08/08/21 01/10/22 gram/dose oral powder (Miralax) mirtazapine 15 mg tablet (Remeron) 7.5 mg PO QHS 10/15/21 01/10/22 quetiapine 25 mg tablet 37.5 mg PO BID #0 tabs 01/11/22 simvastatin 20 mg tablet 40 mg PO 1999 #0 tabs 01/11/22 Previous Rx's Medication Instructions Recorded quetiapine 25 mg tablet 37.5 mg PO BID #0 tabs 01/11/22 simvastatin 20 mg tablet 40 mg PO 1999 #0 tabs 01/11/22 Allergies Allergy/AdvReac Type Severity Reaction Status Date / Time No Known Allergies Allergy Unverified 08/08/21 10:24 General Stated Complaint: Dizzy/Sync RODERICK: 3 Review of Systems <Whit Turcios NP - Last Filed: 01/13/22 20:16> ENT Ears, Nose, Mouth, and Throat: Reports dizziness Cardiovascular Cardiovascular: Reports as per HPI, Reports syncope, Denies pedal edema, Denies leg edema and Denies dyspnea Respiratory Respiratory: Denies dyspnea Neurologic Neurologic: Reports dizziness and Reports syncope PFSH <Whit Turcios NP - Last Filed: 01/13/22 20:16> All Active Problems (Updated 01/12/22 @ 00:06 by MYRNA EVERETT) Dementia (Acute) Atrial fibrillation (Chronic) Orthostatic hypotension (Acute) Orthostatic hypotension (Acute) Acute UTI (Acute) Onychomycosis (Acute) Rotator cuff arthropathy of right shoulder (Acute) Arthritis of shoulder region, right, degenerative (Acute) Closed fracture of right hip (Acute) S/P ORIF with trochanteric nailin05/13/2020 Localized osteoarthritis of right knee (Acute) Physician orders for life-sustaining treatment (POLST) form indicates patient wish for [id number] status (Acute) Benign hypertension (Chronic) Gastroesophageal reflux disease (Chronic) Hypothyroidism (Chronic) Medical History papillara virus Abnormal auditory perception Alcoholism in remission Atrial fibrillation Hayward esophagus Hayward's esophagus Carpal tunnel syndrome cervical cancer in situ 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 Diabetes mellitus DJD (degenerative joint disease) Essential hypertension Gastroesophageal reflux disease h/o cervical cancer in situ History of tobacco use 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 several EGDs and colonoscopies with colon adenomas removed b. left femoral rodding for fx c. appendectomy d. cholecystectomy e. hysterectomy sparing her ovaries f. bilateral carpal tunnel release g. t & a h. 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 Father , Pulm. Emb. at age 51. Personal history of malignant neoplasm colon Sister , muscle degeneration No problems noted. Brother , pneumonia at age 57. Personal history of malignant neoplasm colon Social History Smoking/Tobacco Use Status: Former Tobacco Use Smoking risk assessment performed?: Yes Alcohol Intake: never Drug use: Never Substance use type: does not use Current gender identity: female Do you feel safe at home: Yes Do you feel safe in your relationship?: Yes Exam <Whit Turcios NP - Last Filed: 01/13/22 20:16> Narrative Exam Narrative: Constitutional: Alert and oriented x1. Appears stated age. Obese body habitus. Head: Normocephalic, no trauma. Eyes: Pupils PERRL, Red reflex noted, pupils 2 mm bilaterally and brisk eyelids symmetrical without lesions, discharge, or swelling. ENT: Bilateral TM's WNL, External ear normal to inspection, no mastoid TTP, swelling, or erythema, Nasal turbinates WNL, no nasal discharge. Normal dentition, Posterior pharynx WNL, no exudate. Chest: RRR, Normal S1, S2, distal pulses intact. Resp: Lungs clear to auscultation bilaterally, no wheezes, rales, or rhonchi. Abdomen: Soft, non-distended, Normoactive bowel sounds all 4 quads. Musculoskeletal: Normal gait, 5/5 strength to all four extremities. Skin: No suspicious rashes or lesions. Capillary refill less than 2 sec. Neurologic: Expressive aphasia. Word salad. Unable to follow commands. Hematologic/Lymphatic: No ecchymosis, no lymphadenopathy. Course <Whit Turcios NP - Last Filed: 01/13/22 20:16> Vital Signs Vital signs: Vital Signs Pulse 84 01/10/22 13:27 Respiratory Rate 13 01/10/22 13:27 Blood Pressure 93/58 L 01/10/22 13:27 Pulse Oximetry 99 01/10/22 13:27 Temperature Source Skin 01/10/22 13:27 Pulse 84 01/10/22 13:27 Respiratory Rate 14 01/10/22 14:01 Respiratory Effort 01/10/22 14:01 Respiratory Pattern Normal 01/10/22 14:01 Blood Pressure 93/58 L 01/10/22 13:27 Pulse Oximetry 99 01/10/22 13:27 Oxygen Delivery Method Room Air 01/10/22 13:27 Oxygen Flow Rate 0 01/10/22 13:27 Comment 01/10/22 13:27 Sign Out <Whit Turcios NP - Last Filed: 01/13/22 20:16> Sign Out Data: Sign Out Comment: 86-year-old female history of A. fib on Pradaxa, from the [facility] presents with multiple syncopal episodes and orthostatic hypotension has a history of expressive language disorder CVA and a femur fracture., pending request for admission. Orthostatic hypotension, UTI, Given Rocephin 1gm IVPB. Last updated by Whit Turcios NP at 01/10/22 16:57
[2022-01-10 14:15] LABS: Absolute Basophil Count 0.03 10^3/uL (0.0-0.2); Absolute Eosinophil Count 0.02 10^3/uL (0.0-0.7); Absolute Lymphocyte Count 1.41 10^3/uL (1.2-3.4); Absolute Monocyte Count 1.06 10^3/uL (0.1-0.8); Basophils % 0.3; Eosinophils % 0.2; HCT 38.9 % (36.0-46.0); HGB 12.6 g/dL (11.2-15.7); Immature Grans % 0.9; Lymphocytes % 12.1; MCH 27.6 pg (27.0-33.0); MCHC 32.4 % (32.0-36.0); MCV 85 fL (80-95); MPV 9.3 fL (8.0-11.0); Monocytes % 9.1; Neutrophils % 77.4; Platelet Count 370 10^3/uL (130-400); RBC 4.57 10^6/uL (3.93-5.22); RDW 15.2 % (11.7-14.6); RDW-SD 46.6 fL; WBC 11.63 10^3/uL (4.4-10.8)
[2022-01-10 14:30] LABS: Bilirubin Negative (Negative); Blood Trace-lysed (Negative); Clarity Cloudy (Clear); Glucose Negative (Negative); Ketones Negative (Negative); Leukocyte Esterase Large (Negative); Nitrite Positive (Negative); Specific Gravity 1.015 (1.005-1.025); Urobilinogen 0.2 EU/dL (Up TO 0.2); pH 6.5 (5-8)
[2022-01-10 14:35] LABS: INR 1.6 (0.9-1.1); PTT Activated 47.2 sec (21.0-27.5); Prothrombin Time 15.8 sec (9.3-11.0)
[2022-01-10 14:39] LABS: Bacteria Many HPF (Negative); C & S Indicated? Yes; Casts Negative LPF (Negative); Crystals Negative HPF (Negative); Epithelial Cells Rare HPF (Negative); Mucus Negative (Negative); RBC 0-2 HPF (0-2); WBC >50 HPF (0-5)
--- NOTE | 2022-01-10 15:11 | NUR.NOTE ---
Pt currently in imaging.
--- NOTE | 2022-01-10 15:25 | DI.CT_ITS ---
Exam(s) CT CHEST/ABD/PEL WO EXAM: CT CHEST/ABD/PEL WO CLINICAL HISTORY: Syncope, Hypotension. TECHNIQUE: Imaging Protocol: Axial computed tomography images with coronal and sagittal reformatted images were created and reviewed CONTRAST MATERIAL: Noncontrast COMPARISON: CT ABD PELVIS WITH CONTRAST from 12/15/2016 FINDINGS: CHEST: Exam is limited by patient inability to follow breathing instructions. Tracheobronchial tree: Patent where visualized. Mediastinum and Yamel: No dominant adenopathy or fluid collection. Pulmonary parenchyma: Motion. No consolidation or dominant measurable mass. Pleura: No effusion or pneumothorax. Lymph nodes: Within normal limits. Aorta: Thoracic portion non-dilated. Calcification at the arch. Heart: Enlarged. Coronary artery calcifications. Bones: Degenerative changes no lytic or blastic lesions. ABDOMEN: Limited exam due to motion. Liver: Normal density. No measurable mass. Gallbladder and biliary tract: Status post cholecystectomy. Stable dilatation of the common duct. Pancreas: Somewhat atrophic., no abnormal calcifications or inflammatory process. Spleen: Normal. Kidneys: Normal size, contour and axis. No radiodense stones or obstructive uropathy. No masses seen. Adrenal glands: No masses seen. Aorta: Abdominal portion non-dilated. Mural calcification. Lymph nodes: Within normal limits. Soft tissues: Unremarkable. PELVIS: Bladder: Symmetric distention, no gross wall thickening. Bowel: No obstruction or bowel wall thickening. Moderate quantity of stool. Peritoneal cavity: No ascites, collection or mesenteric inflammatory response. Bones: Hardware in both proximal femurs. No evidence of acute spine or pelvic fracture. Reproductive organs: Status post hysterectomy. IMPRESSION: No acute abnormality in the chest abdomen or pelvis.. Results of this exam have been verbally communicated with emergency department provider. RADIATION DOSE DELIVERED: 1,413.79mGy.cm Total DLP DATA REPOSITORY: All CT scans at this facility are submitted to the National Radiology Data Registry (NRDR) Dose Index Registry (DIR) with the [employer] (ACR). RADIATION OPTIMIZATION: All CT scans at this facility use at least one of these dose optimization te chniques: automated exposure control; mA and/or kV adjustment per patient size (includes targeted exa ms where dose is matched to clinical indication); or iterative reconstruction.
[2022-01-10] MEDS: cefTRIAXone 1 GM/50 ML BAG IVPB (15:26)
[2022-01-10 15:46] LABS: ALT 19 U/L (14-59); AST 19 U/L (15-37); Albumin 2.7 g/dL (3.4-5.0); Alkaline Phosphatase 122 U/L (46-116); BUN 21 mg/dL (7-18); Bilirubin, Total 0.6 mg/dL (0.2-1.0); CREATININE 1.5 mg/dL (0.55-1.02); Calcium 8.9 mg/dL (8.5-10.1); Chloride 97 mmol/L (98-107); Estimated GFR 33.08 (mL/min/1.73m2); Glucose 264 mg/dL (74-106); Magnesium 1.6 mg/dL (1.8-2.4); Potassium 3.3 mmol/L (3.5-5.1); Sodium 136 mmol/L (136-145); Total Protein 7.5 g/dL (6.4-8.2); Troponin I < 50 ng/L (<or=60)
--- NOTE | 2022-01-10 16:13 | NUR.NOTE ---
Orthostatic BPs per provider, lying 90/65 HR 85, sitting 94/63 HR 88, standing with 2x assist which is baseline per skilled nursing was 68/41 HR 90s, pt remaineed awake but expressed desire to get back in bed. Pt has baseline confusion per hx so was unable to express if she felt syncopal.
[2022-01-10] MEDS: Normal Saline 500 ML IV (16:19)
[2022-01-10 17:04] LABS: NT-proBNP 823 pg/mL (<300)
--- NOTE | 2022-01-10 17:09 | HPE_ITS ---
Date of service: 01/10/22 Time of Service: 17:09 Assessment and Plan Assessment and plan (1) Acute UTI: Status: Acute Assessment and plan: ceftriaxone given in ED, chart review shows 3 day course of cefpodoxime (? early December and levofloxacin 01/01), will change antibiotic to zosyn while cultures pending. (2) Orthostatic hypotension: Status: Acute Assessment and plan: will hydrate and continue to monitor consider midodrine will hold metoprolol and diltiazem with parameters stop lasix for now (3) Atrial fibrillation: Status: Chronic Assessment and plan: rate is controlled will continue cardizem and lopressor with bp parameters watch heart rate closely on pradaxa (4) Dementia: Status: Acute Assessment and plan: continue home medications anticipate acute delirium in setting of new environment and UTI. increase seroquel if needed. Qualifiers: Dementia behavioral disturbance: with behavioral disturbance Dementia type: unspecified type Qualified Code(s): F03.91 - Unspecified dementia with behavioral disturbance (5) DVT prophylaxis: Status: Acute Assessment and plan: on pradaxa teds (6) Discharge planning issues: Status: Acute Assessment and plan: anticipate discharge to [facility] tomorrow if medically stable. discussed with Dr Abebe History of Present Illness History of Present Illness Chief Complaint: syncope Narrative: This is an 86-year-old pleasant female who presents to the ER via EMS with a chief complaint of dizziness orthostatic hypotension and syncopal episode upon standing.with a past medical history of displaced intertrochanteric fracture right femur, expressive language disorder, dementia A. fib, type 2 diabetes, hypothyroidism.? Per prior report they are unable to obtain a standing blood pressure due to syncopal episode. In the ED she is noted to be orthostatic and found to have a UTI, she was given ceftriaxone and a fluid bolus and request for observation on med/surg. Review of Systems All systems reviewed & are unremarkable except as noted in HPI and below and Unobtainable due to mental status (demented) [facility] All Active Problems (Updated 01/10/22 @ 17:21 by Dorene Medina NP) Dementia (Acute) Atrial fibrillation (Chronic) Orthostatic hypotension (Acute) Orthostatic hypotension (Acute) Acute UTI (Acute) Onychomycosis (Acute) Rotator cuff arthropathy of right shoulder (Acute) Arthritis of shoulder region, right, degenerative (Acute) Closed fracture of right hip (Acute) S/P ORIF with trochanteric nailin05/13/2020 Localized osteoarthritis of right knee (Acute) Physician orders for life-sustaining treatment (POLST) form indicates patient wish for sr-foh-ffewezjeivl status (Acute) Discharge planning issues (Acute) DVT prophylaxis (Acute) Benign hypertension (Chronic) Gastroesophageal reflux disease (Chronic) Hypothyroidism (Chronic) Medical History papillara virus Abnormal auditory perception Alcoholism in remission Atrial fibrillation Hayward esophagus Hayward's esophagus Carpal tunnel syndrome cervical cancer in situ 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 Diabetes mellitus DJD (degenerative joint disease) Essential hypertension Gastroesophageal reflux disease h/o cervical cancer in situ History of tobacco use 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 several EGDs and colonoscopies with colon adenomas removed b. left femoral rodding for fx c. appendectomy d. cholecystectomy e. hysterectomy sparing her ovaries f. bilateral carpal tunnel release g. t & a h. 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 Father , Pulm. Emb. at age 51. Personal history of malignant neoplasm colon Sister , muscle degeneration No problems noted. Brother , pneumonia at age 57. Personal history of malignant neoplasm colon Social History Smoking/Tobacco Use Status: Former Tobacco Use Smoking risk assessment performed?: Yes Alcohol Intake: never Drug use: Never Substance use type: does not use Current gender identity: female Do you feel safe at home: Yes Do you feel safe in your relationship?: Yes Meds Allergies and Home Medications Allergies Allergy/AdvReac Type Severity Reaction Status Date / Time No Known Allergies Allergy Unverified 08/08/21 10:24 Home Medications Medication Instructions Recorded Confirmed Type citalopram 20 mg tablet 20 mg PO DAILY 11/02/12 01/10/22 History levothyroxine 125 mcg tablet 50 mcg PO HS 11/02/12 01/10/22 History furosemide 20 mg tablet 40 mg PO DAILY 07/06/14 01/10/22 History metoprolol succinate 50 mg 25 mg PO DAILY 07/06/14 01/10/22 History tablet,extended release 24 hr dabigatran etexilate 150 mg 150 mg PO BID 03/13/15 01/10/22 History capsule (Pradaxa) acetaminophen 500 mg tablet 500 mg PO TID 12/26/16 01/10/22 History (Acetaminophen Extra Strength) calcium carbonate 600 mg calcium 600 mg PO DAILY 12/26/16 01/10/22 History (1,500 mg) tablet pantoprazole 40 mg tablet,delayed 40 mg PO DAILY 12/26/16 01/10/22 History release potassium chloride 20 mEq 20 meq PO DAILY 12/26/16 01/10/22 History tablet,extended release(part/cryst) (Klor-Con M) mirabegron 50 mg tablet,extended 50 mg PO DAILY 09/19/17 01/10/22 History release 24 hr (Myrbetriq) cholecalciferol (vitamin D3) 25 2,000 unit PO DAILY 06/05/20 01/10/22 History mcg (1,000 unit) capsule (Vitamin D3) memantine 10 mg tablet 10 mg PO QAM 06/05/20 01/10/22 History cyanocobalamin (vitamin B-12) 1,000 mcg PO DAILY 08/08/21 01/10/22 History 1,000 mcg tablet (Vitamin B-12) polyethylene glycol 3350 17 17 g PO DAILY 08/08/21 01/10/22 History gram/dose oral powder (Miralax) mirtazapine 15 mg tablet (Remeron) 7.5 mg PO QHS 10/15/21 01/10/22 History quetiapine 25 mg tablet 37.5 mg PO BID #0 tabs 01/11/22 Rx simvastatin 20 mg tablet 40 mg PO 2000 #0 tabs 01/11/22 Rx Exam Const General: cooperative, comfortable and no acute distress Orientation: alert and confused [facility] Head: normal to inspection, normocephalic and atraumatic Mouth: oral mucosae normal Eyes General: appearance normal, both eyes and all related structures Sclera: sclerae normal Neck Neck: normal visual inspection Resp Auscultation: clear to auscultation bilaterally and no wheezes Cardio Rate: regular rate Rhythm: abnormal rhythm GI Palpation: soft and nontender Skin General skin exam: no rashes or lesions noted Neuro General: moves all extremities Speech: speech normal (articulates but much of her verbage is nonsensical. ) Extrem General: normal to inspection and no edema Psych Mental Status: other (Dementia. Pleasant and cooperative. ) Speech and Movement: speech and movement normal Mood: other (Dementia. Pleasant and cooperative. ) Affect: normal affect Results Labs Result diagrams: 01/11/22 06:02 01/11/22 06:02 Labs: Laboratory Results - last 24 hr 01/10/22 01/10/22 01/10/22 14:09 14:09 14:15 WBC 11.63 H RBC 4.57 Hgb 12.6 Hct 38.9 MCV 85 MCH 27.6 MCHC 32.4 RDW 15.2 H Plt Count 370 MPV 9.3 Immature Gran % 0.9 Neutrophils % 77.4 Lymphocytes % 12.1 Monocytes % 9.1 Eosinophils % 0.2 Basophils % 0.3 Nucleated RBC % 0.0 Absolute Neutrophils 9.00 H Absolute Lymphocytes 1.41 Absolute Monocytes 1.06 H Absolute Eosinophils 0.02 Absolute Basophils 0.03 PT 15.8 H INR 1.6 H APTT 47.2 H Sodium 136 Potassium 3.3 L Chloride 97 L Carbon Dioxide 30.0 Anion Gap 9.0 BUN 21 H Creatinine 1.5 H Estimated GFR/1.73 m2 33.08 Glucose 264 H Calcium 8.9 Magnesium 1.6 L Total Bilirubin 0.6 AST 19 ALT 19 Alkaline Phosphatase 122 H Troponin I < 50 NT-Pro-B Natriuret Pep Total Protein 7.5 Albumin 2.7 L Urine Color Urine Clarity Urine pH Ur Specific [place] Urine Protein Urine Ketones Urine Blood Urine Nitrite Urine Bilirubin Urine Urobilinogen Ur Leukocyte Esterase Urine RBC Urine WBC Ur Epithelial Cells Urine Crystals Urine Bacteria Urine Casts Urine Mucus Ur Culture Indicated? Urine Glucose 01/10/22 01/10/22 14:25 16:25 WBC RBC Hgb Hct MCV MCH MCHC RDW Plt Count MPV Immature Gran % Neutrophils % Lymphocytes % Monocytes % Eosinophils % Basophils % Nucleated RBC % Absolute Neutrophils Absolute Lymphocytes Absolute Monocytes Absolute Eosinophils Absolute Basophils PT INR APTT Sodium Potassium Chloride Carbon Dioxide Anion Gap BUN Creatinine Estimated GFR/1.73 m2 Glucose Calcium Magnesium Total Bilirubin AST ALT Alkaline Phosphatase Troponin I NT-Pro-B Natriuret Pep 823 H Total Protein Albumin Urine Color Yellow Urine Clarity Cloudy Urine pH 6.5 Ur Specific [place] 1.015 Urine Protein Negative Urine Ketones Negative Urine Blood Trace-lysed H Urine Nitrite Positive H Urine Bilirubin Negative Urine Urobilinogen 0.2 Ur Leukocyte Esterase Large H Urine RBC 0-2 Urine WBC >50 H Ur Epithelial Cells Rare Urine Crystals Negative Urine Bacteria Many Urine Casts Negative Urine Mucus Negative Ur Culture Indicated? Yes Urine Glucose Negative Last Vital Signs Pulse 85 01/10/22 16:28 Resp 14 01/10/22 14:01 BP 100/53 L 01/10/22 16:28 Pulse Ox 99 01/10/22 13:27
[2022-01-10 18:07] LABS: Troponin I < 50 ng/L (<or=60)
[2022-01-10 18:20] LABS: Source Nasal/Nares
[2022-01-10] MEDS: PIPERACILLIN/TAZO 3.375 GM in Normal Saline 50 ML IVPB ×2 (18:20→23:23)
[2022-01-10 19:13] LABS: COVID-19 PCR Negative (Negative)
[2022-01-10] MEDS: Simvastatin 20 MG TAB 40 MG PO (20:18)
[2022-01-10] MEDS: Acetaminophen 500 MG TAB PO (20:19)
[2022-01-10] MEDS: QUEtiapine 25 MG TAB 37.5 MG PO (20:19)
[2022-01-10] MEDS: Normal Saline 1,000 ML 125 ML IV (20:20)
[2022-01-10] MEDS: Normal Saline Flush 10 ML SYR IVP (20:20)
[2022-01-10] MEDS: Potassium Chloride 20 MEQ TABCR PO (21:51)
[2022-01-10] MEDS: Levothyroxine 50 MCG TAB PO (21:52)
[2022-01-10] MEDS: Mirtazapine 15 MG TAB 7.5 MG PO (21:52)
[2022-01-10] MEDS: MAGNESIUM SULFATE 1 GM/100 ML BAG IVPB (21:54)
[2022-01-11 03:30] VITALS: BP 96/58; PULSE 71; RESP 18; TEMP 36; O2SAT 98
[2022-01-11] MEDS: PIPERACILLIN/TAZO 3.375 GM in Normal Saline 50 ML IVPB ×2 (05:08→12:14)
[2022-01-11 06:55] LABS: Abs Immature Grans 0.08 10^3/uL (0.0-0.06); Absolute Basophil Count 0.05 10^3/uL (0.0-0.2); Absolute Lymphocyte Count 2.78 10^3/uL (1.2-3.4); Absolute Monocyte Count 0.77 10^3/uL (0.1-0.8); Absolute Neutrophil Count 4.16 10^3/uL (1.2-6.7); Basophils % 0.6; Eosinophils % 1.3; HCT 34.8 % (36.0-46.0); HGB 11.1 g/dL (11.2-15.7); MCH 27.2 pg (27.0-33.0); MCHC 31.9 % (32.0-36.0); MCV 85 fL (80-95); MPV 9.5 fL (8.0-11.0); Monocytes % 9.7; Neutrophils % 52.4; Platelet Count 338 10^3/uL (130-400); RBC 4.08 10^6/uL (3.93-5.22); RDW 15.5 % (11.7-14.6); RDW-SD 47.9 fL; WBC 7.94 10^3/uL (4.4-10.8)
[2022-01-11 07:11] LABS: Anion Gap 6.6 mmol/L (3-11); BUN 17 mg/dL (7-18); CO2 28.4 mmol/L (21.0-32.0); CREATININE 1.2 mg/dL (0.55-1.02); Calcium 8.4 mg/dL (8.5-10.1); Chloride 105 mmol/L (98-107); Glucose 126 mg/dL (74-106); Magnesium 1.9 mg/dL (1.8-2.4); Potassium 3.1 mmol/L (3.5-5.1); Sodium 140 mmol/L (136-145)
[2022-01-11 07:30] VITALS: BP 95/62; PULSE 75; RESP 14; TEMP 36.1; O2SAT 99
[2022-01-11] MEDS: Polyethylene Glycol 3350 17 GM PACKET PO (10:29)
[2022-01-11] MEDS: Potassium Chloride Liquid 20 MEQ PKT 40 MEQ PO (10:29)
[2022-01-11] MEDS: Normal Saline Flush 10 ML SYR IVP (10:30)
[2022-01-11] MEDS: Citalopram 20 MG TAB PO (10:31)
[2022-01-11] MEDS: Mirabegron 25 MG TABCR 50 MG PO (10:31)
[2022-01-11] MEDS: Acetaminophen 500 MG TAB PO ×2 (10:31→13:47)
[2022-01-11] MEDS: Potassium Chloride 20 MEQ TABCR PO (10:33)
[2022-01-11] MEDS: Donepezil 5 MG TAB 10 MG PO (10:33)
[2022-01-11] MEDS: Cetirizine 10 MG TAB PO (10:33)
[2022-01-11] MEDS: Pantoprazole 40 MG TABCR PO (10:33)
[2022-01-11] MEDS: QUEtiapine 25 MG TAB 37.5 MG PO (10:33)
[2022-01-11] MEDS: Memantine 5 MG TAB 10 MG PO (10:33)
[2022-01-11] MEDS: Potassium Chloride Liquid 20 MEQ PKT PO (13:47)
[2022-01-11 13:50] VITALS: BP 102/64; BP 108/71; PULSE 86; PULSE 91
--- NOTE | 2022-01-11 14:20 | W.PM.DS.N ---
Date of service: 01/11/22 Time of Service: 14:20 DS: Diagnosis Discharge Diagnosis (1) Acute UTI: Status: Acute (2) Orthostatic hypotension: Status: Acute (3) Atrial fibrillation: Status: Chronic (4) Dementia: Status: Acute Discharge Plan Disposition Patient Disposition: [facility] (LEVEL 2) [facility] Condition: Stable Discharge Details Reason For Visit: uti, orthostasis Admit Date/Time: 01/10/22 17:14 Admit Provider: Phillip Abebe Attending Provider: Phillip Abebe Primary Care Provider: Tejal Lane Hospital Course Hospital Course: This is a 86 year old female with history of dementia, recently treated for UTI with cefpodoxime and levaquin per pharmacy check, who presented to the ED after a couple syncopal episodes and found to be hypotensive. There was no known injury. Her work up in the ED did note orthostasis and an ongoing or recurrent UTI. she was also found to be dehydrated. she was given an IV fluid bolus and IV fluids overnight with resolution of her orthostasis. of note her blood pressure baseline appears 90's to low 100's. She was eating and drinking well, taking just over 50 % of her lunch on her own. She was pleasantly demented and thought to be at baseline, no behavioral disturbances. Her antibiotic on admission was broadened d/t recent antibiotic regimens to zosyn. Her urine cultures are growing e coli and after discussion with Dr Abebe, it was decided to administer a one time dose of fosfomycin to treat UTI. There will be no new medication or med changes on discharge. the seroquel and simvastatin are not new medication but resumption as system indicates. she should be offered fluids frequently during the day to avoid dehydration. discharge discussed with Dr Abebe. Home Meds and New Rx's Prescriptions: New quetiapine 25 mg Tablet 37.5 mg PO BID Qty: 0 0RF simvastatin 20 mg Tablet 40 mg PO 1999 Qty: 0 0RF Continued mirtazapine [Remeron] 15 mg tablet 7.5 mg PO QHS citalopram 20 MG tablet 20 mg PO DAILY levothyroxine 125 MCG tablet 50 mcg PO HS dabigatran etexilate [Pradaxa] 150 MG capsule 150 mg PO BID metoprolol succinate 50 MG tablet extended release 24 hr 25 mg PO DAILY furosemide 20 MG tablet 40 mg PO DAILY Label Comments: Weigh patient daily if greater than 206. give. acetaminophen [Acetaminophen Extra Strength] 500 MG tablet 500 mg PO TID calcium carbonate 600 MG tablet 600 mg PO DAILY potassium chloride [Klor-Con M20] 20 MEQ tablet,ER particles/crystals 20 meq PO DAILY pantoprazole 40 MG tablet,delayed release (DR/EC) 40 mg PO DAILY polyethylene glycol 3350 [Miralax] 17 gram/dose Powder 17 g PO DAILY cyanocobalamin (vitamin B-12) [Vitamin B-12] 1,000 mcg tablet 1,000 mcg PO DAILY Myrbetriq 50 MG tablet extended release 24 hr 50 mg PO DAILY memantine 10 mg tablet 10 mg PO QAM Label Comments: TAKE ONE TABLET BY MOUTH EVERY MORNING cholecalciferol (vitamin D3) [Vitamin D3] 25 mcg (1,000 unit) capsule 2,000 unit PO DAILY Label Comments: TAKE ONE CAPSULE BY MOUTH EVERY MORNING Discharge Instructions Instructions: Dehydration (DC), Urinary Tract Infection in Women (DC) Additional Instructions: drink 6-8 glasses of water daily to stay well hydrated your urinary tract infection was treated with fosfomycin, a one dose treatment that should cover your infection. continue usual medications, hold lopressor and cardizem if SBP less than 100 Stand Alone Forms: Nursing Discharge Form Referrals: Tejal Lane [Primary Care Provider] - (routine follow up) Activity:: Activity as Tolerated Equipment/Supplies:: No Equipment Needed Diet:: As Tolerated Discharge Orders Discharge Orders: Discharge Order (Routine); Ordered 01/11/22 Ordered By: Dorene Medina DS: Summary Time Spent with Patient providing and/or coordinating discharge services: Less than 30 minutes Status at Discharge Functional status at discharge: uses cane/walker Overall status at discharge: patient is back to baseline Mental Status: other (Dementia. Pleasant and cooperative. ) Speech and Movement: speech and movement normal Mood: other (Dementia. Pleasant and cooperative. ) Affect: normal affect Exam Const General: cooperative, no acute distress and not ill appearing Orientation: confused [facility] Head: normal to inspection, normocephalic and atraumatic Mouth: oral mucosae normal Eyes General: appearance normal, both eyes and all related structures Sclera: sclerae normal Neck Neck: normal visual inspection Resp Auscultation: clear to auscultation bilaterally and no wheezes Cardio Rate: regular rate Rhythm: abnormal rhythm GI Palpation: soft and nontender Skin General skin exam: no rashes or lesions noted Neuro General: moves all extremities Speech: speech normal (articulates but much of her verbage is nonsensical. ) Extrem General: normal to inspection and no edema Psych Mental Status: other (Dementia. Pleasant and cooperative. ) Speech and Movement: speech and movement normal Mood: other (Dementia. Pleasant and cooperative. ) Affect: normal affect DS: Data Vitals/I&O Vitals and I&O: Vital Signs Temperature 36.1 C L 01/11/22 07:30 Temperature Source Tympanic 01/11/22 07:30 Pulse 86 01/11/22 13:50 Pulse Rhythm Regular 01/11/22 12:41 Respiratory Rate 14 01/11/22 07:30 Respiratory Effort Non-Labored 01/11/22 12:41 Respiratory Depth Normal 01/11/22 12:41 Respiratory Pattern Normal 01/11/22 12:41 Blood Pressure 102/64 01/11/22 13:50 Pulse Oximetry 99 01/11/22 07:30 Oxygen Delivery Method Room Air 01/11/22 07:30 Oxygen Flow Rate 0 01/11/22 07:30 Comment 01/10/22 16:28 Intake & Output 01/10/22 01/11/22 01/11/22 23:59 11:59 23:59 Intake Total 883.333 / 883.333 856.250 / 906.250 50 / 906.250 Balance 883.333 / 883.333 856.250 / 906.250 50 / 906.250 Weight 88.2 kg Intake: IV 883.333 / 883.333 856.250 / 906.250 50 / 906.250 Other: Comment diaper change diaper change Voiding Methods Diaper Diaper Incontinent Data Completed and Pending Labs on day of discharge: Labs from last 24 hours 01/11/22 01/11/22 01/10/22 06:02 06:02 18:12 WBC 7.94 RBC 4.08 Hgb 11.1 L Hct 34.8 L MCV 85 MCH 27.2 MCHC 31.9 L RDW 15.5 H Plt Count 338 MPV 9.5 Immature Gran % 1.0 Neutrophils % 52.4 Lymphocytes % 35.0 Monocytes % 9.7 Eosinophils % 1.3 Basophils % 0.6 Nucleated RBC % 0.0 Absolute Neutrophils 4.16 Absolute Lymphocytes 2.78 Absolute Monocytes 0.77 Absolute Eosinophils 0.10 Absolute Basophils 0.05 PT INR APTT Sodium 140 Potassium 3.1 L Chloride 105 Carbon Dioxide 28.4 Anion Gap 6.6 BUN 17 Creatinine 1.2 H Estimated GFR/1.73 m2 42.80 Glucose 126 H Calcium 8.4 L Magnesium 1.9 Total Bilirubin AST ALT Alkaline Phosphatase Troponin I NT-Pro-B Natriuret Pep Total Protein Albumin Urine Color Urine Clarity Urine pH Ur Specific [place] Urine Protein Urine Ketones Urine Blood Urine Nitrite Urine Bilirubin Urine Urobilinogen Ur Leukocyte Esterase Urine RBC Urine WBC Ur Epithelial Cells Urine Crystals Urine Bacteria Urine Casts Urine Mucus Ur Culture Indicated? Urine Glucose COVID-19 Source Nasal/Nares SARS-CoV-2 (PCR) Negative 01/10/22 01/10/22 01/10/22 17:47 17:04 16:25 WBC RBC Hgb Hct MCV MCH MCHC RDW Plt Count MPV Immature Gran % Neutrophils % Lymphocytes % Monocytes % Eosinophils % Basophils % Nucleated RBC % Absolute Neutrophils Absolute Lymphocytes Absolute Monocytes Absolute Eosinophils Absolute Basophils PT INR APTT Sodium Potassium Chloride Carbon Dioxide Anion Gap BUN Creatinine Estimated GFR/1.73 m2 Glucose Calcium Magnesium Total Bilirubin AST ALT Alkaline Phosphatase Troponin I < 50 Cancelled NT-Pro-B Natriuret Pep 823 H Total Protein Albumin Urine Color Urine Clarity Urine pH Ur Specific [place] Urine Protein Urine Ketones Urine Blood Urine Nitrite Urine Bilirubin Urine Urobilinogen Ur Leukocyte Esterase Urine RBC Urine WBC Ur Epithelial Cells Urine Crystals Urine Bacteria Urine Casts Urine Mucus Ur Culture Indicated? Urine Glucose COVID-19 Source SARS-CoV-2 (PCR) 01/10/22 01/10/22 01/10/22 14:25 14:15 14:09 WBC RBC Hgb Hct MCV MCH MCHC RDW Plt Count MPV Immature Gran % Neutrophils % Lymphocytes % Monocytes % Eosinophils % Basophils % Nucleated RBC % Absolute Neutrophils Absolute Lymphocytes Absolute Monocytes Absolute Eosinophils Absolute Basophils PT 15.8 H INR 1.6 H APTT 47.2 H Sodium 136 Potassium 3.3 L Chloride 97 L Carbon Dioxide 30.0 Anion Gap 9.0 BUN 21 H Creatinine 1.5 H Estimated GFR/1.73 m2 33.08 Glucose 264 H Calcium 8.9 Magnesium 1.6 L Total Bilirubin 0.6 AST 19 ALT 19 Alkaline Phosphatase 122 H Troponin I < 50 NT-Pro-B Natriuret Pep Total Protein 7.5 Albumin 2.7 L Urine Color Yellow Urine Clarity Cloudy Urine pH 6.5 Ur Specific [place] 1.015 Urine Protein Negative Urine Ketones Negative Urine Blood Trace-lysed H Urine Nitrite Positive H Urine Bilirubin Negative Urine Urobilinogen 0.2 Ur Leukocyte Esterase Large H Urine RBC 0-2 Urine WBC >50 H Ur Epithelial Cells Rare Urine Crystals Negative Urine Bacteria Many Urine Casts Negative Urine Mucus Negative Ur Culture Indicated? Yes Urine Glucose Negative COVID-19 Source SARS-CoV-2 (PCR) 01/10/22 18:12 Nose MRSA Screen - Pending Preliminary micro results at discharge 01/10/22 14:25 Urine Culture - Preliminary Urine - Reflex from Ua Escherichia coli 01/10/22 18:12 MRSA Screen - Pending Nose PFSH All Active Problems (Updated 01/10/22 @ 17:21 by Dorene Medina NP) Dementia (Acute) Atrial fibrillation (Chronic) Orthostatic hypotension (Acute) Orthostatic hypotension (Acute) Acute UTI (Acute) Onychomycosis (Acute) Rotator cuff arthropathy of right shoulder (Acute) Arthritis of shoulder region, right, degenerative (Acute) Closed fracture of right hip (Acute) S/P ORIF with trochanteric nailin05/13/2020 Localized osteoarthritis of right knee (Acute) Physician orders for life-sustaining treatment (POLST) form indicates patient wish for [id number]-hjqocwkrowf status (Acute) Discharge planning issues (Acute) DVT prophylaxis (Acute) Benign hypertension (Chronic) Gastroesophageal reflux disease (Chronic) Hypothyroidism (Chronic) Medical History papillara virus Abnormal auditory perception Alcoholism in remission Atrial fibrillation Hayward esophagus Hayward's esophagus Carpal tunnel syndrome cervical cancer in situ 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 Diabetes mellitus DJD (degenerative joint disease) Essential hypertension Gastroesophageal reflux disease h/o cervical cancer in situ History of tobacco use 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 several EGDs and colonoscopies with colon adenomas removed b. left femoral rodding for fx c. appendectomy d. cholecystectomy e. hysterectomy sparing her ovaries f. bilateral carpal tunnel release g. t & a h. 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 Father , Pulm. Emb. at age 51. Personal history of malignant neoplasm colon Sister , muscle degeneration No problems noted. Brother , pneumonia at age 57. Personal history of malignant neoplasm colon Social History Smoking/Tobacco Use Status: Former Tobacco Use Smoking risk assessment performed?: Yes Alcohol Intake: never Drug use: Never Substance use type: does not use Current gender identity: female Do you feel safe at home: Yes Do you feel safe in your relationship?: Yes
[2022-01-11] MEDS: Fosfomycin Tromethamine 3 GM PACKET PO (14:56)
--- NOTE | 2022-01-11 17:36 | PDOC.CMDIS ---
- If Service Date Differs Date of service: 01/11/22 Time of Service: 17:36 LACE Index Scoring Tool - Questions: Length of Stay (in days): 1 Acuity (Admit via E.D.?): Yes Comorbidities: Diabetes w/o Complication, Any Tumor, Dementia E.D. Visits: 3 - Answers: Total Score: 12 Risk of Readmission: High Risk Care Management Discharge Reason for Hospitalization: UTI, Orthostasis Discharge Plan: Return to [facility] via [facility], coordinated by this aligner typewriter. CM spoke with RN at [facility] for coordination of return. Patient/Family Education Needs: Review discharge instructions. Services Needed at Discharge: Long Term Facility (Return to [facility]), Transportation ([facility] )
== END 2022-01-11 15:34 | disposition intermediate care facility (04) ==
LOC: ER 17:55 → MS 18:30
PROVIDERS: Nurse Practitioner Acute Care; Registered Nurse Emergency; Admitting Provider Internal Medicine; Emergency Provider Physician Assistant; PCP Family Medicine; Visit Provider Internal Medicine
DX: N39.0 Urinary tract infection, site not specified (principal); I95.1 Orthostatic hypotension; I48.91 Unspecified atrial fibrillation; F03.91 Unspecified dementia, unspecified severity, with behavioral disturbance; E11.9 Type 2 diabetes mellitus without complications; I67.89 Other cerebrovascular disease; E03.9 Hypothyroidism, unspecified; Z66 Do not resuscitate; Z20.822 Contact with and (suspected) exposure to COVID-19; I10 Essential (primary) hypertension; K21.9 Gastro-esophageal reflux disease without esophagitis; Z79.02 Long term (current) use of antithrombotics/antiplatelets; Z86.73 Personal history of transient ischemic attack (TIA), and cerebral infarction without residual deficits; F80.1 Expressive language disorder; B96.20 Unspecified Escherichia coli [E. coli] as the cause of diseases classified elsewhere
CPT/HCPCS: 36415; 51701; 71250; 80048; 80053; 87077; 87081; 87635; 93005; 96361; 96365; 96366; 96367; 99285; 70450; 74176; 81003; 81015; 83735; 83880; 84484; 85025; 85610; 85730; 87086; 87186; 93010; 99217; 99220; G0378; J0696; J2543; J3475; J3490

== ENCOUNTER 2022-01-14 15:40 | Outpatient (REF) | payer MEDICARE, MEDICAID, SELFPAY ==
[2022-01-14 13:50] LABS: Abs Immature Grans 0.06 10^3/uL (0.0-0.06); Absolute Basophil Count 0.07 10^3/uL (0.0-0.2); Absolute Eosinophil Count 0.09 10^3/uL (0.0-0.7); Absolute Lymphocyte Count 2.63 10^3/uL (1.2-3.4); Absolute Monocyte Count 0.76 10^3/uL (0.1-0.8); Absolute Neutrophil Count 6.21 10^3/uL (1.2-6.7); Basophils % 0.7; Eosinophils % 0.9; HGB 13.7 g/dL (11.2-15.7); Immature Grans % 0.6; Lymphocytes % 26.8; MCH 27.1 pg (27.0-33.0); MCHC 31.1 % (32.0-36.0); MCV 87 fL (80-95); MPV 9.7 fL (8.0-11.0); Monocytes % 7.7; Neutrophils % 63.3; Platelet Count 478 10^3/uL (130-400); RBC 5.05 10^6/uL (3.93-5.22); RDW 15.9 % (11.7-14.6); RDW-SD 50.3 fL; WBC 9.82 10^3/uL (4.4-10.8)
[2022-01-14 14:12] LABS: Anion Gap 6.5 mmol/L (3-11); BUN 13 mg/dL (7-18); CO2 32.5 mmol/L (21.0-32.0); CREATININE 1.2 mg/dL (0.55-1.02); Calcium 9.3 mg/dL (8.5-10.1); Chloride 102 mmol/L (98-107); Glucose 154 mg/dL (74-106); NT-proBNP 1285 pg/mL (<300); Potassium 4.1 mmol/L (3.5-5.1); Sodium 141 mmol/L (136-145)
--- OUTSIDE RECORDS SUMMARY | 2022-01-14 15:41 | XMS_ITS ---
:1935 Author Organization [facility] Address [address] [place] [address] Care Team Providers Name Role Phone Sergio Davey Unavailable Unavailable PROBLEMS Type Condition ICD9-CM Code UYN28-ZA Code Onset Condition SNO MED Code Dates Status Problem Overactive N32.81 Active 259430211 bladder ALLERGIES No Known Allergies ENCOUNTERS Encounter Location Date Diagnosis [facility] [address] [facility] Jun, [place] [address] [facility] [address] [facility] Jun, [place] [address] SURGERY [address] [facility] Jun, [place] [address] SURGERY [address] [facility] Jun, [place] [address] ORTHOPEDIC OFFICE [address] [facility] Jun, [place] [address] [facility] [address] [facility] Apr, Overactive bladder N32.81 [place] [address] [facility] [address] [facility] Dec, [place] [address] N39.41 [facility] Nov, [place] [address] SURGERY [address] [facility] Nov, [place] [address] SURGERY [address] [facility] Nov, [place] [address] [place] [facility] [address] [facility] October, [place] [address] [facility] [address] [facility] October[place] [address] N39.41 ORTHOPEDIC OFFICE [address] [facility] October, [place] [address] ORTHOPEDIC OFFICE [address] [facility] October, [place] [address] IMMUNIZATIONS No Known Immunizations SOCIAL HISTORY Qualifiers [...] patient chart, discuss interstim, [facility], will call back to r/s, Pt wants to see Tamica on another day Insurance Providers [facility] Member Patient Patient Patient Patient Patient Subscriber Subscriber Subscriber Group Insurance Plan Plan Plan Plan ID Relationship Address Phone Name Date of ID Name Date of No Type Insurance Insurance Insurance Coverage to Subscriber Address Phone Name Dates MEDICARE [address] MEDICARE self [place] [id number] [facility] [id number] S-MEDICAID EDS [id number] [place]ID self [place] [id number] [place] [employer] [facility] [id number] SELF PAY [address] SELF PAY [place] ROB [id number] [place] [address] INSURANCE MEDICAID E[place] self [place] [id number] [place] [employer] [facility] [id number]
== END 2022-01-14 15:41 | disposition home or self-care (01) ==
LOC: LBN 15:40
PROVIDERS: PCP Family Medicine; Visit Provider Nurse Practitioner Gerontology
DX: R26.81 Unsteadiness on feet (principal); R29.6 Repeated falls; R68.89 Other general symptoms and signs
CPT/HCPCS: 80048; 83880; 85025